=== PATIENT | female | born 1975 | race Caucasian/White ===

== ENCOUNTER 2017-04-17 20:02 | Emergency (ER) | payer OTHER ==
[2017-04-17] MEDS ORDERED: Ketorolac INJ* 30 MG/ML 1 ML VIAL IV ONE (20:47)
[2017-04-17] MEDS ORDERED: diPHENhydraMINE IV* 50 MG/ML 1 ml VIAL (BENADRYL) IV ONE (20:47)
[2017-04-17] MEDS ORDERED: Ondansetron INJ* 2 MG/ML VIAL IV ONE (20:47)
[2017-04-17] MEDS ORDERED: NS 0.9% 1000 ML* 1,000 ML IV ONE (20:47)
--- NOTE | 2017-04-17 21:19 | ED ---
Crispin Sierra Erika, scribed for Napoleon Marley MD on 04/17/17 at 2042 . Headache - HPI Summary HPI Summary: Patient is a 42-year-old female presenting to the ED with a CC of headache. Patient reports she developed a headache at 15:00 today while she was watching TV. Pain is aggravated by light and loud noises. She also reports neck pain and nausea. Pain is not alleviated by ibuprofen. Pt reports a Hx of two neck surgeries, most recently 2 years ago at [facility]. She states a similar headache after that surgery. 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 Hx Last Menstrual Period: 10/05/16 Onset/Duration: Started hours ago, Still Present Currently Pain Is: Moderate Timing: Constant Character: Typical Headache Radiates to: Neck Aggravating Factor: Bright Lights Allevating Factors: Nothing Associated Signs And Symptoms: Nausea - Allergies/Home Medications Allergies/Adverse Reactions: Allergies Allergy/AdvReac Type Severity Reaction Status Date / Time No Known Allergies Allergy Verified 04/13/17 08:49 PMH/Surg Hx/FS Hx/Imm Hx Endocrine/Hematology History: Reports: Hx Anemia Denies: Hx Diabetes Cardiovascular History: Reports: Hx Hypertension - ON MEDS Denies: Hx Pacemaker/ICD Respiratory History: Denies: Hx Asthma History: Denies: Hx Renal Disease Musculoskeletal History: Reports: Hx Arthritis, Hx Back Problems, Other Musculoskeletal History - ARTHROGRIPOSIS Sensory History: Denies: Hx Hearing Aid Neurological History: Reports: Hx Headaches Comment Only: Other Neuro Impairments/Disorders - PAIN CLINIC PT. Psychiatric History: Reports: Hx Depression Denies: Hx Panic Disorder - Surgical History Surgery Procedure, Year, and Place: [facility] , left hip, , CHOLECYSTECTOMY, breast surgery BLOCKED DUCT, neck surgery x2 PLATES SCREWS, LEFT hip replacement, CONGENITAL LEFT HIP DISLOCATION AND REPAIR - Immunization History Date of Tetanus Vaccine: Unk Date of Influenza Vaccine: 09/25/16 Infectious Disease History: No Infectious Disease History: Reports: History Other Infectious Disease - MENINGITIS Denies: Traveled Outside the [place] in Last 30 Days - Family History Known Family History: Negative: Cardiac Disease - Social History Lives: With Family Alcohol Use: Rare Alcohol Amount: once every 2 months Hx Tobacco Use: Yes Smoking Status (MU): Current Every Day Smoker Type: Cigarettes Amount Used/How Often: 2 cigarettes/day Have You Smoked in the Last Year: Yes Review of Systems Positive: Photophobia Positive: Nausea Positive: Headache - radiating to neck, Weakness - L hand All Other Systems Reviewed And Are Negative: Yes Physical Exam Triage Information Reviewed: Yes Vital Signs On Initial Exam: Initial Vitals Temp Pulse Resp BP Pulse Ox 97.6 F 102 16 154/109 98 04/17/17 20:08 04/17/17 20:08 04/17/17 20:08 04/17/17 20:08 04/17/17 20:08 Vital Signs Reviewed: Yes Appearance: Positive: Well-Appearing, No Pain Distress Skin: Positive: Warm Head/Face: Positive: Normal Head/Face Inspection Eyes: Positive: TRAVIS ENT: Positive: Hearing grossly normal Neck: Positive: Supple Respiratory/Lung Sounds: Positive: Clear to Auscultation, Breath Sounds Present Cardiovascular: Positive: RRR Abdomen Description: Positive: Nontender, Soft Bowel Sounds: Positive: Present Musculoskeletal: Positive: Strength/ROM Intact Neurological: Positive: Sensory/Motor Intact, Alert, Oriented to Person Place, Time, Normal Gait Psychiatric: Positive: Affect/Mood Appropriate - [place] Coma Scale Coma Scale Total: 15 Diagnostics - Vital Signs Vital Signs Temp Pulse Resp BP Pulse Ox 04/17/17 20:08 97.6 F 102 16 154/109 98 - Laboratory Lab Statement: Any lab studies that have been ordered have been reviewed, and results considered in the medical decision making process. Re-Evaluation - Re-Evaluation First Eval Change: Improved Headache Course/Dx - Course Assessment/Plan: Pt is a 42 y/o F presenting to the ED with a CC of headache. Patient had a Brain MRI 3 days ago that showed paranasal sinus mucosal disease in this otherwise normal MRI of the brain. In the ED course, patient was given IV fluids, zofran, Benadryl, and Toradol. Symptoms did not fully resolve, so morphine was ordered, but patient declined and requested a hot towel and discharge. Patient was then discharged home with follow up from her PCP. - Diagnoses Provider Diagnoses: Headache Discharge - Discharge Plan Condition: Improved Disposition: HOME Patient Education Materials: General Headache (ED) Referrals: Mandeep Reyes MD [Primary Care Provider] - Additional Instructions: Follow up with your PCP this week. The documentation as recorded by the Crispin novak Erika accurately reflects the service I personally performed and the decisions made by me, Napoleon Marley MD.
[2017-04-17] MEDS ORDERED: Morphine INJ* 4 MG/ML 1 ML SYRINGE IV ONE (22:20)
[2017-04-17 22:53] VITALS: BP 144/76
== END 2017-04-17 23:15 | disposition home or self-care (01) ==
LOC: ED 20:02
DX: R51 Headache (principal); F17.210 Nicotine dependence, cigarettes, uncomplicated; H53.149 Visual discomfort, unspecified; R11.0 Nausea
CPT/HCPCS: 96374; 96375; 99282; J1200; J1885; J2270; J2405

== ENCOUNTER → 2017-05-30 18:54 | Emergency (ER) | payer OTHER ==
[2017-05-30 19:02] VITALS: BP 150/106
== END | disposition left against medical advice (07) ==
LOC: ED 18:54
DX: R07.9 Chest pain, unspecified (principal); R51 Headache; Z53.21 Procedure and treatment not carried out due to patient leaving prior to being seen by health care provider
CPT/HCPCS: 93005

== ENCOUNTER 2017-09-10 20:31 | Emergency (ER) | payer OTHER ==
[2017-09-10 20:38] VITALS: BP 154/97
--- NOTE | 2017-09-10 20:54 | UC ---
UC General HPI - HPI Summary HPI Summary: 42 year old female presents with complains of sinus congestion, body aches and burning throat. - History of Current Complaint Chief Complaint: UCGeneralIllness Stated Complaint: BODY PAIN Time Seen by Provider: 09/10/17 20:54 Hx Obtained From: Patient Hx Last Menstrual Period: 09/10/17 Onset/Duration: Sudden Onset Onset Severity: Moderate Current Severity: Moderate - Allergy/Home Medications Allergies/Adverse Reactions: Allergies Allergy/AdvReac Type Severity Reaction Status Date / Time No Known Allergies Allergy Verified 08/25/17 10:33 Home Medications: Home Medications Cyclobenzaprine (NF) [Cyclobenzaprine 5 MG (NF)] 5 mg PO TID PRN 09/10/17 [ History Confirmed 09/10/17] Diclofenac [Zorvolex] 18 mg PO 09/10/17 [History] PMH/Surg Hx/FS Hx/Imm Hx Previously Healthy: Yes - Surgical History Surgical History: Yes Surgery Procedure, Year, and Place: [facility] , left hip, , CHOLECYSTECTOMY, breast surgery BLOCKED DUCT, neck surgery x2 PLATES SCREWS, LEFT hip replacement, CONGENITAL LEFT HIP DISLOCATION AND REPAIR - Family History Known Family History: Positive: None, Unknown Negative: Cardiac Disease Family History: not aware of any cardio vascular issues in biological lineage - Social History Alcohol Use: None Alcohol Amount: once every 2 months Substance Use Type: None Substance Use Comment - Amount & Last Used: VERY RARELY, LAST TIME 06/2015 Smoking Status (MU): Former Smoker Type: Cigarettes Amount Used/How Often: 2 cigarettes/day Have You Smoked in the Last Year: Yes When Did the Patient Quit Smoking/Using Tobacco: quit today - 04/04/16 Household Exposure Type: Cigarettes - Immunization History Most Recent Influenza Vaccination: not this season Most Recent Tetanus Shot: UTD Review of Systems Constitutional: Negative Skin: Negative Eyes: Negative ENT: Sore Throat, Sinus Congestion, Sinus Pain/Tenderness Respiratory: Cough Cardiovascular: Negative Gastrointestinal: Negative Genitourinary: Negative Motor: Negative Neurovascular: Negative Musculoskeletal: Negative Neurological: Negative Psychological: Negative All Other Systems Reviewed And Are Negative: Yes Physical Exam Triage Information Reviewed: Yes Appearance: Well-Appearing Vital Signs: Initial Vital Signs Temp 36.7 C 09/10/17 20:34 Pulse 120 09/10/17 20:34 Resp 18 09/10/17 20:34 BP 154/97 09/10/17 20:34 Pulse Ox 100 09/10/17 20:34 Vital Signs Reviewed: Yes Eye Exam: Normal ENT: Positive: Pharyngeal erythema, Nasal congestion, Nasal drainage Dental Exam: Normal Neck exam: Normal Neck: Positive: 1 Respiratory: Positive: Wheezing Cardiovascular Exam: Normal Abdominal Exam: Normal Musculoskeletal Exam: Normal Neurological Exam: Normal Psychological Exam: Normal Skin Exam: Normal Course/Dx - Differential Dx - Multi-Symptom Provider Diagnoses: sinusitis. cough. wheezing Discharge - Discharge Plan Condition: Stable Disposition: HOME Prescriptions: Albuterol HFA INHALER* [Ventolin HFA Inhaler*] 1 puff INH Q6H PRN #1 mdi PRN Reason: Wheezing Amoxicillin/Clavulanate TAB* [Augmentin TAB 875*] 875 mg PO BID #20 tab Methylprednisolone [Medrol Dosepak 4 MG*] 4 mg PO .SEE BROCK INSTRUCTION #21 tab Promethazine-Dm [Promethazine/Dextromethor 6.25-15 mg/5Ml] 1 teasp PO Q8H PRN # 120 ml PRN Reason: Cough Patient Education Materials: Sinusitis (ED), Cold Symptoms (ED), Acute Cough ( ED) Referrals: No Primary Care Phys,NOPCP [Primary Care Provider] -
[2017-09-10] MEDS ORDERED: Amoxicillin/Clavulanate TAB* 875 MG PO ONE (21:36)
[2017-09-10] MEDS ORDERED: guaiFENesin LIQ* 100 MG/5 ML UDC PO ONE (21:37)
[2017-09-10] MEDS ORDERED: predniSONE TAB* 20 MG PO ONE (21:37)
== END 2017-09-10 21:50 | disposition home or self-care (01) ==
LOC: UCEAST 20:31
DX: J32.9 Chronic sinusitis, unspecified (principal); R05 Cough; R06.2 Wheezing
CPT/HCPCS: 87502; 99212; A9270-GY; G0463; J7512

== ENCOUNTER 2017-11-16 17:33 | Emergency (ER) | payer OTHER ==
[2017-11-16] MEDS ORDERED: diPHENhydraMINE IV* 50 MG/ML 1 ml VIAL (BENADRYL) IV ONE (18:40)
[2017-11-16] MEDS ORDERED: NS 0.9% 1000 ML* 1,000 ML IV ONE (18:40)
[2017-11-16] MEDS ORDERED: Ketorolac INJ* 30 MG/ML 1 ML VIAL IV PUSH ONE (18:40)
[2017-11-16] MEDS ORDERED: Metoclopramide IV* 5 MG/ML 2 ML VIAL IV ONE (18:40)
[2017-11-16 19:11] LABS: ABS Basophils 0.2 10^3/ul (0-0.2); ABS Eosinophils 0.3 10^3/ul (0-0.6); ABS Lymphocytes 3.1 10^3/ul (1.0-4.8); ABS Monocytes 0.7 10^3/ul (0-0.8); ABS Neutrophils 8.4 10^3/ul (1.5-7.7); ABS Nucleated RBC 0 10^3/ul; Eosinophil % 2.4 % (0-6); Hematocrit 36 % (35-47); Hemoglobin 12.2 g/dl (12.0-16.0); Lymphocyte % 24.3 % (25-47); Mean Corpuscular HGB Conc 34 g/dl (31-36); Mean Corpuscular Hemoglobin 28 pg (27-31); Mean Corpuscular Volume 83 fL (80-97); Mean Platelet Volume 7 um3 (7.4-10.4); Nucleated Red Blood Cells % 0; Platelet Count 398 10^3/ul (150-450); Red Blood Count 4.39 10^6/ul (4.0-5.4); Red Cell Distribution Width 14 % (10.5-15); White Blood Count 12.6 10^3/ul (3.5-10.8)
[2017-11-16 19:25] LABS: EGFR Non-African American 89.3 (>60)
--- NOTE | 2017-11-16 19:43 | RAD ---
INDICATION: Headache for 2 months. COMPARISON: Comparison is made with a prior MRI of the brain from April 14, 2017. TECHNIQUE: Contiguous axial sections of the brain were obtained from the skull base to the vertex without contrast. FINDINGS: The ventricles, cisterns and sulci are within normal limits. No significant focal abnormality or mass effect is seen. There is no evidence for hemorrhage. No significant focal osseous abnormality is seen. The visualized portion of the paranasal sinuses and mastoid air cells appear clear. IMPRESSION: NO EVIDENCE FOR ACUTE INTRACRANIAL ABNORMALITY.
[2017-11-16 20:19] VITALS: BP 136/82
--- NOTE | 2017-11-16 21:24 | ED ---
Felipe Sierra Gabriel, scribed for Huber Parson MD on 11/16/17 at 1920 . Headache - HPI Summary HPI Summary: This patient is a 42 year old F presenting to [facility] with a chief complaint of BUNN since 2 months, that is worse in the last week. The patient rates the pain 10 /10 in severity and located throughout the whole head but mostly behind the left eye. Patient reports blurry vision and light sensitivity. Patient denies n/ v and fever. - History Of Current Complaint Chief Complaint: EDHypertension Stated Complaint: HIGH BLOOD PRESSURE/HEADACHE Time Seen by Provider: 11/16/17 18:31 Hx Obtained From: Patient Hx Last Menstrual Period: 09/10/17 Onset/Duration: Started weeks ago - 1 Initially Headache Was: Moderate Currently Pain Is: Moderate Timing: Constant Location of Headache: Other: - behind left eye Aggravating Factor: Bright Lights Allevating Factors: Nothing Associated Signs And Symptoms: Visual Changes - blurry - Allergies/Home Medications Allergies/Adverse Reactions: Allergies Allergy/AdvReac Type Severity Reaction Status Date / Time No Known Allergies Allergy Verified 11/16/17 11:01 PMH/Surg Hx/FS Hx/Imm Hx Previously Healthy: No Endocrine/Hematology History: Reports: Hx Anemia Denies: Hx Diabetes Cardiovascular History: Reports: Hx Hypertension - ON MEDS Denies: Hx Pacemaker/ICD Respiratory History: Denies: Hx Asthma History: Denies: Hx Renal Disease Musculoskeletal History: Reports: Hx Arthritis, Hx Back Problems, Other Musculoskeletal History - ARTHROGRIPOSIS Sensory History: Denies: Hx Hearing Aid Neurological History: Reports: Hx Headaches Comment Only: Other Neuro Impairments/Disorders - PAIN CLINIC PT. Psychiatric History: Reports: Hx Depression Denies: Hx Panic Disorder - Surgical History Surgery Procedure, Year, and Place: [facility] , left hip, , CHOLECYSTECTOMY, breast surgery BLOCKED DUCT, neck surgery x2 PLATES SCREWS, LEFT hip replacement, CONGENITAL LEFT HIP DISLOCATION AND REPAIR - Immunization History Date of Tetanus Vaccine: Unk Date of Influenza Vaccine: 09/25/16 Infectious Disease History: No Infectious Disease History: Reports: History Other Infectious Disease - MENINGITIS Denies: Traveled Outside the [place] in Last 30 Days - Family History Known Family History: Negative: Cardiac Disease Family History: not aware of any cardio vascular issues in biological lineage - Social History Alcohol Use: None Alcohol Amount: once every 2 months Substance Use Type: Reports: None Substance Use Comment - Amount & Last Used: VERY RARELY, LAST TIME 06/2015 Hx Tobacco Use: Yes Smoking Status (MU): Former Smoker Type: Cigarettes Amount Used/How Often: 2 cigarettes/day Have You Smoked in the Last Year: Yes Review of Systems Negative: Fever Positive: Photophobia, Blurred Vision Negative: Vomiting, Nausea Positive: Headache All Other Systems Reviewed And Are Negative: Yes Physical Exam - Summary Physical Exam Summary: Appearance: Well appearing, no pain distress Skin: warm, dry, reflects adequate perfusion Head/face: normal Eyes: EOMI, TRAVIS ENT: normal Neck: supple, non-tender Respiratory: CTA, breath sounds present Cardiovascular: Tachycardic but regular, pulses symmetrical Abdomen: non-tender, soft Bowel: present Musculoskeletal: normal, strength/ROM intact Neuro: normal, sensory motor intact, A&Ox3 Triage Information Reviewed: Yes Vital Signs On Initial Exam: Initial Vitals Temp Pulse Resp BP Pulse Ox 97.6 F 106 20 153/121 100 11/16/17 17:34 11/16/17 17:34 11/16/17 17:34 11/16/17 17:34 11/16/17 17:34 Vital Signs Reviewed: Yes - [place]vira Coma Scale Coma Scale Total: 15 Diagnostics - Vital Signs Vital Signs Temp Pulse Resp BP Pulse Ox 11/16/17 19:00 94 99 11/16/17 18:36 106 97 11/16/17 18:34 130/89 11/16/17 17:34 97.6 F 106 20 153/121 100 - Laboratory Lab Results: Lab Results 11/16/17 Range/Units 19:02 WBC 12.6 H (3.5-10.8) 10^3/ul RBC 4.39 (4.0-5.4) 10^6/ul Hgb 12.2 (12.0-16.0) g/dl Hct 36 (35-47) % MCV 83 (80-97) fL MCH 28 (27-31) pg MCHC 34 (31-36) g/dl RDW 14 (10.5-15) % Plt Count 398 (150-450) 10^3/ul MPV 7 L (7.4-10.4) um3 Neut % (Auto) 66.4 (38-83) % Lymph % (Auto) 24.3 L (25-47) % Hart % (Auto) 5.5 (1-9) % Eos % (Auto) 2.4 (0-6) % Baso % (Auto) 1.4 (0-2) % Absolute Neuts (auto) 8.4 H (1.5-7.7) 10^3/ul Absolute Lymphs (auto) 3.1 (1.0-4.8) 10^3/ul Absolute Monos (auto) 0.7 (0-0.8) 10^3/ul Absolute Eos (auto) 0.3 (0-0.6) 10^3/ul Absolute Basos (auto) 0.2 (0-0.2) 10^3/ul Absolute Nucleated RBC 0 10^3/ul Nucleated RBC % 0 Result Diagrams: 11/16/17 19:02 11/16/17 19:02 Lab Statement: Any lab studies that have been ordered have been reviewed, and results considered in the medical decision making process. - CT CT Head CT Interpretation Completed By: Radiologist - NO EVIDENCE FOR ACUTE INTRACRANIAL ABNORMALITY. ED physician has reviewed this radiology report. Re-Evaluation - Re-Evaluation First Eval Re-Evaluation Time: 20:08 Change: Improved - Patient has a normal BP and her headache has resolved. Headache Course/Dx - Course Course Of Treatment: pt with chronic pain syndrome now with chronic BUNN. BP up today with exacerbation of BUNN. BUNN treated and BP normalized. BUNN now gone. Tx symptomatically. Refer back to PMD. - Diagnoses Provider Diagnoses: Generalized headache, Elevated blood pressure reading, Chronic pain syndrome Discharge - Discharge Plan Condition: Good Disposition: HOME Prescriptions: Promethazine HCl 25 mg PO Q6H PRN #20 tab PRN Reason: headache/nausea Patient Education Materials: General Headache (ED) Referrals: Napoleon Bhat MD [Medical Doctor] - Rafy May MD [Primary Care Provider] - Additional Instructions: Call your doctor in the morning for reevaluation. Drink plenty of fluids. Medication prescribed can cause drowsiness. Do not drive while taking. Medication can be taken along with ibuprofen, benadryl and some caffeine for headaches that are more severe. Return if worse, new numbness/weakness, new symptoms or other concerns. The documentation as recorded by the Felipe novak Gabriel accurately reflects the service I personally performed and the decisions made by me, Huber Parson MD.
== END 2017-11-16 20:22 | disposition home or self-care (01) ==
LOC: ED 17:33
DX: R51 Headache (principal); I10 Essential (primary) hypertension; G89.4 Chronic pain syndrome; Z87.891 Personal history of nicotine dependence
CPT/HCPCS: 36415; 70450; 80048; 83036; 84702; 85025; 96361; 96374; 96375; 99283; J1200; J1885; J2765

== ENCOUNTER 2017-11-28 15:56 | Emergency (ER) | payer OTHER ==
[2017-11-28 18:33] LABS: ABS Basophils 0.1 10^3/ul (0-0.2); ABS Eosinophils 0.2 10^3/ul (0-0.6); ABS Lymphocytes 2.8 10^3/ul (1.0-4.8); ABS Monocytes 0.8 10^3/ul (0-0.8); ABS Neutrophils 6.5 10^3/ul (1.5-7.7); ABS Nucleated RBC 0 10^3/ul; Eosinophil % 2.4 % (0-6); Hematocrit 40 % (35-47); Hemoglobin 13.1 g/dl (12.0-16.0); Lymphocyte % 26.9 % (25-47); Mean Corpuscular HGB Conc 33 g/dl (31-36); Mean Corpuscular Hemoglobin 27 pg (27-31); Mean Corpuscular Volume 82 fL (80-97); Mean Platelet Volume 7 um3 (7.4-10.4); Nucleated Red Blood Cells % 0.1; Platelet Count 409 10^3/ul (150-450); Red Blood Count 4.85 10^6/ul (4.0-5.4); Red Cell Distribution Width 14 % (10.5-15); White Blood Count 10.4 10^3/ul (3.5-10.8)
[2017-11-28 18:45] LABS: EGFR Non-African American 92.2 (>60)
[2017-11-28 20:58] LABS: Urine Appearance Cloudy; Urine Blood 1+ (Negative); Urine Color Yellow; Urine Ketones Negative (Negative); Urine Protein Negative (Negative); Urine Specific Gravity 1.021 (1.010-1.030); Urine Urobilinogen Negative (Negative)
--- NOTE | 2017-11-28 21:33 | ED ---
Gsu Sierra Julia, scribed for Fran Sharp MD on 11/28/17 at 1703 . Substance Abuse/Use - HPI Summary HPI Summary: This patient is a 42 year old F BIBA to [facility] due to a Klonopin overdose. Patient took 4 10mg tablets at approximately 15:00 today. Patient took these to get high. Patient reports she is not sure what happens. EMS reports patient attempted to eat oximeter because she believed it was ice cream. Patient denies SI. - History Of Current Complaint Chief Complaint: EDOverdose Stated Complaint: OVERDOSE Time Seen by Provider: 11/28/17 16:17 Hx Obtained From: Patient, EMS Hx Last Menstrual Period: 09/10/17 Onset/Duration of Drug/ETOH Abuse: Hours Overdose Characteristics: Oral Character: Stuporous Associated Signs And Symptoms: Hallucinating - Allergies/Home Medications Allergies/Adverse Reactions: Allergies Allergy/AdvReac Type Severity Reaction Status Date / Time No Known Allergies Allergy Verified 11/16/17 11:01 PMH/Surg Hx/FS Hx/Imm Hx Endocrine/Hematology History: Reports: Hx Anemia Denies: Hx Diabetes Cardiovascular History: Reports: Hx Hypertension - ON MEDS Denies: Hx Pacemaker/ICD Respiratory History: Denies: Hx Asthma History: Denies: Hx Renal Disease Musculoskeletal History: Reports: Hx Arthritis, Hx Back Problems, Other Musculoskeletal History - ARTHROGRIPOSIS Sensory History: Denies: Hx Hearing Aid Neurological History: Reports: Hx Headaches Comment Only: Other Neuro Impairments/Disorders - PAIN CLINIC PT. Psychiatric History: Reports: Hx Depression Denies: Hx Panic Disorder - Surgical History Surgery Procedure, Year, and Place: [facility] , left hip, , CHOLECYSTECTOMY, breast surgery BLOCKED DUCT, neck surgery x2 PLATES SCREWS, LEFT hip replacement, CONGENITAL LEFT HIP DISLOCATION AND REPAIR - Immunization History Date of Tetanus Vaccine: Unk Date of Influenza Vaccine: 09/25/16 Infectious Disease History: No Infectious Disease History: Reports: History Other Infectious Disease - MENINGITIS Denies: Traveled Outside the [place] in Last 30 Days - Family History Known Family History: Negative: Cardiac Disease Family History: not aware of any cardio vascular issues in biological lineage - Social History Alcohol Use: None Alcohol Amount: once every 2 months Hx Substance Use: Yes Substance Use Type: Reports: Other - Klonopan Substance Use Comment - Amount & Last Used: VERY RARELY, LAST TIME 06/2015 Hx Tobacco Use: Yes Smoking Status (MU): Former Smoker Type: Cigarettes Amount Used/How Often: 2 cigarettes/day Have You Smoked in the Last Year: Yes Review of Systems Negative: Fever Positive: Slurred Speech All Other Systems Reviewed And Are Negative: Yes Physical Exam - Summary Physical Exam Summary: Appearance: The patient is well-nourished in no acute distress and in no acute pain. Skin: The skin is warm and dry and skin color reflects adequate perfusion. HEENT: The head is normocephalic and atraumatic. The pupils are equal at 1mm and reactive. The conjunctivae are clear and without drainage. Nares are patent and without drainage. Mouth reveals moist mucous membranes and the throat is without erythema and exudate. The external ears are intact. The ear canals are patent and without drainage. The tympanic membranes are intact. Neck: the neck is supple with full range of motion and non-tender. There are no carotid bruits. There is no neck vein distension. Respiratory: Chest is non-tender. Lungs are clear to auscultation and breath sounds are symmetrical and equal. Cardiovascular: Heart is regular rate and rhythm. There is no murmur or rub auscultated. There is no peripheral edema and pulses are symmetrical and equal. Abdomen: The abdomen is soft and non-tender. There are normal bowel sounds heard in all four quadrants and there is no organomegaly palpated. Musculoskeletal: There is no back tenderness noted. Extremities are non-tender with full range of motion. There is good capillary refill. There is no peripheral edema or calf tenderness elicited. Neurological: Patient is alert and oriented to person, place and time. The patient has symmetrical motor strength in all four extremities. Cranial nerves are grossly intact. Deep tendon reflexes are symmetrical and equal in all four extremities. Psychiatric: The patient is stuporous and arises to voice. Does not exhibit any anxiety or depression. Triage Information Reviewed: Yes Vital Signs On Initial Exam: Initial Vitals Temp Pulse Resp BP Pulse Ox 98.3 F 118 18 102/74 100 11/28/17 16:19 11/28/17 16:19 11/28/17 16:19 11/28/17 16:19 11/28/17 16:19 Vital Signs Reviewed: Yes - Conrad Coma Scale Coma Scale Total: 13 Diagnostics - Vital Signs Vital Signs Temp Pulse Resp BP Pulse Ox 11/28/17 16:19 98.3 F 118 18 102/74 100 - Laboratory Lab Results: Lab Results 11/28/17 11/28/17 11/28/17 Range/Units 18:19 18:19 18:19 WBC 10.4 (3.5-10.8) 10^3/ul RBC 4.85 (4.0-5.4) 10^6/ul Hgb 13.1 (12.0-16.0) g/dl Hct 40 (35-47) % MCV 82 (80-97) fL MCH 27 (27-31) pg MCHC 33 (31-36) g/dl RDW 14 (10.5-15) % Plt Count 409 (150-450) 10^3/ul MPV 7 L (7.4-10.4) um3 Neut % (Auto) 62.4 (38-83) % Lymph % (Auto) 26.9 (25-47) % [place] % (Auto) 7.3 (1-9) % Eos % (Auto) 2.4 (0-6) % Baso % (Auto) 1.0 (0-2) % Absolute Neuts (auto) 6.5 (1.5-7.7) 10^3/ul Absolute Lymphs (auto) 2.8 (1.0-4.8) 10^3/ul Absolute Monos (auto) 0.8 (0-0.8) 10^3/ul Absolute Eos (auto) 0.2 (0-0.6) 10^3/ul Absolute Basos (auto) 0.1 (0-0.2) 10^3/ul Absolute Nucleated RBC 0 10^3/ul Nucleated RBC % 0.1 Sodium 134 (133-145) mmol/L Potassium 3.6 (3.5-5.0) mmol/L Chloride 100 L (101-111) mmol/L Carbon Dioxide 25 (22-32) mmol/L Anion Gap 9 (2-11) mmol/L BUN 12 (6-24) mg/dL Creatinine 0.70 (0.51-0.95) mg/dL Est GFR ( Amer) 118.6 (>60) Est GFR (Non-Af Amer) 92.2 (>60) BUN/Creatinine Ratio 17.1 (8-20) Glucose 123 H (70-100) mg/dL Lactic Acid 1.9 (0.5-2.0) mmol/L Calcium 9.4 (8.6-10.3) mg/dL Total Bilirubin 0.20 (0.2-1.0) mg/dL AST 19 (13-39) U/L ALT 16 (7-52) U/L Alkaline Phosphatase 78 (34-104) U/L Total Protein 7.5 (6.4-8.9) g/dL Albumin 3.9 (3.2-5.2) g/dL Globulin 3.6 (2-4) g/dL Albumin/Globulin Ratio 1.1 (1-3) Beta HCG, Quant 0.75 mIU/mL Urine Color Urine Appearance Urine pH (5-9) Ur Specific [place] (1.010-1.030) Urine Protein (Negative) Urine Ketones (Negative) Urine Blood (Negative) Urine Nitrate (Negative) Urine Bilirubin (Negative) Urine Urobilinogen (Negative) Ur Leukocyte Esterase (Negative) Urine WBC (Auto) (Absent) Urine RBC (Auto) (Absent) Ur Squamous Epith Cells (Absent) Urine Bacteria (Absent) Urine Glucose (Negative) Salicylates < 2.50 (<30) mg/dL Urine Opiates Screen (None Detect) Acetaminophen < 15 mcg/mL Ur Barbiturates Screen (None Detect) Ur Phencyclidine Scrn (None Detect) Ur Amphetamines Screen (None Detect) U Benzodiazepines Scrn (None Detect) Urine Cocaine Screen (None Detect) U Cannabinoids Screen (None Detect) Serum Alcohol < 10 (<10) mg/dL 11/28/17 11/28/17 Range/Units 20:43 20:43 WBC (3.5-10.8) 10^3/ul RBC (4.0-5.4) 10^6/ul Hgb (12.0-16.0) g/dl Hct (35-47) % MCV (80-97) fL MCH (27-31) pg MCHC (31-36) g/dl RDW (10.5-15) % Plt Count (150-450) 10^3/ul MPV (7.4-10.4) um3 Neut % (Auto) (38-83) % Lymph % (Auto) (25-47) % [place] % (Auto) (1-9) % Eos % (Auto) (0-6) % Baso % (Auto) (0-2) % Absolute Neuts (auto) (1.5-7.7) 10^3/ul Absolute Lymphs (auto) (1.0-4.8) 10^3/ul Absolute Monos (auto) (0-0.8) 10^3/ul Absolute Eos (auto) (0-0.6) 10^3/ul Absolute Basos (auto) (0-0.2) 10^3/ul Absolute Nucleated RBC 10^3/ul Nucleated RBC % Sodium (133-145) mmol/L Potassium (3.5-5.0) mmol/L Chloride (101-111) mmol/L Carbon Dioxide (22-32) mmol/L Anion Gap (2-11) mmol/L BUN (6-24) mg/dL Creatinine (0.51-0.95) mg/dL Est GFR ( Amer) (>60) Est GFR (Non-Af Amer) (>60) BUN/Creatinine Ratio (8-20) Glucose (70-100) mg/dL Lactic Acid (0.5-2.0) mmol/L Calcium (8.6-10.3) mg/dL Total Bilirubin (0.2-1.0) mg/dL AST (13-39) U/L ALT (7-52) U/L Alkaline Phosphatase (34-104) U/L Total Protein (6.4-8.9) g/dL Albumin (3.2-5.2) g/dL Globulin (2-4) g/dL Albumin/Globulin Ratio (1-3) Beta HCG, Quant mIU/mL Urine Color Yellow Urine Appearance Cloudy Urine pH 6.0 (5-9) Ur Specific [place] 1.021 (1.010-1.030) Urine Protein Negative (Negative) Urine Ketones Negative (Negative) Urine Blood 1+ H (Negative) Urine Nitrate Negative (Negative) Urine Bilirubin Negative (Negative) Urine Urobilinogen Negative (Negative) Ur Leukocyte Esterase 3+ H (Negative) Urine WBC (Auto) 2+(11-20/hpf) H (Absent) Urine RBC (Auto) 1+(3-5/hpf) H (Absent) Ur Squamous Epith Cells Present H (Absent) Urine Bacteria Absent (Absent) Urine Glucose Negative (Negative) Salicylates (<30) mg/dL Urine Opiates Screen None detected (None Detect) Acetaminophen mcg/mL Ur Barbiturates Screen None detected (None Detect) Ur Phencyclidine Scrn None detected (None Detect) Ur Amphetamines Screen None detected (None Detect) U Benzodiazepines Scrn None detected (None Detect) Urine Cocaine Screen None detected (None Detect) U Cannabinoids Screen None detected (None Detect) Serum Alcohol (<10) mg/dL Result Diagrams: 11/28/17 18:19 11/28/17 18:19 Lab Statement: Any lab studies that have been ordered have been reviewed, and results considered in the medical decision making process. - EKG 17:09 Cardiac Rate: Tachycardia EKG Rhythm: Sinus Tachycardia - at 106 BPM EKG Interpretation: probable LVH Course/Dx - Course Course Of Treatment: Ms. Payne presented stuporous from an OD of Klonopin. She was observed for 6 hours and woke up fine and remained stable. She is medically cleared and awaiting a MHE. - Diagnoses Provider Diagnoses: Overdose Discharge - Discharge Plan Condition: Stable Disposition: OTHER Discharge Disposition Comment: Signed out to Dr. Payan at change of shift. Referrals: Rafy May MD [Primary Care Provider] - The documentation as recorded by the Gus novak Julia accurately reflects the service I personally performed and the decisions made by me, Fran Sharp MD.
[2017-11-28 23:15] VITALS: BP 126/81
== END 2017-11-28 23:10 ==
LOC: ED 15:56
DX: T42.4X1A Poisoning by benzodiazepines, accidental (unintentional), initial encounter (principal); R47.81 Slurred speech; Z87.891 Personal history of nicotine dependence; Y92.9 Unspecified place or not applicable; R44.3 Hallucinations, unspecified
CPT/HCPCS: 36415; 80053; 80307; 80320; 80329; 81003; 81015; 83605; 84702; 85025; 87086; 93005; 99285; G0480

== ENCOUNTER 2018-06-12 20:00 | Emergency (ER) | payer OTHER ==
[2018-06-12 20:12] VITALS: BP 151/81
--- NOTE | 2018-06-12 20:35 | ED ---
Headache - HPI Summary HPI Summary: Called to bedside by the nurse, pt c/o worst BUNN of her life, >10/10 currently but has had intermittent BUNN x 3 days, took Percocet 3 hrs ago but stilll has intractable pain with nausea, becoming more diaphoretic, tachycardic in 100's BP 150's/100's. Denies weakness or sensory changes, denies f/c - History Of Current Complaint Chief Complaint: UCHeadache Stated Complaint: BUNN, TROUBLE BREATHING Time Seen by Provider: 06/12/18 20:19 Hx Obtained From: Patient Hx Last Menstrual Period: early 05/2018 Onset/Duration: Sudden Onset, Gradual Onset, Started days ago Initially Headache Was: "Worst Headache Ever" Timing: Constant, Intermittent, Lasting: Character: Sharp, Dull, Throbbing Location of Headache: Frontal - Allergies/Home Medications Allergies/Adverse Reactions: Allergies Allergy/AdvReac Type Severity Reaction Status Date / Time No Known Allergies Allergy Verified 06/12/18 20:12 Home Medications: Home Medications Ibuprofen TAB* [Motrin TAB* 600 MG] 600 mg PO BID 06/12/18 [History Confirmed ] Topiramate TAB(*) [Topamax 100 mg tab] 100 mg PO BEDTIME 06/12/18 [History Confirmed 06/12/18] PMH/Surg Hx/FS Hx/Imm Hx Previously Healthy: No Endocrine/Hematology History: Reports: Hx Anemia Denies: Hx Diabetes Cardiovascular History: Reports: Hx Hypertension - ON MEDS Denies: Hx Pacemaker/ICD Respiratory History: Denies: Hx Asthma History: Denies: Hx Renal Disease Musculoskeletal History: Reports: Hx Arthritis, Hx Back Problems, Other Musculoskeletal History - ARTHROGRIPOSIS Sensory History: Denies: Hx Hearing Aid Neurological History: Reports: Hx Headaches Comment Only: Other Neuro Impairments/Disorders - PAIN CLINIC PT. Psychiatric History: Reports: Hx Depression Denies: Hx Eating Disorder, Hx Panic Disorder - Surgical History Surgery Procedure, Year, and Place: [facility] , left hip, , CHOLECYSTECTOMY, breast surgery BLOCKED DUCT, neck surgery x2 PLATES SCREWS, LEFT hip replacement, CONGENITAL LEFT HIP DISLOCATION AND REPAIR - Immunization History Date of Tetanus Vaccine: Unk Date of Influenza Vaccine: 09/25/16 Infectious Disease History: No Infectious Disease History: Reports: History Other Infectious Disease - MENINGITIS Denies: Traveled Outside the [place] in Last 30 Days - Family History Known Family History: Positive: None, Unknown Negative: Cardiac Disease Family History: not aware of any cardio vascular issues in biological lineage - Social History Alcohol Use: None Alcohol Amount: once every 2 months Hx Substance Use: Yes Substance Use Type: Reports: None Substance Use Comment - Amount & Last Used: VERY RARELY, LAST TIME 06/2015 Hx Tobacco Use: Yes Smoking Status (MU): Former Smoker Type: eCigarettes Amount Used/How Often: 2 cigarettes/day Have You Smoked in the Last Year: Yes Review of Systems - ROS Summary Review of Systems Summary: Worst BUNN of her life Constitutional: Negative Eyes: Negative ENT: Negative Cardiovascular: Negative Respiratory: Negative Gastrointestinal: Negative Musculoskeletal: Negative Positive: Headache. Negative: Weakness, Paresthesia, Numbness, Slurred Speech Psychological: Normal All Other Systems Reviewed And Are Negative: Yes Physical Exam - Summary Physical Exam Summary: Vital Signs Reviewed: Yes Appearance: Positive: Diaphoretic, Skin: Positive: Warm, diaphoretic Head/Face: Positive: Normal Head/Face Inspection Eyes: Positive: Normal, EOMI, TRAVIS ENT: Positive: Normal ENT inspection Neck: Positive: Supple Respiratory/Lung Sounds: Positive: Clear to Auscultation Cardiovascular: Positive: Normal, RRR, S1, S2, tachycardic 100's Abdomen Description: Positive: Nontender, Soft Musculoskeletal: Positive: Normal Neurological: Positive: CN 2-12 intact, Neg facial asymmetry, dental amalgam processor strength 4/ 5 on right 3/5in left, neg sensory changes Psychiatric: Positive: Normal Triage Information Reviewed: Yes Vital Signs On Initial Exam: Initial Vitals Temp Pulse Resp BP Pulse Ox 36.6 C 101 18 151/81 100 06/12/18 20:05 06/12/18 20:05 06/12/18 20:05 06/12/18 20:05 06/12/18 20:05 Diagnostics - Vital Signs Vital Signs Temp Pulse Resp BP Pulse Ox 06/12/18 20:05 36.6 C 101 18 151/81 100 - Laboratory Lab Statement: Any lab studies that have been ordered have been reviewed, and results considered in the medical decision making process. Headache Course/Dx - Course Course Of Treatment: Called to bedside by the nurse, pt c/o worst BUNN of her life , >10/10 currently but has had intermittent BUNN x 3 days, took Percocet 3 hrs ago but still has intractable pain. Ambulance called to take pt to an ER facility with CT scan, need to r/o SAH and need tx for intractable BUNN. Ambulance informed that [facility]'s CT head is down, then suggested [facility], but then the pt wanted to go to [facility] as she lives [facility] to [facility]. Cancelled transfer to [facility] - Diagnoses Provider Diagnoses: Intractable headache Discharge - Sign-Out/Discharge Documenting (check all that apply): Patient Departure - Discharge Plan Condition: Stable Disposition: TRANS HIGHER LVL OF CARE FAC Referrals: Rafy May MD [Primary Care Provider] - - Billing Disposition and Condition Condition: STABLE Disposition: Trans Higher Lvl of Care Fac
== END 2018-06-12 20:29 | disposition short-term general hospital (02) ==
LOC: UCCORT 20:00
DX: R51 Headache (principal); Z87.891 Personal history of nicotine dependence
CPT/HCPCS: 99213; G0463

== ENCOUNTER 2018-06-12 21:11 | Emergency (ER) | payer OTHER ==
[2018-06-12] MEDS ORDERED: Ketorolac INJ* 30 MG/ML 1 ML VIAL IV PUSH ONE (21:55)
[2018-06-12] MEDS ORDERED: Metoclopramide IV* 5 MG/ML 2 ML VIAL IV SLOW PU ONE (21:55)
[2018-06-12] MEDS ORDERED: diPHENhydraMINE IV* 50 MG/ML 1 ml VIAL (BENADRYL) SLOW PUSH ONE (21:55)
[2018-06-12] MEDS ORDERED: NS 0.9% 1000 ML* 1,000 ML IV ONE (21:55)
--- NOTE | 2018-06-12 21:59 | ED ---
Headache - HPI Summary HPI Summary: This is kishore Ellison documenting for attending physician Milana Haley M.D. Pt is a 43 y/o female who presents to [facility] c/o migraine for 2 days. She states she gets regular headaches daily, and has had one migraine before, but nothing as bad as this one. Pt c/o nausea, photophobia, dizziness, and intermittent diarrhea. Pt took Ibuprofen and Percocet, which didnt alleviate any symptoms. The pain is described as 10/10 in severity. - History Of Current Complaint Chief Complaint: EDHeadache Stated Complaint: HEADACHE Time Seen by Provider: 06/12/18 21:41 Hx Obtained From: Patient Hx Last Menstrual Period: early 05/2018 Onset/Duration: Gradual Onset, Started days ago - 2, Still Present Currently Pain Is: Current Pain Scale(0-10)= - 10 Timing: Constant Character: Migraine Location of Headache: Diffuse Aggravating Factor: Bright Lights Allevating Factors: Nothing Associated Signs And Symptoms: Dizziness, Nausea, Other (Noted In Comments) - Photophobia, intermittent diarrhea Related History: Similar Episode/DX As: - Headaches - Allergies/Home Medications Allergies/Adverse Reactions: Allergies Allergy/AdvReac Type Severity Reaction Status Date / Time No Known Allergies Allergy Verified 06/12/18 20:12 PMH/Surg Hx/FS Hx/Imm Hx Endocrine/Hematology History: Reports: Hx Anemia Denies: Hx Diabetes Cardiovascular History: Reports: Hx Hypertension - ON MEDS Denies: Hx Pacemaker/ICD Respiratory History: Denies: Hx Asthma GI History: Reports: Other GI Disorders - Cholecystectomy History: Denies: Hx Renal Disease Musculoskeletal History: Reports: Hx Arthritis, Hx Back Problems, Other Musculoskeletal History - ARTHROGRIPOSIS Sensory History: Denies: Hx Hearing Aid Neurological History: Reports: Hx Headaches Comment Only: Other Neuro Impairments/Disorders - PAIN CLINIC PT. Psychiatric History: Reports: Hx Depression Denies: Hx Eating Disorder, Hx Panic Disorder - Surgical History Surgery Procedure, Year, and Place: [facility] , left hip, , CHOLECYSTECTOMY, breast surgery BLOCKED DUCT, neck surgery x2 PLATES SCREWS, LEFT hip replacement, CONGENITAL LEFT HIP DISLOCATION AND REPAIR - Immunization History Date of Tetanus Vaccine: Unk Date of Influenza Vaccine: 09/25/16 Infectious Disease History: No Infectious Disease History: Reports: History Other Infectious Disease - MENINGITIS Denies: Traveled Outside the [place] in Last 30 Days - Family History Known Family History: Negative: Cardiac Disease Family History: not aware of any cardio vascular issues in biological lineage - Social History Alcohol Use: None Alcohol Amount: once every 2 months Hx Substance Use: Yes Substance Use Type: Reports: None Substance Use Comment - Amount & Last Used: VERY RARELY, LAST TIME 06/2015 Hx Tobacco Use: Yes Smoking Status (MU): Former Smoker Type: eCigarettes Amount Used/How Often: 2 cigarettes/day Have You Smoked in the Last Year: Yes Review of Systems Positive: Photophobia Positive: Diarrhea, Nausea Positive: Headache All Other Systems Reviewed And Are Negative: Yes Physical Exam - Summary Physical Exam Summary: VITAL SIGNS: Reviewed. GENERAL: Patient is a well-developed and nourished FEMALE who is lying comfortable in the stretcher. Patient is not in any acute respiratory distress. HEAD AND FACE: No signs of trauma. No ecchymosis, hematomas or skull depressions. No sinus tenderness. EYES: PERRLA, EOMI x 2, No injected conjunctiva, no nystagmus. Photophobia. EARS: Hearing grossly intact. Ear canals and tympanic membranes are within normal limits. MOUTH: Oropharynx within normal limits. NECK: Supple, trachea is midline, no adenopathy, no JVD, no carotid bruit, no c- spine tenderness. Decreased ROM due to fusion of the c-spine. CHEST: Symmetric, no tenderness at palpation LUNGS: Clear to auscultation bilaterally. No wheezing or crackles. CVS: Regular rate and rhythm, S1 and S2 present, no murmurs or gallops appreciated. ABDOMEN: Soft, non-tender. No signs of distention. No rebound no guarding, and no masses palpated. Bowel sounds are normal. EXTREMITIES: FROM in all major joints, no edema, no cyanosis or clubbing. NEURO: Alert and oriented x 3. No acute neurological deficits. Speech is normal and follows commands. SKIN: Dry and warm Triage Information Reviewed: Yes Vital Signs On Initial Exam: Initial Vitals Temp Pulse Resp BP Pulse Ox 98.8 F 106 15 152/103 98 06/12/18 21:32 06/12/18 21:32 06/12/18 21:32 06/12/18 21:32 06/12/18 21:32 Vital Signs Reviewed: Yes Diagnostics - Vital Signs Vital Signs Temp Pulse Resp BP Pulse Ox 06/12/18 21:32 98.8 F 106 15 152/103 98 - Laboratory Lab Statement: Any lab studies that have been ordered have been reviewed, and results considered in the medical decision making process. Re-Evaluation - Re-Evaluation First Eval Re-Evaluation Time: 23:42 Change: Improved Comment: Pt is feeling much better. Headache Course/Dx - Course Course Of Treatment: Pt is a 43 y/o female who presents to [facility] c/o migraine for 2 days, 10/10 in severity. She states she gets regular headaches daily, but nothing as bad as this one. Pt c/o nausea, photophobia, dizziness, and intermittent diarrhea. Pt took Ibuprofen and Percocet, which didnt alleviate any symptoms. A physical exam revealed photophobia, Decreased ROM due to fusion of the c-spine. A re-eval at 23:42 revealed the pt feeling better after Toradol , Reglan, fluids, and Benadryl. Final dx is headache, and pt will be discharged. She is agreeable with this plan. - Diagnoses Provider Diagnoses: Headache Discharge - Sign-Out/Discharge Documenting (check all that apply): Patient Departure - Discharge - Discharge Plan Condition: Stable Disposition: HOME Patient Education Materials: Migraine Headache (ED) Referrals: Rafy May MD [Primary Care Provider] - (1-2 days) Additional Instructions: RETURN TO THE EMERGENCY DEPARTMENT FOR CHANGING OR WORSENING SYMPTOMS
[2018-06-13 01:04] VITALS: BP 114/66
== END 2018-06-13 00:19 | disposition home or self-care (01) ==
LOC: ED 21:11
DX: R51 Headache (principal); R11.0 Nausea; R42 Dizziness and giddiness; R19.7 Diarrhea, unspecified; I10 Essential (primary) hypertension; Z96.642 Presence of left artificial hip joint; Z90.49 Acquired absence of other specified parts of digestive tract; Z87.891 Personal history of nicotine dependence
CPT/HCPCS: 96374; 96375; 99284; J1200; J1885; J2765

== ENCOUNTER 2018-07-09 18:37 | Emergency (ER) | payer OTHER ==
--- OUTSIDE RECORDS SUMMARY | 2018-07-09 18:54 | XMS REPORT ---
:1975 External Reference #:[id number] Author Organization [facility] Address [address] [place] [address] Phone [phone] Care Team Providers Name Role Phone HCP given Primary Care Physician Unavailable Payers Type Date Identification Numbers Payment Provider Subscriber Commercial Policy Number: [id number] [facility] Frankie Chairez PayID: [id number] [address] [place] [address] [employer] Policy Number: [id number] Medicaid Frankie Chairez PayID: [id number] [address] [place] [address] Problems Date Description Provider Status Onset: 10/17/2017 Essential hypertension Natalie Sanders Active Onset: 05/10/2018 Obesity Shu Saxena, PA Active Onset: 05/10/2018 Chronic pain syndrome Shu Saxena, PA Active Onset: 05/10/2018 Mixed anxiety and depressive disorder Shu Saxena, PA Active Onset: 05/10/2018 Arthrogryposis Shu Saxena, PA Active Onset: 05/10/2018 Gastroesophageal reflux disease Bret Saxenali, PA Active Onset: 05/10/2018 Allergic rhinitis Bret Saxenali, PA Active Onset: 05/10/2018 Anemia Shu Saxena, PA Active Onset: 06/14/2018 Adjustment disorder with mixed emotional Shu Saxena, PA Active features Onset: 06/14/2018 Migraine without aura, not refractory Shu Saxena, PA Active Family History Date Family Member(s) Problem(s) Comments General Alcoholism General Cancer General Emotional Problems General High Blood Pressure General Obesity Children 6 4 daughters 2 sons Social History Type Date Description Comments Education Highest Level Completed College Marital Status Lives With Diet Healthy, Well Balanced Pets Bird x 3 Pets Cat Work Status 10/2017 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, 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[employer], 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, 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 Hand Dominance Right-handed Abuse No history of abuse Cigarette Use Former Cigarette Smoker ETOH Use Denies alcohol use Recreational Drug Use Denies Drug Use Smoking Patient is a former smoker Daily Caffeine Consumes Caffeine coffee, tea, soda Exercise Type/Frequency Exercises regularly walking Sun Exposure Does not use sunscreen Seat Belt/Car Seat always uses seat belt Guns in Home No Currently Active Patient is currently sexually active Age 1st Old [place] 19 Years Old Allergies, Adverse Reactions, Alerts Date Description Reaction Status Severity Comments 10/17/2017 NKDA active Medications Medication Date Status Form Strength Qnty SIG Indications Ordering Provider Sumatriptan Active Tablets 50mg 9tabs 1 tab by G43.009 Silcoff, Succinate 018 mouth at [place], onset of M.D. migraine, may repeat x1 after 2 hours if needed Alprazolam Active Tablets 0.25mg 90tabs 1 tab by G47.00 Silcoff , 018 mouth up [place], to three M.D. times a day as needed for anxiety/pa ck attacks F43.23 Topiramate 06/13/2018 Active Tablets 100mg 30tabs 1 tablet by Tala, mouth daily MD Jcarlos Venlafaxine HCL ER 05/25/2018 Active Caps ER 75mg 9caps 3 caps by F4 Silcocatrachito, 24HR mouth every 3. tomy Hillman for 23 M.D. anxiety Buspirone HCL 02/13/2018 Active Tablets 5mg 60tabs 1 twice a F4 Silcoff , day for 3. Rafy, anxiety 23 M.D. Bupropion HCL ER (SR) 02/03/2018 Active Tablets 100mg 60tabs Take One F4 Silcoff, ER 12HR Tablet By 3. Rafy Mouth In 23 M.D. The Morning And One AT Noon Cyclobenzaprine HCL 12/16/2017 Active Tablets 10mg 90tabs 1 tab by G8 Silcoff, mouth up to 9. Rafy, three times 4 M.D. a day for back pain, will make you drowsy Hydrochlorothiazide 11/17/2017 Active Tablets 12.5mg 30tabs 1 tab by I1 Silcoff, mouth every 0 Rafy, morning M.D. Loratadine 11/08/2017 Active Tablets 10mg 30tabs 1 by mouth J4 Silcoff, every day 5. Rafy, as needed 90 M.D. for 9 allergies Percocet 10/16/2017 Active Tablets 7.5-325 150tabs 1 tab by G8 Silcoff, mg mouth every 9. Rafy, 4-6 hours 4 M.D. as needed for pain M54.5 Iron High-Potency 10/16/2017 Active Tablets 325mg 30tabs 1 every D64.9 Silcoff, morning Rafy, M.D. Fluticasone 10/16/2017 Active Suspension 50mcg/ 2 sprays Unknown Propionate Act into each nostril once daily for nasal congestion Omeprazole 10/16/[address] 20mg 30tabs 1 tab po K21.9 Silcoff, daily as Rafy, needed M.D. Tylenol Extra 10/16/2017 Active Tablets 500mg 2 tabs Unknown Strength every 6 hours tid Lisinopril 10/16/2017 Active Tablets 10mg 90tabs 2 tabs by I10 Silcoff, mouth every Rafy, morning and M.D. 1 tab by mouth in the evening Meloxicam 10/16/2017 Active Tablets 7.5mg 60tabs 1 tab by Silcoff, mouth in Rfay, morning and M.D. one at midday Gabapentin 10/16/2017 Active Capsules 300mg 30caps Take One G89.4 Silcoff, Capsule By Rafy, Mouth In M.D. The Evening Aripiprazole 10/16/2017 Active Tablets 5mg 30tabs Take One F43.23 Silcoff, Tablet By Rafy, Mouth M.D. Nightly For Mood Alprazolam 02/13/2018 Hx Tablets 1mg 1tabs 1/2 to 1 G47.00 Silcoff, - tablet po Rafy, 06/14/2018 up to 3x/ M.D. Cyclobenzaprine 12/16/2017 Hx Powder 1 tab by G89.4 Silcoff, - mouth three Rafy, 12/16/2017 times a day M.D. TENS Unit 12/16/2017 Hx 1units Use as G89.4 Silcoff, - directed Rafy, 03/01/2018 with the M.D. equipement 1-2 times a day for pain management Amitriptyline HCL 11/17/2017 Hx Tablets 10mg 60tabs start with G43.00 Silcoff, - 1 tablet at 1 [place]or, 12/13/2017 night for M.D. bar. after one week can increase to 2 at night if needed Ventolin HFA 11/08/2017 Hx Aerosol 108(90 1Inhale 1-2 puff q4 J45.90 Silcoff, - Base) r hours for 9 Candor, 05/30/2018 mcg/Ac breath M.D. t Clotrimazole 10/16/2017 Hx Lozenges 10mg 1 by mouth Unknown - 5x/day for 10/16/2017 2wks, for oral thrush Wellbutrin SR 10/16/2017 Hx Tablets ER 100mg 60tabs 1 by mouth F43.23 Silcoff, - 12HR in the [place], 02/03/2018 morning and M.DLeena 1 at noon Gabapentin 10/16/2017 Hx Capsules 100mg 1 po in Unknown - morning and 03/01/2018 one at midday (may skip midday if it causes drowsiness) Cyclobenzaprine 10/16/2017 Hx 10mg 1 tab po G89.4 Unknown - tid 12/16/2017 Venlafaxine HCL 10/16/2017 Hx Tablets ER 225mg 30tabs take one F43.23 Silcoff, ER - 24HR tablet by Rafy, 05/25/2018 mouth once M.D. daily with food for depression Diclofenac Hx Tablets 50mg G89.4 Unknown Potassium - 11/17/2017 Medications Administered in Office Medication Date Status Form Strength Qnty SIG Indications Ordering Provider Toradol 15MG. Administered Injection Hektor, 018 AURELIO [place] SC/Im Administered Injection Hektor, Injections 018 AURELIO [place] TB Intradermal Administered Injection Evelia Test 017 Line [place], P.A[facility] Immunizations CPT Code Status Date Vaccine Lot # [id number] Given 11/10/2017 MMR Virus Immunization [id number] Given 11/08/2017 Influenza Virus Vaccine, Quadrivalent, Split, [id number] Preservative Free 71087 Given 05/17/2017 Adacel or Boostrix, TDaP 96595 Given 05/17/2017 MMR Virus Immunization U-Flu Given 09/27/2016 Influenza,Unspecified U-Flu Given 09/06/2013 Influenza,Unspecified 32029 Given 08/02/2012 Flu, Split Virus 3Yrs Vital Signs Date Vital Result Comment 07/03/2018 BP Systolic 128 mmHg BP Diastolic 82 mmHg Heart Rate 108 /min 95-100 rest of Ov O2 % BldC Oximetry 97 % Weight 236.00 lb 06/14/2018 BP Systolic 130 mmHg BP Diastolic 84 mmHg Weight 242.00 lb 05/30/2018 BP Systolic 128 mmHg BP Diastolic 80 mmHg Weight 235.00 lb 05/10/2018 BP Systolic 128 mmHg BP Diastolic 94 mmHg Weight 238.00 lb 04/27/2018 BP Systolic 118 mmHg BP Diastolic 78 mmHg Height 63 inches 5'3" Weight 240.00 lb sneakers on BMI (Body Mass Index) 42.5 kg/m2 04/03/2018 BP Systolic 130 mmHg BP Diastolic 86 mmHg Height 63 inches 5'3" Weight 235.00 lb BMI (Body Mass Index) 41.6 kg/m2 03/02/2018 BP Systolic 130 mmHg BP Diastolic 88 mmHg Weight 231.00 lb 02/13/2018 BP Systolic 132 mmHg BP Diastolic 98 mmHg Weight 228.00 lb 01/30/2018 BP Systolic 135 mmHg BP Diastolic 89 mmHg Heart Rate 109 /min Weight 237.00 lb 12/16/2017 BP Systolic 108 mmHg BP Diastolic 68 mmHg Weight 231.00 lb 12/08/2017 BP Systolic 126 mmHg BP Diastolic 80 mmHg 11/17/2017 BP Systolic 134 mmHg BP Diastolic 84 mmHg Weight 230.00 lb 11/08/2017 BP Systolic 134 mmHg BP Diastolic 80 mmHg Weight 221.00 lb 10/17/2017 BP Systolic 148 mmHg BP Diastolic 82 mmHg Heart Rate 104 /min O2 % BldC Oximetry 98 % Height 62.75 inches 5'2.75" Weight 225.00 lb BMI (Body Mass Index) 40.2 kg/m2 Results Test Date Test Result H/L Range Note Ua Inhouse 07/03/2018 Ua Glucose - 1 Ua Bilirubin - 1 Ua Ketones - 1 Ua Specific Brandon 1.020 1 Ua Blood sm/ 1+ 1 Ua PH 6.0 1 Ua Protein - 1 Ua Urobilinogen - 1 Ua Nitrite - 1 Ua Leukocytes - 1 Culture Urine Inhouse 07/03/2018 Colonies negative 1 Laboratory test finding 07/03/2018 Test Urine negative Laboratory test finding 05/30/2018 Hemoglobin A1c 5.9 Laboratory test finding 05/10/2018 Culture Throat Rapid Screen negative Culture Throat negative Basic Metabolic Panel 05/04/2018 Sodium 134 mmol/L Low 135-145 Potassium 4.3 mmol/L 3.5-5.0 Chloride 101 mmol/L 101-111 Co2 Carbon Dioxide 24 mmol/L 22-32 Anion Gap 9 mmol/L 2-11 Glucose 104 mg/dL High 70-100 Blood Urea Nitrogen 15 mg/dL 6-24 Creatinine 0.70 mg/dL 0.51-0.95 BUN/Creatinine Ratio 21.4 High 8-20 Calcium 9.3 mg/dL 8.6-10.3 Egfr Non- 91.8 >60 Egfr 118.0 >60 2 CBC Auto Diff 05/04/2018 White Blood Count 9.6 10^3/uL 3.5-10.8 Red Blood Count 4.54 10^6/uL 4.00-5.40 Hemoglobin 12.7 g/dL 12.0-16.0 Hematocrit 38 % 35-47 Mean Corpuscular Volume 84 fL 80-97 Mean Corpuscular Hemoglobin 28 pg 27-31 Mean Corpuscular HGB Conc 33 g/dL 31-36 Red Cell Distribution Width 15 % 10.5-15 Platelet Count 405 10^3/uL 150-450 Mean Platelet Volume 6.9 um3 Low 7.4-10.4 Abs Neutrophils 5.6 10^3/uL 1.5-7.7 Abs Lymphocytes 2.8 10^3/uL 1.0-4.8 Abs Monocytes 0.7 10^3/uL 0-0.8 Abs Eosinophils 0.5 10^3/uL 0-0.6 Abs Basophils 0.1 10^3/uL 0-0.2 Abs Nucleated RBC 0 10^3/uL Granulocyte % 58.1 % 38-83 Lymphocyte % 29.0 % 25-47 Monocyte % 6.9 % 0-7 Eosinophil % 5.0 % 0-6 Basophil % 1.0 % 0-2 Nucleated Red Blood Cells % 0.1 Laboratory test finding 05/04/2018 Erythrocyte Sed Rate 29 mm/Hr High 0- 14 Lyme Disease Serology Negative Negative 3 TSH (Thyroid Stim Horm) 1.95 mcIU/mL 0.34-5.60 Celiac Panel 05/04/2018 Tissue Transglutaminase IgA Ab <1.2 U/mL 4 Immunoglobulin A 358 mg/dL 61 - 356 Celiac Interpretation See Comment 5 Laboratory test finding 03/02/2018 Hemoglobin A1c 6.0 Laboratory test finding 11/28/2017 HCG 0.75 mIU/mL 6 Acetaminophen < 15 g/mL 7 Alcohol < 10 mg/dL <10 Salicylate < 2.50 mg/dL <30 Comp Metabolic Panel 11/28/2017 Sodium 134 mmol/L 133-145 Potassium 3.6 mmol/L 3.5-5.0 Chloride 100 mmol/L Low 101-111 Co2 Carbon Dioxide 25 mmol/L 22-32 Anion Gap 9 mmol/L 2-11 Glucose 123 mg/dL High 70-100 Blood Urea Nitrogen 12 mg/dL 6-24 Creatinine 0.70 mg/dL 0.51-0.95 BUN/Creatinine Ratio 17.1 8-20 Calcium 9.4 mg/dL 8.6-10.3 Total Protein 7.5 g/dL 6.4-8.9 Albumin 3.9 g/dL 3.2-5.2 Globulin 3.6 g/dL 2-4 Albumin/Globulin Ratio 1.1 1-3 Total Bilirubin 0.20 mg/dL 0.2-1.0 Alkaline Phosphatase 78 U/L 34-104 Alt 16 U/L 7-52 Ast 19 U/L 13-39 Egfr Non- 92.2 >60 Egfr 118.6 >60 8 Laboratory test finding 11/28/2017 Lactic Acid 1.9 mmol/L 0.5-2.0 9 CBC Auto Diff 11/28/2017 White Blood Count 10.4 10^3/uL 3.5-10.8 Red Blood Count 4.85 10^6/uL 4.0-5.4 Hemoglobin 13.1 g/dL 12.0-16.0 Hematocrit 40 % 35-47 Mean Corpuscular Volume 82 fL 80-97 Mean Corpuscular Hemoglobin 27 pg 27-31 Mean Corpuscular HGB Conc 33 g/dL 31-36 Red Cell Distribution Width 14 % 10.5-15 Platelet Count 409 10^3/uL 150-450 Mean Platelet Volume 7 um3 Low 7.4-10.4 Abs Neutrophils 6.5 10^3/uL 1.5-7.7 Abs Lymphocytes 2.8 10^3/uL 1.0-4.8 Abs Monocytes 0.8 10^3/uL 0-0.8 Abs Eosinophils 0.2 10^3/uL 0-0.6 Abs Basophils 0.1 10^3/uL 0-0.2 Abs Nucleated RBC 0 10^3/uL Granulocyte % 62.4 % 38-83 Lymphocyte % 26.9 % 25-47 Monocyte % 7.3 % 1-9 Eosinophil % 2.4 % 0-6 Basophil % 1.0 % 0-2 Nucleated Red Blood Cells % 0.1 Laboratory test 11/28/2017 Urine Culture And SEE RESULT BELOW 10 finding Sensitivities Urine Drug SCR ED & 11/28/2017 Amphetamine Ur Screen None Detected None Detect Pain Clinic Barbiturates Urine Screen None Detected None Detect Benzodiazepine Urine Screen None Detected None Detect Urine Cannabinoids Screen None Detected None Detect Urine Cocaine Screen None Detected None Detect Urine Opiates Screen None Detected None Detect Urine Phencyclidine Screen None Detected None Detect 11 Urinalysis Profile 11/28/2017 Urine Color Yellow Urine Appearance Cloudy Urine Specific Brandon 1.021 1.010-1.030 Urine pH 6.0 5-9 Urine Urobilinogen Negative Negative Urine Ketones Negative Negative Urine Protein Negative Negative Urine Leukocytes 3+ Negative Urine Blood 1+ Negative Urine Nitrite Negative Negative Urine Bilirubin Negative Negative Urine Glucose Negative Negative Urine White Blood Cell 2+(11-20/hpf) Absent Urine Red Blood Cell 1+(3-5/hpf) Absent Urine Bacteria Absent Absent Urine Squamous Epithelial Cell Present Absent Laboratory test finding 11/16/2017 Hemoglobin A1c (Glyco 6.3 % High 4.0- 5.6 12 HGB) Laboratory test finding 11/16/2017 HCG 0.80 mIU/mL 13 Basic Metabolic Panel 11/16/2017 Sodium 137 mmol/L 133-145 Potassium 3.7 mmol/L 3.5-5.0 Chloride 103 mmol/L 101-111 Co2 Carbon Dioxide 27 mmol/L 22-32 Anion Gap 7 mmol/L 2-11 Glucose 106 mg/dL High 70-100 Blood Urea Nitrogen 10 mg/dL 6-24 Creatinine 0.72 mg/dL 0.51-0.95 BUN/Creatinine Ratio 13.9 8-20 Calcium 8.7 mg/dL 8.6-10.3 Egfr Non- 89.3 >60 Egfr 114.8 >60 14 CBC Auto Diff 11/16/2017 White Blood Count 12.6 10^3/uL High 3.5-10.8 Red Blood Count 4.39 10^6/uL 4.0-5.4 Hemoglobin 12.2 g/dL 12.0-16.0 Hematocrit 36 % 35-47 Mean Corpuscular Volume 83 fL 80-97 Mean Corpuscular Hemoglobin 28 pg 27-31 Mean Corpuscular HGB Conc 34 g/dL 31-36 Red Cell Distribution Width 14 % 10.5-15 Platelet Count 398 10^3/uL 150-450 Mean Platelet Volume 7 um3 Low 7.4-10.4 Abs Neutrophils 8.4 10^3/uL High 1.5-7.7 Abs Lymphocytes 3.1 10^3/uL 1.0-4.8 Abs Monocytes 0.7 10^3/uL 0-0.8 Abs Eosinophils 0.3 10^3/uL 0-0.6 Abs Basophils 0.2 10^3/uL 0-0.2 Abs Nucleated RBC 0 10^3/uL Granulocyte % 66.4 % 38-83 Lymphocyte % 24.3 % Low 25-47 Monocyte % 5.5 % 1-9 Eosinophil % 2.4 % 0-6 Basophil % 1.4 % 0-2 Nucleated Red Blood Cells % 0 1 void, hazy, gold 2 Because ethnic data is not always readily available, this report includes an eGFR for both -Americans and non- Americans. The National Kidney Disease Education Program (NKDEP) does not endorse the use of the MDRD equation for patients that are not between the ages of 18 and 70, are , have extremes of body size, muscle mass, or nutritional status, or are non- or non-. According to the National Kidney Foundation, irrespective of diagnosis, the stage of the disease is based on the level of kidney function: Stage Description GFR(mL/min/1.73 m(2)) 1 Kidney damage with normal or decreased GFR 90 2 Kidney damage with mild decrease in GFR 60-89 3 Moderate decrease in GFR 30-59 4 Severe decrease in GFR 15-29 5 Kidney failure <15 (or dialysis) 3 No evidence of antibodies to B. burgdorferi detected. False negative results may occur in recently infected patients (<=2 weeks) due to low or undetectable antibody levels to B. burgdorferi. If recent exposure is suspected, a second sample should be collected and tested in 2-4 weeks. Test Performed by: [facility] [address] [place] [address] 4 REFERENCE VALUE <4.0 (Negative) Test Performed by: [facility] - [address] [address] 5 Negative serology. Celiac disease unlikely. However, approximately 10% of patients with celiac disease are seronegative. Also, patients who are already adhering to a gluten-free diet may be seronegative. If celiac disease is highly clinically suspected, consider HLA-DQ typing. Test Performed by: [facility] - [address] [address] 6 <5.0 Negative 5.0 - 25.0 Indeterminate (Repeat testing recommended after 72 hours) >25.0 Positive Perimenopausal women can display HCG levels of up to 20 mIU/mL 7 Therapeutic concentration: <50 ug/mL Toxic concentration: >120 ug/mL 8 Because ethnic data is not always readily available, this report includes an eGFR for both -Americans and non- Americans. The National Kidney Disease Education Program (NKDEP) does not endorse the use of the MDRD equation for patients that are not between the ages of 18 and 70, are , have extremes of body size, muscle mass, or nutritional status, or are non- or non-. According to the National Kidney Foundation, irrespective of diagnosis, the stage of the disease is based on the level of kidney function: Stage Description GFR(mL/min/1.73 m(2)) 1 Kidney damage with normal or decreased GFR 90 2 Kidney damage with mild decrease in GFR 60-89 3 Moderate decrease in GFR 30-59 4 Severe decrease in GFR 15-29 5 Kidney failure <15 (or dialysis) 9 [facility] Severe Sepsis and Septic Shock Management Bundle Measure requires all lactic acids initially measuring >2.0 mmol/L be repeated. 10 SEE RESULT BELOW Name: FRANKIE CHAIREZ : [address]: Fran Sharp MD Acct: [id number] Unit: [id number] AGE: 42 Location: ED Re11/28/17 SEX: F Status: DEP ER SPEC: [id number] LINO: 11/28/[address]: Fran Sharp MD REQ: [id number] RECD: 11/28/17 STATUS: DEENA KELLY DR: Rafy May MD _ SOURCE: URINE SPDESC: ORDERED: Urine Culture Procedure Result Reported Site Urine Culture Final 11/30/17- 811 ML No growth of clinically significant organisms * ML - MAIN LAB ([facility]) . END OF REPORT * ML=Testing performed at Main Lab DEPARTMENT OF PATHOLOGY, [address] [place] [address] Kelvin Alejandre M.D. Director [facility] # [id number] 11 The urine specimen was tested at the listed cutoffs: Drug class test level (ng/mL) Amphetamines 500 Barbiturates 200 Benzodiazepine metabolites 200 Cocaine metabolites 150 Cannabinoids 50 Opiates 300 Pcp 25 Specimen was received without chain of custody. Results should be used for medical purposes only. 12 Therapeutic target for the treatment of diabetes mellitus patients is <7% HBA1C, and in selective patients <6.0%. Please refer to [place] [employer] Association diabetic care guidelines for further information. 13 <5.0 Negative 5.0 - 25.0 Indeterminate (Repeat testing recommended after 72 hours) >25.0 Positive Perimenopausal women can display HCG levels of up to 20 mIU/mL 14 Because ethnic data is not always readily available, this report includes an eGFR for both -Americans and non- Americans. The National Kidney Disease Education Program (NKDEP) does not endorse the use of the MDRD equation for patients that are not between the ages of 18 and 70, are , have extremes of body size, muscle mass, or nutritional status, or are non- or non-. According to the National Kidney Foundation, irrespective of diagnosis, the stage of the disease is based on the level of kidney function: Stage Description GFR(mL/min/1.73 m(2)) 1 Kidney damage with normal or decreased GFR 90 2 Kidney damage with mild decrease in GFR 60-89 3 Moderate decrease in GFR 30-59 4 Severe decrease in GFR 15-29 5 Kidney failure <15 (or dialysis) Procedures Date CPT Code Description Status 07/03/2018 67134 Electrocardiogram Complete Completed 06/14/2018 89417 SC/Im Injections Completed 11/17/2017 24941 Visual Acuity Screening Test Completed 10/17/2017 44593 Electrocardiogram Complete Completed Encounters Type Date Location Provider CPT E/M Dx Office Visit 07/03/2018 4:20p Main Office Dominique Sanders.A. 64557 R00.0 R00.2 R06.02 E66.9 N91.2 I10 F43.23 R35.0 R61 K21.9 Office Visit 06/14/2018 9:00a [place] [address] G43.009 F43.23 R06.02 Office Visit 05/30/2018 9:00a Main Office Evelia Rollins P.A. 56110 E66.9 G89.4 R53.1 R73.03 Office Visit 05/10/2018 3:20p [place] [address] J31.2 R13.11 E66.9 G89.4 Z80.1 M43.17 Office Visit 04/27/2018 9:20a Main Office Evelia Rollins P.A. 28728 R53.83 G47.9 E66.9 Q66.9 G47.33 Z68.41 Office Visit 04/03/2018 9:20a Main Office Evelia Rollins P.A. 39498 F51.12 R73.03 I10 Z71.3 Office Visit 03/02/2018 9:20a Main Office Evelia Rollins P.A. 12987 R73.03 G47.00 F43.23 I10 Z71.3 Q68.8 Z68.41 E66.01 Office Visit 02/13/2018 4:40p Main Office Evelia Rollins P.A. 29939 F43.23 G47.00 I10 Z79.899 Office Visit 01/30/2018 9:20a Main Office Evelia Rollins P.A. 29163 R61 E66.9 F43.23 I10 R73.03 Z68.41 Office Visit 12/16/2017 1:40p Main Office Evelia Rollins P.A. 75778 G43.C0 G89.4 M54.5 Office Visit 12/08/2017 9:20a Main Office Evelia Rollins, P.A. 24010 I10 G43.C0 Z79.899 Z03.6 Z91.14 Office Visit 11/17/2017 11:00a Main Office Evelia Rollins P.A. 89799 G43.001 H53.149 G43.C0 R73.09 E66.9 I10 R61 Office Visit 11/08/2017 9:40a Main Office Evelia Rollins, P.A. 03235 Z02.89 F43.23 G89.4 I10 J45.909 Z23 Z11.1 Office Visit 10/17/2017 4:20p Main Office Evelia Rollins, P.A. 48186 R07.89 I10 G89.4 F43.23 E66.9 K21.9 D64.9 Plan of Care Future Appointment(s):07/11/2018 9:00 am - Evelia Rollins [id number] - Evelia Rollins P.A.R00.0 Tachycardia, unspecifiedComments:rate 95, possible atrial enlargement, mostly unremarka ble, rhythm steadyReferral:[facility], Cardiology/Spec/TechR00.2 PalpitationsReferral:[facility], Cardiology/Spec/TechR06.02 Shortness of brpsciI70.9 Obesity, unspecifiedFollow up:40 minute dietary appt w meN91.2 Amenorrhea, unspecifiedComments:negative testI10 Essential (primary) hypertensionComments:pt advised to report cp, change in angina , sob etContinue same meds with no change. Comply with diet and exercise. Lose weight and watch salt in diet.F43.23 Adjustment disorder with mixed anxiety and depressed moodComments:suspect that pt's sxs are a panic attack, but will check holter no change in meds: reviewed the medspt is currently taking and discussed these are anti-anxiety meds. discussed journalingfrank disc need to return to counseling as permanently losing children is a major life event.Follow up: return to [facility]: cousneling needed at this time of a very significant life cmrfegQ11.0 Frequency of micturitionComments:trace xosfaC96 Generalized hyperhidrosisReferral:Linnea Brush MD, GqdakwhdbkfI59.9 Gastro-esophageal reflux disease without esophagitisFollow up:if think having more pain than usual, try taking a YUMs. Omeprazole is not fast acting.
--- OUTSIDE RECORDS SUMMARY | 2018-07-09 18:54 | XMS REPORT ---
:1975 External Reference #:[id number] Author Organization [facility] Medicine Address [address] [place] [address] Phone [phone] Care Team Providers Name Role Phone HCP given Primary Care Physician Unavailable Payers Type Date Identification Numbers Payment Provider Subscriber Commercial Policy Number: [id number] [facility] Kiko Chairez PayID: [id number] [address] [place] [phone] Problems Date Description Provider Status Onset: 10/17/2017 Essential hypertension Natalie Sanders Active Onset: 05/10/2018 Obesity Shu Saxena, PA Active Onset: 05/10/2018 Chronic pain syndrome Shu Saxena, PA Active Onset: 05/10/2018 Mixed anxiety and depressive disorder Bret Saxenali, PA Active Onset: 05/10/2018 Arthrogryposis Shu Saxena, PA Active Onset: 05/10/2018 Gastroesophageal reflux disease Bret Saxenali, PA Active Onset: 05/10/2018 Allergic rhinitis JemtorBretli, PA Active Onset: 05/10/2018 Anemia Odessa, Shu, PA Active Onset: 06/14/2018 Adjustment disorder with mixed emotional Odessa, Shu, PA Active features Onset: 06/14/2018 Migraine without [...] Status 10/2017 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 migraine, may repeat x1 after 2 hours if needed Alprazolam Active Tablets 0.25mg 90tabs 1 tab by G47.00 Silcoff , 018 mouth up Rafy, to three M.D. times a day as needed for anxiety/pa ck attacks F43.23 Topiramate 06/13/2018 Active Tablets 100mg 30tabs 1 tablet by [place], mouth daily MD Jcarlos Venlafaxine HCL ER 05/25/2018 Active Caps ER 75mg 9caps 3 caps by F4 Silcoff, 24HR mouth every 3. Rafy, day for 23 M.D. anxiety Buspirone HCL 02/13/2018 Active Tablets 5mg 60tabs 1 twice a F4 Silcoff , day for 3. Rafy, anxiety 23 M.D. Bupropion HCL ER (SR) 02/03/2018 Active Tablets 100mg 60tabs Take One F4 Silcoff, ER 12HR Tablet By 3. Rafy, Mouth In 23 M.D. The Morning And [...] 325mg 30tabs 1 every D64.9 Silcoff, morning Isabela Hillman Fluticasone 10/16/2017 Active Suspension 50mcg/ 2 sprays Unknown Propionate Act into each nostril once daily for nasal congestion Omeprazole 10/16/[address] 20mg 30tabs 1 tab po K21.9 Silcoff, daily as Rafy needed M.D. Tylenol Extra 10/16/2017 Active Tablets 500mg 2 tabs Unknown Strength every 6 hours tid Lisinopril 10/16/2017 Active Tablets 10mg 90tabs 2 tabs by I10 Silcocatrachito, mouth every Rafy, morning and M.D. 1 tab by mouth in the evening Meloxicam 10/16/2017 Active Tablets 7.5mg 60tabs 1 tab by Silcoff, mouth in Rafy, morning and M.D. one at midday Gabapentin 10/16/2017 Active Capsules 300mg 30caps Take One G89.4 Silcoff, Capsule By Desmond Hillman In M.D. The Evening Aripiprazole 10/16/2017 Active Tablets 5mg 30tabs Take One F43.23 Silcoff, Tablet By Desmond Hillman M.D. Nightly For Mood Alprazolam 02/13/2018 Hx Tablets 1mg 1tabs 1/2 to 1 G47.00 Silcocatrachito, - tablet po Rafy, 06/14/2018 up to 3x/ M.D. Cyclobenzaprine 12/16/2017 Hx Powder 1 tab by G89.4 Yadira, - mouth three Rafy, 12/16/2017 times a day M.D. TENS Unit 12/16/2017 Hx 1units Use as G89.4 Silcoff, - directed Rafy, 03/01/2018 with the M.DLeena equipement 1-2 times a day for pain management Amitriptyline HCL 11/17/2017 Hx Tablets 10mg 60tabs start with G43.00 Silcoff, - 1 tablet at 1 [place], 12/13/2017 night for M.D. bar. after one week can increase to 2 at night if needed Ventolin HFA 11/08/2017 Hx Aerosol 108(90 1Inhale 1-2 puff q4 J45.90 Silcoff, - Base) r hours for 9 [place], 05/30/2018 mcg/Ac breath M.D. t Clotrimazole 10/16/2017 Hx Lozenges 10mg 1 by mouth Unknown - 5x/day for 10/16/2017 2wks, for oral thrush Wellbutrin SR 10/16/2017 Hx Tablets ER 100mg 60tabs 1 by mouth F43.23 Silcoff, - 12HR in the [place], 02/03/2018 morning and M.D. 1 at noon Gabapentin 10/16/2017 Hx Capsules [...] TB Intradermal Administered Injection Evelia Test 017 [place], P.A. Immunizations CPT Code Status Date Vaccine Lot # 11052 Given 11/10/2017 MMR Virus Immunization [id number] Given 11/08/2017 Influenza Virus Vaccine, Quadrivalent, Split, [id number] Preservative Free 94737 Given 05/17/2017 Adacel or Boostrix, TDaP 58713 Given 05/17/2017 MMR Virus Immunization U-Flu Given 09/27/2016 Influenza,Unspecified U-Flu Given 09/06/2013 Influenza,Unspecified 67092 Given 08/02/2012 Flu, Split Virus 3Yrs Vital [...] Test Date Test Result H/L Range Note Laboratory test finding 05/30/2018 Hemoglobin A1c 5.9 Laboratory test finding 05/10/2018 Culture Throat Rapid negative Screen Culture Throat negative Basic Metabolic Panel 05/04/2018 Sodium 134 mmol/L Low 135-145 Potassium 4.3 mmol/L 3.5-5.0 Chloride 101 mmol/L 101-111 Co2 Carbon Dioxide 24 mmol/L 22-32 Anion Gap 9 mmol/L 2-11 Glucose 104 mg/dL High 70-100 Blood Urea Nitrogen 15 mg/dL 6-24 Creatinine 0.70 mg/dL 0.51-0.95 BUN/Creatinine Ratio 21.4 High 8-20 Calcium 9.3 mg/dL 8.6-10.3 Egfr Non- 91.8 >60 Egfr 118.0 >60 1 CBC Auto Diff 05/04/2018 White Blood Count [...] 0- 14 Lyme Disease Serology Negative Negative 2 TSH (Thyroid Stim Horm) 1.95 mcIU/mL 0.34-5.60 Celiac Panel 05/04/2018 Tissue Transglutaminase IgA Ab <1.2 U/mL 3 Immunoglobulin A 358 mg/dL 61 - 356 Celiac Interpretation See Comment 4 Laboratory test finding 03/02/2018 Hemoglobin A1c 6.0 Urinalysis Profile 11/28/2017 Urine Color Yellow Urine Appearance Cloudy Urine Specific [place] 1.021 1.010-1.030 Urine pH 6.0 5-9 Urine Urobilinogen Negative Negative Urine Ketones Negative Negative Urine Protein Negative Negative Urine Leukocytes 3+ Negative Urine Blood 1+ Negative Urine Nitrite Negative Negative Urine Bilirubin Negative Negative Urine Glucose Negative Negative Urine White Blood Cell 2+(11-20/hpf) Absent Urine Red Blood Cell 1+(3-5/hpf) Absent Urine Bacteria Absent Absent Urine Squamous Epithelial Cell Present Absent Laboratory test finding 11/28/2017 HCG 0.75 mIU/mL 5 Acetaminophen < 15 g/mL 6 Alcohol < 10 mg/dL <10 Salicylate < [...] Egfr Non- 92.2 >60 Egfr 118.6 >60 7 Laboratory test finding 11/28/2017 Lactic Acid 1.9 mmol/L 0.5-2.0 8 CBC Auto Diff 11/28/2017 White Blood Count [...] 11/28/2017 Urine Culture And SEE RESULT BELOW 9 finding Sensitivities Urine Drug SCR ED & 11/28/2017 Amphetamine Ur Screen None Detected None Detect Pain Clinic Barbiturates Urine Screen None Detected None Detect Benzodiazepine Urine Screen None Detected None Detect Urine Cannabinoids Screen None Detected None Detect Urine Cocaine Screen None Detected None Detect Urine Opiates Screen None Detected None Detect Urine Phencyclidine Screen None Detected None Detect 10 Laboratory test finding 11/16/2017 Hemoglobin A1c (Glyco 6.3 % High 4.0- 5.6 11 HGB) Laboratory test finding 11/16/2017 HCG 0.80 mIU/mL 12 Basic Metabolic Panel 11/16/2017 Sodium 137 mmol/L 133-145 Potassium 3.7 mmol/L 3.5-5.0 Chloride 103 mmol/L 101-111 Co2 Carbon Dioxide 27 mmol/L 22-32 Anion Gap 7 mmol/L 2-11 Glucose 106 mg/dL High 70-100 Blood Urea Nitrogen 10 mg/dL 6-24 Creatinine 0.72 mg/dL 0.51-0.95 BUN/Creatinine Ratio 13.9 8-20 Calcium 8.7 mg/dL 8.6-10.3 Egfr Non- 89.3 >60 Egfr 114.8 >60 13 CBC Auto Diff 11/16/2017 White Blood Count [...] Nucleated Red Blood Cells % 0 1 Because ethnic data is not always readily [...] 15-29 5 Kidney failure <15 (or dialysis) 2 No evidence of antibodies to B. burgdorferi detected. False negative results may occur in recently infected patients (<=2 weeks) due to low or undetectable antibody levels to B. burgdorferi. If recent exposure is suspected, a second sample should be collected and tested in 2-4 weeks. Test Performed by: [facility] - [facility] [address] [place] [address] 3 REFERENCE VALUE <4.0 (Negative) Test Performed by: [facility] - [facility] [address] [place] [address] 4 Negative serology. Celiac disease unlikely. However, approximately 10% of patients with celiac disease are seronegative. Also, patients who are already adhering to a gluten-free diet may be seronegative. If celiac disease is highly clinically suspected, consider HLA-DQ typing. Test Performed by: [facility] - [address] [address] 5 <5.0 Negative 5.0 - 25.0 Indeterminate (Repeat testing recommended after 72 hours) >25.0 Positive Perimenopausal women can display HCG levels of up to 20 mIU/mL 6 Therapeutic concentration: <50 ug/mL Toxic concentration: >120 ug/mL 7 Because ethnic data is not always readily [...] 15-29 5 Kidney failure <15 (or dialysis) 8 [facility] Severe Sepsis and Septic Shock Management Bundle Measure requires all lactic acids initially measuring >2.0 mmol/L be repeated. 9 SEE RESULT BELOW Name: KIKO CHAIREZ Lina : [address]: Fran Sharp MD Acct: [id number] Unit: [id number] AGE: 42 Location: ED Re11/28/17 SEX: F Status: DEP ER SPEC: [id number] LINO: 11/28/[address]: Fran Sharp MD REQ: [id number] RECD: 11/28/17 STATUS: DEENA KELLY DR: Rafy May MD _ SOURCE: URINE SPDESC: ORDERED: Urine Culture Procedure Result Reported Site Urine Culture Final 11/30/17811 ML No growth of clinically significant organisms * ML - MAIN LAB ([facility]) . END OF REPORT * ML=Testing performed at Main Lab DEPARTMENT OF PATHOLOGY, [address] [place] [id number] Kelvin Alejandre M.D. Director [facility] # [id number] 10 The urine specimen was tested at the listed cutoffs: Drug class test level (ng/mL) Amphetamines 500 Barbiturates 200 Benzodiazepine metabolites 200 Cocaine metabolites 150 Cannabinoids 50 Opiates 300 Pcp 25 Specimen was received without chain of custody. Results should be used for medical purposes only. 11 Therapeutic target for the treatment of diabetes mellitus patients is <7% HBA1C, and in selective patients <6.0%. Please refer to [place] Diabetes Association diabetic care guidelines for further information. 12 <5.0 Negative 5.0 - 25.0 Indeterminate (Repeat testing recommended after 72 hours) >25.0 Positive Perimenopausal women can display HCG levels of up to 20 mIU/mL 13 Because ethnic data is not always readily [...] Procedures Date CPT Code Description Status 07/03/2018 02251 Electrocardiogram Complete Completed 06/14/2018 38832 SC/Im Injections Completed 11/17/2017 17984 Visual Acuity Screening Test Completed 10/17/2017 71198 Electrocardiogram Complete Completed Encounters Type Date Location Provider CPT E/M Dx Office Visit 06/14/2018 9:00a [place] [address] G43.009 F43.23 R06.02 Office Visit 05/30/2018 9:00a Main Office Evelia Rollins, P.Chaz 57001 E66.9 G89.4 R53.1 R73.03 Office Visit 05/10/2018 3:20p [place] [address] J31.2 R13.11 E66.9 G89.4 Z80.1 M43.17 Office Visit 04/27/2018 9:20a Main Office Evelia Rollins, P.A. 14192 R53.83 G47.9 E66.9 Q66.9 G47.33 Z68.41 Office Visit 04/03/2018 9:20a Main Office Evelia Rollins, P.A. 93479 F51.12 R73.03 I10 Z71.3 Office Visit 03/02/2018 9:20a Main Office Evelia Rollins P.A. 45265 R73.03 G47.00 F43.23 I10 Z71.3 Q68.8 Z68.41 E66.01 Office Visit 02/13/2018 4:40p Main Office Evelia Rollins, P.A. 83373 F43.23 G47.00 I10 Z79.899 Office Visit 01/30/2018 9:20a Main Office Evelia Rollins, P.A. 72079 R61 E66.9 F43.23 I10 R73.03 Z68.41 Office Visit 12/16/2017 1:40p Main Office Evelia Rollins, P.A. 40391 G43.C0 G89.4 M54.5 Office Visit 12/08/2017 9:20a Main Office Evelia Rollins P.A. 85053 I10 G43.C0 Z79.899 Z03.6 Z91.14 Office Visit 11/17/2017 11:00a Main Office Evelia Rollins, P.A. 84275 G43.001 H53.149 G43.C0 R73.09 E66.9 I10 R61 Office Visit 11/08/2017 9:40a Main Office Evelia Rollins, P.A. 50083 Z02.89 F43.23 G89.4 I10 J45.909 Z23 Z11.1 Office Visit 10/17/2017 4:20p Main Office Evelia Rollins, P.A. 43412 R07.89 I10 G89.4 F43.23 E66.9 K21.9 D64.9 Plan of Care 07/03/2018 - Evelia Rollins, P.Breyl.R00.0 Tachycardia, unspecifiedComments:rate 95, possible atrial enlargement, mostly unremarka ble, rhythm steadyReferral:[facility], Cardiology/Spec/TechR00.2 PalpitationsReferral:[facility], Cardiology/Spec/TechR06.02 Shortness of orawskX17.9 Obesity, unspecifiedFollow up:40 minute dietary appt w [...] this time of a very significant life mbxkejW99.0 Frequency of micturitionComments:trace hgjgqG32 Generalized hyperhidrosisReferral:Linnea Brush MD, NpplxvfmhzdR76.9 Gastro-esophageal reflux disease without esophagitisFollow up:if think having more pain than usual, try taking a YUMs. Omeprazole is not fast acting.
--- OUTSIDE RECORDS SUMMARY | 2018-07-09 18:55 | XMS REPORT ---
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 as needed for pain M54.5 Aripiprazole 10/16/2017 Active Tablets 5mg 30tabs 1 by mouth F43.23 Silcoff, nightly for Rafy, mood M.D. Iron High-Potency 10/16/2017 Active Tablets 325m 30tabs 1 every D64.9 Silcoff, g morning Isabela Hillman Fluticasone 10/16/2017 Active Suspension 50mc 2 sprays Unknown Propionate g/Ac into each t nostril once daily for nasal congestion Omeprazole 10/16/[address] 20mg 30tabs 1 tab po K21.9 Silcoff, daily as Rafy, needed M.D. Tylenol Extra 10/16/2017 Active Tablets 500m 2 tabs Unknown Strength g every 6 hours tid Lisinopril 10/16/2017 Active Tablets 10mg 90tabs 2 tabs by I10 Silcocatrachito, mouth every Rafy, morning and M.D. 1 tab by mouth in the evening Meloxicam 10/16/2017 Active Tablets 7.5m 60tabs 1 tab by Silcoff, g mouth in Rafy, morning and M.D. one at midday Gabapentin 10/16/2017 Active Capsules 300m 30caps Take One G89.4 Silcoff, g Capsule By Rafy, Mouth In M.D. The Evening Alprazolam 02/13/2018 - Hx Tablets 1mg 1tabs 1/2 to 1 G47.00 Silcoff, 06/14/2018 tablet po Rafy, up to 3x/ M.D. Cyclobenzaprine 12/16/2017 - Hx Powder 1 tab by G89.4 Ashleycocatrachito, 12/16/2017 mouth three Rafy, times a day M.D. TENS Unit 12/16/2017 - Hx 1units Use as G89.4 Silcoff, 03/01/2018 directed Rafy, with the M.Florecita equipement 1-2 times a day for pain management Amitriptyline HCL 11/17/2017 - Hx Tablets 10mg 60tabs start with G43.001 Silcoff, 12/13/2017 1 tablet at [place], night for M.D. bar. after one week can increase to 2 at night if needed Ventolin HFA 11/08/2017 - Hx Aerosol 108( 1Inhale 1-2 puff q4 J45.909 Silcoff, 05/30/2018 90Ba r hours for [place], ) breath M.D. mcg/ Act Clotrimazole 10/16/2017 - Hx Lozenges 10mg 1 by mouth Unknown 10/16/2017 5x/day for 2wks, for oral thrush Wellbutrin SR 10/16/2017 - Hx Tablets ER 100m 60tabs 1 by mouth F43.23 Silcoff, 02/03/2018 12HR g in the [place], morning and M.D. 1 at noon Gabapentin 10/16/2017 - Hx Capsules 100m 1 po in Unknown 03/01/2018 g morning and one at midday (may skip midday if it causes drowsiness) Cyclobenzaprine 10/16/2017 - Hx 10mg 1 tab po G89.4 Unknown 12/16/2017 tid Venlafaxine HCL 10/16/2017 - Hx Tablets ER 225m 30tabs take one F43.23 Silcoff, ER 05/25/2018 24HR g tablet by [place], mouth once M.D. daily with food for depression Diclofenac - Hx Tablets 50mg G89.4 Unknown Potassium 11/17/2017 Medications Administered in Office Medication Date Status Form Strength Qnty SIG Indications Ordering Provider Toradol 15MG. Administered Injection Hektor, 018 AURELIO [place] SC/Im Administered Injection Hektor, Injections 018 AURELIO [place] TB Intradermal Administered Injection Evelia Test 017 [place], P.A. Immunizations CPT Code Status Date Vaccine Lot # [id number] Given 11/10/2017 MMR Virus Immunization [id number] 90751 Given 11/08/2017 Influenza Virus Vaccine, Quadrivalent, Split, [id number] Preservative Free 01631 Given 05/17/2017 Adacel or Boostrix, TDaP 51946 Given 05/17/2017 MMR Virus Immunization U-Flu Given 09/27/2016 Influenza,Unspecified U-Flu Given 09/06/2013 Influenza,Unspecified 22656 Given 08/02/2012 Flu, Split Virus 3Yrs Vital Signs Date Vital Result Comment 06/14/2018 BP Systolic 130 mmHg BP Diastolic [...] Phencyclidine Screen None Detected None Detect 10 Urinalysis Profile 11/28/2017 Urine Color Yellow Urine Appearance Cloudy Urine Specific [place] 1.021 1.010-1.030 Urine pH 6.0 5-9 Urine Urobilinogen Negative Negative Urine Ketones Negative Negative Urine Protein Negative Negative Urine Leukocytes 3+ Negative Urine Blood 1+ Negative Urine Nitrite Negative Negative Urine Bilirubin Negative Negative Urine Glucose Negative Negative Urine White Blood Cell 2+(11-20/hpf) Absent Urine Red Blood Cell 1+(3-5/hpf) Absent Urine Bacteria Absent Absent Urine Squamous Epithelial Cell Present Absent CBC Auto Diff 11/16/2017 White Blood Count [...] 0-2 Nucleated Red Blood Cells % 0 Basic Metabolic Panel 11/16/2017 Sodium 137 mmol/L 133-145 Potassium 3.7 mmol/L 3.5-5.0 Chloride 103 mmol/L 101-111 Co2 Carbon Dioxide 27 mmol/L 22-32 Anion Gap 7 mmol/L 2-11 Glucose 106 mg/dL High 70-100 Blood Urea Nitrogen 10 mg/dL 6-24 Creatinine 0.72 mg/dL 0.51-0.95 BUN/Creatinine Ratio 13.9 8-20 Calcium 8.7 mg/dL 8.6-10.3 Egfr Non- 89.3 >60 Egfr 114.8 >60 11 Laboratory test finding 11/16/2017 HCG 0.80 mIU/mL 12 Laboratory test finding 11/16/2017 Hemoglobin A1c (Glyco 6.3 % High 4.0- 5.6 13 HGB) 1 Because ethnic data is not always [...] 2-4 weeks. Test Performed by: [facility] [address] [place] [address] 3 REFERENCE VALUE <4.0 (Negative) Test Performed by: [facility] [address] [place] [address] 4 Negative serology. Celiac disease unlikely. However, approximately 10% of patients with celiac disease are seronegative. Also, patients who are already adhering to a gluten-free diet may be seronegative. If celiac disease is highly clinically suspected, consider HLA-DQ typing. Test Performed by: [facility] - [address] [address] 5 <5.0 Negative 5.0 - 25.0 Indeterminate [...] 5 Kidney failure <15 (or dialysis) 8 [facility] Severe Sepsis and Septic Shock Management Bundle Measure requires all lactic acids initially measuring >2.0 mmol/L be repeated. 9 SEE RESULT BELOW Name: KIKO CHAIREZ Lina : [address]: Fran Sharp MD Acct: [id number] Unit: [id number] AGE: 42 Location: ED Re11/28/17 SEX: F Status: DEP ER SPEC: [id number] LINO: 11/28/[address]: Fran Sharp MD REQ: [id number] RECD: 11/28/17 STATUS: DEENA KELLY DR: Rafy May MD _ SOURCE: URINE SPDESC: ORDERED: Urine Culture Procedure Result Reported Site Urine Culture Final 11/30/17811 ML No growth of clinically significant organisms * ML - MAIN LAB ([facility]) . END OF REPORT * ML=Testing performed at Main Lab DEPARTMENT OF PATHOLOGY, [address] [place] [address] Kelvin Alejandre M.D. Director [facility] # [id number] 10 The urine specimen was tested at the listed cutoffs: Drug class test level (ng/mL) Amphetamines 500 Barbiturates 200 Benzodiazepine metabolites 200 Cocaine metabolites 150 Cannabinoids 50 Opiates 300 Pcp 25 Specimen was received without chain of custody. Results should be used for medical purposes only. 11 Because ethnic data is not always readily [...] 15-29 5 Kidney failure <15 (or dialysis) 12 <5.0 Negative 5.0 - 25.0 Indeterminate (Repeat testing recommended after 72 hours) >25.0 Positive Perimenopausal women can display HCG levels of up to 20 mIU/mL 13 Therapeutic target for the treatment of diabetes mellitus patients is <7% HBA1C, and in selective patients <6.0%. Please refer to [place] Diabetes Association diabetic care guidelines for further information. Procedures Date CPT Code Description Status 06/14/2018 25746 SC/Im Injections Completed 11/17/2017 09909 Visual Acuity Screening Test Completed 10/17/2017 70744 Electrocardiogram Complete Completed Encounters Type Date Location Provider CPT E/M Dx Office Visit 06/14/2018 9:00a [place] [address] G43.009 F43.23 R06.02 Office Visit 05/30/2018 9:00a Main Office Evelia Rollins P.Chaz 67173 E66.9 G89.4 R53.1 R73.03 Office Visit 05/10/2018 3:20p [place] [address] J31.2 R13.11 E66.9 G89.4 Z80.1 M43.17 Office Visit 04/27/2018 9:20a Main Office Evelia Rollins, P.A. 61994 R53.83 G47.9 E66.9 Q66.9 G47.33 Z68.41 Office Visit 04/03/2018 9:20a Main Office Evelia Rollins, P.A. 52900 F51.12 R73.03 I10 Z71.3 Office Visit 03/02/2018 9:20a Main Office Evelia Rollins, P.A. 55131 R73.03 G47.00 F43.23 I10 Z71.3 Q68.8 Z68.41 E66.01 Office Visit 02/13/2018 4:40p Main Office Evelia Rollins, P.A. 89664 F43.23 G47.00 I10 Z79.899 Office Visit 01/30/2018 9:20a Main Office Eveila Rollins, P.A. 98825 R61 E66.9 F43.23 I10 R73.03 Z68.41 Office Visit 12/16/2017 1:40p Main Office Evelia Rollins, P.A. 52913 G43.C0 G89.4 M54.5 Office Visit 12/08/2017 9:20a Main Office Evelia Rollins, P.A. 72022 I10 G43.C0 Z79.899 Z03.6 Z91.14 Office Visit 11/17/2017 11:00a Main Office Evelia Rollins, P.A. 04999 G43.001 H53.149 G43.C0 R73.09 E66.9 I10 R61 Office Visit 11/08/2017 9:40a Main Office Evelia Rollins, P.A. 87170 Z02.89 F43.23 G89.4 I10 J45.909 Z23 Z11.1 Office Visit 10/17/2017 4:20p Main Office Evelia Rollins, P.A. 21477 R07.89 I10 G89.4 F43.23 E66.9 K21.9 D64.9 Plan of Care 06/14/2018 - Shu Saxena, PAG43.009 Migraine w/o aura, not intractable, w/o status migrainosusNew Medication:Sumatriptan Succinate 50 mgComments:Toradol 60mg IM given if office. Rx for sumatriptan. Continue topiramate. Pt has appt w neurology (Dr. Edgar) later today. I instructed pt to talk to him about sumatriptan Rx before filling it (in case he prefers a different med).F43.23 Adjustment disorder with mixed anxiety and depressed moodNew Medication: Alprazolam 0.25 mgComments:Patient is very anxious. Continue buspirone, bupropion, venlafaxine, abilify as directed. Patient has not been using alprazolam, stated "I didn't know I had that prescription". Rx refilled, she can useit up to TID as needed for anxiety. Recheck if sx not improving.R06.02 Shortness of breathComments:Lungs are clear. Start of sx correlates w higher stress level, so mostly likely stress related. See #2 re tx. Recheck if sx not improving.
[2018-07-09 19:03] VITALS: BP 144/85
--- NOTE | 2018-07-09 19:23 | UC ---
Skin Complaint HPI - HPI Summary HPI Summary: C/O draining ulcer on the right back of the ankle along the scar from club foot surgery. ? due to new sneakers. Using bacitracin and polysporin without success. - History of Current Complaint Chief Complaint: UCSkin Time Seen by Provider: 07/09/18 19:10 Stated Complaint: SORE ON ANKLE Hx Obtained From: Patient Hx Last Menstrual Period: 07/09/18 ?: No Onset/Duration: Gradual Onset, Lasting Weeks - 4, Still Present Onset Severity: Mild Current Severity: Mild Pain Intensity: 1 Location: Foot (Right) - on the posterior ankle. Aggravating Factor(s): Nothing Alleviating Factor(s): Nothing Associated Signs & Symptoms: Positive: Drainage. Negative: Fever, Chills - Allergy/Home Medications Allergies/Adverse Reactions: Allergies Allergy/AdvReac Type Severity Reaction Status Date / Time No Known Allergies Allergy Verified 07/09/18 18:54 Review of Systems Skin: Other - Open sore. Is Patient Immunocompromised?: No All Other Systems Reviewed And Are Negative: Yes PMH/Surg Hx/FS Hx/Imm Hx Cardiovascular History: Hypertension Psychological History: Anxiety, Depression - Surgical History Surgical History: Yes Surgery Procedure, Year, and Place: amada feet [facility]UB , left hip, , CHOLECYSTECTOMY, breast surgery BLOCKED DUCT, neck surgery x2 PLATES SCREWS, LEFT hip replacement, CONGENITAL LEFT HIP DISLOCATION AND REPAIR - Family History Known Family History: Positive: Hypertension Negative: Cardiac Disease Family History: not aware of any cardio vascular issues in biological lineage - Social History Occupation: Employed Part-time Lives: With Family Alcohol Use: Rare Alcohol Amount: ONCE A MONTH Substance Use Type: None Substance Use Comment - Amount & Last Used: VERY RARELY, LAST TIME 06/2015 Smoking Status (MU): Light Every Day Tobacco Smoker Type: eCigarettes Amount Used/How Often: 2 cigarettes/day Have You Smoked in the Last Year: Yes When Did the Patient Quit Smoking/Using Tobacco: quit today - 04/04/16 Household Exposure Type: Cigarettes Cessation Counseling: Patient Advised to Stop - Immunization History Most Recent Influenza Vaccination: not this season Most Recent Tetanus Shot: OCT 2017 Physical Exam Triage Information Reviewed: Yes Appearance: Well-Appearing, No Pain Distress, Obese Vital Signs: Initial Vital Signs Temp 98.1 F 07/09/18 18:55 Pulse 104 07/09/18 18:55 Resp 14 07/09/18 18:55 BP 144/85 07/09/18 18:55 Pulse Ox 99 07/09/18 18:55 Vital Signs Reviewed: Yes Eyes: Positive: Conjunctiva Clear Neck exam: Normal Respiratory Exam: Normal Cardiovascular Exam: Normal Musculoskeletal: Positive: Other: - Club feet bilaterally Neurological Exam: Normal Psychological Exam: Normal Skin: Positive: Other - ulcer on right posterior ankle. 6 mm. Course/Dx - Differential Diagnoses - Skin Complaint Differential Diagnoses: Abscess, Cellulitis, Impetigo - Diagnoses Provider Diagnoses: Skin ulcer ankle Discharge - Sign-Out/Discharge Documenting (check all that apply): Patient Departure - Discharge Plan Condition: Stable Disposition: HOME Patient Education Materials: Chronic Wound Care (ED) Referrals: Rafy May MD [Primary Care Provider] - Additional Instructions: Great job on the wound care. It will eventually heal. You won't lose your foot. - Billing Disposition and Condition Condition: STABLE Disposition: Home
== END 2018-07-09 19:35 | disposition home or self-care (01) ==
LOC: UCCORT 18:37
DX: L98.499 Non-pressure chronic ulcer of skin of other sites with unspecified severity (principal); L97.319 Non-pressure chronic ulcer of right ankle with unspecified severity; F17.290 Nicotine dependence, other tobacco product, uncomplicated
CPT/HCPCS: 99212; G0463

== ENCOUNTER 2018-10-02 16:56 | Emergency (ER) | payer OTHER ==
--- OUTSIDE RECORDS SUMMARY | 2018-10-02 17:01 | XMS REPORT | Continuity of Care Document ---
:1975 External Reference #:[id number] Author Name Rafy May M.D. Address [address] [facility] [address] [place] [address] Care Team Providers Name Role Phone HCP given Primary Care Physician Unavailable Payers Type Date Identification Numbers Payment Provider Subscriber Effective: Policy Number: [id number] [employer] Kiko Chairez 2018 PayID: [id number] [address] [place] [address] Expires: 2017 Policy Number: [id number] Medicaid Kiko Chairez PayID: [id number] [address] [place] [address] Advance Directives Description No Information Available Problems Date Description Provider Status Onset: 10/17/2017 Essential hypertension Natalie Sanders Active Onset: 05/10/2018 Obesity Shu Saxena, PA Active Onset: 05/10/2018 Chronic pain syndrome Shu Saxena, PA Active Onset: 05/10/2018 Mixed anxiety and depressive disorder Shu Saxena, PA Active Onset: 05/10/2018 Arthrogryposis Bret Saxenali, PA Active Onset: 05/10/2018 Gastroesophageal reflux disease [place], Shu, PA Active Onset: 05/10/2018 Allergic rhinitis [place], Shu, PA Active Onset: 05/10/2018 Anemia Shu Saxena, PA Active Onset: 06/14/2018 Migraine without aura, not refractory HekBret pickardli, PA Active Onset: 06/14/2018 Adjustment disorder with mixed emotional Bret Saxenali, PA Active features Family History Date Family Member(s) Problem(s) Comments General Alcoholism General Cancer General Emotional Problems General High Blood Pressure General Obesity Children 6 4 daughters 2 sons Social History Type Date Description Comments Sex Unknown Education Highest Level Completed College Marital Status reportedly an opiate addict and has stolen medication from her repeatedly in the past Lives With Diet Healthy, Well Balanced Pets Bird x 3 Pets Cat Work Status 10/2017 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, 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[employer], 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, 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 Hand Dominance Right-handed Abuse No history of abuse Tobacco Use Start: Unknown Former Cigarette End: Unknown Smoker ETOH Use Denies alcohol use Recreational Drug Use Denies Drug Use Tobacco Use Start: Unknown Patient is a former End: Unknown smoker Smoking Status Reviewed: 12/16/17 Patient is a former smoker Exercise Type/Frequency Exercises regularly walking Sun Exposure Does not use sunscreen Seat Belt/Car Seat always uses seat belt Guns in Home No Currently Active Patient is currently sexually active Age [address] [place] 19 Years Old Allergies, Adverse Reactions, Alerts Description No Known Drug Allergies Medications Medication Date Status Form Strength Qnty SIG Indications Ordering Provider Suboxone 09/18/ Active Film 2-0.5mg 30unit 1 film by F11.20 [email or web address] s mouth every Rafy, morning; Rx M.D. due 10/02/18; suboxone prescriber #[id number] Nicoderm CQ 09/07/ Active Patches 14mg/24HR 28unit 1 patch per F17.210 Yadira2017 24HR s day Isabela Hillman Permethrin 09/01/ Active Cream 5% 120gm wash hair w/ Yadira2017 shampoo Rafy, only, rinse. M.D. apply cream to saturate the hair & scalp, leave on for 10 min then rinse,repeat 9 days Sumatriptan 06/14/ Active Tablets 50mg 9tabs 1 tab by G43.009 Debo May 2017 mouth at Rafy, onset of M.D. migraine, may repeat x1 after 2 hours if needed Alprazolam 06/14/ Active Tablets 0.25mg 90tabs 1 tab by G47.00 Yadira, 2017 mouth up to Rafy, three times M.D. a day as needed for anxiety/adelfo c attacks F43.23 Topiramate 06/13/2018 Active Tablets 100mg 30tabs 1 tablet by corrina Edgar daily MD Jcarlos Venlafaxine HCL ER 05/25/2018 Active Caps ER 75mg 9caps 3 caps by F Yadira, 24HR mouth every 4 Rafy, day for 3 M.D. anxiety . 2 3 Buspirone HCL 02/13/2018 Active Tablets 5mg 60tabs 1 twice a F Silcoff, day for 4 Rafy, anxiety 3 M.D. . 2 3 Bupropion HCL ER (SR) 02/03/2018 Active Tablets ER 100mg 60tabs take one F Silcoff, 12HR tablet by 4 Rafy, mouth in 3 M.D. the morning . and one at 2 noon 3 Cyclobenzaprine HCL 12/16/2017 Active Tablets 10mg 90tabs 1 tab by Amari May, mouth up to 8 Rafy, three times 9 M.D. a day for . back pain, 4 will make you drowsy Loratadine 11/08/2017 Active Tablets 10mg 30tabs 1 by mouth Kendra May, every day 4 Rafy, as needed 5 M.D. for . allergies 9 0 9 Iron High-Potency 10/16/2017 Active Tablets 325mg 30tabs 1 every D Silcoff, morning 6 Rafy, 4 M.D. . 9 Fluticasone 10/16/2017 Active Suspension 50mcg/ 2 sprays Unknown Propionate Act into each nostril once daily for nasal congestion Omeprazole 10/16/[address] 20mg 30tabs 1 tab po K Juanff, daily as 2 Rafy, needed 1 M.D. . 9 Tylenol Extra 10/16/2017 Active Tablets 500mg 2 tabs Unknown Strength every 6 hours tid Lisinopril 10/16/2017 Active Tablets 10mg 90tabs 2 tabs by Rigo May, mouth every 1 Rafy, morning and 0 M.D. 1 tab by mouth in the evening Meloxicam 10/16/2017 Active Tablets 7.5mg 60tabs 1 tab by Silcoff, mouth in Rafy, morning and M.D. one at midday Aripiprazole 10/16/2017 Active Tablets 5mg 30tabs Take One F Silcoff, Tablet By 4 Rafy, Mouth 3 M.D. Nightly For . Mood 2 3 Gabapentin 09/22/2018 - Hx Capsules 300mg 1 by mouth Amari May, 09/22/2018 at bedtime 8 Rafy, for 1 week 9 M.D. then stop . it; for 4 pain Suboxone 09/15/2018 - Hx Film 2-0.5m 2units 1 film by Aaron May, 09/18/2018 g mouth every 1 Rafy, morning 1 M.D. starting on . 09/17/18 2 (use 0 remaining 8/2 film for 10/2 dose); suboxone prescriber #[id number] Suboxone 09/14/2018 - Hx Film 8-2mg 2units 1/2 film by Aaron May, 09/15/2018 mouth now; 1 Rafy, may take 1 M.D. another 1/2 . film today 2 after 4 or 0 more hours; take 1/2 film tomorrow am; suboxone prescriber# [id number] Suboxone 09/13/2018 - Hx Film 8-2mg 2films 1/2 film by Aaron May, 09/14/2018 mouth 1 cindy Hillman, 1 M.D. again . tomorrow am 2 and Tuesday 0 am; may take 1 more dose Harper amy; suboxone prescriber# [id number] Permethrin 08/10/2018 - Hx Cream 5% 120gm wash hair Yadira, 08/21/2018 w/ shampoo jimmy Hillman M.DLeean rinse. apply cream to saturate the hair & scalp, leave on for 10 min then rinse,repea t 9 days Duoderm Hydroactive 07/18/2018 - Hx Gel Misc 30Grams Change L Yadira, Dressing 08/20/2018 dressing 0 Rafy, daily for 3 M.D. wound care . management 1 right ankle 1 5 Cephalexin 07/11/2018 - Hx Tablets 500mg 20tabs 1 two times L Silcoff, 07/21/2018 a day x 10d 0 Rafy, for 3 M.D. infection . right ankle 1 infection 1 5 Alprazolam 02/13/2018 - Hx Tablets 1mg 1tabs 1/2 to 1 G Silcoff, 06/14/2018 tablet po 4 Rafy, up to 3x/ 7 M.D. . 0 0 Cyclobenzaprine 12/16/2017 - Hx Powder 1 tab by G Ashleycoff, 12/16/2017 mouth three 8 Rafy, times a day 9 M.D. . 4 TENS Unit 12/16/2017 - Hx 1units Use as G Ashleycoff, 03/01/2018 directed 8 Rafy, with the 9 M.D. equipement . 1-2 times a 4 day for pain management Amitriptyline HCL 11/17/2017 - Hx Tablets 10mg 60tabs start with G Ashleycocatrachito, 12/13/2017 1 tablet at 4 Rafy, night for 3 M.D. bar. after . one week 0 can 0 increase to 1 2 at night if needed Hydrochlorothiazide 11/17/2017 - Hx Tablets 12.5mg 30tabs 1 tab by Rigo May, 09/12/2018 mouth every 1 Rafy, morning 0 M.D. Ventolin HFA 11/08/2017 - Hx Aerosol 108(90 1Inhale 1-2 puff q4 J Yadira, 05/30/2018 Base) r hours for 4 Rafy, mcg/Ac breath 5 M.D. t . 9 0 9 Clotrimazole 10/16/2017 - Hx Lozenges 10mg 1 by mouth Unknown 10/16/2017 5x/day for 2wks, for oral thrush Percocet 10/16/2017 - Hx Tablets 7.5-32 150tabs 1 tab by Amari May, 09/12/2018 5mg mouth every 8 Rafy, 4-6 hours 9 M.D. as needed . for pain, 4 can refill about 08/30/18 M54.5 Wellbutrin SR 10/16/2017 - Hx Tablets ER 100mg 60tabs 1 by mouth F43.23 Ashleycocatrachito, 02/03/2018 12HR in the Rafy, morning and M.D. 1 at noon Gabapentin 10/16/2017 - Hx Capsules 100mg 1 po in Unknown 03/01/2018 morning and one at midday (may skip midday if it causes drowsiness) Cyclobenzaprine 10/16/2017 - Hx 10mg 1 tab po tid G89.4 Unknown 12/16/2017 Gabapentin 10/16/2017 - Hx Capsules 300mg 30caps Take One G89.4 Ashleycocatrachito , 09/22/2018 Capsule By Rafy, Mouth In The M.D. Evening Venlafaxine HCL ER 10/16/2017 - Hx Tablets ER 225mg 30tabs take one F43.23 Silcoff, 05/25/2018 24HR tablet by Rafy, mouth once M.D. daily with food for depression Diclofenac - Hx Tablets 50mg G89.4 Unknown Potassium 11/17/2017 Medications Administered in Office Medication Date Status Form Strength Qnty SIG Indications Ordering Provider Toradol 15MG. Administered Injection Hektor, 018 AURELIO [place] SC/Im Administered Injection Hektor, Injections 018 AURELIO [place] TB Intradermal Administered Injection Evelia Test 017 [place], P.A[facility] Immunizations CPT Code Status Date Vaccine Lot # [id number] Given 08/24/2018 Influenza Virus Vaccine, Quadrivalent, Split, [id number] Preservative Free 23369 Given 11/10/2017 MMR Virus Immunization [id number] Given 11/08/2017 Influenza Virus Vaccine, Quadrivalent, Split, [id number] Preservative Free 09492 Given 05/17/2017 Adacel or Boostrix, TDaP 60713 Given 05/17/2017 MMR Virus Immunization U-Flu Given 09/27/2016 Influenza,Unspecified U-Flu Given 09/06/2013 Influenza,Unspecified 96596 Given 08/02/2012 Flu, Split Virus 3Yrs Vital Signs Date Vital Result Comment 09/29/2018 11:41am BP Systolic 126 mmHg BP Diastolic 84 mmHg Weight 239.00 lb w/shoes 09/22/2018 8:49am BP Systolic 124 mmHg BP Diastolic 82 mmHg 09/18/2018 3:29pm BP Systolic 128 mmHg BP Diastolic 80 mmHg Weight 242.00 lb 09/15/2018 4:27pm BP Systolic 126 mmHg BP Diastolic 70 mmHg 09/13/2018 5:23pm BP Systolic 126 mmHg BP Diastolic 88 mmHg 09/07/2018 3:23pm BP Systolic 120 mmHg BP Diastolic 86 mmHg Weight 243.50 lb 08/24/2018 9:20am BP Systolic 130 mmHg BP Diastolic 84 mmHg Heart Rate 108 /min Height 63 inches 5'3" Weight 235.50 lb BMI (Body Mass Index) 41.7 kg/m2 07/18/2018 9:23am BP Systolic 126 mmHg BP Diastolic 80 mmHg Body Temperature 97.9 F Weight 246.00 lb 07/11/2018 9:11am BP Systolic 130 mmHg BP Diastolic 98 mmHg Height 63 inches 5'3" Weight 239.00 lb BMI (Body Mass Index) 42.3 kg/m2 07/03/2018 4:54pm BP Systolic 128 mmHg BP Diastolic 82 mmHg Heart Rate 108 /min 95-100 rest of Ov O2 % BldC Oximetry 97 % Weight 236.00 lb 06/14/2018 9:12am BP Systolic 130 mmHg BP Diastolic 84 mmHg Weight 242.00 lb 05/30/2018 9:12am BP Systolic 128 mmHg BP Diastolic 80 mmHg Weight 235.00 lb 05/10/2018 4:00pm BP Systolic 128 mmHg BP Diastolic 94 mmHg Weight 238.00 lb 04/27/2018 9:37am BP Systolic 118 mmHg BP Diastolic 78 mmHg Height 63 inches 5'3" Weight 240.00 lb sneakers on BMI (Body Mass Index) 42.5 kg/m2 04/03/2018 9:29am BP Systolic 130 mmHg BP Diastolic 86 mmHg Height 63 inches 5'3" Weight 235.00 lb BMI (Body Mass Index) 41.6 kg/m2 03/02/2018 9:27am BP Systolic 130 mmHg BP Diastolic 88 mmHg Weight 231.00 lb 02/13/2018 4:57pm BP Systolic 132 mmHg BP Diastolic 98 mmHg Weight 228.00 lb 01/30/2018 9:30am BP Systolic 135 mmHg BP Diastolic 89 mmHg Heart Rate 109 /min Weight 237.00 lb 12/16/2017 1:54pm BP Systolic 108 mmHg BP Diastolic 68 mmHg Weight 231.00 lb 12/08/2017 9:57am BP Systolic 126 mmHg BP Diastolic 80 mmHg 11/17/2017 11:14am BP Systolic 134 mmHg BP Diastolic 84 mmHg Weight 230.00 lb 11/08/2017 10:09am BP Systolic 134 mmHg BP Diastolic 80 mmHg Weight 221.00 lb 10/17/2017 4:41pm BP Systolic 148 mmHg BP Diastolic 82 mmHg Heart Rate 104 /min O2 % BldC Oximetry 98 % Height 62.75 inches 5'2.75" Weight 225.00 lb BMI (Body Mass Index) 40.2 kg/m2 Results Test Date Facility Test Result H/L Range Note Urine Drug Screen Inhouse 09/15/2018 In House Ua Cocaine - Ua Opiates - Ua Amphetamines - Urine Methanphetamines - Urine Benzodiazepines QN [place] - Urine Oxycodone QL - Pthi 07/05/2018 [facility] Calcium (PTH Intact) 9.0 mg/dL N 8.6-10.3 [phone] PTH Intact 5.3 pmol/L N 1.3-9.3 Laboratory test 07/05/2018 [facility] Insulin Level 74.9 mcIU/mL High 2.0-16.0 finding [phone] Basic Metabolic 07/05/2018 [facility] Sodium 138 mmol/L N 135-145 Panel [phone] Potassium 4.3 mmol/L N 3.5-5.0 Chloride 106 mmol/L N 101-111 Co2 Carbon Dioxide 24 mmol/L N 22-32 Anion Gap 8 mmol/L N 2-11 Glucose 106 mg/dL High 70-100 Blood Urea Nitrogen 16 mg/dL N 6-24 Creatinine 0.89 mg/dL N 0.51-0.95 BUN/Creatinine Ratio 18.0 N 8-20 Calcium 9.0 mg/dL N 8.6-10.3 Egfr Non- 69.6 >60 Egfr 84.2 >60 1 Laboratory test 07/05/2018 [facility] TSH (Thyroid 1.55 mcIU/mL N 0.34-5.60 finding [phone] Stim Horm) Ua Inhouse 07/03/2018 In House Ua Glucose - 2 Ua Bilirubin - Ua Ketones - Ua Specific [place] 1.020 Ua Blood sm/ 1+ Ua PH 6.0 Ua Protein - Ua Urobilinogen - Ua Nitrite - Ua Leukocytes - Culture Urine Inhouse 07/03/2018 In House Colonies negative Laboratory test finding 07/03/2018 In House Test Urine negative Laboratory test finding 05/30/2018 In House Hemoglobin A1c 5.9 Laboratory test finding 05/10/2018 In House Culture Throat Rapid negative Screen Culture Throat negative Basic Metabolic Panel 05/04/2018 [facility] Sodium 134 mmol/L Low 135 -145 [phone] Potassium 4.3 mmol/L N 3.5-5.0 Chloride 101 mmol/L N 101-111 Co2 Carbon Dioxide 24 mmol/L N 22-32 Anion Gap 9 mmol/L N 2-11 Glucose 104 mg/dL High 70-100 Blood Urea Nitrogen 15 mg/dL N 6-24 Creatinine 0.70 mg/dL N 0.51-0.95 BUN/Creatinine Ratio 21.4 High 8-20 Calcium 9.3 mg/dL N 8.6-10.3 Egfr Non- 91.8 >60 Egfr 118.0 >60 3 CBC Auto Diff 05/04/2018 [facility] White Blood Count 9.6 10^3/uL N 3.5-10.8 [phone] Red Blood Count 4.54 10^6/uL N 4.00-5.40 Hemoglobin 12.7 g/dL N 12.0-16.0 Hematocrit 38 % N 35-47 Mean Corpuscular Volume 84 fL N 80-97 Mean Corpuscular Hemoglobin 28 pg N 27-31 Mean Corpuscular HGB Conc 33 g/dL N 31-36 Red Cell Distribution Width 15 % N 10.5-15 Platelet Count 405 10^3/uL N 150-450 Mean Platelet Volume 6.9 um3 Low 7.4-10.4 Abs Neutrophils 5.6 10^3/uL N 1.5-7.7 Abs Lymphocytes 2.8 10^3/uL N 1.0-4.8 Abs Monocytes 0.7 10^3/uL N 0-0.8 Abs Eosinophils 0.5 10^3/uL N 0-0.6 Abs Basophils 0.1 10^3/uL N 0-0.2 Abs Nucleated RBC 0 10^3/uL Granulocyte % 58.1 % N 38-83 Lymphocyte % 29.0 % N 25-47 Monocyte % 6.9 % N 0-7 Eosinophil % 5.0 % N 0-6 Basophil % 1.0 % N 0-2 Nucleated Red Blood Cells % 0.1 Laboratory test 05/04/2018 [facility] Erythrocyte Sed 29 mm/Hr High 0 -14 finding [phone] Rate Lyme Disease Serology Negative Negative 4 TSH (Thyroid Stim Horm) 1.95 mcIU/mL N 0.34-5.60 Celiac Panel 05/04/2018 [facility] Tissue Transglutaminase IgA Ab <1.2 U/mL 5 [phone] Immunoglobulin A 358 mg/dL Abnormal 61 - 356 Celiac Interpretation See Comment 6 Laboratory test finding 03/02/2018 In House Hemoglobin A1c 6.0 Urinalysis Profile 11/28/2017 [facility] Urine Color Yellow [phone] Urine Appearance Cloudy Urine Specific [place] 1.021 N 1.010-1.030 Urine pH 6.0 N 5-9 Urine Urobilinogen Negative Negative Urine Ketones Negative Negative Urine Protein Negative Negative Urine Leukocytes 3+ Abnormal Negative Urine Blood 1+ Abnormal Negative Urine Nitrite Negative Negative Urine Bilirubin Negative Negative Urine Glucose Negative Negative Urine White Blood Cell 2+(11-20/hpf) Abnormal Absent Urine Red Blood Cell 1+(3-5/hpf) Abnormal Absent Urine Bacteria Absent Absent Urine Squamous Epithelial Cell Present Abnormal Absent Urine Drug 11/28/2017 [facility] Amphetamine Ur None Detected None Detect SCR ED & [phone] Screen Pain Clinic Barbiturates Urine Screen None Detected None Detect Benzodiazepine Urine Screen None Detected None Detect Urine Cannabinoids Screen None Detected None Detect Urine Cocaine Screen None Detected None Detect Urine Opiates Screen None Detected None Detect Urine Phencyclidine Screen None Detected None Detect 7 Laboratory test 11/28/2017 [facility] Urine Culture And SEE RESULT 8 finding [phone] Sensitivities BELOW CBC Auto Diff 11/28/2017 [facility] White Blood Count 10.4 10^3/uL N 3.5-10 [phone] .[phone] Red Blood Count 4.85 10^6/uL N 4.0-5.4 Hemoglobin 13.1 g/dL N 12.0-16.0 Hematocrit 40 % N 35-47 Mean Corpuscular Volume 82 fL N 80-97 Mean Corpuscular Hemoglobin 27 pg N 27-31 Mean Corpuscular HGB Conc 33 g/dL N 31-36 Red Cell Distribution Width 14 % N 10.5-15 Platelet Count 409 10^3/uL N 150-450 Mean Platelet Volume 7 um3 Low 7.4-10.4 Abs Neutrophils 6.5 10^3/uL N 1.5-7.7 Abs Lymphocytes 2.8 10^3/uL N 1.0-4.8 Abs Monocytes 0.8 10^3/uL N 0-0.8 Abs Eosinophils 0.2 10^3/uL N 0-0.6 Abs Basophils 0.1 10^3/uL N 0-0.2 Abs Nucleated RBC 0 10^3/uL Granulocyte % 62.4 % N 38-83 Lymphocyte % 26.9 % N 25-47 Monocyte % 7.3 % N 1-9 Eosinophil % 2.4 % N 0-6 Basophil % 1.0 % N 0-2 Nucleated Red Blood Cells % 0.1 Laboratory test 11/28/2017 [facility] Lactic Acid 1.9 mmol/L N 0.5- 2.0 9 finding [phone] Laboratory test 11/28/2017 [facility] HCG 0.75 mIU/mL 10 finding [phone] Acetaminophen < 15 g/mL 11 Alcohol < 10 mg/dL N <10 Salicylate < 2.50 mg/dL <30 Comp Metabolic Panel 11/28/2017 [facility] Sodium 134 mmol/L N 133- 145 [phone] Potassium 3.6 mmol/L N 3.5-5.0 Chloride 100 mmol/L Low 101-111 Co2 Carbon Dioxide 25 mmol/L N 22-32 Anion Gap 9 mmol/L N 2-11 Glucose 123 mg/dL High 70-100 Blood Urea Nitrogen 12 mg/dL N 6-24 Creatinine 0.70 mg/dL N 0.51-0.95 BUN/Creatinine Ratio 17.1 N 8-20 Calcium 9.4 mg/dL N 8.6-10.3 Total Protein 7.5 g/dL N 6.4-8.9 Albumin 3.9 g/dL N 3.2-5.2 Globulin 3.6 g/dL N 2-4 Albumin/Globulin Ratio 1.1 N 1-3 Total Bilirubin 0.20 mg/dL N 0.2-1.0 Alkaline Phosphatase 78 U/L N 34-104 Alt 16 U/L N 7-52 Ast 19 U/L N 13-39 Egfr Non- 92.2 >60 Egfr 118.6 >60 12 Laboratory test 11/16/2017 [facility] Hemoglobin A1c 6.3 % High 4.0- 5.6 13 finding [phone] (Glyco HGB) Laboratory test 11/16/2017 [facility] HCG 0.80 14 finding [phone] mIU/mL Basic Metabolic 11/16/2017 [facility] Sodium 137 N 133-145 Panel [phone] mmol/L Potassium 3.7 mmol/L N 3.5-5.0 Chloride 103 mmol/L N 101-111 Co2 Carbon Dioxide 27 mmol/L N 22-32 Anion Gap 7 mmol/L N 2-11 Glucose 106 mg/dL High 70-100 Blood Urea Nitrogen 10 mg/dL N 6-24 Creatinine 0.72 mg/dL N 0.51-0.95 BUN/Creatinine Ratio 13.9 N 8-20 Calcium 8.7 mg/dL N 8.6-10.3 Egfr Non- 89.3 >60 Egfr 114.8 >60 15 CBC Auto Diff 11/16/2017 [facility] White Blood 12.6 10^3/uL High 3.5 -10.8 [phone] Count Red Blood Count 4.39 10^6/uL N 4.0-5.4 Hemoglobin 12.2 g/dL N 12.0-16.0 Hematocrit 36 % N 35-47 Mean Corpuscular Volume 83 fL N 80-97 Mean Corpuscular Hemoglobin 28 pg N 27-31 Mean Corpuscular HGB Conc 34 g/dL N 31-36 Red Cell Distribution Width 14 % N 10.5-15 Platelet Count 398 10^3/uL N 150-450 Mean Platelet Volume 7 um3 Low 7.4-10.4 Abs Neutrophils 8.4 10^3/uL High 1.5-7.7 Abs Lymphocytes 3.1 10^3/uL N 1.0-4.8 Abs Monocytes 0.7 10^3/uL N 0-0.8 Abs Eosinophils 0.3 10^3/uL N 0-0.6 Abs Basophils 0.2 10^3/uL N 0-0.2 Abs Nucleated RBC 0 10^3/uL Granulocyte % 66.4 % N 38-83 Lymphocyte % 24.3 % Low 25-47 Monocyte % 5.5 % N 1-9 Eosinophil % 2.4 % N 0-6 Basophil % 1.4 % N 0-2 Nucleated Red Blood Cells % 0 [...] 5 Kidney failure <15 (or dialysis) 2 void, zita, gold 3 Because ethnic data is not always readily [...] 15-29 5 Kidney failure <15 (or dialysis) 4 No evidence of antibodies to B. burgdorferi detected. False negative results may occur in recently infected patients (<=2 weeks) due to low or undetectable antibody levels to B. burgdorferi. If recent exposure is suspected, a second sample should be collected and tested in 2-4 weeks. Test Performed by: [facility] [address] [place] [address] 5 REFERENCE VALUE <4.0 (Negative) Test Performed by: [address] [address] 6 Negative serology. Celiac disease unlikely. However, approximately 10% of patients with celiac disease are seronegative. Also, patients who are already adhering to a gluten-free diet may be seronegative. If celiac disease is highly clinically suspected, consider HLA-DQ typing. Test Performed by: [address] [address] 7 The urine specimen was tested at the listed cutoffs: Drug class test level (ng/mL) Amphetamines 500 Barbiturates 200 Benzodiazepine metabolites 200 Cocaine metabolites 150 Cannabinoids 50 Opiates 300 Pcp 25 Specimen was received without chain of custody. Results should be used for medical purposes only. 8 SEE RESULT BELOW Name: KIKO CHAIREZ : [address]: Fran Sharp MD Acct: [id number] Unit: [id number] AGE: 42 Location: ED Re11/28/17 SEX: F Status: DEP ER SPEC: [id number] LINO: 11/28/17 [facility] [address]: Fran Sharp MD REQ: [id number] RECD: 11/28/17 STATUS: COMP ROBIN DR: Rafy May MD _ SOURCE: URINE SPDESC: ORDERED: Urine Culture Procedure Result Reported Site Urine Culture Final 11/30/17- 0812 ML No growth of clinically significant organisms * ML - MAIN LAB ([facility]) . END OF REPORT * ML=Testing performed at Main Lab DEPARTMENT OF PATHOLOGY, [address] [place] [address] Kelvin Alejandre M.D. Director [facility] # [id number] 9 [facility] Severe Sepsis and Septic Shock Management Bundle Measure requires all lactic acids initially measuring >2.0 mmol/L be repeated. 10 <5.0 Negative 5.0 - 25.0 Indeterminate (Repeat testing recommended after 72 hours) >25.0 Positive Perimenopausal women can display HCG levels of up to 20 mIU/mL 11 Therapeutic concentration: <50 ug/mL Toxic concentration: >120 ug/mL 12 Because ethnic data is not always readily [...] 15-29 5 Kidney failure <15 (or dialysis) 13 Therapeutic target for the treatment of diabetes mellitus patients is <7% HBA1C, and in selective patients <6.0%. Please refer to [place] [employer] diabetic care guidelines for further information. 14 <5.0 Negative 5.0 - 25.0 Indeterminate (Repeat testing recommended after 72 hours) >25.0 Positive Perimenopausal women can display HCG levels of up to 20 mIU/mL 15 Because ethnic data is not always readily [...] Kidney failure <15 (or dialysis) Procedures Date Code Description Status 07/03/2018 95662 Electrocardiogram Complete Completed 06/14/2018 88509 SC/Im Injections Completed 11/17/2017 29377 Visual Acuity Screening Test Completed 10/17/2017 38763 Electrocardiogram Complete Completed Encounters Type Date Location Provider Dx Diagnosis Office Visit 09/22/2018 Main Office Rafy May G89.4 Chronic pain 8:40a M.DLeena syndrome F11.20 Opioid dependence, uncomplicated R53.83 Other fatigue Office Visit 09/18/2018 3:00p Main Office Magen May1.Dayan Opioid Rafy quezada M.D. uncomplicated R53.83 Other fatigue Office Visit 09/15/2018 4:00p Main Office Magen May1.20 Opioid dependenceRafy M.D. uncomplicated R53.83 Other fatigue Office Visit 09/13/2018 3:45p Main Office Magen May1.20 Opioid dependence, Rafy, M.D. uncomplicated Office Visit 09/07/2018 3:20p Main Office Evelia Rollins, G47.33 Obstructive sleep P.A. apnea (adult) (pediatric) E66.9 Obesity, unspecified F17.210 Nicotine dependence, cigarettes, uncomplicated Z79.899 Other fdc (current) drug therapy Office Visit 08/24/2018 9:20a Main Office Evelia Rollins, L03.115 Cellulitis of P.A. right lower limb G47.33 Obstructive sleep apnea (adult) (pediatric) E66.9 Obesity, unspecified I10 Essential (primary) hypertension D64.9 Anemia, unspecified R53.1 Weakness Z23 Encounter for immunization Z41.8 Encntr for oth proc for purpose oth than [facility] Z59.4 Lack of adequate food and safe drinking water Z71.3 Dietary counseling and surveillance Z68.41 Body mass index (BMI) 40.0-44.9, adult Office Visit 07/18/2018 9:00a Main Office Evelia Rollins, L03.115 Cellulitis of right P.A. lower limb Office Visit 07/11/2018 9:00a Main Office Evelia Rollins, E66.9 Obesity, P.A. unspecified L03.115 Cellulitis of right lower limb G47.33 Obstructive sleep apnea (adult) (pediatric) Z71.3 Dietary counseling and surveillance Z68.41 Body mass index (BMI) 40.0-44.9, adult Office Visit 07/03/2018 4:20p Main Office Evelia Rollins, R00.0 Tachycardia, P.A. unspecified R00.2 Palpitations R06.02 Shortness of breath E66.9 Obesity, unspecified N91.2 Amenorrhea, unspecified I10 Essential (primary) hypertension F43.23 Adjustment disorder with mixed anxiety and depressed mood R35.0 Frequency of micturition R61 Generalized hyperhidrosis K21.9 Gastro-esophageal reflux disease without esophagitis Office Visit 06/14/2018 9:00a Main Office Shu Saxena, G43.009 Migraine w/o aura, PA not intractable, w/o status migrainosus F43.23 Adjustment disorder with mixed anxiety and depressed mood R06.02 Shortness of breath Office Visit 05/30/2018 9:00a Main Office Evelia Rollins, E66.9 Obesity, unspecified P.A. G89.4 Chronic pain syndrome R53.1 Weakness R73.03 Prediabetes Office Visit 05/10/2018 3:20p Main Office Shu Saxena, J31.2 Chronic pharyngitis PA R13.11 Dysphagia, oral phase E66.9 Obesity, unspecified G89.4 Chronic pain syndrome Z80.1 Family history of malig neoplasm of trachea, bronc and lung M43.17 Spondylolisthesis, lumbosacral region Office Visit 04/27/2018 9:20a Main Office Evelia Rollins P.A. 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 syndrome R73.03 Prediabetes I10 Essential (primary) hypertension Z71.3 Dietary counseling and surveillance Office Visit 03/02/2018 9:20a Main Office Dominique Sanders.A. 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 with mixed anxiety and depressed mood G47.00 Insomnia, unspecified I10 Essential (primary) hypertension Z79.899 Other intermediate project manager (current) drug therapy Office Visit 01/30/2018 9:20a Main Office Evelia Rollins, R61 Generalized P.A. hyperhidrosis E66.9 Obesity, unspecified F43.23 Adjustment disorder with mixed anxiety and depressed mood I10 Essential (primary) hypertension R73.03 Prediabetes Z68.41 Body mass index (BMI) 40.0-44.9, adult Office Visit 12/16/2017 1:40p Main Office Evelia Rollins G43.C0 Periodic headache P.A. syndromes in chld/adlt, not intractable G89.4 Chronic pain syndrome M54.5 Low back pain Office Visit 12/08/2017 9:20a Main Office Evelia Rollins, I10 Essential ( primary) P.A. hypertension G43.C0 Periodic headache syndromes in chld/adlt, not intractable Z79.899 Other fdc (current) drug therapy Z03.6 Encntr for obs for susp toxic eff from ingest sub ruled out Z91.14 Patient's other noncompliance with medication regimen Office Visit 11/17/2017 11:00a Main Office Evelia Rollins G43.001 Migraine w/o aura, P.A. not intractable, with status migrainosus H53.149 Visual discomfort, unspecified G43.C0 Periodic headache syndromes in chld/adlt, not intractable R73.09 Other abnormal glucose E66.9 Obesity, unspecified I10 Essential (primary) hypertension R61 Generalized hyperhidrosis Office Visit 11/08/2017 9:40a Main Office Evelia Rollins, Z02.89 Encounter for other P.A. administrative examinations F43.23 Adjustment disorder with mixed anxiety and depressed mood G89.4 Chronic pain syndrome I10 Essential (primary) hypertension J45.909 Unspecified asthma, uncomplicated Z23 Encounter for immunization Z11.1 Encounter for screening for respiratory tuberculosis Office Visit 10/17/2017 4:20p Main Office Shima SandersALeena R07.89 Other chest pain I10 Essential (primary) hypertension G89.4 Chronic pain syndrome F43.23 Adjustment disorder with mixed anxiety and depressed mood E66.9 Obesity, unspecified K21.9 Gastro-esophageal reflux disease without esophagitis D64.9 Anemia, unspecified Plan of Treatment Future Appointment(s):10/19/2018 11:20 am - Natalie Sanders at Main [id number] - Natalie SandersG47.33 Obstructive sleep apnea (adult) (pediatric) Follow up:cont use of CPAPE66.9 Obesity, unspecifiedFollow up:wt gain, clffqqkmoR27.210 Nicotine dependence, cigarettes, uncomplicatedNew Medication: Nicoderm CQ 14 mg/24HR - 1 patch per dayZ79.899 Other fdc (current) drug therapyComments:Will check whether Dr. May will see this pt in this office for suboxone management. Addendum: HS will see this pt for management of suboxoneFollow up:Call [facility] or [facility] Outpatient for appt as resouces
--- OUTSIDE RECORDS SUMMARY | 2018-10-02 17:01 | XMS REPORT | Continuity of Care Document ---
:1975 External Reference #:[id number] Author Name Rafy May M.D. 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 then stop it; for pain Suboxone 09/18/ Active Film 2-0.5mg 7units 1 film by F11.20 Yadira2017 mouth now Rafy, then 1 every M.D. morning starting on 09/25/18; suboxone prescriber #[id number] Nicoderm CQ 09/07/ Active Patches 14mg/24HR 28unit [...] by G43.009 Debo May 2017 mouth at [place], onset of M.D. migraine, may repeat x1 after 2 hours if needed Alprazolam 06/14/ Active Tablets 0.25mg 90tabs 1 tab by G47.00 Yadira 2017 mouth up to Rafy, three times [...] Active Tablets 10mg 90tabs 1 tab by G Ashleycocatrachito, mouth up to 8 Rafy, three times 9 M.D. a day for . back pain, 4 will make you drowsy Loratadine 11/08/2017 Active Tablets 10mg 30tabs 1 by mouth J Yadira, every day 4 Rafy, as needed 5 M.D. for . allergies 9 0 9 Iron High-Potency 10/16/2017 Active Tablets 325mg 30tabs 1 every D Sil[place], morning 6 Rafy, 4 M.D. . 9 Fluticasone 10/16/2017 Active Suspension 50mcg/ 2 sprays Unknown Propionate Act into each nostril once daily for nasal congestion Omeprazole 10/16/[address] 20mg 30tabs 1 tab po K Yadira, daily as 2 Rafy, needed 1 M.D. . 9 Tylenol Extra 10/16/2017 Active Tablets 500mg 2 tabs Unknown Strength every 6 hours tid Lisinopril 10/16/2017 Active Tablets 10mg 90tabs 2 tabs by I [place], mouth every 1 Rafy, morning and 0 M.D. 1 tab by mouth in the evening Meloxicam 10/16/2017 Active Tablets 7.5mg 60tabs 1 tab by [place], mouth in Rafy, morning and M.D. one at midday Aripiprazole 10/16/2017 Active Tablets 5mg 30tabs Take One F Silcoff, Tablet By 4 Rafy, Mouth 3 M.D. Nightly For . Mood 2 3 Suboxone 09/15/2018 - Hx Film 2-0.5m 2units 1 film by Aaron May, 09/18/2018 g mouth every 1 Rafy, morning 1 M.D. starting on . 09/17/18 2 (use 0 remaining 8/2 film for 10/2 dose); suboxone prescriber #[id number] Suboxone 09/14/2018 - Hx Film 8-2mg 2units 1/2 film by Aaron May, 09/15/2018 mouth now; 1 Rafy, may take 1 M.D. another 1/2 . film today 2 after 4 or 0 more hours; take 1/2 film tomorrow am; suboxone prescriber# [id number] Suboxone 09/13/2018 - Hx Film 8-2mg 2films /2 film by Aaron May, 09/14/2018 mouth 1 cindy Hillman, 1 M.D. again . tomorrow am 2 and Tuesday 0 am; may take 1 more dose Harper amy; suboxone prescriber# [id number] Permethrin 08/10/2018 - Hx Cream 5% 120gm wash hair Silcoff, 08/21/2018 w/ shampojimmy Cervantes, M.D. rinse. apply cream to saturate the hair & scalp, leave on for 10 min then rinse,repea t 9 days Duoderm Hydroactive 07/18/2018 - Hx Gel Misc 30Grams Change L Silcocatrachito, Dressing 08/20/2018 dressing 0 Rafy, daily for [...] - Hx Powder 1 tab by G Yadira, 12/16/2017 mouth three 8 Rafy, times a day 9 M.D. . 4 TENS Unit 12/16/2017 - Hx 1units Use as Amari Ramirezcocatrachito, 03/01/2018 directed 8 Rafy, with the 9 M.D. equipement . 1-2 times a 4 day for pain management Amitriptyline HCL 11/17/2017 - Hx Tablets 10mg 60tabs start with G Ashleycoff, 12/13/2017 1 tablet at 4 Rafy, night [...] ER 100mg 60tabs 1 by mouth F43.23 Yadira, 02/03/2018 12HR in the [place], morning and M.D. 1 at noon Gabapentin 10/16/2017 - Hx Capsules 100mg 1 po in Unknown 03/01/2018 morning and one at midday (may skip midday if it causes drowsiness) Cyclobenzaprine 10/16/2017 - Hx 10mg 1 tab po tid G89.4 Unknown 12/16/2017 Gabapentin 10/16/2017 - Hx Capsules 300mg 30caps Take One G89.4 Silcoff , 09/22/2018 Capsule By Rafy, Mouth In The M.D. Evening Venlafaxine HCL ER 10/16/2017 - Hx Tablets ER 225mg 30tabs take one F43.23 Silcoff, 05/25/2018 24HR tablet by corrina Hillman once M.D. daily with food for depression Diclofenac - Hx Tablets 50mg G89.4 Unknown Potassium 11/17/2017 Medications Administered in Office Medication Date Status Form Strength Qnty SIG Indications Ordering Provider Toradol 15MG. Administered Injection Hektor, 018 AURELIO [place] SC/Im Administered Injection Hektor, Injections 018 AURELIO [place] TB Intradermal Administered Injection Evelia Test 017 Ayo, P.A. Immunizations CPT Code Status Date Vaccine Lot # [id number] Given 08/24/2018 Influenza Virus Vaccine, Quadrivalent, Split, [id number] Preservative Free 18013 Given 11/10/2017 MMR Virus Immunization [id number] 84313 Given 11/08/2017 Influenza Virus Vaccine, Quadrivalent, Split, [id number] Preservative Free 27854 Given 05/17/2017 Adacel or Boostrix, TDaP 34904 Given 05/17/2017 MMR Virus Immunization U-Flu Given 09/27/2016 Influenza,Unspecified U-Flu Given 09/06/2013 Influenza,Unspecified 65632 Given 08/02/2012 Flu, Split Virus 3Yrs Vital Signs Date Vital Result Comment 09/22/2018 8:49am BP Systolic 124 mmHg BP [...] - Urine Methanphetamines - Urine Benzodiazepines QN [place] - Urine Oxycodone QL - Laboratory test 07/05/2018 [facility] TSH (Thyroid 1.55 mcIU/mL N 0.34-5.60 hovxqqf [phone] Stim Horm) Pthi 07/05/2018 [facility] Calcium (PTH 9.0 mg/dL N 8.6-10.3 [phone] Intact) PTH Intact 5.3 pmol/L N 1.3-9.3 Laboratory test 07/05/2018 [facility] Insulin Level 74.9 mcIU/mL High 2.0-16.0 finding [phone] Basic Metabolic 07/05/2018 [facility] Sodium 138 mmol/L N 135-145 Panel [phone] Potassium 4.3 mmol/L N 3.5-5.0 Chloride 106 mmol/L N 101-111 Co2 Carbon Dioxide 24 mmol/L N 22-32 Anion Gap 8 mmol/L N 2-11 Glucose 106 mg/dL High 70-100 Blood Urea Nitrogen 16 mg/dL N 6-24 Creatinine 0.89 mg/dL N 0.51-0.95 BUN/Creatinine Ratio 18.0 N 8-20 Calcium 9.0 mg/dL N 8.6-10.3 Egfr Non- 69.6 >60 Egfr 84.2 >60 1 Ua Inhouse 07/03/2018 In House Ua Glucose - 2 Ua Bilirubin - Ua Ketones - Ua Specific [place] 1.020 Ua Blood sm/ 1+ Ua PH 6.0 Ua Protein - Ua Urobilinogen - Ua Nitrite - Ua Leukocytes - Laboratory test finding 07/03/2018 In [place] Test Urine negative Culture Urine Inhouse 07/03/2018 In House Colonies negative Laboratory test finding 05/30/2018 In [place] Hemoglobin A1c 5.9 Laboratory test finding 05/10/2018 In House Culture Throat Rapid negative Screen Culture Throat negative CBC Auto Diff 05/04/2018 [facility] White Blood Count 9.6 10^3/uL N 3.5-10.8 [phone] Red Blood Count 4.54 10^6/uL N 4.00-5.40 [...] Blood Cells % 0.1 Laboratory test 05/04/2018 [facility] Erythrocyte Sed 29 mm/Hr High 0 -14 finding [phone] Rate Lyme Disease Serology Negative Negative 3 TSH (Thyroid Stim Horm) 1.95 mcIU/mL N 0.34-5.60 Celiac Panel 05/04/2018 [facility] Tissue Transglutaminase IgA Ab <1.2 U/mL 4 [phone] Immunoglobulin A 358 mg/dL Abnormal 61 - 356 Celiac Interpretation See Comment 5 Basic Metabolic Panel 05/04/2018 [facility] Sodium 134 mmol/L Low 135 -145 [phone] Potassium 4.3 mmol/L N 3.5-5.0 Chloride 101 mmol/L N 101-111 Co2 Carbon Dioxide 24 mmol/L N 22-32 Anion Gap 9 mmol/L N 2-11 Glucose 104 mg/dL High 70-100 Blood Urea Nitrogen 15 mg/dL N 6-24 Creatinine 0.70 mg/dL N 0.51-0.95 BUN/Creatinine Ratio 21.4 High 8-20 Calcium 9.3 mg/dL N 8.6-10.3 Egfr Non- 91.8 >60 Egfr 118.0 >60 6 Laboratory test finding 03/02/2018 In House Hemoglobin A1c 6.0 Laboratory test finding 11/28/2017 [facility] HCG 0.75 mIU/ mL 7 [phone] Acetaminophen < 15 g/mL 8 Alcohol < 10 mg/dL N <10 Salicylate < 2.50 mg/dL <30 Comp Metabolic Panel 11/28/2017 [facility] Sodium 134 mmol/L N 133- 145 [phone] Potassium 3.6 mmol/L N 3.5-5.0 Chloride 100 [...] Egfr Non- 92.2 >60 Egfr 118.6 >60 9 Laboratory test 11/28/2017 [facility] Lactic Acid 1.9 mmol/L N 0.5- 2.0 10 finding [phone] CBC Auto Diff 11/28/2017 [facility] White Blood 10.4 10^3/uL N 3.5- 10.8 [phone] Count Red Blood Count 4.85 10^6/uL N 4.0-5.4 [...] Blood Cells % 0.1 Laboratory test 11/28/2017 [facility] Urine Culture And SEE RESULT 11 finding [phone] Sensitivities BELOW Urine Drug SCR 11/28/2017 [facility] Amphetamine Ur None None ED & Pain [phone] Screen Detected Detect Clinic Barbiturates Urine Screen None Detected None Detect Benzodiazepine Urine Screen None Detected None Detect Urine Cannabinoids Screen None Detected None Detect Urine Cocaine Screen None Detected None Detect Urine Opiates Screen None Detected None Detect Urine Phencyclidine Screen None Detected None Detect 12 Urinalysis Profile 11/28/2017 [facility] Urine Color Yellow [phone] Urine Appearance Cloudy Urine Specific [place] 1.021 N 1.010-1.030 Urine pH 6.0 N [...] Urine Squamous Epithelial Cell Present Abnormal Absent Laboratory test 11/16/2017 [facility] HCG 0.80 mIU/mL 13 finding [phone] Laboratory test 11/16/2017 [facility] Hemoglobin A1c 6.3 % High 4.0- 5. 14 finding [phone] (Glyco HGB) 6 Basic Metabolic 11/16/2017 [facility] Sodium 137 mmol/L N 133-14 Panel [phone] Potassium 3.7 mmol/L N 3.5-5.0 Chloride 103 mmol/L N 101-111 Co2 Carbon Dioxide 27 mmol/L N 22-32 Anion Gap 7 mmol/L N 2-11 Glucose 106 mg/dL High 70-100 Blood Urea Nitrogen 10 mg/dL N 6-24 Creatinine 0.72 mg/dL N 0.51-0.95 BUN/Creatinine Ratio 13.9 N 8-20 Calcium 8.7 mg/dL N 8.6-10.3 Egfr Non- 89.3 >60 Egfr 114.8 >60 15 CBC Auto Diff 11/16/2017 [facility] White Blood 12.6 10^3/uL High 3.5 -10.8 [phone] Count Red Blood Count 4.39 10^6/uL N [...] Kidney failure <15 (or dialysis) 2 void, hazy, gold 3 No evidence of antibodies to B. burgdorferi detected. False negative results may occur in recently infected patients (<=2 weeks) due to low or undetectable antibody levels to B. burgdorferi. If recent exposure is suspected, a second sample should be collected and tested in 2-4 weeks. Test Performed by: [facility] [address] [place] [address] 4 REFERENCE VALUE <4.0 (Negative) Test Performed by: [facility] - [address] [address] 5 Negative serology. Celiac disease unlikely. However, approximately 10% of patients with celiac disease are seronegative. Also, patients who are already adhering to a gluten-free diet may be seronegative. If celiac disease is highly clinically suspected, consider HLA-DQ typing. Test Performed by: [facility] - [address] [address] 6 Because ethnic data is not always readily [...] 15-29 5 Kidney failure <15 (or dialysis) 7 <5.0 Negative 5.0 - 25.0 Indeterminate (Repeat testing recommended after 72 hours) >25.0 Positive Perimenopausal women can display HCG levels of up to 20 mIU/mL 8 Therapeutic concentration: <50 ug/mL Toxic concentration: >120 ug/mL 9 Because ethnic data is not always readily [...] 15-29 5 Kidney failure <15 (or dialysis) 10 [facility] Severe Sepsis and Septic Shock Management Bundle Measure requires all lactic acids initially measuring >2.0 mmol/L be repeated. 11 SEE RESULT BELOW Name: CONTRERASKIKO Lina : [address]: Fran Sharp MD Acct: [id number] Unit: [id number] AGE: 42 Location: ED Re11/28/17 SEX: F Status: DEP ER SPEC: [id number] LINO: 11/28/[address]: Fran Sharp MD REQ: [id number] RECD: 11/28/17 STATUS: DEENA KELLY DR: Rafy May MD _ SOURCE: URINE [facility]: ORDERED: Urine Culture Procedure Result Reported Site Urine Culture Final 11/30/17811 ML No growth of clinically significant organisms * ML - MAIN LAB ([facility]) . END OF REPORT * ML=Testing performed at Main Lab DEPARTMENT OF PATHOLOGY, [address] [place] [address] Kelvin Alejandre M.D. Director [facility] # [id number] 12 The urine specimen was tested at the listed cutoffs: Drug class test level (ng/mL) Amphetamines 500 Barbiturates 200 Benzodiazepine metabolites 200 Cocaine metabolites 150 Cannabinoids 50 Opiates 300 Pcp 25 Specimen was received without chain of custody. Results should be used for medical purposes only. 13 <5.0 Negative 5.0 - 25.0 Indeterminate (Repeat testing recommended after 72 hours) >25.0 Positive Perimenopausal women can display HCG levels of up to 20 mIU/mL 14 Therapeutic target for the treatment of diabetes mellitus patients is <7% HBA1C, and in selective patients <6.0%. Please refer to [employer] diabetic care guidelines for further information. 15 Because ethnic data is not always [...] dialysis) Procedures Date Code Description Status 07/03/2018 15768 Electrocardiogram Complete Completed 06/14/2018 67567 SC/Im Injections Completed 11/17/2017 57907 Visual Acuity Screening Test Completed 10/17/2017 53771 Electrocardiogram Complete Completed Encounters Type Date Location Provider Dx Diagnosis Office Visit 09/18/2018 Main Office Rafy May, F11.20 Opioid dependence, 3:00p M.DLeena uncomplicated R53.83 Other fatigue Office Visit 09/15/2018 4:00p Main Office Yadira F11.20 Opioid dependenceRafy M.D. uncomplicated R53.83 Other fatigue Office Visit 09/13/2018 3:45p Main Office Magen May1.20 Opioid Rafy quezada M.D. uncomplicated Office Visit 09/07/2018 3:20p Main Office Evelia Rollins, G47.33 Obstructive sleep P.A. apnea (adult) (pediatric) E66.9 Obesity, unspecified F17.210 Nicotine dependence, cigarettes, uncomplicated Z79.899 Other penitentiary (current) drug therapy Office Visit 08/24/2018 9:20a [...] Office Visit 07/18/2018 9:00a Main Office Evelia Rollins L03.115 Cellulitis of right P.A. lower limb Office Visit 07/11/2018 9:00a Main Office Evelia Rollins E66.9 Obesity, P.A. unspecified L03.115 Cellulitis of [...] Visit 02/13/2018 4:40p Main Office Evelia Rollins, F43.23 Adjustment disorder P.A. with mixed anxiety and depressed mood G47.00 Insomnia, unspecified I10 Essential (primary) hypertension Z79.899 Other terminal supervisor (current) drug therapy Office Visit 01/30/2018 9:20a Main Office Evelia Rollins, R61 Generalized P.A. hyperhidrosis E66.9 Obesity, unspecified F43.23 Adjustment disorder with mixed anxiety and depressed mood I10 Essential (primary) hypertension R73.03 Prediabetes Z68.41 Body mass index (BMI) 40.0-44.9, adult Office Visit 12/16/2017 1:40p Main Office Evelia Rollins, G43.C0 Periodic headache P.A. syndromes in chld/adlt, not intractable G89.4 Chronic pain syndrome M54.5 Low back pain Office Visit 12/08/2017 9:20a Main Office Evelia [place], I10 Essential ( primary) P.A. hypertension G43.C0 Periodic headache syndromes in chld/adlt, not intractable Z79.899 Other penitentiary (current) drug therapy Z03.6 Encntr for obs [...] Office Visit 11/08/2017 9:40a Main Office Evelia Rollins Z02.89 Encounter for other P.A. administrative examinations [...] 11:20 am - Natalie Sanders at Main [facility] - Natalie SandersG47.33 Obstructive sleep apnea (adult) (pediatric) Follow up:cont use of CPAPE66.9 Obesity, unspecifiedFollow up:wt gain, gelugnxbqB81.210 Nicotine dependence, cigarettes, uncomplicatedNew Medication: Nicoderm CQ 14 mg/24HR - 1 patch per dayZ79.899 Other penitentiary (current) drug therapyComments:Will check whether Dr. May will see this pt in this office for suboxone management. Addendum: HS will see this pt for management of suboxoneFollow up:Call [facility] or [facility] Outpatient for appt as resouces
--- OUTSIDE RECORDS SUMMARY | 2018-10-02 17:01 | XMS REPORT | Continuity of Care Document ---
:1975 External Reference #:[id number] Author Name Krystal Mckeon NP Address [address] [place] [address] Care Team Providers Name Role Phone Chrissy Rollins PA-C Care Team Information Assistant Principal Unavailable Chrissy Rollisn PA-C Primary Care Physician Unavailable Payers Type Date Identification Numbers Payment Provider Subscriber Policy Number: [id number] [facility] [place] PayID: [id number] [address] [place] [address] Expires: 2018 Policy Number: [id number] Medicaid [place] PayID: [id number] [address] [place] [address] Expires: 2018 Policy Number: [id number] [facility] [place] PayID: [id number] [address] [place] [address] Advance Directives Description No Information Available Problems Description No Information Family History Date Family Member(s) Problem(s) Comments Onset: (age 55 Years) Father Unremarkable : (age 38 Years) Mother due to Lung Cancer Social History Type Date Description Comments Sex Unknown Tobacco Use Start: Unknown Current Cigarette Smoker 5-10 Cigarettes Daily ETOH Use Rare Use Of Alcohol Recreational Drug Use Has Used In Past Allergies, Adverse Reactions, Alerts Description No Known Drug Allergies Medications Medication Date Status Form Strength Qnty SIG Indications Ordering Provider Venlafaxine HCL 00/00/ Active Tablets 75mg daily Unknown 0000 qhs Abilify 00/00/ Active Tablets 10mg qhs Unknown 0000 Hydrochlorothiazide 00/00/ Active Tablets 1 by Unknown 0000 mouth every day Gabapentin 00/00/ Active Capsules 300mg qhs Unknown 0000 Iron 00/00/ Active Tablets 240(27Fe) 1 tab Unknown 0000 mg qhs Lisinopril 00/00/ Active Tablets 10mg bid, 2 Unknown 0000 tabs am, 1 tab pm Oxycodone HCL / Active Tablets 7.5mg 5 x's / Unknown 0000 day Meloxicam / Active Tablets 1 tab Unknown 0000 po bid Cyclobenzaprine HCL / Active Tablets 10mg 1 tab Unknown 0000 po bid Bupropion HCL / Active Tablets 1 tab Unknown 0000 po bid Topiramate / Active Tablets take Unknown 0000 one tablet qhs Azithromycin 08/17/ Hx Tablets 250mg 6tabs 2 by Polo, 2018 - mouth Rishi, 09/27/ every M.D. 2018 day 1, 1 by mouth every day 2-5 Immunizations Description No Information Available Vital Signs Date Vital Result Comment 09/27/2018 10:42am Weight 238.00 lb Height 64 inches 5'4" BMI (Body Mass Index) 40.8 kg/m2 BP Systolic 137 mmHg BP Diastolic 86 mmHg Heart Rate 99 /min O2 % BldC Oximetry 98 % Body Temperature 98.1 F Pain Level 3 08/17/2018 4:22pm Weight 238.00 lb Height 64 inches 5'4" BMI (Body Mass Index) 40.8 kg/m2 BP Systolic 133 mmHg BP Diastolic 89 mmHg Heart Rate 107 /min O2 % BldC Oximetry 99 % Body Temperature 98.1 F Pain Level 0 07/12/2018 2:35pm Weight 242.00 lb Height 64 inches 5'4" BMI (Body Mass Index) 41.5 kg/m2 BP Systolic 132 mmHg BP Diastolic 86 mmHg Heart Rate 82 /min O2 % BldC Oximetry 99 % Body Temperature 97.4 F Pain Level 0 06/07/2018 3:34pm Weight 242.00 lb Height 64 inches 5'4" BMI (Body Mass Index) 41.5 kg/m2 BP Systolic 126 mmHg BP Diastolic 78 mmHg Heart Rate 108 /min O2 % BldC Oximetry 98 % Body Temperature 98.2 F [place] Anthony Score 23 Neck Circumference in inches 18 Pain Level 0 Results Test Date Facility Test Result H/L Range Note Laboratory test 09/20/2018 [facility] Surgical SEE RESULT [address] [place] [address] 1 SEE RESULT BELOW Name: KIKO CHAIREZ : [address]: Rishi Cuellar MD Acct: [id number] Unit: [id number] AGE: 43 Location: [facility] Re09/20/18 SEX: F Status: REG REF SPEC: [id number] LINO: 09/20/18 [facility] [address]: Rishi Cuellar MD REQ: [id number] RECD: 09/20/18 STATUS: SOUT _ ORDERED: LEVEL 4 COMMENTS: [id number] FINAL DIAGNOSIS Esophagus, lower, biopsy: -- Squamous and columnar mucosa with chronic inflammation. -- Intestinal metaplasia is absent. -- Dysplasia is absent. CLINICAL HISTORY No history given GROSS DESCRIPTION The specimen is received in formalin labeled, Biopsy Low Esophagus, and consists of a 0.3 x 0.2 x 0.1 cm pitt-lima irregular soft tissue fragment which is submitted entirely in one cassette. Signed by and Reported on: Nery Box MD 09/22/18 1235 END OF REPORT DEPARTMENT OF PATHOLOGY, [address] [place] [address] Kelvin Alejandre M.D. Director [facility] # [id number] Procedures Date Code Description Status 09/20/2018 39357 Dil. Of Esoph. By Sound Or Bougie Completed 09/20/2018 47072 Esophagoscopy, Rigid Or Flexible With Biopsy, Single Or Completed Multiple 09/20/2018 46777 Larynogoscopy,Dir. With Or W/O Trach. Diag. W/Opert. Completed Microscope 09/20/2018 82123 Anesthesia, Chest Surgery Closed Completed 07/16/2018 47045 Sleep Stage 4 Or More Cpap Titra Completed 06/25/2018 00596 Sleep Staging 4Or More Para Completed 06/07/2018 24088 Fiberoptic Laryngoscopy,Diag. Completed Encounters Type Date Location Provider Dx Diagnosis Office Visit 08/17/2018 Main Office Rishi Cuellar M.D. R22.1 Localized swelling, 4:15p mass and lump, neck K21.9 Gastro-esophageal reflux disease without esophagitis Office Visit 07/12/2018 2:00p Main Office Krystal Cordoba G47.33 Obstructive sleep RISHI Mckeon apnea (adult) (pediatric) Office Visit 06/07/2018 3:00p Main Office Rishi Cuellar, K21.9 Gastro- esophageal M.D. reflux disease without esophagitis R13.10 Dysphagia, unspecified R06.83 Snoring G47.9 Sleep disorder, unspecified E66.9 Obesity, unspecified Z71.82 Exercise counseling Z71.3 Dietary counseling and surveillance Plan of Treatment Future Appointment(s):04/04/2019 9:45 am - Rishi Cuellar M.D. at Main Office
--- OUTSIDE RECORDS SUMMARY | 2018-10-02 17:01 | XMS REPORT | Continuity of Care Document ---
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 Chrissy Rollins PA-C Primary Care Physician Unavailable Payers Type Date Identification Numbers Payment Provider Subscriber Policy Number: [id number] [facility] [place] PayID: [id number] [address] [place] [address] Expires: 2018 Policy Number: [id number] Medicaid Kiko [place] PayID: [id number] [address] [place] [address] Expires: 2018 Policy Number: [id number] [facility] [place] PayID: [id number] [address] [place] [address] Advance Directives Description No Information Available Problems [...] Qnty SIG Indications Ordering Provider Venlafaxine HCL // Active Tablets 75mg daily Unknown 0000 qhs Abilify / Active Tablets 10mg qhs Unknown 0000 Hydrochlorothiazide 00/ Active Tablets 1 by Unknown 0000 mouth every day Gabapentin 00/ Active Capsules 300mg qhs Unknown 0000 Iron 00/ Active Tablets 240(27Fe) 1 tab Unknown 0000 mg qhs Lisinopril / Active Tablets 10mg bid, 2 Unknown 0000 tabs am, 1 tab pm Oxycodone HCL / Active Tablets 7.5mg 5 x's / Unknown 0000 day Meloxicam / Active Tablets 1 tab Unknown 0000 po bid Cyclobenzaprine HCL / Active Tablets 10mg 1 tab Unknown 0000 po bid Bupropion HCL / Active Tablets 1 tab Unknown 0000 po bid Topiramate 00/ Active Tablets take Unknown 0000 one tablet qhs Azithromycin 08/17/ Hx Tablets 250mg 6tabs 2 by Cuellar, 2018 - mouth Rishi, 09/27/ every M.D. [...] Oximetry 98 % Body Temperature 98.2 F Luckey Score 23 Neck Circumference in inches 18 Pain Level 0 Results Test Date Facility Test Result H/L Range Note Laboratory test 09/20/2018 [facility] Surgical SEE RESULT [address] [place] [address] 1 SEE RESULT BELOW Name: KIKO CHAIREZ : [address]: Rishi Cuellar MD Acct: [id number] Unit: [id number] AGE: 43 Location: [facility] Re09/20/18 SEX: F Status: REG REF SPEC: [id number] LINO: 09/20/[address] [place] [address]: Rishi Cuellar MD REQ: [id number] RECD: 09/20/18 STATUS: SOUT _ ORDERED: LEVEL 4 COMMENTS: [id number] FINAL DIAGNOSIS Esophagus, lower, biopsy: -- Squamous [...] 1235 END OF REPORT DEPARTMENT OF PATHOLOGY, [address] [place] [address] Kelvin Alejandre M.D. Director [facility] # [id number] Procedures Date Code Description Status 09/20/2018 73641 Dil. Of Esoph. By Sound Or Bougie Completed 09/20/2018 74926 Esophagoscopy, Rigid Or Flexible With Biopsy, Single Or Completed Multiple 09/20/2018 03457 Larynogoscopy,Dir. With Or W/O Trach. Diag. W/Opert. Completed Microscope 09/20/2018 68823 Anesthesia, Chest Surgery Closed Completed 07/16/2018 87943 Sleep Stage 4 Or More Cpap Titra Completed 06/25/2018 80761 Sleep Staging 4Or More Para Completed 06/07/2018 20343 Fiberoptic Laryngoscopy,Diag. Completed Encounters Type Date Location Provider Dx Diagnosis Office Visit 08/17/2018 Main Office Rishi Cuellar M.D. R22.1 Localized swelling, 4:15p mass and lump, neck K21.9 Gastro-esophageal reflux disease without esophagitis Office Visit 07/12/2018 2:00p Main Office Krystal Cordoba G47.33 Obstructive sleep RISHI Mckeon apnea (adult) (pediatric) Office Visit 06/07/2018 3:00p Main Office Rishi Cuellar K21.9 Gastro- esophageal M.DLeena reflux disease without esophagitis R13.10 Dysphagia, unspecified R06.83 Snoring G47.9 Sleep disorder, unspecified E66.9 Obesity, unspecified Z71.82 Exercise counseling Z71.3 Dietary counseling and surveillance Plan of Treatment No Information Available
--- OUTSIDE RECORDS SUMMARY | 2018-10-02 17:02 | XMS REPORT | Continuity of Care Document ---
:1975 External Reference #:[id number] Author Name Rafy May M.D. 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 starting on 09/17/18 (use remaining / film for 08/22 dose); suboxone prescriber #[id number] Nicoderm CQ 09/07/ Active Patches 14mg/24HR 28unit 1 patch per F17.210 Yadira2017 24HR s day Isabela Hillman Permethrin 09/01/ Active Cream 5% 120gm wash hair w/ Yadira2017 shampoo Rafy, jimmy, rinse. M.D. apply cream to saturate the hair & scalp, leave on for 10 min then rinse,repeat 9 days Sumatriptan 06/14/ Active Tablets 50mg 9tabs 1 tab by G43.009 Yadira Succinate 2017 mouth at [place], onset of M.D. migraine, may repeat x1 [...] Caps ER 75mg 9caps 3 caps by Aaron May, 24HR mouth every 4 Rafy, day for [...] Tablets 10mg 90tabs 2 tabs by I Ashleycocatrachito, mouth every 1 Rafy, morning and 0 M.D. 1 tab by mouth in the evening Meloxicam 10/16/2017 Active Tablets 7.5mg 60tabs 1 tab by Silcoff, mouth in Rafy, morning and M.D. one at midday Gabapentin 10/16/2017 Active Capsules 300mg 30caps Take One G Silcoff, Capsule By 8 Rafy, Mouth In 9 M.D. The Evening . 4 Aripiprazole 10/16/2017 Active Tablets 5mg 30tabs Take One F Silcoff, Tablet By 4 Rafy, Mouth 3 M.D. Nightly For . Mood 2 3 Suboxone 09/14/2018 - Hx Film 8-2mg 2units 1/2 film by Aaron May, 09/15/2018 mouth now; 1 Rafy, may take 1 M.D. another 1/2 . film today 2 after 4 or 0 more hours; take 1/2 film tomorrow am; suboxone prescriber# [id number] Suboxone 09/13/2018 - Hx Film 8-2mg 2films 1/2 film by Aaron May, 09/14/2018 mouth 1 cindy Hillman, 1 M.D. again . tomorrow am 2 and Tuesday 0 am; may take 1 more dose Harper amy; suboxone prescriber# [id number] Permethrin 08/10/2018 - Hx Cream 5% 120gm wash hair Silcoff, 08/21/2018 w/ shampoo Rafy, only, M.D. rinse. apply cream to saturate the hair & scalp, leave on for 10 min then rinse,repea t 9 days Duoderm Hydroactive 07/18/2018 - Hx Gel Misc 30Grams Change L Silcoff, Dressing 08/20/2018 dressing 0 Rafy, daily for [...] 12/16/2017 - Hx Powder 1 tab by Amari May, 12/16/2017 mouth three 8 Rafy, times a day 9 M.D. . 4 TENS Unit 12/16/2017 - Hx 1units Use as G Silcoff, 03/01/2018 directed 8 Rafy, with the 9 M.D. equipement . 1-2 times a 4 day for pain management Amitriptyline HCL 11/17/2017 - Hx Tablets 10mg 60tabs start with G Silcoff, 12/13/2017 1 tablet at 4 Rafy, night for 3 M.D. bar. after . one week 0 can 0 increase to 1 2 at night if needed Hydrochlorothiazide 11/17/2017 - Hx Tablets 12.5mg 30tabs 1 tab by I Yadira, 09/12/2018 mouth every 1 Rafy, morning 0 M.D. Ventolin HFA 11/08/2017 - Hx Aerosol 108(90 1Inhale 1-2 puff q4 J Ashleycocatrachito, 05/30/2018 Base) r hours for 4 Rafy, [...] 1 tab po tid G89.4 Unknown 12/16/2017 Venlafaxine HCL ER 10/16/2017 - Hx Tablets ER 225mg 30tabs take one F43.23 Silcocatrachito, 05/25/2018 24HR tablet by Rafy, mouth once M.D. daily with food for depression Diclofenac - Hx Tablets 50mg G89.4 Unknown Potassium 11/17/2017 Medications Administered in Office Medication Date Status Form Strength Qnty SIG Indications Ordering Provider Toradol 15MG. Administered Injection Hektor, 018 AURELIO [place] SC/Im Administered Injection Hektor, Injections 018 AURELIO [place] TB Intradermal Administered Injection Evelia Test 017 [place], P.A. Immunizations CPT Code Status Date Vaccine Lot # [id number] Given 08/24/2018 Influenza Virus Vaccine, Quadrivalent, Split, [id number] Preservative Free 85733 Given 11/10/2017 MMR Virus Immunization [id number] Given 11/08/2017 Influenza Virus Vaccine, Quadrivalent, Split, [id number] Preservative Free 67240 Given 05/17/2017 Adacel or Boostrix, TDaP 06374 Given 05/17/2017 MMR Virus Immunization U-Flu Given 09/27/2016 Influenza,Unspecified U-Flu Given 09/06/2013 Influenza,Unspecified 47630 Given 08/02/2012 Flu, Split Virus 3Yrs Vital Signs Date Vital Result Comment 09/15/2018 4:27pm BP Systolic 126 mmHg BP [...] - Urine Methanphetamines - Urine Benzodiazepines QN Preston - Urine Oxycodone QL - Order 09/15/2018 [facility] Urine Drug Screen <pending> Inhouse Pthi 07/05/2018 [facility] Calcium (PTH Intact) 9.0 mg/dL 8.6-10.3 [phone] PTH Intact 5.3 pmol/L 1.3-9.3 Laboratory test 07/05/2018 [facility] Insulin Level 74.9 mcIU/mL High 2.0-16.0 finding [phone] Basic Metabolic 07/05/2018 [facility] Sodium 138 mmol/L 135-145 Panel [phone] Potassium 4.3 mmol/L 3.5-5.0 Chloride 106 mmol/L 101-111 Co2 Carbon Dioxide 24 mmol/L 22-32 Anion Gap 8 mmol/L 2-11 Glucose 106 mg/dL High 70-100 Blood Urea Nitrogen 16 mg/dL 6-24 Creatinine 0.89 mg/dL 0.51-0.95 BUN/Creatinine Ratio 18.0 8-20 Calcium 9.0 mg/dL 8.6-10.3 Egfr Non- 69.6 >60 Egfr 84.2 >60 1 Laboratory test 07/05/2018 [facility] TSH (Thyroid 1.55 mcIU/mL 0.34 -5.60 finding [phone] Stim Horm) Ua Inhouse 07/03/2018 In House Ua Glucose - 2 Ua Bilirubin - Ua Ketones - Ua Specific Star 1.020 Ua Blood sm/ 1+ Ua PH [...] Culture Throat negative Basic Metabolic Panel 05/04/2018 [facility] Sodium 134 mmol/L Low 135 -145 [phone] Potassium 4.3 mmol/L 3.5-5.0 Chloride 101 mmol/L 101-111 Co2 Carbon Dioxide 24 mmol/L 22-32 Anion Gap 9 mmol/L 2-11 Glucose 104 mg/dL High 70-100 Blood Urea Nitrogen 15 mg/dL 6-24 Creatinine 0.70 mg/dL 0.51-0.95 BUN/Creatinine Ratio 21.4 High 8-20 Calcium 9.3 mg/dL 8.6-10.3 Egfr Non- 91.8 >60 Egfr 118.0 >60 3 CBC Auto Diff 05/04/2018 [facility] White Blood Count 9.6 10^3/uL 3.5-10.8 [phone] Red Blood Count 4.54 10^6/uL 4.00-5.40 Hemoglobin [...] Blood Cells % 0.1 Laboratory test 05/04/2018 [facility] Erythrocyte Sed 29 mm/Hr High 0 -14 finding [phone] Rate Lyme Disease Serology Negative Negative 4 TSH (Thyroid Stim Horm) 1.95 mcIU/mL 0.34-5.60 Celiac Panel 05/04/2018 [facility] Tissue Transglutaminase IgA Ab <1.2 U/mL 5 [phone] Immunoglobulin A 358 mg/dL 61 - 356 Celiac Interpretation See Comment 6 Laboratory test finding 03/02/2018 In House Hemoglobin A1c 6.0 Laboratory test finding 11/28/2017 [facility] HCG 0.75 mIU/ mL 7 [phone] Acetaminophen < 15 g/mL 8 Alcohol < 10 mg/dL <10 Salicylate < 2.50 mg/dL <30 Comp Metabolic Panel 11/28/2017 [facility] Sodium 134 mmol/L 133- 145 [phone] Potassium 3.6 mmol/L 3.5-5.0 Chloride 100 mmol/L [...] Egfr 118.6 >60 9 Laboratory test 11/28/2017 [facility] Lactic Acid 1.9 mmol/L 0.5- 2.0 10 finding [phone] CBC Auto Diff 11/28/2017 [facility] White Blood 10.4 10^3/uL 3.5- 10.8 [phone] Count Red Blood Count 4.85 10^6/uL 4.0-5.4 Hemoglobin [...] Blood Cells % 0.1 Laboratory test 11/28/2017 [facility] Urine Culture And SEE RESULT 11 finding [phone] Sensitivities BELOW Urine Drug SCR 11/28/2017 [facility] Amphetamine Ur None None ED & Pain [phone] Screen Detected Detect Clinic Barbiturates Urine Screen None Detected None Detect Benzodiazepine Urine Screen None Detected None Detect Urine Cannabinoids Screen None Detected None Detect Urine Cocaine Screen None Detected None Detect Urine Opiates Screen None Detected None Detect Urine Phencyclidine Screen None Detected None Detect 12 Urinalysis Profile 11/28/2017 [facility] Urine Color Yellow [phone] Urine Appearance Cloudy Urine Specific Star 1.021 1.010-1.030 Urine pH 6.0 5-9 Urine Urobilinogen Negative Negative Urine Ketones Negative Negative Urine Protein Negative Negative Urine Leukocytes 3+ Negative Urine Blood 1+ Negative Urine Nitrite Negative Negative Urine Bilirubin Negative Negative Urine Glucose Negative Negative Urine White Blood Cell 2+(11-20/hpf) Absent Urine Red Blood Cell 1+(3-5/hpf) Absent Urine Bacteria Absent Absent Urine Squamous Epithelial Cell Present Absent Basic Metabolic Panel 11/16/2017 [facility] Sodium 137 mmol/L 133- 145 [phone] Potassium 3.7 mmol/L 3.5-5.0 Chloride 103 mmol/L 101-111 Co2 Carbon Dioxide 27 mmol/L 22-32 Anion Gap 7 mmol/L 2-11 Glucose 106 mg/dL High 70-100 Blood Urea Nitrogen 10 mg/dL 6-24 Creatinine 0.72 mg/dL 0.51-0.95 BUN/Creatinine Ratio 13.9 8-20 Calcium 8.7 mg/dL 8.6-10.3 Egfr Non- 89.3 >60 Egfr 114.8 >60 13 Laboratory test 11/16/2017 [facility] HCG 0.80 mIU/mL 14 finding [phone] Laboratory test 11/16/2017 [facility] Hemoglobin A1c 6.3 % High 4.0- 5. 15 finding [phone] (Glyco HGB) 6 CBC Auto Diff 11/16/2017 [facility] White Blood 12.6 10^3/uL High 3.5 -10 [phone] Count .8 Red Blood Count 4.39 10^6/uL 4.0-5.4 Hemoglobin [...] 2-4 weeks. Test Performed by: [facility] [address] [place] [address] 5 REFERENCE VALUE <4.0 (Negative) Test Performed by: [facility] [address] [place] [address] 6 Negative serology. Celiac disease unlikely. However, approximately 10% of patients with celiac disease are seronegative. Also, patients who are already adhering to a gluten-free diet may be seronegative. If celiac disease is highly clinically suspected, consider HLA-DQ typing. Test Performed by: [facility] [address] [place] [address] 7 <5.0 Negative 5.0 - 25.0 Indeterminate [...] failure <15 (or dialysis) 10 [facility] Severe Sepsis and Septic Shock Management Bundle Measure requires all lactic acids initially measuring >2.0 mmol/L be repeated. 11 SEE RESULT BELOW Name: KIKO CHAIREZ : [address]: Fran Sharp MD Acct: [id number] Unit: [id number] AGE: 42 Location: ED Re11/28/17 SEX: F Status: DEP ER SPEC: [id number] LINO: 11/28/[address]: Fran Sharp MD REQ: [id number] RECD: 11/28/17 STATUS: DEENA KELLY DR: Rafy May MD _ SOURCE: URINE SPDESC: ORDERED: Urine Culture Procedure Result Reported Site Urine Culture Final 11/30/17- 0812 ML No growth of clinically significant organisms * ML - MAIN LAB ([facility]) . END OF REPORT * ML=Testing performed at Main Lab DEPARTMENT OF PATHOLOGY, [address] [place] [address] Kelvin Alejandre M.D. Director [facility] # [id number] 12 The urine specimen was tested at the listed cutoffs: Drug class test level (ng/mL) Amphetamines 500 Barbiturates 200 Benzodiazepine metabolites 200 Cocaine metabolites 150 Cannabinoids 50 Opiates 300 Pcp 25 Specimen was received without chain of custody. Results should be used for medical purposes only. 13 Because ethnic data is not always [...] 15-29 5 Kidney failure <15 (or dialysis) 14 <5.0 Negative 5.0 - 25.0 Indeterminate (Repeat testing recommended after 72 hours) >25.0 Positive Perimenopausal women can display HCG levels of up to 20 mIU/mL 15 Therapeutic target for the treatment of diabetes mellitus patients is <7% HBA1C, and in selective patients <6.0%. Please refer to [place] [employer] diabetic care guidelines for further information. Procedures Date Code Description Status 07/03/2018 36936 Electrocardiogram Complete Completed 06/14/2018 38023 SC/Im Injections Completed 11/17/2017 06693 Visual Acuity Screening Test Completed 10/17/2017 77427 Electrocardiogram Complete Completed Encounters Type Date Location Provider Dx Diagnosis Office Visit 09/15/2018 Main Office Rafy May, F11.20 Opioid dependence, 4:00p M.DLeena uncomplicated R53.83 Other fatigue Office Visit 09/13/2018 3:45p Main Office Yadira F11.20 Opioid dependence, Isabela Hillman uncomplicated Office Visit 09/07/2018 3:20p Main Office Evelia Rollins G47.33 Obstructive sleep P.A. apnea (adult) (pediatric) E66.9 Obesity, unspecified F17.210 Nicotine dependence, cigarettes, uncomplicated Z79.899 Other group home (current) drug therapy Office Visit 08/24/2018 9:20a Main Office Evelia Rollins L03.115 Cellulitis of P.A. right lower limb G47.33 Obstructive sleep apnea (adult) (pediatric) E66.9 Obesity, unspecified I10 Essential (primary) hypertension D64.9 Anemia, unspecified R53.1 Weakness Z23 Encounter for immunization Z41.8 Encntr for oth proc for purpose oth than [facility] Z59.4 Lack of adequate food and safe [...] Visit 05/30/2018 9:00a Main Office Evelia Rollins E66.9 Obesity, unspecified P.A. G89.4 Chronic pain syndrome R53.1 Weakness R73.03 Prediabetes Office Visit 05/10/2018 3:20p Main Office Shu Saxena, J31.2 Chronic pharyngitis PA R13.11 Dysphagia, oral phase E66.9 Obesity, unspecified G89.4 Chronic pain syndrome Z80.1 Family history of malig neoplasm of trachea, bronc and lung M43.17 Spondylolisthesis, lumbosacral region Office Visit 04/27/2018 9:20a Main Office Evelia Rollins, P.A. 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 syndrome R73.03 Prediabetes I10 Essential (primary) hypertension Z71.3 Dietary counseling and surveillance Office Visit 03/02/2018 9:20a Main Office Evelia Rollins P.A. 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 hyperhidrosis E66.9 Obesity, unspecified F43.23 Adjustment disorder with mixed anxiety and depressed mood I10 Essential (primary) hypertension R73.03 Prediabetes Z68.41 Body mass index (BMI) 40.0-44.9, adult Office Visit 12/16/2017 1:40p Main Office Evelia Rollins G43.C0 Periodic headache P.A. syndromes in chld/adlt, not intractable G89.4 Chronic pain syndrome M54.5 Low back pain Office Visit 12/08/2017 9:20a Main Office Sydnee Sanders Essential ( primary) P.A. hypertension G43.C0 Periodic headache syndromes in chld/adlt, not intractable Z79.899 Other long wall mining machine helper (current) drug therapy Z03.6 Encntr for obs [...] tuberculosis Office Visit 10/17/2017 4:20p Main Office Natalie Sanders R07.89 Other chest pain I10 Essential (primary) hypertension G89.4 Chronic pain syndrome F43.23 Adjustment disorder with mixed anxiety and depressed mood E66.9 Obesity, unspecified K21.9 Gastro-esophageal reflux disease without esophagitis D64.9 Anemia, unspecified Plan of Treatment Future Appointment(s):09/18/2018 3:00 pm - Rafy May M.D. at Main Bohisu1710/19/2018 11:20 am - Evelia Rollins PElsi at Main Qezpuc3009/07/2018 - Evelia Rollins PElsiG47.33 Obstructive sleep apnea (adult) (pediatric)Follow up: cont use of CPAPE66.9 Obesity, unspecifiedFollow up:wt gain, mwawylyjvZ60.210 Nicotine dependence, cigarettes, uncomplicatedNew Medication:Nicoderm CQ 14 mg/ 24HR - 1 patch per dayZ79.899 Other group home (current) drug therapyComments: Will check whether Dr. May will see this pt in this office for suboxone management. Addendum: HS will see this pt for management of suboxoneFollow up: Call [facility] Outpatient for appt as resouces
--- OUTSIDE RECORDS SUMMARY | 2018-10-02 17:02 | XMS REPORT | Continuity of Care Document ---
:1975 External Reference #:[id number] Author Name Rfay May M.D. Address [address] [facility] [address] [place] [address] Care Team Providers Name Role Phone HCP given Primary Care Physician Unavailable Payers Type Date Identification Numbers Payment Provider Subscriber Effective: Policy Number: [id number] [facility] Kiko Payne 2018 PayID: [id number] [address] [place] [address] Expires: 2017 Policy Number: [id number] Medicaid Kiko Payne PayID: [id number] [address] [place] [address] Advance Directives Description No Information Available Problems Date Description Provider Status Onset: 10/17/2017 Essential hypertension Natalie Sanders Active Onset: 05/10/2018 Obesity Shu Saxena, PA Active Onset: 05/10/2018 Chronic pain syndrome Shu Saxena, PA Active Onset: 05/10/2018 Mixed anxiety and depressive disorder Bret Saxenali, PA Active Onset: 05/10/2018 Arthrogryposis Bret Saxenali, [...] Status 10/2017 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 take another 1/2 film today after 4 or more hours; take 1/2 film tomorrow am; suboxone prescriber # [id number] Nicoderm CQ Active Patches 14mg/24HR 28unit 1 patch F17.210 Silcoff, 018 24HR s per day Isabela Hillman Permethrin Active Cream 5% 120gm wash hair Yifan May w/ shampoo jimmy Hillman M.D. rinse. apply cream to saturate the hair & scalp, leave on for 10 min then rinse,repe at 9 days Sumatriptan Active Tablets 50mg 9tabs 1 tab [...] DR 20mg 30tabs 1 tab po K Silcoff, daily as 2 Rafy, needed 1 M.D. [...] Nightly For . Mood 2 3 Suboxone 09/13/2018 - Hx Film 8-2mg 2films 1/2 film by Aaron May, 09/14/2018 mouth 1 cindy Hillman, 1 M.D. again . tomorrow am 2 and Tuesday 0 am; may take 1 more dose Harper reyes; suboxone prescriber# [id number] Permethrin 08/10/2018 - Hx Cream 5% 120gm [...] mouth F43.23 Ashleycocatrachito, 02/03/2018 12HR in the [place], morning and M.D. 1 at noon Gabapentin 10/16/2017 - Hx Capsules 100mg 1 po in Unknown 03/01/2018 morning and one at midday (may skip midday if it causes drowsiness) Cyclobenzaprine 10/16/2017 - Hx 10mg 1 tab po tid G89.4 Unknown 12/16/2017 Venlafaxine HCL ER 10/16/2017 - Hx Tablets ER 225mg 30tabs take one F43.23 Ashleycocatrachito, 05/25/2018 24HR tablet by Rafy, mouth once M.D. daily with food for depression Diclofenac - Hx Tablets 50mg G89.4 Unknown Potassium 11/17/2017 Medications Administered in Office Medication Date Status Form Strength Qnty SIG Indications Ordering Provider Toradol 15MG. Administered Injection Hektor, 018 AURELIO [place] SC/Im Administered Injection Hektor, Injections 018 AURELIO [place] TB Intradermal Administered Injection Evelia Test 017 [place], P.A. Immunizations CPT Code Status Date Vaccine Lot # [id number] Given 08/24/2018 Influenza Virus Vaccine, Quadrivalent, Split, [id number] Preservative Free 19616 Given 11/10/2017 MMR Virus Immunization [id number] Given 11/08/2017 Influenza Virus Vaccine, Quadrivalent, Split, [id number] Preservative Free 66154 Given 05/17/2017 Adacel or Boostrix, TDaP 35024 Given 05/17/2017 MMR Virus Immunization U-Flu Given 09/27/2016 Influenza,Unspecified U-Flu Given 09/06/2013 Influenza,Unspecified 16183 Given 08/02/2012 Flu, Split Virus 3Yrs Vital Signs Date Vital Result Comment 09/13/2018 5:23pm BP Systolic 126 mmHg BP [...] Date Facility Test Result H/L Range Note Pthi 07/05/2018 [facility] Calcium (PTH Intact) 9.0 mg/dL 8.6-10.3 [phone] PTH Intact 5.3 pmol/L 1.3-9.3 Laboratory test 07/05/2018 [facility] Insulin Level 74.9 mcIU/mL High 2.0-16.0 finding [phone] Basic Metabolic 07/05/2018 [facility] Sodium 138 mmol/L 135-145 Panel [phone] Potassium 4.3 mmol/L 3.5-5.0 Chloride 106 mmol/L 101-111 Co2 Carbon Dioxide 24 mmol/L 22-32 Anion Gap 8 mmol/L 2-11 Glucose 106 mg/dL High 70-100 Blood Urea Nitrogen 16 mg/dL 6-24 Creatinine 0.89 mg/dL 0.51-0.95 BUN/Creatinine Ratio 18.0 8-20 Calcium 9.0 mg/dL 8.6-10.3 Egfr Non- 69.6 >60 Egfr 84.2 >60 1 Laboratory test 07/05/2018 [facility] TSH (Thyroid 1.55 mcIU/mL 0.34 -5.60 finding [phone] Stim Horm) Ua Inhouse 07/03/2018 In House Ua Glucose - 2 Ua Bilirubin - Ua Ketones - Ua Specific [place] 1.020 Ua Blood sm/ 1+ Ua PH [...] Culture Throat negative Basic Metabolic Panel 05/04/2018 [facility] Sodium 134 mmol/L Low 135 -145 [phone] Potassium 4.3 mmol/L 3.5-5.0 Chloride 101 mmol/L 101-111 Co2 Carbon Dioxide 24 mmol/L 22-32 Anion Gap 9 mmol/L 2-11 Glucose 104 mg/dL High 70-100 Blood Urea Nitrogen 15 mg/dL 6-24 Creatinine 0.70 mg/dL 0.51-0.95 BUN/Creatinine Ratio 21.4 High 8-20 Calcium 9.3 mg/dL 8.6-10.3 Egfr Non- 91.8 >60 Egfr 118.0 >60 3 CBC Auto Diff 05/04/2018 [facility] White Blood Count 9.6 10^3/uL 3.5-10.8 [phone] Red Blood Count 4.54 10^6/uL 4.00-5.40 Hemoglobin [...] Blood Cells % 0.1 Laboratory test 05/04/2018 [facility] Erythrocyte Sed 29 mm/Hr High 0 -14 finding [phone] Rate Lyme Disease Serology Negative Negative 4 TSH (Thyroid Stim Horm) 1.95 mcIU/mL 0.34-5.60 Celiac Panel 05/04/2018 [facility] Tissue Transglutaminase IgA Ab <1.2 U/mL 5 [phone] Immunoglobulin A 358 mg/dL 61 - 356 Celiac Interpretation See Comment 6 Laboratory test 03/02/2018 In House Hemoglobin A1c 6.0 finding Comp Metabolic Panel 11/28/2017 [facility] Sodium 134 mmol/L 133- 145 [phone] Potassium 3.6 mmol/L 3.5-5.0 Chloride 100 mmol/L [...] 118.6 >60 7 Laboratory test finding 11/28/2017 [facility] HCG 0.75 mIU/ mL 8 [phone] Acetaminophen < 15 g/mL 9 Alcohol < 10 mg/dL <10 Salicylate < 2.50 mg/dL <30 Laboratory test 11/28/2017 [facility] Lactic Acid 1.9 mmol/L 0.5- 2.0 10 finding [phone] CBC Auto Diff 11/28/2017 [facility] White Blood 10.4 10^3/uL 3.5- 10.8 [phone] Count Red Blood Count 4.85 10^6/uL 4.0-5.4 [...] Blood Cells % 0.1 Laboratory test 11/28/2017 [facility] Urine Culture And SEE RESULT 11 finding [phone] Sensitivities BELOW Urine Drug SCR 11/28/2017 [facility] Amphetamine Ur None None ED & Pain [phone] Screen Detected Detect Clinic Barbiturates Urine Screen None Detected None Detect Benzodiazepine Urine Screen None Detected None Detect Urine Cannabinoids Screen None Detected None Detect Urine Cocaine Screen None Detected None Detect Urine Opiates Screen None Detected None Detect Urine Phencyclidine Screen None Detected None Detect 12 Urinalysis Profile 11/28/2017 [facility] Urine Color Yellow [phone] Urine Appearance Cloudy Urine Specific [place] 1.021 1.010-1.030 Urine pH 6.0 5-9 Urine [...] Cell Present Absent CBC Auto Diff 11/16/2017 [facility] White Blood 12.6 10^3/uL High 3.5 -10.8 [phone] Count Red Blood Count 4.39 10^6/uL 4.0-5.4 Hemoglobin [...] Cells % 0 Basic Metabolic Panel 11/16/2017 [facility] Sodium 137 mmol/L 133- 145 [phone] Potassium 3.7 mmol/L 3.5-5.0 Chloride 103 mmol/L 101-111 Co2 Carbon Dioxide 27 mmol/L 22-32 Anion Gap 7 mmol/L 2-11 Glucose 106 mg/dL High 70-100 Blood Urea Nitrogen 10 mg/dL 6-24 Creatinine 0.72 mg/dL 0.51-0.95 BUN/Creatinine Ratio 13.9 8-20 Calcium 8.7 mg/dL 8.6-10.3 Egfr Non- 89.3 >60 Egfr 114.8 >60 13 Laboratory test 11/16/2017 [facility] HCG 0.80 mIU/mL 14 finding [phone] Laboratory test 11/16/2017 [facility] Hemoglobin A1c 6.3 % High 4.0- 5. 15 finding [phone] (Glyco HGB) 6 1 Because ethnic data is not always [...] 5 Kidney failure <15 (or dialysis) 2 zita hinton gold 3 Because ethnic data is not [...] tested in 2-4 weeks. Test Performed by: [facility] [employer] - [facility] [address] [place] [address] 5 REFERENCE VALUE <4.0 (Negative) Test Performed by: [facility] - [place] [facility] [address] [address] 6 Negative serology. Celiac disease unlikely. However, approximately 10% of patients with celiac disease are seronegative. Also, patients who are already adhering to a gluten-free diet may be seronegative. If celiac disease is highly clinically suspected, consider HLA-DQ typing. Test Performed by: [facility] - [address] [address] 7 Because ethnic data is not always [...] 5 Kidney failure <15 (or dialysis) 8 <5.0 Negative 5.0 - 25.0 Indeterminate (Repeat testing recommended after 72 hours) >25.0 Positive Perimenopausal women can display HCG levels of up to 20 mIU/mL 9 Therapeutic concentration: <50 ug/mL Toxic concentration: >120 ug/mL 10 [facility] Severe Sepsis and Septic Shock Management Bundle Measure requires all lactic acids initially measuring >2.0 mmol/L be repeated. 11 SEE RESULT BELOW Name: CONTRERASMILANBeryl Mills : [address]: Fran Sharp MD Acct: [id number] Unit: [id number] AGE: 42 Location: ED Re11/28/17 SEX: F Status: DEP ER SPEC: [id number] LINO: 11/28/[address]: Fran Sharp MD REQ: [id number] RECD: 11/28/17 STATUS: COMP ARINAHR DR: Rafy May MD _ SOURCE: URINE SPDESC: ORDERED: Urine Culture Procedure Result Reported Site Urine Culture Final 11/30/17- 811 ML No growth of clinically significant organisms * ML - MAIN LAB ([facility]) . END OF REPORT * ML=Testing performed at Main Lab DEPARTMENT OF PATHOLOGY, [address] [place] [address] Kelvin Alejandre M.D. Director [facility] # [id number] 12 The urine specimen was tested at [...] in selective patients <6.0%. Please refer to [employer] diabetic care guidelines for further information. Procedures Date Code Description Status 07/03/2018 72472 Electrocardiogram Complete Completed 06/14/2018 36091 SC/Im Injections Completed 11/17/2017 38497 Visual Acuity Screening Test Completed 10/17/2017 12355 Electrocardiogram Complete Completed Encounters Type Date Location Provider Dx Diagnosis Office Visit 09/13/2018 Main Office Rafy May, F11.20 Opioid dependence, 3:45p M.D. uncomplicated Office Visit 09/07/2018 Main Office Evelia Rollins, G47.33 Obstructive sleep 3:20p P.A. apnea (adult) (pediatric) E66.9 Obesity, unspecified F17.210 Nicotine dependence, cigarettes, uncomplicated Z79.899 Other exterminator (current) drug therapy Office Visit 08/24/2018 9:20a Main Office Evelia Rollins, L03.115 Cellulitis of P.A. right lower limb G47.33 Obstructive sleep apnea (adult) (pediatric) E66.9 Obesity, unspecified I10 Essential (primary) hypertension D64.9 Anemia, unspecified R53.1 Weakness Z23 Encounter for immunization Z41.8 Encntr for oth proc [facility] Z59.4 Lack of adequate food and safe [...] unspecified I10 Essential (primary) hypertension Z79.899 Other exterminator (current) drug therapy Office Visit 01/30/2018 9:20a [...] Visit 12/08/2017 9:20a Main Office Evelia Rollins I10 Essential ( primary) P.A. hypertension G43.C0 Periodic headache syndromes in chld/adlt, not intractable Z79.899 Other assisted (current) drug therapy Z03.6 Encntr for obs [...] 11:20 am - Natalie Sanders at Main Inzkxb24 4:00 pm - Rafy May M.D. at Main Tkfbrr4409/07/2018 - Natalie SandersG47.33 Obstructive sleep apnea (adult) (pediatric)Follow up:cont use of CPAPE66.9 Obesity, unspecifiedFollow up:wt gain, kuwgtkyvhV54.210 Nicotine dependence, cigarettes, uncomplicatedNew Medication:Nicoderm CQ 14 mg/24HR - 1 patch per dayZ79.899 Other assisted (current) drug therapyComments:Will check whether Dr. May will see this pt in this office for suboxone management. Addendum: HS will see this pt for management of suboxoneFollow up:Call [facility] or [facility] [[email or web address]] Outpatient for appt as resouces
--- OUTSIDE RECORDS SUMMARY | 2018-10-02 17:02 | XMS REPORT | Continuity of Care Document ---
:1975 External Reference #:[id number] Author Name Rafy May M.D. Address [address] [facility] [address] [place] [address] Care Team Providers Name Role Phone HCP given Primary Care Physician Unavailable Payers Type Date Identification Numbers Payment Provider Subscriber Effective: Policy Number: [id number] [employer] Kiko Chairez 2018 PayID: [id number] [address] [place] [address] Expires: 2017 Policy Number: [id number] Medicaid Kiko Chairez PayID: [id number] [address] [place] [address] Advance Directives Description No Information Available Problems [...] Shu, PA Active Onset: 05/10/2018 Allergic rhinitis Shu Saxena, PA Active Onset: 05/10/2018 Anemia Shu Saxena, [...] Status 10/2017 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 morning starting on 09/19/18; suboxone prescriber #[id number] Nicoderm CQ 09/07/ Active Patches 14mg/24HR 28unit [...] Tablets 10mg 30tabs 1 by mouth J Ashleycocatrachito, every day 4 Rafy, as needed 5 [...] 8/2 film for 10/2 dose); suboxone prescriber #[id number] Suboxone 09/14/2018 - Hx Film 8-2mg 2units 1/2 film by Aaron May, 09/15/2018 mouth now; 1 Rafy, may take 1 M.D. another 1/2 . film today 2 after 4 or 0 more hours; take 1/2 film tomorrow am; suboxone prescriber# [id number] Suboxone 09/13/2018 - Hx Film 8-2mg 2films 1/2 film by Aaron May, 09/14/2018 mouth 1 cindy Hillman, 1 M.D. again . tomorrow am 2 and Tuesday 0 am; may take 1 more dose Harper amy; suboxone prescriber# [id number] Permethrin 08/10/2018 - Hx Cream 5% 120gm wash hair Silcoff, 08/21/2018 w/ shampojimmy Cervantes, M.D. rinse. apply cream to saturate the hair & scalp, leave on for 10 min then rinse,repea t 9 days Duoderm Hydroactive 07/18/2018 - Hx Gel Misc 30Grams Change L Silcoff, Dressing 08/20/2018 dressing 0 aRfy, daily for 3 M.D. wound care . [...] Provider Toradol 15MG. Administered Injection Hektor, 018 AURLEIO [place] SC/Im Administered Injection Hektor, Injections 018 AURELIO [place] TB Intradermal Administered Injection Evelia Test 017 Ayo PLeenaALeena Immunizations CPT Code Status Date Vaccine Lot # [id number] Given 08/24/2018 Influenza Virus Vaccine, Quadrivalent, Split, [id number] Preservative Free 92560 Given 11/10/2017 MMR Virus Immunization [id number] 06688 Given 11/08/2017 Influenza Virus Vaccine, Quadrivalent, Split, [id number] Preservative Free 95348 Given 05/17/2017 Adacel or Boostrix, TDaP 17329 Given 05/17/2017 MMR Virus Immunization U-Flu Given 09/27/2016 Influenza,Unspecified U-Flu Given 09/06/2013 Influenza,Unspecified 48771 Given 08/02/2012 Flu, Split Virus 3Yrs Vital Signs Date Vital Result Comment 09/18/2018 3:29pm BP Systolic 128 mmHg BP [...] - Urine Methanphetamines - Urine Benzodiazepines QN [place] - Urine Oxycodone QL - Pthi 07/05/2018 [facility] Calcium (PTH Intact) 9.0 mg/dL 8.6-10.3 [phone] PTH Intact 5.3 pmol/L 1.3-9.3 Laboratory test 07/05/2018 [facility] Insulin Level 74.9 mcIU/mL High 2.0-16.0 finding [phone] Basic Metabolic 07/05/2018 [facility] Sodium 138 mmol/L 135-145 Panel [phone] Potassium 4.3 mmol/L 3.5-5.0 Chloride 106 mmol/L 101-111 Co2 Carbon Dioxide 24 mmol/L 22-32 Anion Gap 8 mmol/L 2-11 Glucose 106 mg/dL High 70-100 Blood Urea Nitrogen 16 mg/dL 6-24 Creatinine 0.89 mg/dL 0.51-0.95 BUN/Creatinine Ratio 18.0 8-20 Calcium 9.0 mg/dL 8.6-10.3 Egfr Non- 69.6 >60 Egfr 84.2 >60 1 Laboratory test 07/05/2018 [facility] TSH (Thyroid 1.55 mcIU/mL 0.34 -5.60 finding [phone] Stim Horm) Ua Inhouse 07/03/2018 In House Ua Glucose - 2 Ua Bilirubin - Ua Ketones - Ua Specific Lamy 1.020 Ua Blood sm/ 1+ Ua PH [...] Culture Throat negative Basic Metabolic Panel 05/04/2018 [facility] Sodium 134 mmol/L Low 135 -145 [phone] Potassium 4.3 mmol/L 3.5-5.0 Chloride 101 mmol/L 101-111 Co2 Carbon Dioxide 24 mmol/L 22-32 Anion Gap 9 mmol/L 2-11 Glucose 104 mg/dL High 70-100 Blood Urea Nitrogen 15 mg/dL 6-24 Creatinine 0.70 mg/dL 0.51-0.95 BUN/Creatinine Ratio 21.4 High 8-20 Calcium 9.3 mg/dL 8.6-10.3 Egfr Non- 91.8 >60 Egfr 118.0 >60 3 CBC Auto Diff 05/04/2018 [facility] White Blood Count 9.6 10^3/uL 3.5-10.8 [phone] Red Blood Count 4.54 10^6/uL 4.00-5.40 Hemoglobin [...] Blood Cells % 0.1 Laboratory test 05/04/2018 [facility] Erythrocyte Sed 29 mm/Hr High 0 -14 finding [phone] Rate Lyme Disease Serology Negative Negative 4 TSH (Thyroid Stim Horm) 1.95 mcIU/mL 0.34-5.60 Celiac Panel 05/04/2018 [facility] Tissue Transglutaminase IgA Ab <1.2 U/mL 5 [phone] Immunoglobulin A 358 mg/dL 61 - 356 Celiac Interpretation See Comment 6 Laboratory test finding 03/02/2018 In House Hemoglobin A1c 6.0 Laboratory test finding 11/28/2017 [facility] HCG 0.75 mIU/ mL 7 [phone] Acetaminophen < 15 g/mL 8 Alcohol < 10 mg/dL <10 Salicylate < 2.50 mg/dL <30 Comp Metabolic Panel 11/28/2017 [facility] Sodium 134 mmol/L 133- 145 [phone] Potassium 3.6 mmol/L 3.5-5.0 Chloride 100 mmol/L [...] Egfr 118.6 >60 9 Laboratory test 11/28/2017 [facility] Lactic Acid 1.9 mmol/L 0.5- 2.0 10 finding [phone] CBC Auto Diff 11/28/2017 [facility] White Blood 10.4 10^3/uL 3.5- 10.8 [phone] Count Red Blood Count 4.85 10^6/uL 4.0-5.4 [...] Blood Cells % 0.1 Laboratory test 11/28/2017 [facility] Urine Culture And SEE RESULT 11 finding [phone] Sensitivities BELOW Urine Drug SCR 11/28/2017 [facility] Amphetamine Ur None None ED & Pain [phone] Screen Detected Detect Clinic Barbiturates Urine Screen None Detected None Detect Benzodiazepine Urine Screen None Detected None Detect Urine Cannabinoids Screen None Detected None Detect Urine Cocaine Screen None Detected None Detect Urine Opiates Screen None Detected None Detect Urine Phencyclidine Screen None Detected None Detect 12 Urinalysis Profile 11/28/2017 [facility] Urine Color Yellow [phone] Urine Appearance Cloudy Urine Specific Lamy 1.021 1.010-1.030 Urine pH 6.0 5-9 Urine [...] Cell Present Absent Basic Metabolic Panel 11/16/2017 [facility] Sodium 137 mmol/L 133- 145 [phone] Potassium 3.7 mmol/L 3.5-5.0 Chloride 103 mmol/L 101-111 Co2 Carbon Dioxide 27 mmol/L 22-32 Anion Gap 7 mmol/L 2-11 Glucose 106 mg/dL High 70-100 Blood Urea Nitrogen 10 mg/dL 6-24 Creatinine 0.72 mg/dL 0.51-0.95 BUN/Creatinine Ratio 13.9 8-20 Calcium 8.7 mg/dL 8.6-10.3 Egfr Non- 89.3 >60 Egfr 114.8 >60 13 Laboratory test 11/16/2017 [facility] HCG 0.80 mIU/mL 14 finding [phone] Laboratory test 11/16/2017 [facility] Hemoglobin A1c 6.3 % High 4.0- 5. 15 finding [phone] (Glyco HGB) 6 CBC Auto Diff 11/16/2017 [facility] White Blood 12.6 10^3/uL High 3.5 -10 [phone] Count .8 Red Blood Count 4.39 10^6/uL [...] Kidney failure <15 (or dialysis) 2 void, zita gold 3 Because ethnic data is not [...] tested in 2-4 weeks. Test Performed by: [facility] [address] [place] [address] 5 REFERENCE VALUE <4.0 (Negative) Test Performed by: [address] [address] 6 Negative serology. Celiac disease unlikely. However, approximately 10% of patients with celiac disease are seronegative. Also, patients who are already adhering to a gluten-free diet may be seronegative. If celiac disease is highly clinically suspected, consider HLA-DQ typing. Test Performed by: [address] [address] 7 <5.0 Negative 5.0 - 25.0 Indeterminate [...] 5 Kidney failure <15 (or dialysis) 10 [facility] Severe Sepsis and Septic Shock Management Bundle Measure requires all lactic acids initially measuring >2.0 mmol/L be repeated. 11 SEE RESULT BELOW Name: KIKO CHAIREZ Lina : [address]: Fran Sharp MD Acct: [id number] Unit: [id number] AGE: 42 Location: ED Re11/28/17 SEX: F Status: DEP ER SPEC: [id number] LINO: 11/28/17 [facility] DR: Fran Sharp MD REQ: [id number] RECD: 11/28/17 STATUS: DEENA KELLY DR: Rafy May MD _ SOURCE: URINE SPDESC: ORDERED: Urine Culture Procedure Result Reported Site Urine Culture Final 11/30/17- 0812 ML No growth of clinically significant organisms * ML - MAIN LAB ([facility]) . END OF REPORT * ML=Testing performed at Main Lab DEPARTMENT OF PATHOLOGY, [address] [place] [address] Kelvin Alejandre M.D. Director [facility] # [id number] 12 The urine specimen was tested at [...] in selective patients <6.0%. Please refer to [place] [employer] diabetic care guidelines for further information. Procedures Date Code Description Status 07/03/2018 14835 Electrocardiogram Complete Completed 06/14/2018 41132 SC/Im Injections Completed 11/17/2017 13295 Visual Acuity Screening Test Completed 10/17/2017 65220 Electrocardiogram Complete Completed Encounters Type Date Location Provider Dx Diagnosis Office Visit 09/18/2018 Main Office Rafy May F11.20 Opioid dependence, 3:00p M.DLeena uncomplicated R53.83 Other fatigue Office Visit 09/15/2018 4:00p Main Office Magen May1.20 Opioid dependenceRafy M.D. uncomplicated R53.83 Other fatigue Office Visit 09/13/2018 3:45p Main Office Magen May1.20 Opioid dependenceRafy M.D. uncomplicated Office Visit 09/07/2018 3:20p Main Office Evelia Rollins G47.33 Obstructive sleep P.A. 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 right lower limb G47.33 Obstructive sleep apnea (adult) (pediatric) E66.9 Obesity, unspecified I10 Essential (primary) hypertension D64.9 Anemia, unspecified R53.1 Weakness Z23 Encounter for immunization Z41.8 Encntr for oth proc for purpose oth [facility] Z59.4 Lack of adequate food and safe drinking water Z71.3 Dietary counseling and surveillance Z68.41 Body mass index (BMI) 40.0-44.9, adult Office Visit 07/18/2018 9:00a Main Office Evelia Rollins L03.115 Cellulitis of right P.A. lower limb Office Visit 07/11/2018 9:00a Main Office Evelia Western, E66.9 Obesity, P.A. 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 R07.89 Other chest pain I10 Essential (primary) hypertension G89.4 Chronic pain syndrome F43.23 Adjustment disorder with mixed anxiety and depressed mood E66.9 Obesity, unspecified K21.9 Gastro-esophageal reflux disease without esophagitis D64.9 Anemia, unspecified Plan of Treatment Future Appointment(s):09/22/2018 8:40 am - Rafy May M.D. 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 May will see this pt in this office for suboxone management. Addendum: HS will see this pt for management of suboxoneFollow up: Call [facility] Outpatient for appt as resouces
--- OUTSIDE RECORDS SUMMARY | 2018-10-02 17:03 | XMS REPORT | Continuity of Care Document ---
:1975 External Reference #:[id number] Author Name Rafy May M.D. Address [facility] [address] [place] [address] Care Team Providers Name Role Phone HCP given Primary Care Physician Unavailable Payers Type Date Identification Numbers Payment Provider Subscriber Expires: 2018 Policy Number: [id number] [facility] PayID: [id number] [address] [place] [id number] Policy Number: [id number] Medicaid [place] PayID: [id number] [address] [place] [address] Effective: 2018 Policy Number: [id number] [facility] PayID: [id number] [address] [place] [phone] Advance Directives Description No Information Available Problems Date Description Provider Status Onset: 10/17/2017 Essential hypertension Natalie Sanders Active Onset: 05/10/2018 Obesity Shu Saxena PA Active Onset: 05/10/2018 Chronic pain syndrome Shu Saxena PA Active Onset: 05/10/2018 Mixed anxiety and depressive disorder Shu Saxena PA Active Onset: 05/10/2018 Arthrogryposis Shu Saxena PA Active Onset: 05/10/2018 Gastroesophageal reflux disease Shu Saxena PA Active Onset: 05/10/2018 Allergic rhinitis Shu Saxena PA Active Onset: 05/10/2018 Anemia Shu Saxena PA Active Onset: 06/14/2018 Migraine without aura, not refractory Shu Saxena PA Active Onset: 06/14/2018 Adjustment disorder with mixed emotional HekShu pickard PA Active features Family History Date Family [...] Status 10/2017 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, 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[employer], 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, 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 Hand Dominance Right-handed Abuse No history of abuse Tobacco Use Start: Unknown End: Former Cigarette Smoker Unknown ETOH Use Denies alcohol use Recreational Drug Use Denies Drug Use Tobacco Use Start: Unknown End: Patient is a former Unknown smoker Smoking Status Reviewed: 12/16/17 Patient is a former smoker Exercise Type/Frequency Exercises regularly walking Sun Exposure Does not use sunscreen Seat Belt/Car Seat always uses seat belt Guns in Home No Currently Active Patient is currently sexually active Age [address]st [place] 19 Years Old Allergies, Adverse Reactions, Alerts Description No Known Drug Allergies Medications Medication Date Status Form Strength Qnty SIG Indications Ordering Provider Alex CQ Active Patches 14mg/24HR 28unit 1 patch F17.210 [place], 018 24HR s per day Isabela Hillman Permethrin Active Cream 5% 120gm wash hair Silcoff, 018 w/ shampoo jimmy Hillman M.D. rinse. apply [...] ER (SR) 02/03/2018 Active Tablets 100mg 60tabs take one F4 Silcoff, ER 12HR tablet by 3. Rafy, mouth in 23 M.D. the morning and one at noon Cyclobenzaprine HCL 12/16/2017 Active Tablets 10mg 90tabs [...] 4-6 hours 4 M.D. as needed for pain, can refill about 08/30/18 M54.5 Iron High-Potency 10/16/2017 Active Tablets 325mg [...] 30caps Take One G89.4 Silcoff, Capsule By Rafy Mouth In M.D. The Evening Aripiprazole 10/16/2017 Active Tablets 5mg 30tabs Take One F43.23 [place]ff, Tablet By Rafy Mouth M.D. Nightly For Mood Permethrin 08/10/2018 Hx Cream 5% 120gm wash hair Silcoff, - w/ shampoo Rafy, 08/21/2018 only, M.D. rinse. apply cream to saturate the hair & scalp, leave on for 10 min then rinse,repea t 9 days Duoderm 07/18/2018 Hx Gel Misc 30Grams Change L03.11 Sil[place]ff, Hydroactive - dressing 5 Rafy, Dressing 08/20/2018 daily for M.D. wound care management right ankle Cephalexin 07/11/2018 Hx Tablets 500mg 20tabs 1 two times L03.11 [place]ff, - a day x 10d 5 Rafy, 07/21/2018 for M.D. infection right ankle infection Alprazolam 02/13/2018 Hx Tablets 1mg 1tabs 1/2 [...] G43.00 Silcoff, - 1 tablet at 1 Rafy, 12/13/2017 night for M.D. bar. after one week can increase to 2 at night if needed Ventolin HFA 11/08/2017 Hx Aerosol 108(90 1Inhale 1-2 puff q4 J45.90 Silcoff, - Base) r hours for 9 Rafy, 05/30/2018 mcg/Ac breath M.D. t Clotrimazole 10/16/2017 Hx Lozenges 10mg 1 by mouth Unknown - 5x/day for 10/16/2017 2wks, for oral thrush Wellbutrin SR 10/16/2017 Hx Tablets ER 100mg 60tabs 1 by mouth F43.23 Silcoff, - 12HR in the Rafy, 02/03/2018 morning and M.D. 1 at noon [...] TB Intradermal Administered Injection Evelia Test 017 [place], P.A. Immunizations CPT Code Status Date Vaccine Lot # [id number] Given 08/24/2018 Influenza Virus Vaccine, Quadrivalent, Split, [id number] Preservative Free 09300 Given 11/10/2017 MMR Virus Immunization [id number] Given 11/08/2017 Influenza Virus Vaccine, Quadrivalent, Split, [id number] Preservative Free 37708 Given 05/17/2017 Adacel or Boostrix, TDaP 03377 Given 05/17/2017 MMR Virus Immunization U-Flu Given 09/27/2016 Influenza,Unspecified U-Flu Given 09/06/2013 Influenza,Unspecified 52852 Given 08/02/2012 Flu, Split Virus 3Yrs Vital Signs Date Vital Result Comment 09/07/2018 3:23pm BP Systolic 120 mmHg BP [...] Test Result H/L Range Note Pthi 07/05/2018 [facility] Calcium (PTH Intact) 9.0 mg/dL 8.6-10.3 [phone] PTH Intact 5.3 pmol/L 1.3-9.3 Laboratory test 07/05/2018 [facility] Insulin Level 74.9 mcIU/mL High 2.0-16.0 finding [phone] Basic Metabolic 07/05/2018 [facility] Sodium 138 mmol/L 135-145 Panel [phone] Potassium 4.3 mmol/L 3.5-5.0 Chloride 106 mmol/L 101-111 Co2 Carbon Dioxide 24 mmol/L 22-32 Anion Gap 8 mmol/L 2-11 Glucose 106 mg/dL High 70-100 Blood Urea Nitrogen 16 mg/dL 6-24 Creatinine 0.89 mg/dL 0.51-0.95 BUN/Creatinine Ratio 18.0 8-20 Calcium 9.0 mg/dL 8.6-10.3 Egfr Non- 69.6 >60 Egfr 84.2 >60 1 Laboratory test 07/05/2018 [facility] TSH (Thyroid 1.55 mcIU/mL 0.34 -5.60 finding [phone] Stim Horm) Ua Inhouse 07/03/2018 In House Ua Glucose - 2 Ua Bilirubin - Ua Ketones - Ua Specific [place] 1.020 Ua Blood sm/ 1+ Ua PH [...] Culture Throat negative Basic Metabolic Panel 05/04/2018 [facility] Sodium 134 mmol/L Low 135 -145 [phone] Potassium 4.3 mmol/L 3.5-5.0 Chloride 101 mmol/L 101-111 Co2 Carbon Dioxide 24 mmol/L 22-32 Anion Gap 9 mmol/L 2-11 Glucose 104 mg/dL High 70-100 Blood Urea Nitrogen 15 mg/dL 6-24 Creatinine 0.70 mg/dL 0.51-0.95 BUN/Creatinine Ratio 21.4 High 8-20 Calcium 9.3 mg/dL 8.6-10.3 Egfr Non- 91.8 >60 Egfr 118.0 >60 3 CBC Auto Diff 05/04/2018 [facility] White Blood Count 9.6 10^3/uL 3.5-10.8 [phone] Red Blood Count 4.54 10^6/uL 4.00-5.40 Hemoglobin [...] Blood Cells % 0.1 Laboratory test 05/04/2018 [facility] Erythrocyte Sed 29 mm/Hr High 0 -14 finding [phone] Rate Lyme Disease Serology Negative Negative 4 TSH (Thyroid Stim Horm) 1.95 mcIU/mL 0.34-5.60 Celiac Panel 05/04/2018 [facility] Tissue Transglutaminase IgA Ab <1.2 U/mL 5 [phone] Immunoglobulin A 358 mg/dL 61 - 356 Celiac Interpretation See Comment 6 Laboratory test 03/02/2018 In House Hemoglobin A1c 6.0 finding Comp Metabolic Panel 11/28/2017 [facility] Sodium 134 mmol/L 133- 145 [phone] Potassium 3.6 mmol/L 3.5-5.0 Chloride 100 mmol/L [...] 118.6 >60 7 Laboratory test finding 11/28/2017 [facility] HCG 0.75 mIU/ mL 8 [phone] Acetaminophen < 15 g/mL 9 Alcohol < 10 mg/dL <10 Salicylate < 2.50 mg/dL <30 Laboratory test 11/28/2017 [facility] Lactic Acid 1.9 mmol/L 0.5- 2.0 10 finding [phone] CBC Auto Diff 11/28/2017 [facility] White Blood 10.4 10^3/uL 3.5- 10.8 [phone] Count Red Blood Count 4.85 10^6/uL 4.0-5.4 [...] Blood Cells % 0.1 Laboratory test 11/28/2017 [facility] Urine Culture And SEE RESULT 11 finding [phone] Sensitivities BELOW Urine Drug SCR 11/28/2017 [facility] Amphetamine Ur None None ED & Pain [phone] Screen Detected Detect Clinic Barbiturates Urine Screen None Detected None Detect Benzodiazepine Urine Screen None Detected None Detect Urine Cannabinoids Screen None Detected None Detect Urine Cocaine Screen None Detected None Detect Urine Opiates Screen None Detected None Detect Urine Phencyclidine Screen None Detected None Detect 12 Urinalysis Profile 11/28/2017 [facility] Urine Color Yellow [phone] Urine Appearance Cloudy Urine Specific [place] 1.021 1.010-1.030 Urine pH 6.0 5-9 Urine [...] Cell Present Absent CBC Auto Diff 11/16/2017 [facility] White Blood 12.6 10^3/uL High 3.5 -10.8 [phone] Count Red Blood Count 4.39 10^6/uL 4.0-5.4 [...] Cells % 0 Basic Metabolic Panel 11/16/2017 [facility] Sodium 137 mmol/L 133- 145 [phone] Potassium 3.7 mmol/L 3.5-5.0 Chloride 103 mmol/L 101-111 Co2 Carbon Dioxide 27 mmol/L 22-32 Anion Gap 7 mmol/L 2-11 Glucose 106 mg/dL High 70-100 Blood Urea Nitrogen 10 mg/dL 6-24 Creatinine 0.72 mg/dL 0.51-0.95 BUN/Creatinine Ratio 13.9 8-20 Calcium 8.7 mg/dL 8.6-10.3 Egfr Non- 89.3 >60 Egfr 114.8 >60 13 Laboratory test 11/16/2017 [facility] HCG 0.80 mIU/mL 14 finding [phone] Laboratory test 11/16/2017 [facility] Hemoglobin A1c 6.3 % High 4.0- 5. 15 finding [phone] (Glyco HGB) 6 1 Because ethnic data [...] (or dialysis) 2 void, hazy, gold 3 Because ethnic data is not [...] tested in 2-4 weeks. Test Performed by: [facility] [address] [place] [address] 5 REFERENCE VALUE <4.0 (Negative) Test Performed by: [address] [address] 6 Negative serology. Celiac disease unlikely. However, approximately 10% of patients with celiac disease are seronegative. Also, patients who are already adhering to a gluten-free diet may be seronegative. If celiac disease is highly clinically suspected, consider HLA-DQ typing. Test Performed by: [address] [address] Because ethnic data is not always [...] <50 ug/mL Toxic concentration: >120 ug/mL 10 [place] Severe Sepsis and Septic Shock Management Bundle Measure requires all lactic acids initially measuring >2.0 mmol/L be repeated. 11 SEE RESULT BELOW Name: FRANKIE CHAIREZ : [address]: Fran Sharp MD Acct: [id number] Unit: [id number] AGE: 42 Location: ED Re11/28/17 SEX: F Status: DEP ER SPEC: [id number] LINO: 11/28/[address]: Fran Sharp MD REQ: [id number] RECD: 11/28/17 STATUS: DEENA KELLY DR: Rafy May MD _ SOURCE: URINE SPDESC: ORDERED: Urine Culture Procedure Result Reported Site Urine Culture Final 11/30/17- 811 ML No growth of clinically significant organisms * ML - MAIN LAB ([facility]) . END OF REPORT * ML=Testing performed at Main Lab DEPARTMENT OF PATHOLOGY, [address] [place] [address] Kelvin Alejandre M.D. Director [facility] # [id number] 12 The urine specimen was tested at [...] in selective patients <6.0%. Please refer to [place] [employer] diabetic care guidelines for further information. Procedures Date Code Description Status 07/03/2018 83811 Electrocardiogram Complete Completed 06/14/2018 27218 SC/Im Injections Completed 11/17/2017 14793 Visual Acuity Screening Test Completed 10/17/2017 87039 Electrocardiogram Complete Completed Encounters Type Date Location Provider Dx Diagnosis Office Visit 09/07/2018 Main Office Evelia Rollins G47.33 Obstructive sleep 3:20p P.A. 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 right lower limb G47.33 Obstructive sleep apnea (adult) (pediatric) E66.9 Obesity, unspecified I10 Essential (primary) hypertension D64.9 Anemia, unspecified R53.1 Weakness Z23 Encounter for immunization Z41.8 Encntr for oth proc for purpose oth than [facility] Z59.4 Lack of adequate food [...] 03/02/2018 9:20a Main Office Evelia Rollins, P.A. 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 not intractable, [...] esophagitis D64.9 Anemia, unspecified Plan of Treatment 09/07/2018 - Natalie SandersG47.33 Obstructive sleep apnea (adult) ( pediatric)Follow up:cont use of CPAPE66.9 Obesity, unspecifiedFollow up:wt gain , igtxxeaunX98.210 Nicotine dependence, cigarettes, uncomplicatedNew Medication: Nicoderm CQ 14 mg/24HR - 1 patch per dayZ79.899 Other skilled nursing (current) drug therapyComments:Will check whether Dr. May will see this pt in this office for suboxone management. Addendum: HS will see this pt for management of suboxoneFollow up:Call [facility] or [facility] Outpatient for appt as resouces
[2018-10-02 17:26] VITALS: BP 146/87
--- NOTE | 2018-10-02 17:50 | UC ---
Skin Complaint HPI - HPI Summary HPI Summary: 43-year-old woman comes in with a chief complaint of a rash. The rashes on the right lower chest. Started about 4 days ago. It had some vesicles. The vesicles since have popped. There is some erythema. She describes burning itching pain. No fevers feels well otherwise. Did have chickenpox as a child. - History of Current Complaint Chief Complaint: UCRash Time Seen by Provider: 10/02/18 17:37 Stated Complaint: RASH Hx Last Menstrual Period: 08/29/18 Pain Intensity: 5 - Allergy/Home Medications Allergies/Adverse Reactions: Allergies Allergy/AdvReac Type Severity Reaction Status Date / Time No Known Allergies Allergy Verified 10/02/18 17:26 Review of Systems All Other Systems Reviewed And Are Negative: Yes Constitutional: Positive: Negative Skin: Positive: Other - SEE HPI Eyes: Positive: Negative ENT: Positive: Negative Respiratory: Positive: Negative Cardiovascular: Positive: Negative Gastrointestinal: Positive: Negative Motor: Positive: Negative Neurovascular: Positive: Negative Musculoskeletal: Positive: Negative Neurological: Positive: Negative Psychological: Positive: Negative Is Patient Immunocompromised?: No PMH/Surg Hx/FS Hx/Imm Hx Respiratory History: Asthma - Surgical History Surgical History: Yes Surgery Procedure, Year, and Place: [facility] , left hip, , CHOLECYSTECTOMY, breast surgery BLOCKED DUCT, neck surgery x2 PLATES SCREWS, LEFT hip replacement, CONGENITAL LEFT HIP DISLOCATION AND REPAIR - Family History Known Family History: Positive: Hypertension Negative: Cardiac Disease Family History: not aware of any cardio vascular issues in biological lineage - Social History Alcohol Use: Rare Alcohol Amount: ONCE A MONTH Substance Use Type: None Substance Use Comment - Amount & Last Used: VERY RARELY, LAST TIME 06/2015 Smoking Status (MU): Light Every Day Tobacco Smoker Type: eCigarettes Amount Used/How Often: 2 cigarettes/day Have You Smoked in the Last Year: Yes When Did the Patient Quit Smoking/Using Tobacco: quit today - 04/04/16 Household Exposure Type: Cigars - Immunization History Most Recent Influenza Vaccination: not this season Most Recent Tetanus Shot: OCT 2017 Physical Exam Triage Information Reviewed: Yes Appearance: Well-Appearing, No Pain Distress, Well-Nourished Vital Signs: Initial Vital Signs Temp 98.3 F 10/02/18 17:20 Pulse 92 10/02/18 17:20 Resp 18 10/02/18 17:20 BP 146/87 10/02/18 17:20 Pulse Ox 100 10/02/18 17:20 Vital Signs Reviewed: Yes Eye Exam: Normal Eyes: Positive: Conjunctiva Clear Neck exam: Normal Neck: Positive: Supple Respiratory: Positive: No respiratory distress Musculoskeletal Exam: Normal Musculoskeletal: Positive: Strength Intact, ROM Intact Neurological Exam: Normal Neurological: Positive: Alert, Muscle Tone Normal Psychological Exam: Normal Psychological: Positive: Normal Response To Family, Age Appropriate Behavior Skin: Positive: Other - Right lateral lower chest in a dermatomal distribution there is a rash with several small 2-4 mm eschars with erythematous base. There is no drainage no streaking. Course/Dx - Diagnoses Provider Diagnoses: SHINGLES Discharge - Sign-Out/Discharge Documenting (check all that apply): Patient Departure All imaging exams completed and their final reports reviewed: No Studies - Discharge Plan Condition: Stable Disposition: HOME Prescriptions: Valacyclovir HCl [Valacyclovir] 1 gm PO TID #21 tab Patient Education Materials: Yesenia (ED) Referrals: Rafy May MD [Primary Care Provider] - Additional Instructions: FOLLOW UP WITH YOUR DOCTOR. GET RECHECKED FOR ANY WORSENING OF YOUR CONDITION OR QUESTIONS OR CONCERNS. - Billing Disposition and Condition Condition: STABLE Disposition: Home
== END 2018-10-02 18:02 | disposition home or self-care (01) ==
LOC: UCEAST 16:56
DX: B02.9 Zoster without complications (principal); J45.909 Unspecified asthma, uncomplicated; F17.210 Nicotine dependence, cigarettes, uncomplicated
CPT/HCPCS: 99211; G0463

== ENCOUNTER 2018-12-16 15:33 | Emergency (ER) | payer OTHER ==
--- OUTSIDE RECORDS SUMMARY | 2018-12-16 15:42 | XMS REPORT | Continuity of Care Document ---
:1975 External Reference #:[id number] Author Name Rafy May M.D. Address [address] [facility] [address] [place] [address] Care Team Providers Name Role Phone HCP given Primary Care Physician Unavailable Payers Type Date Identification Numbers Payment Provider Subscriber Effective: Policy Number: [id number] [facility] Kiko Chairez 2018 PayID: [id number] [address] [place] [address] Expires: 2017 Policy Number: [id number] Medicaid Kiko Chairez PayID: [id number] [address] [place] [address] Advance Directives Description No Information Available Problems [...] 06/14/2018 Adjustment disorder with mixed emotional Shu Saxena PA Active features Onset: 11/08/2018 Obstructive sleep apnea syndrome Shu Saxena PA Active Onset: 11/08/2018 Tobacco user Shu Saxena PA Active Onset: 11/08/2018 Asthma without status asthmaticus Shu Saxena PA Active Family History Date Family Member(s) [...] Status 10/2017 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, 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[employer], 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, 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 Hand Dominance Right-handed Abuse No history of abuse Tobacco Use Start: Unknown Former Cigarette End: Unknown Smoker ETOH Use Denies alcohol use "rarely" Tobacco Use Start: Unknown Patient is a former End: Unknown smoker Recreational Drug Use Cocaine used it a couple of times ~Sep 2018 in setting of learning that her was cheating on her Tobacco Use Reviewed: 11/08/18 Light tobacco smoker (10 or fewer cigarettes/day) Smoking Status Reviewed: 11/09/18 Light tobacco smoker (10 or fewer cigarettes/day) Exercise Type/Frequency Exercises regularly walking Sun Exposure Does not use sunscreen Seat Belt/Car Seat always uses seat belt Guns in Home No Smoke Alarms Yes smoke alarm Currently Active Patient is currently sexually active Age 1st [place] 19 Years Old Allergies, Adverse Reactions, Alerts Description No Known Drug Allergies Medications Medication Date Status Form Strength Qnty SIG Indications Ordering Provider Sumatriptan 06/14 Active Tablets 50mg 9tabs 1 tab by G43.009 Yadira, Succinate mouth at Rafy, onset of M.D. migraine, may repeat x1 after 2 hours if needed Alprazolam 06/14 Active Tablets 0.25mg 90tab 1 tab by G47.00 Yadira, s mouth up Rafy, to three M.D. times a day as needed for anxiety/pa ck attacks Topiramate 06/13 Active Tablets 100mg 30tab 1 tablet Tala s by mouth MD Jcarlos daily Venlafaxine HCL 05/25 Active Caps ER 75mg 90cap 3 caps by Yadira 24HR s mouth Rafy, every day M.D. for anxiety Venlafaxine HCL 05/25 Active Caps ER 75mg 90cap Take Three Silcoff, ER 24HR s Capsules Rafy, By Mouth M.DLeena Every Day For Anxiety Buspirone HCL 02/13 Active Tablets 5mg 60tab 1 twice a Silcoff, s day for Rafy, anxiety M.D. Cyclobenzaprine 12/16 Active Tablets 10mg 90tab 1 tab by Silcocatrachito, s mouth up Rafy, to three M.D. times a day for back pain, will make you drowsy Loratadine 11/08 Active Tablets 10mg 30tab 1 by mouth Sillam, s every day Rafy, as needed M.D. for allergies Iron High-Potency 10/16 Active Tablets 325mg 30tab 1 every D64.9 Silcoff, s morning Isabela Hillman Fluticasone 10/16 Active Suspension 50mcg/Act 2 sprays Unknown Propionate into each nostril once daily for nasal congestion Tylenol Extra 10/16 Active Tablets 500mg 2 tabs Unknown Strength every 6 hours tid Lisinopril 10/16 Active Tablets 10mg 90tab 2 tabs by I10 Yadira, s mouth Rafy, every M.D. morning and 1 tab by mouth in the evening Meloxicam 10/16 Active Tablets 7.5mg 60tab 1 tab by Silcoff, s mouth in Rafy, morning M.D. and one at midday Aripiprazole 10/16 Active Tablets 5mg 30tab Take One s Tablet By Rafy Mouth M.DLeena Nightly For Mood Triamcinolone 10/03 Hx Cream 0.1% 60gm apply to B02.9 Sillam, Acetonide affected Rafy - areas M.D. 10/26 torso: rash, 2-3 times a day, discontinu e when it improves Clotrimazole 10/03 Hx Cream 1% 45gm apply B37.9 Silcoff, externally Rafy, - to M.D. 10/26 affected 2018 areas twice a day for 2 weeks or until rash (under breast) has resolved: then cont 2 day after rash resolves Amoxicillin 10/03 Hx Tablets 875mg 20tab 1 by mouth J01.90 Silcoff, s twice a Rafy, - day x 10 M.D. 10/13 days for bacterial pharyngiti s Valacyclovir HCL 10/02 Hx Tablets 1gm 21tab 1 tablet s by mouth - three 10/09 times a day x 7 days Gabapentin 09/22 Hx Capsules 300mg 1 by mouth Silcocatrachito, at bedtime Rafy, - for 1 week M.D. 09/22 then stop it; for pain Suboxone 09/18 Hx Film 2-0.5mg 30uni 1 film by F11.20 Silcoff, ts mouth Rafy, - every M.D. 11/28 morning rx due 11/01/18; suboxone prescriber #[id number] Suboxone 09/15 Hx Film 2-0.5mg 2unit 1 film by F11.20 Silcoff, s corrina Hillman, - every M.D. 09/18 starting on 09/17/18 (use remaining 8/2 film for 10/2 dose); suboxone prescriber #[id number] Suboxone 09/14 Hx Film 8-2mg 2unit 1/2 film F11.20 Silcoff, s by mouth Rafy, - now; march M.D. 09/15 another 1/2 film today after 4 or more hours; take 1/2 film tomorrow am; suboxone prescriber # [id number] Suboxone 09/13 Hx Film 8-2mg 2film 1/2 film F11.20 Silcoff, s by mouth Rafy, - Isabela white 09/14 again tomorrow am and Tuesday am; may take 1 more dose Harper amy; suboxone prescriber # [id number] Nicoderm CQ 09/07 Hx Patches 14mg/24HR 28uni 1 patch F17.210 co, 24HR ts per day Rafy, - M.D. 10/26 Permethrin 09/01 Hx Cream 5% 120gm wash hair co, w/ shampoo Rafy, - only, M.D. 10/26 rinse. apply cream to saturate the hair & scalp, leave on for 10 min then rinse,repe at 9 days Permethrin 08/10 Hx Cream 5% 120gm wash hair Silco w/ shampoo Rafy, - only, M.D. 08/21 rinse. apply cream to saturate the hair & scalp, leave on for 10 min then rinse,repe at 9 days Duoderm 07/18 Hx Gel Misc 30Gra Change L03.115 Silcoff, Hydroactive ms dressing Rafy, Dressing - daily for M.D. 08/20 wound care management right ankle Cephalexin 07/11 Hx Tablets 500mg 20tab 1 two L03.115 Ashleyco s times a Rafy, - day x 10d M.D. 07/21 for infection right ankle infection Alprazolam 02/13 Hx Tablets 1mg 1tabs 1/2 to 1 G47.00 co tablet po Rafy, - up to 3x/ M.D. 06/14 Bupropion HCL ER 02/03 Hx Tablets ER 100mg 60tab take one Sillam () 12HR s tablet by Rafy, - mouth in M.D. 10/16 morning and one at noon Cyclobenzaprine 12/16 Hx Powder 1 tab by Yadira mouth Rafy, - three M.D. 12/16 times day TENS Unit 12/16 Hx 1unit Use as Silco s directed Rafy, - with the M.D. 03/01 equipement 1-2 times a day for pain management Amitriptyline HCL 11/17 Hx Tablets 10mg 60tab start with G43.001 Yadira s 1 tablet Rafy, - at night M.D. 12/13 for bar. after one week can increase to 2 at night if needed Hydrochlorothiazi 11/17 Hx Tablets 12.5mg 30tab 1 tab by I10 Yadira, s mouth Rafy, - every M.D. 09/12 morning Ventolin HFA 11/08 Hx Aerosol 108(90Bas 1Inha 1-2 puff Yadira e) ler q4 hours Rafy, - mcg/Act for breath M.D. 05/30 Clotrimazole 10/16 Hx Lozenges 10mg 1 by mouth 5x/day for - 2wks, for 10/16 oral thrush Percocet 10/16 Hx Tablets 7.5-325mg 150ta 1 tab by M54.5 Yadira, bs mouth Rafy, - every 4-6 M.D. 09/12 hours as needed for pain, can refill about 08/30/18 Wellbutrin SR 10/16 Hx Tablets ER 100mg 60tab 1 by mouth Yadira 12HR s in the Rafy, - morning M.D. 02/03 and 1 at noon Omeprazole 10/[address] 20mg 30tab 1 tab po K21.9 Yadira, s daily as Rafy, - needed M.D. 10/26 Gabapentin 10/16 Hx Capsules 100mg 1 po in morning - and one at 03/01 mid (may skip midday if it causes drowsiness ) Cyclobenzaprine 10/16 Hx 10mg 1 tab po tid - 12/16 Gabapentin 10/16 Hx Capsules 300mg 30cap Take One Yadira, s Capsule By Rafy, - Mouth In M.D. 09/22 Evening Venlafaxine HCL 10/16 Hx Tablets ER 225mg 30tab take one , 24HR s tablet by Rafy, - mouth once M.D. 05/25 daily with food for depression Diclofenac 00 Hx Tablets 50mg Unknown - 11/17 Medications Administered in Office Medication Date Status Form Strength Qnty SIG Indications Ordering Provider TB Intradermal Administered Injection Hektor, Test AURELIO Gallo Toradol 15MG. Administered Injection HektorYifan PA SC/Im Administered Injection Hektor, Injections AURELIO Gallo TB Intradermal Administered Injection Evelia Test 017 [place], P.A. Immunizations CPT Code Status Date Vaccine Lot # [id number] Given 08/24/2018 Influenza Virus Vaccine, Quadrivalent, Split, [id number] Preservative Free 04118 Given 11/10/2017 MMR Virus Immunization [id number] 23011 Given 11/08/2017 Influenza Virus Vaccine, Quadrivalent, Split, [id number] Preservative Free 52185 Given 05/17/2017 Adacel or Boostrix, TDaP 64503 Given 05/17/2017 MMR Virus Immunization U-Flu Given 09/27/2016 Influenza,Unspecified U-Flu Given 09/06/2013 Influenza,Unspecified 65881 Given 08/02/2012 Flu, Split Virus 3Yrs Vital Signs Date Vital Result Comment 11/28/2018 1:43pm BP Systolic 128 mmHg BP Diastolic 80 mmHg 11/08/2018 10:18am BP Systolic 132 mmHg BP Diastolic 82 mmHg Height 63 inches 5'3" Weight 235.00 lb BMI (Body Mass Index) 41.6 kg/m2 10/31/2018 2:31pm BP Systolic 136 mmHg BP Diastolic 84 mmHg 10/27/2018 9:48am BP Systolic 132 mmHg BP Diastolic 92 mmHg Weight 234.00 lb 10/03/2018 4:49pm BP Systolic 130 mmHg BP Diastolic 90 mmHg Body Temperature 98.3 F Weight 240.00 lb w/shoes and coat 09/29/2018 11:41am BP Systolic 126 mmHg BP [...] Date Facility Test Result H/L Range Note CBC Auto Diff 11/24/2018 [facility] White Blood 11.7 10^3/uL High 3.5 -10.8 [phone] Count Red Blood Count 5.61 10^6/uL High 4.00-5.40 Hemoglobin 14.8 g/dL N 12.0-16.0 Hematocrit 46 % N 35-47 Mean Corpuscular Volume 81 fL N 80-97 Mean Corpuscular Hemoglobin 26 pg Low 27-31 Mean Corpuscular HGB Conc 33 g/dL N 31-36 Red Cell Distribution Width 15 % N 10.5-15 Platelet Count 384 10^3/uL N 150-450 Mean Platelet Volume 7.0 fL Low 7.4-10.4 Abs Neutrophils 7.6 10^3/uL N 1.5-7.7 Abs Lymphocytes 2.8 10^3/uL N 1.0-4.8 Abs Monocytes 0.9 10^3/uL High 0-0.8 Abs Eosinophils 0.4 10^3/uL N 0-0.6 Abs Basophils 0.1 10^3/uL N 0-0.2 Abs Nucleated RBC 0 10^3/uL Granulocyte % 64.5 % Lymphocyte % 24.1 % Monocyte % 7.3 % Eosinophil % 3.5 % Basophil % 0.6 % Nucleated Red Blood Cells % 0 Laboratory test 11/24/2018 [facility] Vitamin D Total 19.4 ng/mL Low 20-50 1 finding [phone] 25(Oh) Lyme Disease Serology Negative Negative 2 Anti Nuclear Antibody 0.2 U 3 Rheumatoid Factor < 10 IU/mL N <15 4 Cyclic Citrullinated Pep Igg <15.6 U 5 Comp Metabolic Panel 11/24/2018 [facility] Sodium 136 mmol/L N 135- 145 [phone] Potassium 4.0 mmol/L N 3.5-5.0 Chloride 103 mmol/L N 101-111 Co2 Carbon Dioxide 22 mmol/L N 22-32 Anion Gap 11 mmol/L N 2-11 Glucose 132 mg/dL High 70-100 Blood Urea Nitrogen 9 mg/dL N 6-24 Creatinine 0.66 mg/dL N 0.51-0.95 BUN/Creatinine Ratio 13.6 N 8-20 Calcium 9.5 mg/dL N 8.6-10.3 Total Protein 7.7 g/dL N 6.4-8.9 Albumin 4.4 g/dL N 3.2-5.2 Globulin 3.3 g/dL N 2-4 Albumin/Globulin Ratio 1.3 N 1-3 Total Bilirubin 0.50 mg/dL N 0.2-1.0 Alkaline Phosphatase 91 U/L N 34-104 Alt 78 U/L High 7-52 Ast 53 U/L High 13-39 Egfr Non- 98.2 >60 Egfr 118.8 >60 6 Laboratory test 11/24/2018 [facility] Erythrocyte Sed 32 mm/Hr High 0 -14 7 finding [phone] Rate C Reactive Protein 7.18 mg/L N <8.01 8 Lipid Profile (Trig/Chol/HDL) 11/24/2018 [facility] Triglycerides 367 mg/dL 9 [phone] Cholesterol 263 mg/dL 10 HDL Cholesterol 43.0 mg/dL 11 LDL Cholesterol 147 mg/dL 12 Laboratory test 11/24/2018 [facility] Hemoglobin A1c 6.2 % High 4.0- 5.6 13 finding [phone] (Glyco HGB) TSH (Thyroid Stim Horm) 1.36 mcIU/mL N 0.34-5.60 14 Urine Drug Screen Inhouse 11/16/2018 In House Ua Cocaine + Ua Opiates - Ua Amphetamines - Urine Methanphetamines - Urine Benzodiazepines QN Ratcliff - Urine Oxycodone QL - Urine Drug Screen Inhouse 10/31/2018 In House Ua Cocaine - Ua Opiates - Ua Amphetamines - Urine Methanphetamines - Urine Benzodiazepines QN [place]cliff - Urine Oxycodone QL - Urine Drug 10/12/2018 [facility] Amphetamine Ur None Detected None Detect SCR ED & [phone] Screen Pain Clinic Barbiturates Urine Screen None Detected None Detect Benzodiazepine Urine Screen Presumptive Posi <SEE NOTE> Abnormal None Detect 15 Urine Cannabinoids Screen None Detected None Detect Urine Cocaine Screen Presumptive Posi <SEE NOTE> Abnormal None Detect 16 Urine Opiates Screen None Detected None Detect Urine Phencyclidine Screen None Detected None Detect 17 Comp Metabolic Panel 10/12/2018 [facility] Sodium 137 mmol/L N 135- 145 [phone] Potassium 3.8 mmol/L N 3.5-5.0 Chloride 103 mmol/L N 101-111 Co2 Carbon Dioxide 24 mmol/L N 22-32 Anion Gap 10 mmol/L N 2-11 Glucose 126 mg/dL High 70-100 Blood Urea Nitrogen 9 mg/dL N 6-24 Creatinine 0.68 mg/dL N 0.51-0.95 BUN/Creatinine Ratio 13.2 N 8-20 Calcium 9.4 mg/dL N 8.6-10.3 Total Protein 8.1 g/dL N 6.4-8.9 Albumin 4.3 g/dL N 3.2-5.2 Globulin 3.8 g/dL N 2-4 Albumin/Globulin Ratio 1.1 N 1-3 Total Bilirubin 0.40 mg/dL N 0.2-1.0 Alkaline Phosphatase 95 U/L N 34-104 Alt 25 U/L N 7-52 Ast 24 U/L N 13-39 Egfr Non- 94.9 >60 Egfr 114.8 >60 18 Laboratory test finding 10/12/2018 [facility] HCG < 0.60 mIU/ mL 19 [phone] Acetaminophen < 15 g/mL 20 Alcohol < 10 mg/dL N <10 Salicylate < 2.50 mg/dL <30 TSH (Thyroid Stim Horm) 1.07 mcIU/mL N 0.34-5.60 CBC Auto Diff 10/12/2018 [facility] White Blood 12.3 10^3/uL High 3.5 -10.8 [phone] Count Red Blood Count 5.06 10^6/uL N 4.00-5.40 Hemoglobin 13.8 g/dL N 12.0-16.0 Hematocrit 42 % N 35-47 Mean Corpuscular Volume 82 fL N 80-97 Mean Corpuscular Hemoglobin 27 pg N 27-31 Mean Corpuscular HGB Conc 33 g/dL N 31-36 Red Cell Distribution Width 15 % N 10.5-15 Platelet Count 465 10^3/uL High 150-450 Mean Platelet Volume 6.5 fL Low 7.4-10.4 Abs Neutrophils 8.5 10^3/uL High 1.5-7.7 Abs Lymphocytes 2.7 10^3/uL N 1.0-4.8 Abs Monocytes 0.8 10^3/uL N 0-0.8 Abs Eosinophils 0.2 10^3/uL N 0-0.6 Abs Basophils 0.1 10^3/uL N 0-0.2 Abs Nucleated RBC 0 10^3/uL Granulocyte % 69.3 % N 38-83 Lymphocyte % 21.7 % Low 25-47 Monocyte % 6.3 % N 0-7 Eosinophil % 1.5 % N 0-6 Basophil % 1.2 % N 0-2 Nucleated Red Blood Cells % 0.2 Urinalysis Profile 10/12/2018 [facility] Urine Color Yellow [phone] Urine Appearance Cloudy Urine Specific [place] 1.011 N 1.010-1.030 Urine pH 8.0 N 5-9 Urine Urobilinogen Negative Negative Urine Ketones Negative Negative Urine Protein Negative Negative Urine Leukocytes Negative Negative Urine Blood 2+ Abnormal Negative Urine Nitrite Negative Negative Urine Bilirubin Negative Negative Urine Glucose Negative Negative Urine White Blood Cell Trace(0-5/hpf) Absent Urine Red Blood Cell Trace(0-2/hpf) Absent Urine Bacteria Absent Absent Urine Squamous Epithelial Cell Present Abnormal Absent Urine Culture And 10/12/2018 [facility] Urine Culture SEE RESULT 21 Sensitivities [phone] BELOW Urine Drug Screen 09/29/2018 In House Ua Cocaine - Inhouse Ua Opiates - Ua Amphetamines - Urine Methanphetamines - Urine Benzodiazepines QN Ratcliff - Urine Oxycodone QL - Urine Drug Screen Inhouse 09/15/2018 In House Ua Cocaine - Ua Opiates - Ua Amphetamines - Urine Methanphetamines - Urine Benzodiazepines QN [place]cliff - Urine Oxycodone QL - Pthi 07/05/2018 [facility] Calcium (PTH Intact) 9.0 mg/dL N 8.6-10.3 [phone] PTH Intact 5.3 pmol/L N 1.3-9.3 Laboratory test 07/05/2018 [facility] Insulin Level 74.9 mcIU/mL High 2.0-16.0 finding [phone] Basic Metabolic 07/05/2018 [facility] Sodium 138 mmol/L N 135-145 Panel [phone] Potassium 4.3 mmol/L N 3.5-5.0 Chloride 106 mmol/L N 101-111 Co2 Carbon Dioxide 24 mmol/L N 22-32 Anion Gap 8 mmol/L N 2-11 Glucose 106 mg/dL High 70-100 Blood Urea Nitrogen 16 mg/dL N 6-24 Creatinine 0.89 mg/dL N 0.51-0.95 BUN/Creatinine Ratio 18.0 N 8-20 Calcium 9.0 mg/dL N 8.6-10.3 Egfr Non- 69.6 >60 Egfr 84.2 >60 22 Laboratory test 07/05/2018 [facility] TSH (Thyroid 1.55 mcIU/mL N 0.34-5.60 finding [phone] Stim Horm) Laboratory test 07/03/2018 In House Test negative finding Urine Culture Urine 07/03/2018 In House Colonies negative 23 Inhouse Ua Inhouse 07/03/2018 In House Ua Glucose - Ua Bilirubin - Ua Ketones - Ua Specific [place] 1.020 Ua Blood sm/ 1+ Ua PH 6.0 Ua Protein - Ua Urobilinogen - Ua Nitrite - Ua Leukocytes - Laboratory test finding 05/30/2018 [facility] [place] Hemoglobin A1c 5.9 Laboratory test finding 05/10/2018 In House Culture Throat Rapid negative Screen Culture Throat negative Basic Metabolic Panel 05/04/2018 [facility] Sodium 134 mmol/L Low 135 -145 [phone] Potassium 4.3 mmol/L N 3.5-5.0 Chloride 101 mmol/L N 101-111 Co2 Carbon Dioxide 24 mmol/L N 22-32 Anion Gap 9 mmol/L N 2-11 Glucose 104 mg/dL High 70-100 Blood Urea Nitrogen 15 mg/dL N 6-24 Creatinine 0.70 mg/dL N 0.51-0.95 BUN/Creatinine Ratio 21.4 High 8-20 Calcium 9.3 mg/dL N 8.6-10.3 Egfr Non- 91.8 >60 Egfr 118.0 >60 24 CBC Auto Diff 05/04/2018 [facility] White Blood Count 9.6 10^3/uL N 3.5-10.8 [phone] Red Blood Count 4.54 10^6/uL N 4.00-5.40 [...] 0-2 Nucleated Red Blood Cells % 0.1 Celiac Panel 05/04/2018 [facility] Tissue Transglutaminase IgA <1.2 U/ mL 25 [phone] Ab Immunoglobulin A 358 mg/dL Abnormal 61 - 356 Celiac Interpretation See Comment 26 Laboratory test 05/04/2018 [facility] Erythrocyte Sed 29 mm/Hr High 0 -14 finding [phone] Rate Lyme Disease Serology Negative Negative 27 TSH (Thyroid Stim Horm) 1.95 mcIU/mL N 0.34-5.60 Laboratory test finding 03/02/2018 In House Hemoglobin A1c 6.0 Laboratory test finding 11/28/2017 [facility] HCG 0.75 mIU/ mL 28 [phone] Acetaminophen < 15 g/mL 29 Alcohol < 10 mg/dL N <10 Salicylate < 2.50 mg/dL <30 Comp Metabolic Panel 11/28/2017 [facility] Sodium 134 mmol/L N 133- 145 [phone] Potassium 3.6 mmol/L N 3.5-5.0 Chloride 100 [...] Egfr Non- 92.2 >60 Egfr 118.6 >60 30 Laboratory test 11/28/2017 [facility] Lactic Acid 1.9 mmol/L N 0.5- 2.0 31 finding [phone] CBC Auto Diff 11/28/2017 [facility] White Blood 10.4 10^3/uL N 3.5- 10.8 [phone] Count Red Blood Count 4.85 10^6/uL N [...] Blood Cells % 0.1 Laboratory test 11/28/2017 [facility] Urine Culture And SEE RESULT 32 finding [phone] Sensitivities BELOW Urine Drug SCR 11/28/2017 [facility] Amphetamine Ur None None ED & Pain [phone] Screen Detected Detect Clinic Barbiturates Urine Screen None Detected None Detect Benzodiazepine Urine Screen None Detected None Detect Urine Cannabinoids Screen None Detected None Detect Urine Cocaine Screen None Detected None Detect Urine Opiates Screen None Detected None Detect Urine Phencyclidine Screen None Detected None Detect 33 Urinalysis Profile 11/28/2017 [facility] Urine Color Yellow [phone] Urine Appearance Cloudy Urine Specific [place] 1.021 N 1.010-1.030 Urine pH 6.0 N [...] Urine Squamous Epithelial Cell Present Abnormal Absent CBC Auto Diff 11/16/2017 [facility] White Blood 12.6 10^3/uL High 3.5 -10.8 [phone] Count Red Blood Count 4.39 10^6/uL N [...] 0-2 Nucleated Red Blood Cells % 0 Laboratory test 11/16/2017 [facility] Hemoglobin A1c 6.3 % High 4.0- 5.6 34 finding [phone] (Glyco HGB) Laboratory test 11/16/2017 [facility] HCG 0.80 35 finding [phone] mIU/mL Basic Metabolic 11/16/2017 [facility] Sodium 137 N 133-145 Panel [phone] mmol/L Potassium 3.7 mmol/L N 3.5-5.0 Chloride 103 mmol/L N 101-111 Co2 Carbon Dioxide 27 mmol/L N 22-32 Anion Gap 7 mmol/L N 2-11 Glucose 106 mg/dL High 70-100 Blood Urea Nitrogen 10 mg/dL N 6-24 Creatinine 0.72 mg/dL N 0.51-0.95 BUN/Creatinine Ratio 13.9 N 8-20 Calcium 8.7 mg/dL N 8.6-10.3 Egfr Non- 89.3 >60 Egfr 114.8 >60 36 1 FASTING 2 No evidence of antibodies to B. burgdorferi detected. False negative results may occur in recently infected patients (<=2 weeks) due to low or undetectable antibody levels to B. burgdorferi. If recent exposure is suspected, a second sample should be collected and tested in 2-4 weeks. Test Performed by: [facility] [place] [address] 3 REFERENCE VALUE <=1.0 (Negative) Test Performed by: [facility] [address] [place] [address] 4 FASTING 5 REFERENCE VALUE <20.0 (Negative) Test Performed by: [facility] [place] [address] 6 Because ethnic data is not always [...] 5 Kidney failure <15 (or dialysis) 7 FASTING 8 FASTING 9 Desirable: <150 Borderline High: 150-199 High: 200-499 Very High: >500 10 Desirable: <200 Borderline High: 200-239 High: >239 11 Low: <40 Desirable: 40-60 High: >60 12 Desirable: <100 Near Optimal: 100-129 Borderline High: 130-159 High: 160-189 Very High: >189 13 Therapeutic target for the treatment of diabetes mellitus patients is <7% HBA1C, and in selective patients <6.0%. Please refer to [place] [employer] diabetic care guidelines for further information. 14 FASTING 15 Presumptive Positive Presumptive positive results are unconfirmed. 16 Presumptive Positive Presumptive positive results are unconfirmed. 17 The urine specimen was tested at the listed cutoffs: Drug class test level (ng/mL) Amphetamines 500 Barbiturates 200 Benzodiazepine metabolites 200 Cocaine metabolites 150 Cannabinoids 50 Opiates 300 Pcp 25 Specimen was received without chain of custody. Results should be used for medical purposes only. 18 Because ethnic data is not always readily [...] 15-29 5 Kidney failure <15 (or dialysis) 19 <5.0 Negative 5.0 - 25.0 Indeterminate (Repeat testing recommended after 72 hours) >25.0 Positive Perimenopausal women can display HCG levels of up to 20 mIU/mL 20 Therapeutic concentration: <50 ug/mL Toxic concentration: >120 ug/mL 21 SEE RESULT BELOW Name: KIKO CHAIREZ Lina : [address]: Alfa Kirkland MD Acct: [id number] Unit: [id number] AGE: 43 Location: [facility] Re10/12/18 SEX: F Status: ADM IN SPEC: [id number] LINO: 10/12/[address]: Blaine Orourke MD REQ: [id number] RECD: 10/12/18 STATUS: DEENA KELLY DR: Rafy May MD _ SOURCE: URINE SPDESC: ORDERED: Urine Culture Procedure Result Reported Site Urine Culture Final 10/14/18- 09 ML No growth of clinically significant organisms * ML - Main Lab . END OF REPORT DEPARTMENT OF PATHOLOGY, [address] [place] [address] Kelvin Alejandre M.D. Director [facility] # [id number] 22 Because ethnic data is not always readily [...] 15-29 5 Kidney failure <15 (or dialysis) 23 zita hinton gold 24 Because ethnic data is not always readily [...] 15-29 5 Kidney failure <15 (or dialysis) 25 REFERENCE VALUE <4.0 (Negative) Test Performed by: [place] [id number] Negative serology. Celiac disease unlikely. However, approximately 10% of patients with celiac disease are seronegative. Also, patients who are already adhering to a gluten-free diet may be seronegative. If celiac disease is highly clinically suspected, consider HLA-DQ typing. Test Performed by: [place] [id number] 27 No evidence of antibodies to B. burgdorferi detected. False negative results may occur in recently infected patients (<=2 weeks) due to low or undetectable antibody levels to B. burgdorferi. If recent exposure is suspected, a second sample should be collected and tested in 2-4 weeks. Test Performed by: [facility] [address] [place] [address] 28 <5.0 Negative 5.0 - 25.0 Indeterminate (Repeat testing recommended after 72 hours) >25.0 Positive Perimenopausal women can display HCG levels of up to 20 mIU/mL 29 Therapeutic concentration: <50 ug/mL Toxic concentration: >120 ug/mL 30 Because ethnic data is not always readily [...] 15-29 5 Kidney failure <15 (or dialysis) 31 MNS Severe Sepsis and Septic Shock Management Bundle Measure requires all lactic acids initially measuring >2.0 mmol/L be repeated. 32 SEE RESULT BELOW Name: KIKO CHAIREZ : [address]: Fran Sharp MD Acct: [id number] Unit: [id number] AGE: 42 Location: ED Re11/28/17 SEX: F Status: DEP ER SPEC: [id number] LINO: 11/28/17 [facility] DR: Fran Sharp MD REQ: [id number] RECD: 11/28/17 STATUS: DEENA KELLY DR: Rafy May MD _ SOURCE: URINE SPDESC: ORDERED: Urine Culture Procedure Result Reported Site Urine Culture Final 11/30/17- 0812 ML No growth of clinically significant organisms * ML - MAIN LAB ([facility]) . END OF REPORT * ML=Testing performed at Main Lab DEPARTMENT OF PATHOLOGY, [address] [place] [address] Kelvin Alejandre M.D. Director [facility] # [id number] 33 The urine specimen was tested at the listed cutoffs: Drug class test level (ng/mL) Amphetamines 500 Barbiturates 200 Benzodiazepine metabolites 200 Cocaine metabolites 150 Cannabinoids 50 Opiates 300 Pcp 25 Specimen was received without chain of custody. Results should be used for medical purposes only. 34 Therapeutic target for the treatment of diabetes mellitus patients is <7% HBA1C, and in selective patients <6.0%. Please refer to [place] [employer] diabetic care guidelines for further information. 35 <5.0 Negative 5.0 - 25.0 Indeterminate (Repeat testing recommended after 72 hours) >25.0 Positive Perimenopausal women can display HCG levels of up to 20 mIU/mL 36 Because ethnic data is not always readily [...] (or dialysis) Procedures Date Code Description Status 11/08/2018 70912884 Mammogram Completed 07/03/2018 93957 Electrocardiogram Complete Completed 06/14/2018 87011 SC/Im Injections Completed 11/17/2017 55128 Visual Acuity Screening Test Completed 10/17/2017 77913 Electrocardiogram Complete Completed Encounters Type Date Location Provider Dx Diagnosis Office Visit 11/16/2018 Main Office Evelia Rollins PLeenaA. G89.4 Chronic pain 2:40p syndrome F11.20 Opioid dependence, uncomplicated Z71.51 Drug abuse counseling and surveillance of drug abuser Office Visit 11/08/2018 9:40a Main Office Shu Saxena PA Z00.01 Encounter for general adult medical exam w abnormal findings E66.9 Obesity, unspecified F17.210 Nicotine dependence, cigarettes, uncomplicated Z11.1 Encounter for screening for respiratory tuberculosis M25.50 Pain in unspecified joint G89.4 Chronic pain syndrome G47.33 Obstructive sleep apnea (adult) (pediatric) F43.23 Adjustment disorder with mixed anxiety and depressed mood J45.909 Unspecified asthma, uncomplicated Office Visit 10/31/2018 2:00p Main Office Yadira F11.20 Opioid dependenceRafy M.D. uncomplicated F14.10 Cocaine abuse, uncomplicated Office Visit 10/27/2018 9:20a Main Office Evelia Rollins F11.20 Opioid dependence, P.A. uncomplicated E66.9 Obesity, unspecified Z12.31 Encntr screen mammogram for malignant neoplasm of breast F14.14 Cocaine abuse with cocaine-induced mood disorder F11.14 Opioid abuse with opioid-induced mood disorder Office Visit 10/03/2018 4:40p Main Office Evelia Rollins B02.9 Zoster without P.A. complications B37.9 Candidiasis, unspecified J01.90 Acute sinusitis, unspecified Office Visit 09/29/2018 11:30a Main Office Yadira, F11.20 Opioid dependence, Isabela Hillman uncomplicated R53.83 Other fatigue Office Visit 09/22/2018 8:40a Main Office Rafy May G89.4 Chronic pain M.D. syndrome F11.20 Opioid dependence, uncomplicated R53.83 Other fatigue Office Visit 09/18/2018 3:00p Main Office Yaidra F11.20 Opioid dependence, Isabela Hillman uncomplicated R53.83 Other fatigue Office Visit 09/15/2018 4:00p Main Office Yadira F11.20 Opioid dependence, Isabela Hillman uncomplicated R53.83 Other fatigue Office Visit 09/13/2018 [...] unspecified I10 Essential (primary) hypertension Z79.899 Other fdc (current) drug therapy Office Visit 01/30/2018 9:20a [...] D64.9 Anemia, unspecified Plan of Treatment Future Appointment(s):12/29/2018 10:20 am - Natalie Sanders at [id number] - Natalie SandersG89.4 Chronic pain fyyktkibV14.20 Opioid dependence, uncomplicatedComments:Pt requests stopping suboxoneDiscussed w pt that I recommended she enter some sort of D&A rehab or move forward w counseling.Stressed that she is going to have more problems w relationships, possible invovlement w the law if does not improve, and further addiction issues. Will not be able to moveforward w life as it is.Ok'd filling the alprazolam at this time recommending that she reduce amt she takes. I did not stop due to concern w sudden w/d issues with oekwkalwvqO40.51 Drug abuse counseling and surveillance of drug abuser
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
[2018-12-16] MEDS ORDERED: Ondansetron INJ* 2 MG/ML VIAL IV ONE (16:40)
[2018-12-16] MEDS ORDERED: HYDROmorphone INJ1* 1 MG/ML SYRINGE IV SLOW PU ONE (16:41)
--- NOTE | 2018-12-16 16:43 | ED ---
GI/ HPI - HPI Summary HPI Summary: This patient is a 43 year old female presenting to [facility] accompanied by her Jhonatan with a chief complaint of vaginal bleeding since 2 weeks ago. Patient states that she got her period on the 12/03/18 for 5 days, which was normal, if a bit heavy. Patient presents to the ED because the bleeding is not stopping. Patient states that the blood is thinner with clots. Patient states that there are also chunks that are not clots. Every time the patient goes to the bathroom and she wipes, there is a significant amount of blood. Patient presents now because the bleeding is starting to be more pronounced and seeping into bed and clothing. Patients last period before that was normal, 11/08/18. The suprapubic pain is described as aching, cramping. The pain is rated 8/10 in severity. Symptoms aggravated by nothing. Symptoms alleviated by nothing. Patient additionally notes abd pain, nausea. Patient also notes unintentional weight loss since 2 months ago. Pt and her have been together 6 years. States they are not using any control. [id number]. States she had 1 C section and subsequent 's. Pt states she has chronic pain and has used opiates and suboxone in the past, but is now clean of opiates. States she smokes marijuana and last used cocaine 2 days ago. Pt states she has had STD's in past. Denies PID. Denies urinary symptoms. States she took Aleve to try to help with pain today, but got no relief. States she has hx of HTN, did not take her anti-HTN meds today. Home Medications Medication Instructions Recorded Confirmed Type ARIPiprazole TAB* [Abilify 2 MG 5 mg PO BEDTIME 03/06/16 07/09/18 History TAB*] Lisinopril [Lisinopril 2.5 MG-] 2.5 mg PO DAILY 03/06/16 07/09/18 History Venlafaxine TAB (NF) [Effexor TAB 215 mg PO BEDTIME 03/06/16 07/09/18 History (NF)] Iron 1 tab PO DAILY 04/04/16 07/09/18 History Oxycodone HCl [Oxaydo] 7.5 mg PO Q4H PRN MDD 5 10/19/16 07/09/18 History Meloxicam 7.5 mg PO BID 06/29/17 07/09/18 History Albuterol HFA INHALER* [Ventolin 1 puff INH Q6H PRN #1 mdi 09/10/17 07/09/18 Rx HFA Inhaler*] Cyclobenzaprine (NF) 5 mg PO TID PRN 09/10/17 07/09/18 History [Cyclobenzaprine 5 MG (NF)] Ibuprofen TAB* [Motrin TAB* 600 MG] 600 mg PO BID 06/12/18 07/09/18 History Topiramate TAB(*) [Topamax 100 mg 100 mg PO BEDTIME 06/12/18 07/09/18 History tab] Valacyclovir HCl [Valacyclovir] 1 gm PO TID #21 tab 10/02/18 Rx ARIPiprazole TAB* [Abilify TAB*] 5 mg PO BEDTIME tab 10/16/18 Rx Albuterol HFA INHALER* [Ventolin 1 puff INH Q6H PRN mdi 10/16/18 Rx HFA Inhaler*] Buprenorp/Nalox 2-0.5 MG SL TB 1 each SL DAILY tab.subl 10/16/18 Rx [Suboxone 2-0.5 mg SL TAB*] Cyclobenzaprine TAB* [Flexeril 10 5 mg PO TID PRN tab 10/16/18 Rx MG TAB*] Lisinopril TAB* [Prinivil TAB 5 2.5 mg PO DAILY tab 10/16/18 Rx MG*] Meloxicam(NF) [Mobic(NF)] 7.5 mg PO BID tab 10/16/18 Rx Topiramate TAB(*) [Topamax 100 mg 100 mg PO BEDTIME tab 10/16/18 Rx tab] Venlafaxine EXT RELEASE CAP* 225 mg PO DAILY #42 cap.sr 10/16/18 Rx [Effexor Xr CAP*] - History of Current Complaint Chief Complaint: EDVaginalBleeding Time Seen by Provider: 12/16/18 16:27 Stated Complaint: ABD PAIN Hx Obtained From: Patient, Family/Tooth Cutter - , Jhonatan Chow Last Menstrual Period: last normal menstrual period 11/08/18, but a week late , bleeding since 12/03 Onset/Duration: Started Weeks Ago, Still Present Timing: Constant Severity: Moderate Current Severity: Moderate Vaginal Bleeding Description: Dark Red, Clots Number of Pads per Day: 0 Number of Pads per Hour: 0 - bleeds into bed or underwear, notes blood only when she wipes after urination, but clots Pain Intensity: 8 Location of Pain: Suprapubic Pain Characteristics: Cramping, Aching Associated Signs and Symptoms: Positive: Weight Loss, Abdominal Pain Additional Signs & Symptoms: Positive: Vaginal Bleeding - with clots, STD, - 6, Para - 6, First Day of Last Menstral Period - 12/03/18, Menses Regular Aggravating Factor(s): Nothing Alleviating Factor(s): Nothing - Additional Pertinent History Primary Care Physician: [id number] - Allergy/Home Medications Allergies/Adverse Reactions: Allergies Allergy/AdvReac Type Severity Reaction Status Date / Time No Known Allergies Allergy Verified 12/16/18 15:37 Home Medications: Home Medications buPROPion HCl [Bupropion HCl ER] 100 mg PO DAILY 12/16/18 [History Confirmed ] PMH/Surg Hx/FS Hx/Imm Hx Previously Healthy: No Endocrine/Hematology History: Reports: Hx Anemia Denies: Hx Diabetes Cardiovascular History: Reports: Hx Hypertension - on meds Denies: Hx Pacemaker/ICD Respiratory History: Denies: Hx Asthma GI History: Reports: Other GI Disorders - Cholecystectomy History: Denies: Hx Renal Disease Musculoskeletal History: Reports: Hx Arthritis, Hx Back Problems, Other Musculoskeletal History - ARTHROGRYPOSIS Sensory History: Reports: Hx Contacts or Glasses Denies: Hx Hearing Aid Opthamlomology History: Reports: Hx Contacts or Glasses Neurological History: Reports: Hx Headaches Comment Only: Other Neuro Impairments/Disorders - PAIN CLINIC PT. Psychiatric History: Reports: Hx Depression, Hx Substance Abuse - was on suboxone, states she is clean of opiate 12/16/18, + cocaine abuse,THC Denies: Hx Eating Disorder, Hx Panic Disorder - Surgical History Surgery Procedure, Year, and Place: [facility] , left hip, , CHOLECYSTECTOMY, breast surgery BLOCKED DUCT, neck surgery x2 PLATES SCREWS, LEFT hip replacement, CONGENITAL LEFT HIP DISLOCATION AND REPAIR. C section - Immunization History Date of Tetanus Vaccine: Unk Infectious Disease History: No Infectious Disease History: Reports: History Other Infectious Disease Denies: Traveled Outside the [place] in Last 30 Days - Family History Known Family History: Positive: Hypertension, Other - mother - lung cancer Negative: Cardiac Disease Family History: not aware of any cardio vascular issues in biological lineage - Social History Lives: With Family Alcohol Use: Rare Alcohol Amount: ONCE A MONTH Hx Substance Use: Yes Substance Use Type: Reports: Cocaine - once, a few days ago 11/2018, Marijuana Hx Tobacco Use: Yes Smoking Status (MU): Current Every Day Smoker Type: Cigarettes Amount Used/How Often: 2 cigarettes/day Have You Smoked in the Last Year: Yes Review of Systems Negative: Fever Cardiovascular: Negative Respiratory: Negative Positive: Abdominal Pain, Nausea Positive: other - vaginal bleeding Musculoskeletal: Negative Skin: Negative Neurological: Negative Psychological: Normal All Other Systems Reviewed And Are Negative: Yes Physical Exam - Summary Physical Exam Summary: Appearance: Well-appearing, moderate pain distress, well-nourished, doubled over , sitting in chair, leaning over stretcher, complaining of pain, Afebrile. Skin: Warm, color reflects adequate perfusion, dry Head: Normal Head/Face inspection, atraumatic Eyes: Conjunctiva clear ENT: Normal inspection Neck: Supple, no nodes, no JVD Respiratory: Lungs clear, normal breath sounds, no respiratory distress Cardio: RRR, No murmur, pulses normal, brisk capillary refill Abdomen: Soft, tender in suprapubic area, nondistended, no guarding, no masses Pelvic: Vagina with approx 20cc sero-sangiunous thin vag dischage, no blood, no clots, cervix close, tender on palpation. Exam limited by obesity, but adnexae non tender, no masses palpable. Uterus normal size, nontender. Bowel sounds: Present Musculoskeletal: Strength Intact/ROM intact, no calf tenderness, no edema. Psychological: Normal Neuro: Alert, muscle tone normal, no focal deficit Triage Information Reviewed: Yes Vital Signs On Initial Exam: Initial Vitals Temp Pulse Resp BP Pulse Ox 97.1 F 115 18 164/94 98 12/16/18 15:35 12/16/18 15:35 12/16/18 15:35 12/16/18 15:35 12/16/18 15:35 Vital Signs Reviewed: Yes Diagnostics - Vital Signs Vital Signs Temp Pulse Resp BP Pulse Ox 12/16/18 15:35 97.1 F 115 18 164/94 98 - Laboratory Result Diagrams: 12/16/18 17:16 12/16/18 17:16 Lab Statement: Any lab studies that have been ordered have been reviewed, and results considered in the medical decision making process. Re-Evaluation - Re-Evaluation First Eval Re-Evaluation Time: 18:00 Change: Unchanged Comment: Dr. Mao entered the patient's room to perform the Pelvic Exam, with Erica as life support technician. GIGU Course/Dx - Course Course Of Treatment: This patient is a 43 year old female presenting to [facility] accompanied by her Jhonatan with a chief complaint of vaginal bleeding since 2 weeks ago. Patient states that she got her period on the 12/03/18 for 5 days, which was normal, if a bit heavy. The pt is hemodynamically stable, alert and oriented x3. Patient will be signed out to Dr. Villanueva at end of shift, pending US Transvaginal. The patient is agreeable with this plan. Urine culture and pelvic cultures pending at time of dispositon. - Diagnoses Differential Diagnoses - Female: Candidiasis, Cancer, Cervicitis, Colitis, Cystitis, Diverticulitis, DVB/Menopause, Gastritis, Gastroenteritis (Viral), Gastroenteritis (Bacterial), Incomplete , Irritable Bowel Syndrome, Ischemic Bowel, Metabolic, Neoplasm, Ovarian Cyst, Pancreatitis, , Pelvic Inflammatory Disease, Placenta Abruption, Placenta Previa, Sepsis, STD, Threatened , Urinary Tract Infection, Vaginitis Provider Diagnoses: Vaginal bleeding, Abdominal pain, suprapubic, Cocaine abuse, Cannabis abuse Discharge - Sign-Out/Discharge Documenting (check all that apply): Sign-Out Patient Signing out patient TO: Fran Villanueva - 12/16/18, 19:00, pending transvaginal US - Discharge Plan Condition: Good Disposition: HOME Prescriptions: DOXYcycline CAP(*) [DOXYcycline 100MG CAP(*)] 100 mg PO BID #20 cap oxyCODONE/Acetamin 5/325 MG* [Percocet 5/325 TAB*] 1 tab PO Q4H PRN #10 tab MDD 3 tabs PRN Reason: Pain Patient Education Materials: Dysfunctional Uterine Bleeding (ED), Pelvic Pain ( ED) Referrals: Rafy May MD [Primary Care Provider] - 3 Days (if not improving) - Billing Disposition and Condition Condition: GOOD Disposition: Home - Attestation Statements Document Initiated by Scribe: Yes Documenting Scribe: Erin Good Provider For Whom Scribe is Documenting (Include Credential): Adri Mao MD Scribe Attestation: I, Erin Good, scribed for Adri Mao MD on 12/16/18 at 2318. Scribe Documentation Reviewed: Yes Provider Attestation: The documentation as recorded by the Erin novak accurately reflects the service I personally performed and the decisions made by me, Adri Mao MD Status of Scribe Document: Viewed
[2018-12-16] MEDS ORDERED: Ketorolac INJ* 30 MG/ML 1 ML VIAL IV PUSH ONE (16:44)
[2018-12-16] MEDS ORDERED: NS 0.9% 1000 ML** 2,000 ML IV SCH (16:45)
[2018-12-16] MEDS ORDERED: Metoprolol Tartrate IV* 1 MG/ML 5 ML VIAL IV ONE (16:47)
[2018-12-16 17:20] LABS: Urine Appearance Cloudy; Urine Bacteria 1+ (Absent); Urine Bilirubin Negative (Negative); Urine Blood 3+ (Negative); Urine Color Amber; Urine Glucose Negative (Negative); Urine Ketones Negative (Negative); Urine Nitrite Negative (Negative); Urine Protein 1+(30 mg/dL) (Negative); Urine Red Blood Cell 3+(>10/hpf) (Absent); Urine Specific Gravity 1.026 (1.010-1.030); Urine Squamous Epithelial Cell Present (Absent); Urine Urobilinogen Negative (Negative); Urine White Blood Cell 3+(>20/hpf) (Absent)
[2018-12-16 17:24] LABS: ABS Basophils 0.1 10^3/ul (0-0.2); ABS Eosinophils 0.5 10^3/ul (0-0.6); ABS Lymphocytes 3.1 10^3/ul (1.0-4.8); ABS Monocytes 0.6 10^3/ul (0-0.8); ABS Neutrophils 8.4 10^3/ul (1.5-7.7); ABS Nucleated RBC 0 10^3/ul; Eosinophil % 3.6 %; Hematocrit 41 % (35-47); Hemoglobin 13.7 g/dl (12.0-16.0); Lymphocyte % 24.4 %; Mean Corpuscular HGB Conc 34 g/dl (31-36); Mean Corpuscular Hemoglobin 27 pg (27-31); Mean Corpuscular Volume 82 fL (80-97); Mean Platelet Volume 6.9 fL (7.4-10.4); Nucleated Red Blood Cells % 0.1; Platelet Count 387 10^3/ul (150-450); Red Blood Count 4.98 10^6/ul (4.00-5.40); Red Cell Distribution Width 15 % (10.5-15); White Blood Count 12.7 10^3/ul (3.5-10.8)
[2018-12-16 17:33] LABS: Barbiturates Urine Screen None Detected (None Detect); Benzodiazepine Urine Screen None Detected (None Detect); Urine Cannabinoids Screen Presumptive Positive (None Detect)
[2018-12-16 17:43] LABS: Albumin 4.3 g/dL (3.2-5.2); Albumin/Globulin Ratio 1.3 (1-3); BUN/Creatinine Ratio 13.6 (8-20); C Reactive Protein 15.35 mg/L (<8.01); EGFR African American 118.8 (>60); EGFR Non-African American 98.2 (>60); Globulin 3.4 g/dL (2-4); Potassium 3.7 mmol/L (3.5-5.0); Total Bilirubin 0.2 mg/dL (0.2-1.0); Total Protein 7.7 g/dL (6.4-8.9)
[2018-12-16 17:49] LABS: HCG Pregnancy 0.83 mIU/mL
[2018-12-16] MEDS ORDERED: LORazepam INJ* 2 MG/ML 1 ML VIAL IV PUSH ONE (18:41)
[2018-12-16] MEDS ORDERED: Ibuprofen TAB* 400 MG PO ONE (21:00)
[2018-12-16] MEDS ORDERED: cefTRIAXone VIAL(*) 500 MG in NS 0.9% 50 ML* 50 ML IVPB ONE (21:00)
[2018-12-16] MEDS ORDERED: DOXYcycline CAP(*) 100 MG PO ONE (21:01)
[2018-12-16 22:01] VITALS: BP 148/79
--- NOTE | 2018-12-17 03:48 | ED ---
Progress - Progress Note Progress Note: Received pt sign out from Dr. Mayco pittman pelvic US. US was normal and pt discharged home with diagnosis of pelvic pain and dysfunctional uterine bleeding. - Results/Orders Results/Orders: Pelvic US was normal. Re-Evaluation - Re-Evaluation First Eval Re-Evaluation Time: 18:00 Change: Unchanged Comment: Dr. Mao entered the patient's room to perform the Pelvic Exam, with [place] as finished cloth examiner. Course/Dx - Course Course Of Treatment: Received pt sign out from Dr. Mayco pittman pelvic US. US was normal and pt discharged home with diagnosis of pelvic pain and dysfunctional uterine bleeding. - Diagnoses Provider Diagnoses: Dysfunctional uterine bleeding, Pelvic pain Discharge - Sign-Out/Discharge Documenting (check all that apply): Patient Departure - Discharge Receiving patient FROM: Adri Mao - Discharge Plan Condition: Good Disposition: HOME Prescriptions: DOXYcycline CAP(*) [DOXYcycline 100MG CAP(*)] 100 mg PO BID #20 cap oxyCODONE/Acetamin 5/325 MG* [Percocet 5/325 TAB*] 1 tab PO Q4H PRN #10 tab MDD 3 tabs PRN Reason: Pain Patient Education Materials: Dysfunctional Uterine Bleeding (ED), Pelvic Pain ( ED) Referrals: Rafy May MD [Primary Care Provider] - 3 Days (if not improving) - Billing Disposition and Condition Condition: GOOD Disposition: Home - Attestation Statements Document Initiated by Cricketibe: Yes Documenting Scribe: Mary Singh Provider For Whom Scribe is Documenting (Include Credential): Dr. Fran Villanueva MD Scribe Attestation: Mary Sierra scribed for Dr. Fran Villanueva MD on 12/17/18 at 0523. Scribe Documentation Reviewed: Yes Provider Attestation: The documentation as recorded by the Mary novak accurately reflects the service I personally performed and the decisions made by me, Dr. Fran Villanueva MD Status of Scribe Document: Viewed
--- NOTE | 2018-12-18 06:58 | PN ---
Progress Note - Progress Note Date of Service: 12/16/18 Note: Vaginal DNA group positive Gardnerella, negative Susy Patient was not treated prior to discharge for Gardnerella Urine culture preliminary grew Escherichia coli 100,000 Patient was discharged with doxycycline, we will await sensitivities Patient is called on 12/23/18 to make aware of positive gardnerella - rx for flagyl sent to rx warned patient not to drink alcohol while taking this medication Patient confirms she understands
[2018-12-18 14:24] LABS: Trichomonas vaginalis Result Negative (Negative)
[2018-12-18 14:29] LABS: Neisseria gonorrhoeae (GC) RNA Negative (Negative)
--- NOTE | 2018-12-19 09:07 | PN ---
Progress Note - Progress Note Date of Service: 12/16/18 Note: Urine culture final grew Escherichia coli 100,000 Patient was placed on doxycycline prior to discharge This is pansensitive Likely coverage is adequate Patient did not complain of UTI symptoms on arrival Nothing further at this time
== END 2018-12-16 21:59 | disposition home or self-care (01) ==
LOC: ED 15:33
DX: N93.8 Other specified abnormal uterine and vaginal bleeding (principal); R10.2 Pelvic and perineal pain; N39.0 Urinary tract infection, site not specified; B96.20 Unspecified Escherichia coli [E. coli] as the cause of diseases classified elsewhere; B96.89 Other specified bacterial agents as the cause of diseases classified elsewhere; F17.210 Nicotine dependence, cigarettes, uncomplicated; F14.10 Cocaine abuse, uncomplicated; F12.10 Cannabis abuse, uncomplicated
CPT/HCPCS: 36415; 76856; 80053; 80307; 81003; 81015; 82150; 83605; 83690; 84702; 85025; 86140; 87077; 87086; 87186; 87480; 87491; 87510; 87591; 87661; 96374; 96375; 99283; A9270-GY; J0696; J1885; J2060; J2405

== ENCOUNTER 2019-01-16 16:56 | Inpatient (IN) | payer OTHER ==
--- OUTSIDE RECORDS SUMMARY | 2019-01-16 17:09 | XMS REPORT | Continuity of Care Document ---
:1975 External Reference #:[id number] Author Name Linda Payton PA-C Address [address], [place] [address] Care Team Providers Name Role Phone [facility] Primary Care Physician Unavailable Payers Date Identification Numbers Payment Provider Subscriber Effective: 2018 Policy Number: [id number] Robert Chairez PayID: [id number] [address] [place] [address] Expires: 2018 Policy Number: [id number] Robert Chairez Group Number: [id number] [address] PayID: [id number] [place] [address] Effective: 2017 Policy Number: [id number] Medicaid Frankie Chairez Expires: 2017 Group Name: 1 1 [address] PayID: [id number] [place] [address] Advance Directives Description No Information Available Problems Date Description Provider Status Onset: 08/02/2012 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 Onset: 08/02/2012 Obesity Roxanne Demarco Active N.P. Onset: 08/02/2012 Depressive disorder Roxanne Demarco Active N.P. Onset: 10/25/2012 Acquired equinovarus deformity Roxanne Demarco Active N.P. 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 Active osteoarthritis of the pelvic region and thigh Onset: 03/03/2016 Essential hypertension Mandeep Reyes, Active M.D.,FACP Onset: 01/30/2016 Localized, primary Lenka Bond M.D. Inactive osteoarthritis of the pelvic region and thigh Inactive: 07/06/2016 Family History Date Family Member(s) Observation Comments General Cancer Father Unknown : (age 38 Years) Mother due to Cancer, Lung Mother Drug Addiction Mother Alcoholism Mother Depression First Son 17 First Daughter 15 Second Daughter 11 Third Daughter 8 Fourth Daughter 5 Social History Type Date Description Comments Sex Unknown Marital Status Lives With Children Occupation Disabled Occupation Currently Working Hand Dominance Right-handed Tobacco Use Start: Unknown Light tobacco smoker (10 or fewer cigarettes/day) ETOH Use 07/06/2016 Denies alcohol use Document: 11/01/13 - Female Physical With [employer] Recreational Drug Use Denies Drug Use Tobacco Use Start: Unknown Light tobacco smoker (10 or fewer cigarettes/day) Tobacco Use Start: Unknown End: Patient is a former Unknown smoker Smoking Status Reviewed: 12/14/17 Patient is a former smoker Exercise Type/Frequency Does not exercise Allergies, Adverse Reactions, Alerts Description No Known Drug Allergies Medications Medication Date Status Form Strength Qnty SIG Indications Ordering Provider Topiramate 06/13/ Active Tablets 100mg 30tabs take one G43.009 Jcarlos Fregoso 2018 tablet po Tala, [facility] M.D. Iron 11/04/ Active Tablets 325(65Fe) 30tabs 1 by D50.9 Edwardo 2016 mg mouth RISHI Lozoya every day Wellbutrin SR 09/29/ Active Tablets ER 100mg 60tabs Take One Mandeep 2015 12HR Tablet By Florecita Reyes, Mouth In M.D.,FACP The Morning And 1 AT Noon Fluticasone 09/24/ Active Suspension 50mcg/Act 16unit Instill H81.10 Mandeep Propionate 2016 s Two Florecita Reyes, Sprays In M.D.,FACP Each Nostril Once Daily Venlafaxine 07/06/ Active Tablets ER 225mg 90tabs 1 by F41.1 Mandeep HCL ER 2016 24HR mouth Florecita Reyes, every day M.D.,FACP Omeprazole 07/06/ Active Capsules DR 20mg 30caps 1 by K21.9 Mandeep 2015 mouth Florecita Reyes, every day Isabela,FACP prn Tylenol Extra 06/09/ Active Tablets 500mg 90tabs 2 tablets G89.29 Errol Strength 2015 every 6 [place]ese, [employer] INTER[employer] hours tid M16.12 Z96.642 Lisinopril 06/08/2016 Active Tablets 10mg 90tabs Take Two I10 Edwardo Tablets By RISHI Lozoya Mouth Every Morning And Take One Tablet By Mouth In The Evening Abilify Active Tablets 10mg 1 by mouth Unknown every day Topiramate 12/14/2017 - Hx Tablets 25mg 120tabs 1 qhs for G43.00 Jcarlos S. 06/13/2018 1 week 9 Tala, then 2 qhs M.DLeena for 1 week then 3 qhs for 1 week then 4 qhs Iron 03/07/2017 - Hx Tablets 325mg 1 tab by D50.9 Edwardo 03/09/2017 mouth Devora NEWS INTERN daily Clotrimazole 02/16/2017 - Hx Lozenges 10mg 70units one B37.9 Edwardo 01/08/2019 lozenge 5 RISHI Lozoya x day for 2 weeks. Percocet 02/11/2017 - Hx Tablets 7.5-325m 150tabs 1 by mouth M16.12 Edwardo 01/08/2019 g every 4- 6 RISHI Lozoya hours as needed pain Aripiprazole 02/11/2017 - Hx Tablets 5mg 30tabs Take One F41.1 Shawna Nguyen 01/08/2019 Tablet By Florecita Reyes, Corrina Sheikh.Florecita,FACP Nightly AT Bedtime F32.9 Percocet 10/19/2016 - Hx Tablets 5-325mg 60tabs 1 tabs by M16.12 Unknown 10/19/2016 mouth q4-6 hours as needed pain Meclizine HCL 09/24/2016 - Hx Tablets 25mg 30tabs take one H81.10 Edwardo 03/24/2017 tablet RISHI Lozoya every 6 hours as needed for dizziness Ondansetron HCL 09/24/2016 - Hx Tablets 4mg 45tabs 1 tab every H81.10 Edwardo 03/24/2017 8 hours as RISHI Lozoya needed nausea Metronidazole 08/02/2016 - Hx Gel 0.75% 25g 5 grams N76.0 Errol 08/07/2016 once daily Taiwanese, vaginally NEWS INTERN x's 5 days Percocet 06/09/2016 - Hx Tablets 5-325mg 18tabs 1 tablet M16.12 Errol 06/13/2016 every 4-6 [place]ese, hours as NEWS INTERN needed Hydrocodone-Acet 06/04/2016 - Hx Tablets 5-325mg 60tabs take 1-2 Edwardo aminophen 06/09/2016 tablets RISHI Lozoya every 8 hours for pain. Hydroxyzine HCL 05/28/2016 - Hx Tablets 25mg 120tabs 1-2 tab by F41.1 Errol 09/24/2016 mouth Q6 Taiwanese, hours prn NEWS INTERN anxiety; Mdd 4 Venlafaxine HCL 04/29/2016 - Hx Caps ER 37.5mg 90caps 2 tabs po F41.1 Mandeep ER 07/06/2016 24HR qam and 1 D. Amy, tab po qpm M.DLeena,FACP Abilify 04/28/2016 - Hx Tablets 10mg 30tabs take one F41.1 Edwardo 02/11/2017 tablet by RISHI Lozoya mouth nightly at bedtime F32.9 Gabapentin 04/28/2016 - Hx Capsules 300mg 3 capsules by M54.2 Shawna Bernabe 05/28/2016 mouth Amy, [id number] M.DLeena,FACP G89.29 Lisinopril 04/28/2016 - Hx Tablets 40mg 60tabs 1 by mouth I10 Haresh 06/08/2016 twice Pachikara, daily M.D. Venlafaxine 04/28/2016 - Hx Tablets 25mg once daily F41.1 Mandeep Bernabe HCL 04/29/2016 nightly Isabela Reyes,FACP Venlafaxine 04/28/2016 - Hx Caps ER 75mg 14caps 1 tablet Jeri HCL ER 04/29/2016 24HR by mouth MD Kelly daily Iron 04/02/2016 - Hx Tablets 325(65F 30tabs by mouth D50.9 Mandeep Bernabe Supplement 11/04/2016 e) mg every day Isabela Reyes,FACP Tylenol 03/12/2016 - Hx Tablets 325mg 30tabs 2 tablets G89.29 Errol Acosta, 06/09/2016 every 6 NEWS INTERN hours as needed pain Naproxen 03/12/2016 - Hx Tablets 500mg 30tabs 1 tablet G89.29 Errol Taiwanese, 05/28/2016 by mouth NEWS INTERN twice a day as needed pain, with foods Ultram 03/12/2016 - Hx Tablets 50mg 90tabs 1 tablet G89.29 Errol Acosta , 05/28/2016 by mouth NEWS INTERN three times a day every 6 hours as needed pain Gabapentin 02/13/2016 - Hx Capsules 100mg 180caps 2 by mouth M54.2 Mamadou Bernabe 04/28/2016 three [place], times a M.D.,FACP day and 3 tabs at bedtime G89.29 Prednisone 02/13/2016 - Hx Tablets 10mg 21tabs 1 tablet by M54.2 Robin 03/03/2016 mouth three Patricio, times a day M.D. Lisinopril 02/04/2016 - Hx Tablets 10mg 90tabs 2 by mouth I10 Selvin Pruett 04/28/2016 every day Isabela Herrera Oxycodone-Acetami 01/28/2016 - Hx Tablets 5-325m 30tabs take 1 to 2 G03.0 Mandeep lazo 02/07/2016 g tablets by Florecita Reyes, mouth every 6 M.D.,FACP to 8 hours as needed pain Clarithromycin 01/28/2016 - Hx Tablets 500mg 14tabs 1 by mouth J02.0 Mandeep 03/24/2017 twice a day Florecita Reyes, for 7 days M.D.,FACP Tamiflu 01/20/2016 - Hx Capsules 75mg 10caps 1 cap by J11.1 Errol 03/24/2017 mouth twice a Taiwanese, day x's 5 NEWS INTERN days Amoxicillin/Clavu 01/20/2016 - Hx Tablets 875-12 20tabs 1 tablet by J02.0 Errol lanate Potassium 03/24/2017 5mg mouth twice a Taiwanese, day x's 10 NEWS INTERN days Meloxicam 01/12/2016 - Hx Tablets 7.5mg 30tabs 1 by mouth G03.0 Errol 03/24/2017 every day [place]ese, NEWS INTERN Cheratussin ac 11/04/2015 - Hx Solution 100-10 180ml 5-10 J06.9 Napoleon 03/24/2017 mg/5ML milliliters Saeed, NEWS INTERN by mouth four times a day as needed Cheratussin ac 09/17/2015 - Hx Solution 100-10 180ml 5-10 J06.9 Napoleon 10/08/2015 mg/5ML milliliters Saeed, NEWS INTERN by mouth four times a day as needed Pseudoephedrine 09/17/2015 - Hx Tablets 30mg 60tabs 1-2 tabs by J06.9 Napoleon HCL 11/04/2015 mouth every Saeed, NEWS INTERN 4-6 hours as needed for sinus congestion Eq Nicotine 08/18/2015 - Hx Patches 21mg/2 42units Use one 21mg Z71.6 Napoleon 11/04/2015 24HR 4HR patch to the Saeed, NEWS INTERN skin per day. You may take the patch off at night. Amoxicillin/Clavu 08/08/2015 - Hx Tablets 875-12 Payan, lanate Potassium 09/17/2015 5mg Zach Serrato MD Oxycodone HCL 08/08/2015 - Hx Tablets 10mg 20tabs 1 tab by Napoleon 09/17/2015 mouth q6 Saeed, NEWS INTERN hours as needed pain Ciprofloxacin HCL 07/30/2015 - Hx Tablets 500mg 14tabs 1 tab by 599.0 Errol 08/06/2015 mouth twice a Taiwanese, day x's 7 NEWS INTERN days Dicloxacillin 06/25/2015 - Hx Capsules 250mg 40caps 1 tablet 610.4 Errol Sodium 07/05/2015 every 6 hours [place]ese, x's 10 days NEWS INTERN Skelaxin 06/09/2015 - Hx Tablets 800mg 60tabs 1 tab by 726.19 Napoleon 09/17/2015 mouth three Saeed, NEWS INTERN times a day as needed pain/muscle spasm Ibuprofen 06/09/2015 - Hx Tablets 600mg 90tabs 1 tab by 726.19 Napoleon 01/13/2016 mouth three Saeed, NEWS INTERN times a day as needed Hydrocodone 06/08/2015 - Hx Tablets 7.5-30 8tabs 1 tab by Latisha Bitartrate/Acetam 06/08/2015 0mg mouth every 6 Peña, inophen hours as M.D. needed for pain Hydrocodone 06/08/2015 - Hx Tab 1 tab by Latisha Bitartrate/Acetam 06/08/2015 mouth every 6 Peña, inophen hours as M.D. needed for pain Hydrocodone-Aceta 06/08/2015 - Hx Tablets 7.5-32 30tabs 1 tab by Napoleon minophen 06/25/2015 5mg mouth every Saeed, RISHI 4-6 hours Azithromycin 06/04/2015 - Hx Tablets 250mg 6tabs 2 tab today 466.0 [place] 06/09/2015 and then 1tab Pachikara daily , M.D. Prednisone 06/04/2015 - Hx Tablets 10mg 30tabs 5tabx 2days,4 466.0 [place] 06/09/2015 [id number] Pachikara [id number],2t , M.D. [id number],1tab xday. Xanax 11/13/2014 - Hx Tablets 0.25mg 60tabs 1 tabe by 300.02 Napoleon 07/29/2015 mouth twice a RISHI Saeed day as needed for anxiety Lunesta 11/13/2014 - Hx Tablets 2mg 30tabs 1 tab at hs 300.02 Napoleon 12/22/2014 po prn RISHI Saeed insomnia Iron 10/11/2014 - Hx 325(65 30units take 1 tablet Mandeep 04/02/2016 by mouth Florecita Reyes, every day M.D.,FACP Lisinopril 09/06/2014 - Hx Tablets 10mg 90tabs take one Napoleon 09/06/2014 tablet by RISHI Saeed mouth every day dx htn Abilify 09/06/2014 - Hx Tablets 2mg 1 tab po qd Napoleon 10/28/2014 RISHI Saeed Lisinopril 09/06/2014 - Hx Tablets 10mg 90tabs take two Selvin E. 02/04/2016 tablet by corrina Herrera every M.D. day dx htn Xanax 08/06/2014 - Hx Tablets 0.25mg 6tabs Take 1 tablet 300.02 Errol 09/06/2014 po prn Taiwanese, anxiety up to NEWS INTERN twice daily. Daily max dose 2. Venlafaxine HCL 07/10/2014 - Hx Tablets ER 225mg 30tabs take one F41.1 Mandeep ER 04/28/2016 24HR tablet by Florecita Reyes, mouth once M.D.,FACP daily Belviq 04/25/2014 - Hx Tablets 10mg 60tabs 1 tab po bid 783.1 Tori 07/10/2014 Conchita N.P. Macrobid 03/27/2014 - Hx Capsules 100mg 14caps 1 tab by Ekaterina 04/25/2014 mouth twice a Ordering day x 7 days Provider Keflex 03/27/2014 - Hx Capsules 250mg 15caps three times a Mandeep 04/01/2014 day for 5 d Florecita Reyes M.D.,FACP Ferrous Sulfate 02/26/2014 - Hx Tablets 325(65 90tabs start with 1 Tori 07/10/2014 Fe) mg pill/day for Conchita, 1 week, then N.P. 2 pills the 2nd week, then stay on 3 pills per day; take with Oj Desogestrel-Ethin 12/07/2013 - Hx Tablets 0.15-3 28tabs Take One V65.49 Tori yl Estradiol 07/10/2014 0mg-mc Tablet By kirk Arango Mouth Once N.P. Daily Venlafaxine HCL 11/01/2013 - Hx Caps ER 150mg 30caps take one [facility] ER 07/10/2014 24HR capsule by Florecita Reyes, mouth once Isabela,FACP daily Venlafaxine HCL 09/21/2013 - Hx Caps ER 75mg 30caps 1 tab po qd Tori ER 11/01/2013 24HR Conchita, N.P. Venlafaxine HCL 08/16/2013 - Hx Caps ER 37.5mg 30caps 1 tab po qd Tori ER 09/21/2013 24HR Conchita N.P. Cymbalta 08/02/2013 - Hx Caps DR 60mg 30caps take one tab 311 Tori 09/06/2013 Part po qd Conchita, N.P. Amoxicillin 08/02/2013 - Hx Tablets 500mg 30tabs 1 tab po q8hr 382.9 Tori 08/12/2013 x 10 days Conchita, N.P. Iron 04/27/2013 - Hx Tablets 1 daily Tori 07/16/2013 Conchita, N.P. Sertraline HCL 04/27/2013 - Hx Tablets 50mg 30tabs 1 tab po qd 311 Tori 09/06/2013 Conchita, N.P. Fluoxetine HCL 02/09/2013 - Hx Capsules 10mg 30caps Take 1 Tori 04/27/2013 Capsule By Conchita, Mouth Daily N.P. Ri 11/01/2012 - Hx Capsules 10mg 60caps take one pill Roxanne 02/09/2013 qhs for two [place] weeks and atson, then increase N.P. to two pills po qhs Clindamycin HCL 09/19/2012 - Hx Capsules 300mg 28caps 1 cap po q6h 486 Tori 10/25/2012 x 7 days Conchita, N.P. Amoxicillin 08/29/2012 - Hx Capsules 500mg 20caps 1 cap bid for 461.1 Tori 09/19/2012 10 days Conchita, N.P. Debrox 08/29/2012 - Hx Solution 6.5% 1bottle 5 drops in 380.4 Tori 10/08/2015 each ear Conchita, every month N.P. + Dha 08/02/2012 - Hx Misc 27-1&2 30units take one Roxanne 07/16/2013 50mg tablet daily [place], N.P. Cymbalta - Hx Caps DR 60mg 30caps take one tab 311 Roxanne 08/16/2012 Part eod x 4 days, [place] and Every atson, other 2nd day N.P. and then d/c. Flexeril - Hx Tablets 5mg 30tabs 1 tablet Unknown 09/19/2012 three times a day as needed Xanax - Hx Tablets 0.25mg 30tabs one by mouth Unknown 09/19/2012 up to three times daily as needed for anxiety Hydrocodone/Aceta - Hx Tablets 7.5-50 120tabs po qid prn Unknown minophen 09/19/2012 0mg Ambien - Hx Tablets 5mg 20tabs 1 po tablet Unknown 09/19/2012 at bedtime prn Hydrocodone/Aceta - Hx Tablets 5-325m 60tabs 1 tab every 6 Unknown minophen 02/14/2014 g hrs prn. Oxycodone HCL - Hx Tablets 10mg 120tabs 1 tablet po q Unknown 09/06/2014 4hrs prn Gabapentin - Hx Capsules 100mg 90caps 1 @ hs Unknown 07/29/2015 Abilify - Hx Tablets 5mg 30tabs take one F41.1 Errol 04/28/2016 tablet by Taiwanese, mouth once NEWS INTERN daily F32.9 Levofloxacin - Hx Tablets 500mg [place], 01/12/2016 MD Joseph Naproxen - Hx Tablets Unsure 1 tablet by Ronnie.2 Unknown 03/12/2016 mouth twice 9 a day as needed pain, with foods Percocet - Hx Tablets 5-325mg 15tab 1 tab q 8 M16.1 Unknown 10/19/2016 s hrs, mdd 3 2 tabx Diclofenac - Hx Tablets 50mg PO tid Unknown Potassium 03/24/2017 Amitriptyline HCL - Hx Tablets 10mg 2 tab po Unknown 01/08/2019 qhs Medications Administered in Office Medication Date Status Form Strength Qnty SIG Indications Ordering Provider PPD Administered Injection Nurse Visit 7 A PPD Administered Injection Roxanne 2 [place], N.P. Immunizations CPT Code Status Date Vaccine Reaction Lot # [id number] Given 05/17/2017 Tdap - no immediate reaction [id number] Tetanus/Diptheria/Acellular noted ... pt tolerated Pertussis well .. [id number] Given 05/17/2017 Measles Mumps And Rubella pt tolerated well. no [id number] MMR immediate reaction noted .. . [id number] Given 09/27/2016 Influ Virus Vaccine, [id number] Quadrivalent, Split Virus, [place] [id number] Given 09/06/2013 Flu Vaccine Split Virus [id number] Preservative Free For Indiv 3Yr Older [id number] Given 08/02/2012 Fluzone Vaccine [id number] Vital Signs Date Vital Result Comment 12/14/2017 8:42am Height 63 inches 5'3" Weight 226.00 lb Heart Rate 88 /min BP Systolic Sitting 126 mmHg BP Diastolic Sitting 80 mmHg Respiratory Rate 16 /min BMI (Body Mass Index) 40.0 kg/m2 10/05/2017 10:02am Height 63 inches 5'3" Weight 224.00 lb Heart Rate 95 /min BP Systolic 121 mmHg BP Diastolic 81 mmHg Body Temperature 97.1 F BMI (Body Mass Index) 39.7 kg/m2 09/07/2017 9:16am Height 63 inches 5'3" Weight 224.00 lb Heart Rate 86 /min BP Systolic 130 mmHg BP Diastolic 88 mmHg Respiratory Rate 16 /min BMI (Body Mass Index) 39.7 kg/m2 08/23/2017 11:13am Height 63 inches 5'3" Weight 226.50 lb Heart Rate 68 /min BP Systolic Sitting 130 mmHg BP Diastolic Sitting 88 mmHg Respiratory Rate 16 /min BMI (Body Mass Index) 40.1 kg/m2 04/26/2017 1:41pm Weight 266.50 lb Heart Rate 101 /min BP Systolic Sitting 122 mmHg BP Diastolic Sitting 88 mmHg Body Temperature 97.0 F O2 % BldC Oximetry 99 % 04/05/2017 9:23am Weight 225.00 lb Heart Rate 101 /min BP Systolic 110 mmHg BP Diastolic 90 mmHg O2 % BldC Oximetry 98 % 04/01/2017 1:56pm Weight 223.00 lb Heart Rate 108 /min BP Systolic Sitting 130 mmHg BP Diastolic Sitting 100 mmHg O2 % BldC Oximetry 97 % 03/24/2017 4:29pm Weight 224.50 lb Heart Rate 105 /min BP Systolic 134 mmHg BP Diastolic 96 mmHg Body Temperature 98.3 F O2 % BldC Oximetry 99 % 02/16/2017 2:34pm Weight 233.00 lb with shoes Heart Rate 105 /min BP Systolic 130 mmHg BP Diastolic 90 mmHg Body Temperature 97.8 F O2 % BldC Oximetry 98 % 02/11/2017 11:38am Weight 230.00 lb Heart Rate 115 /min BP Systolic Sitting 130 mmHg BP Diastolic Sitting 88 mmHg Body Temperature 98.0 F O2 % BldC Oximetry 97 % 09/29/2016 1:21pm Weight 217.50 lb Heart Rate 106 /min BP Systolic Sitting 150 mmHg BP Diastolic Sitting 90 mmHg Body Temperature 96.8 F O2 % BldC Oximetry 98 % 09/24/2016 1:53pm Height 64 inches 5'4" Weight 225.00 lb Heart Rate 101 /min BP Systolic 140 mmHg BP Diastolic 98 mmHg Body Temperature 97.9 F O2 % BldC Oximetry 97 % BMI (Body Mass Index) 38.6 kg/m2 08/02/2016 12:59pm Weight 215.38 lb Heart Rate 106 /min BP Systolic Sitting 142 mmHg BP Diastolic Sitting 100 mmHg Body Temperature 97.1 F O2 % BldC Oximetry 96 % 07/06/2016 3:33pm Weight 210.00 lb Heart Rate 105 /min BP Systolic Sitting 111 mmHg BP Diastolic Sitting 73 mmHg O2 % BldC Oximetry 98 % 06/29/2016 4:06pm Height 64 inches 5'4" Weight 215.00 lb Heart Rate 72 /min Respiratory Rate 16 /min Pain Level 4 BMI (Body Mass Index) 36.9 kg/m2 06/23/2016 4:10pm Height 64 inches 5'4" Weight 215.00 lb Heart Rate 64 /min Respiratory Rate 16 /min Pain Level 7 BMI (Body Mass Index) 36.9 kg/m2 06/09/2016 1:05pm Height 64 inches 5'4" Weight 215.00 lb Heart Rate 94 /min BP Systolic Sitting 140 mmHg BP Diastolic Sitting 98 mmHg Body Temperature 98.1 F O2 % BldC Oximetry 98 % BMI (Body Mass Index) 36.9 kg/m2 06/03/2016 4:23pm Weight 211.00 lb Heart Rate 100 /min BP Systolic Sitting 132 mmHg BP Diastolic Sitting 82 mmHg Pain Level 7 O2 % BldC Oximetry 98 % 05/28/2016 3:33pm Height 64 inches 5'4" Weight 207.00 lb Heart Rate 134 /min BP Systolic Sitting 124 mmHg BP Diastolic Sitting 96 mmHg Body Temperature 98.0 F O2 % BldC Oximetry 99 % BMI (Body Mass Index) 35.5 kg/m2 04/02/2016 8:55am Height 64 inches 5'4" Weight 205.00 lb Heart Rate 92 /min apical BP Systolic Sitting 118 mmHg BP Diastolic Sitting 80 mmHg Body Temperature 97.1 F O2 % BldC Oximetry 98 % BMI (Body Mass Index) 35.2 kg/m2 03/12/2016 3:50pm Height 64 inches 5'4" Weight 210.00 lb Heart Rate 102 /min BP Systolic Sitting 130 mmHg BP Diastolic Sitting 88 mmHg Body Temperature 98.2 F O2 % BldC Oximetry 98 % BMI (Body Mass Index) 36.0 kg/m2 03/03/2016 9:44am Height 64 inches 5'4" Weight 214.00 lb Heart Rate 102 /min BP Systolic Sitting 121 mmHg BP Diastolic Sitting 86 mmHg Body Temperature 97.6 F O2 % BldC Oximetry 98 % BMI (Body Mass Index) 36.7 kg/m2 02/13/2016 2:32pm Height 64 inches 5'4" Weight 208.50 lb Heart Rate 103 /min BP Systolic Sitting 128 mmHg BP Diastolic Sitting 94 mmHg Body Temperature 98.5 F O2 % BldC Oximetry 98 % BMI (Body Mass Index) 35.8 kg/m2 02/13/2016 11:47am Height 64 inches 5'4" Weight 200.00 lb Pain Level 5 BMI (Body Mass Index) 34.3 kg/m2 02/05/2016 10:53am Height 64 inches 5'4" Weight 200.00 lb Pain Level 9 BMI (Body Mass Index) 34.3 kg/m2 01/30/2016 1:59pm Height 64 inches 5'4" Weight 200.00 lb Heart Rate 97 /min BP Systolic 131 mmHg BP Diastolic 88 mmHg BMI (Body Mass Index) 34.3 kg/m2 01/28/2016 2:17pm Height 63 inches 5'3" Weight 213.12 lb Heart Rate 98 /min BP Systolic Sitting 139 mmHg BP Diastolic Sitting 97 mmHg Body Temperature 99.1 F O2 % BldC Oximetry 96 % BMI (Body Mass Index) 37.7 kg/m2 01/20/2016 2:56pm Height 63 inches 5'3" Weight 211.00 lb Heart Rate 120 /min BP Systolic Sitting 138 mmHg BP Diastolic Sitting 98 mmHg Body Temperature 101.1 F O2 % BldC Oximetry 97 % BMI (Body Mass Index) 37.4 kg/m2 01/12/2016 4:21pm Height 63 inches 5'3" Weight 208.00 lb Heart Rate 96 /min BP Systolic Sitting 118 mmHg BP Diastolic Sitting 82 mmHg Body Temperature 97.5 F O2 % BldC Oximetry 96 % BMI (Body Mass Index) 36.8 kg/m2 12/26/2015 9:40am Height 63 inches 5'3" Weight 209.25 lb Heart Rate 91 /min BP Systolic Sitting 124 mmHg BP Diastolic Sitting 80 mmHg Body Temperature 97.1 F O2 % BldC Oximetry 97 % BMI (Body Mass Index) 37.1 kg/m2 11/04/2015 4:37pm Weight 205.00 lb Heart Rate 98 /min BP Systolic Sitting 128 mmHg BP Diastolic Sitting 84 mmHg Body Temperature 98.1 F O2 % BldC Oximetry 98 % 10/08/2015 2:25pm Weight 207.00 lb Heart Rate 86 /min BP Systolic Sitting 138 mmHg BP Diastolic Sitting 87 mmHg Body Temperature 97.0 F 09/17/2015 11:10am Height 63 inches 5'3" Weight 209.00 lb Heart Rate 114 /min BP Systolic 142 mmHg BP Diastolic 82 mmHg Body Temperature 98.6 F O2 % BldC Oximetry 98 % BMI (Body Mass Index) 37.0 kg/m2 08/18/2015 11:14am Height 63 inches 5'3" Weight 210.00 lb Heart Rate 90 /min BP Systolic Sitting 118 mmHg BP Diastolic Sitting 70 mmHg Body Temperature 98.0 F O2 % BldC Oximetry 96 % BMI (Body Mass Index) 37.2 kg/m2 08/13/2015 10:31am Height 63 inches 5'3" Weight 203.00 lb Heart Rate 69 /min BP Systolic Sitting 128 mmHg BP Diastolic Sitting 88 mmHg Respiratory Rate 18 /min Body Temperature 98.5 F Pain Level 7 upper back between shouler blades O2 % BldC Oximetry 97 % BMI (Body Mass Index) 36.0 kg/m2 07/30/2015 1:22pm Height 63 inches 5'3" Weight 208.50 lb Heart Rate 98 /min BP Systolic Sitting 116 mmHg BP Diastolic Sitting 82 mmHg Body Temperature 98.1 F O2 % BldC Oximetry 100 % BMI (Body Mass Index) 36.9 kg/m2 06/25/2015 1:29pm Height 63 inches 5'3" Weight 209.00 lb Heart Rate 94 /min BP Systolic Sitting 122 mmHg BP Diastolic Sitting 78 mmHg Body Temperature 97.4 F O2 % BldC Oximetry 98 % BMI (Body Mass Index) 37.0 kg/m2 06/23/2015 1:33pm Weight 209.00 lb Heart Rate 102 /min BP Systolic Sitting 122 mmHg BP Diastolic Sitting 74 mmHg Body Temperature 98.6 F O2 % BldC Oximetry 97 % 06/09/2015 10:42am Weight 212.25 lb Heart Rate 97 /min BP Systolic Sitting 124 mmHg BP Diastolic Sitting 82 mmHg Pain Level 10 O2 % BldC Oximetry 97 % 06/04/2015 11:01am Weight 209.50 lb Heart Rate 105 /min BP Systolic Sitting 112 mmHg BP Diastolic Sitting 64 mmHg Respiratory Rate 16 /min Body Temperature 98.1 F O2 % BldC Oximetry 98 % 01/09/2015 10:35am Weight 204.75 lb Heart Rate 81 /min BP Systolic Sitting 109 mmHg BP Diastolic Sitting 66 mmHg Body Temperature 97.1 F O2 % BldC Oximetry 98 % 11/13/2014 11:03am Height 63 inches 5'3" Weight 198.00 lb Heart Rate 80 /min BP Systolic Sitting 116 mmHg BP Diastolic Sitting 80 mmHg Respiratory Rate 14 /min Body Temperature 97.7 F BMI (Body Mass Index) 35.1 kg/m2 11/05/2014 10:45am Weight 209.69 lb Heart Rate 98 /min BP Systolic Sitting 130 mmHg BP Diastolic Sitting 89 mmHg Body Temperature 97.3 F O2 % BldC Oximetry 98 % 10/28/2014 4:03pm Height 63 inches 5'3" Weight 203.50 lb Heart Rate 116 /min BP Systolic Sitting 132 mmHg BP Diastolic Sitting 72 mmHg BMI (Body Mass Index) 36.0 kg/m2 10/09/2014 10:59am Height 63 inches 5'3" Weight 209.25 lb Heart Rate 86 /min BP Systolic Sitting 136 mmHg BP Diastolic Sitting 88 mmHg Body Temperature 98.7 F BMI (Body Mass Index) 37.1 kg/m2 09/06/2014 4:16pm Height 63 inches 5'3" Weight 201.25 lb Heart Rate 88 /min BP Systolic Sitting 136 mmHg BP Diastolic Sitting 98 mmHg Body Temperature 98.5 F BMI (Body Mass Index) 35.6 kg/m2 08/06/2014 3:01pm Weight 204.25 lb Heart Rate 84 /min BP Systolic Sitting 156 mmHg BP Diastolic Sitting 104 mmHg Body Temperature 98.8 F 07/10/2014 3:54pm Weight 206.50 lb Heart Rate 109 /min BP Systolic Sitting 143 mmHg BP Diastolic Sitting 99 mmHg Body Temperature 99.6 F 04/25/2014 9:23am Weight 216.25 lb Heart Rate 116 /min BP Systolic Sitting 138 mmHg BP Diastolic Sitting 88 mmHg Body Temperature 97.6 F 02/14/2014 2:55pm Weight 206.00 lb Heart Rate 86 /min BP Systolic Sitting 142 mmHg BP Diastolic Sitting 88 mmHg O2 % BldC Oximetry 98 % 01/09/2014 2:51pm Weight 203.00 lb Heart Rate 104 /min BP Systolic Sitting 120 mmHg BP Diastolic Sitting 70 mmHg Body Temperature 98.2 F 12/07/2013 4:25pm Weight 203.00 lb Heart Rate 68 /min BP Systolic Sitting 120 mmHg BP Diastolic Sitting 88 mmHg 11/01/2013 10:33am Height 62.75 inches 5'2.75" Weight 199.00 lb Heart Rate 78 /min BP Systolic Sitting 132 mmHg BP Diastolic Sitting 82 mmHg BP Systolic Standing 1 mmHg BP Diastolic Standing 1 mmHg BMI (Body Mass Index) 35.5 kg/m2 09/06/2013 10:52am Weight 195.50 lb Heart Rate 90 /min BP Systolic Sitting 116 mmHg BP Diastolic Sitting 66 mmHg 08/02/2013 4:12pm Height 63 inches 5'3" Weight 196.00 lb Heart Rate 88 /min BP Systolic Sitting 112 mmHg BP Diastolic Sitting 88 mmHg BMI (Body Mass Index) 34.7 kg/m2 07/16/2013 11:37am Weight 195.00 lb Heart Rate 88 /min BP Systolic Sitting 138 mmHg BP Diastolic Sitting 84 mmHg 04/27/2013 4:12pm Height 62.75 inches 5'2.75" Weight 201.50 lb Heart Rate 84 /min BP Systolic Sitting 118 mmHg BP Diastolic Sitting 86 mmHg Body Temperature 98.3 F BMI (Body Mass Index) 36.0 kg/m2 10/25/2012 11:16am Height 62.75 inches 5'2.75" Weight 224.00 lb Heart Rate 104 /min BP Systolic Sitting 104 mmHg BP Diastolic Sitting 76 mmHg BMI (Body Mass Index) 40.0 kg/m2 09/19/2012 11:00am Height 63 inches 5'3" Weight 225.00 lb Heart Rate 100 /min BP Systolic Sitting 120 mmHg BP Diastolic Sitting 78 mmHg Body Temperature 98.2 F lt ear BMI (Body Mass Index) 39.9 kg/m2 08/30/2012 10:12am Height 63 inches 5'3" Weight 231.00 lb Heart Rate 80 /min BP Systolic Sitting 118 mmHg BP Diastolic Sitting 84 mmHg Respiratory Rate 16 /min Body Temperature 99.4 F lt ear BMI (Body Mass Index) 40.9 kg/m2 08/29/2012 4:34pm Height 63 inches 5'3" Weight 233.00 lb Heart Rate 88 /min BP Systolic Sitting 118 mmHg BP Diastolic Sitting 80 mmHg Body Temperature 98.2 F BMI (Body Mass Index) 41.3 kg/m2 08/02/2012 1:36pm Height 63 inches 5'3" Weight 229.00 lb Heart Rate 72 /min BP Systolic Sitting 116 mmHg BP Diastolic Sitting 74 mmHg Respiratory Rate 16 /min Body Temperature 98.2 F lt ear BMI (Body Mass Index) 40.6 kg/m2 Results Test Date Facility Test Result H/L Range Note Laboratory test 02/16/2017 [facility] Culture Throat SEE RESULT [address] [place] [address] [phone] Drug Abuse 20 02/11/2017 [facility] Urine Amphetamine Negative N [address] ng/mL [place], [place] [id number] [phone] Urine Barbiturates Negative ng/mL N 3 Urine Benzodiazepines Negative ng/mL N 4 Urine Cocaine Negative ng/mL N 5 Urine Phencyclidine Negative ng/mL N Cutoff: 25 Urine Tetrahydrocannabinol Negative ng/mL N Cutoff: 50 6 Creatinine 91.7 mg/dL N Specific [place] 1.013 N pH 7.3 N Oxidants Negative N 7 Adulterants Comment Normal N Codeine, Ur Not Detected ng/mL N Cutoff: 25 8 Bdhndnc-7-xzhi-glucuronide, Ur Not Detected ng/mL N 9 Morphine, Ur Not Detected ng/mL N Cutoff: 25 10 Etoxsums-4-zrvz-glucuronide, U Not Detected ng/mL N 11 6-monoacetylmorphine, Ur Not Detected ng/mL N Cutoff: 25 12 Hydrocodone, Ur Present ng/mL N Cutoff: 25 13 Norhydrocodone, Ur Present ng/mL N Cutoff: 25 14 Dihydrocodeine, Ur Present ng/mL N Cutoff: 25 15 Hydromorphone, Ur Not Detected ng/mL N Cutoff: 25 16 Qbgmekfxrqvis6fbrsublveurowdn Not Detected ng/mL N 17 Oxycodone, Ur Not Detected ng/mL N Cutoff: 25 18 Noroxycodone, Ur Not Detected ng/mL N Cutoff: 25 19 Oxymorphone, Ur Not Detected ng/mL N Cutoff: 25 20 Dpxgbvuyoeo-4-xwwv-glucuronide Not Detected ng/mL N 21 Noroxymorphone, Ur Not Detected ng/mL N Cutoff: 25 22 Fentanyl, Ur Not Detected ng/mL N Cutoff: 2 23 Norfentanyl, Ur Not Detected ng/mL N Cutoff: 2 24 Meperidine, Ur Not Detected ng/mL N Cutoff: 25 25 Normeperidine, Ur Not Detected ng/mL N Cutoff: 25 26 Naloxone, Ur Not Detected ng/mL N Cutoff: 25 27 Ivyxrycm-9-ivjk-glucuronide, U Not Detected ng/mL N 28 Methadone, Ur Not Detected ng/mL N Cutoff: 25 29 Eddp, Ur Not Detected ng/mL N Cutoff: 25 30 Propoxyphene, Ur Not Detected ng/mL N Cutoff: 25 31 Norpropoxyphene, Ur Not Detected ng/mL N Cutoff: 25 32 Tramadol, Ur Not Detected ng/mL N Cutoff: 25 33 O-desmethyltramadol, Ur Not Detected ng/mL N Cutoff: 25 34 Tapentadol, Ur Not Detected ng/mL N Cutoff: 25 35 N-desmethyltapentadol, Ur Not Detected ng/mL N Cutoff: 50 36 Xktnngygxn-voaq-qljogrnsxgy, U Not Detected ng/mL N 37 Buprenorphine, Ur Not Detected ng/mL N Cutoff: 5 38 Norbuprenorphine, Ur Not Detected ng/mL N Cutoff: 5 39 Norbuprenorphine glucuronide Not Detected ng/mL N Cutoff: 20 40 Opioid Interpretation See Comment N 41 Laboratory test 10/12/2016 [facility] Lactic Acid 1.6 mmol/L N 0.5-2.0 [address] [place] [address] [phone] CBC Auto Diff 10/12/2016 [facility] White Blood 7.6 10^3/uL N 3.5-10.[address] [place] [address] [phone] Red Blood Count 4.48 10^6/uL N 4.0-5.4 Hemoglobin 12.1 g/dL N 12.0-16.0 Hematocrit 37 % N 35-47 Mean Corpuscular Volume 81 fL N 80-97 Mean Corpuscular Hemoglobin 27 pg N 27-31 Mean Corpuscular HGB Conc 33 g/dL N 31-36 Red Cell Distribution Width 15 % N 10.5-15 Platelet Count 360 10^3/uL N 150-450 Mean Platelet Volume 7 um3 Low 7.4-10.4 Abs Neutrophils 4.5 10^3/uL N 1.5-7.7 Abs Lymphocytes 2.3 10^3/uL N 1.0-4.8 Abs Monocytes 0.4 10^3/uL N 0-0.8 Abs Eosinophils 0.3 10^3/uL N 0-0.6 Abs Basophils 0.1 10^3/uL N 0-0.2 Abs Nucleated RBC 0 10^3/uL N Granulocyte % 59.1 % N 38-83 Lymphocyte % 29.8 % N 25-47 Monocyte % 5.8 % N 1-9 Eosinophil % 3.9 % N 0-6 Basophil % 1.4 % N 0-2 Nucleated Red Blood Cells % 0 N Laboratory test 10/12/2016 [facility] C Reactive 7.91 mg/L High < 5.00 [address] [place] [address] [phone] HCG < 0.60 mIU/mL N 44 Comp Metabolic Panel 10/12/2016 [facility] Sodium 133 mmol/L N 133-[address] [place] [address] [phone] Potassium 3.5 mmol/L N 3.5-5.0 Chloride 100 mmol/L Low 101-111 Co2 Carbon Dioxide 26 mmol/L N 22-32 Anion Gap 7 mmol/L N 2-11 Glucose 92 mg/dL N 70-100 Blood Urea Nitrogen 7 mg/dL N 6-24 Creatinine 0.61 mg/dL N 0.51-0.95 BUN/Creatinine Ratio 11.5 N 8-20 Calcium 8.4 mg/dL Low 8.6-10.3 Total Protein 7.2 g/dL N 6.4-8.9 Albumin 3.5 g/dL N 3.2-5.2 Globulin 3.7 g/dL N 2-4 Albumin/Globulin Ratio 0.9 Low 1-3 Total Bilirubin 0.20 mg/dL N 0.2-1.0 Alkaline Phosphatase 70 U/L N 34-104 Alt 22 U/L N 7-52 Ast 25 U/L N 13-39 Egfr Non- 108.6 N >60 Egfr 139.7 N >60 45 Inr/Protime 10/12/2016 [facility] Inr 0.86 Low 0.89-1.[address] [place] [address] [phone] Laboratory test 10/12/2016 [facility] Erythrocyte Sed 36 mm/Hr High 0-[address] [place] [address] [phone] (HCG) Urine Negative N Negative 46 Herpes Simplex 08/02/2016 [facility] Herpes Simplex Negative N Negative 47 Type 1&[address] Type 1 2 [place] [address] [phone] Laboratory test 08/02/2016 [facility] Test negitive finding Urine Laboratory test 08/02/2016 [facility] Gardnerella/Ye SEE RESULT [address] ast: [place] [address] Dna [phone] Herpes Simplex 08/02/2016 [facility] Herpes Simplex Negative N Negative Type 1&[address] [address] [phone] Herpes Simplex Virus II IgG AB Positive N Negative 49 HIV 1/2 AB 07/16/2016 [facility] HIV 1 2 Nonreactive N Nonreactive [address] Antibody [place], [place] [id number] [phone] Hepatitis B 07/16/2016 [facility] Hepatitis B Nonreactive N Nonreactive [place] AB Titer [address] [place] [address] [phone] Hep B Surf AB Level < 3.10 mIU/mL N <12 51 Laboratory 07/16/2016 [facility] Hepatitis B Nonreactive N Nonreactive test finding [address] [place] [address] [phone] Hepatitis C Antibody Nonreactive N Nonreactive Syphillis Igg W/Reflex [facility] Nonreactive N Nonreactive 52 GC/Chlamydia 07/16/2016 [facility] Chlamydia Negative N Negative Amplified Rna [address] [place] [address] [phone] Neisseria gonorrhoeae (GC) Rna Negative N Negative Laboratory test 06/15/2016 [facility] Prolactin 8.5 ng/mL N 1.0-25.[address] [place] [address] [phone] HCG < 0.60 mIU/mL N 53 FSH And LH 06/15/2016 [facility] FSH (Follicle Stim 7.8 mIU/mL N [address] Hormone) [place] [address] [phone] LH (Lutenizing Hormone) 4.9 ?IU/mL N 55 Drug Abuse 03/12/2016 [facility] Urine Amphetamine Negative ng/ mL N 56, 57 [address] [place] [address] [phone] Urine Barbiturates Negative ng/mL N 58 Urine Benzodiazepines Negative ng/mL N 59 Urine Cocaine Negative ng/mL N 60 Urine Methadone Negative ng/mL N 61 Urine Opiates Negative ng/mL N 62 Urine Phencyclidine Negative ng/mL N Cutoff: 25 Urine Tetrahydrocannabinol Negative ng/mL N Cutoff: 50 63 Urine Oxycodone Negative ng/mL N 64 CBC Auto Diff 03/03/2016 [facility] White Blood 10.5 10^3/uL N 3.5-10.[address] [place] [address] [phone] Red Blood Count 4.92 10^6/uL N 4.0-5.4 Hemoglobin 13.7 g/dL N 12.0-16.0 Hematocrit 42 % N 35-47 Mean Corpuscular Volume 86 fL N 80-97 Mean Corpuscular Hemoglobin 28 pg N 27-31 Mean Corpuscular HGB Conc 32 g/dL N 31-36 Red Cell Distribution Width 16 % High 10.5-15 Platelet Count 339 10^3/uL N 150-450 Mean Platelet Volume 7 um3 Low 7.4-10.4 Abs Neutrophils 6.8 10^3/uL N 1.5-7.7 Abs Lymphocytes 2.5 10^3/uL N 1.0-4.8 Abs Monocytes 0.6 10^3/uL N 0-0.8 Abs Eosinophils 0.4 10^3/uL N 0-0.6 Abs Basophils 0.1 10^3/uL N 0-0.2 Abs Nucleated RBC 0.01 10^3/uL N Granulocyte % 65.1 % N 38-83 Lymphocyte % 24.0 % Low 25-47 Monocyte % 5.9 % N 1-9 Eosinophil % 3.9 % N 0-6 Basophil % 1.1 % N 0-2 Nucleated Red Blood Cells % 0 N Leukemia/Lymphoma Flow 03/03/2016 [facility] Path Interpretation TNP N [address] 2-8 [place] [address] [phone] Path Interpret > 16 Marker TNP N Path Interpret 9-15 Marker (SEE NOTE) N 65 Laboratory 03/03/2016 [facility] Erythrocyte 25 mm/Hr High 0- [address] [place] [address] [phone] Laboratory 01/28/2016 [facility] Culture Throat SEE RESULT [address] [place] [address] [phone] Rapid 01/27/2016 [facility] Influenza A NEGATIVE N Negative [address] [place] [address] [phone] Influenza B Molecular NEGATIVE N Negative Laboratory test 01/27/2016 [facility] CSF Glucose 63 mg/dL N 40-70 68, [address] [place] [address] [phone] CSF Protein 55 mg/dL High 15-45 70 CSF Culture & Gram Stain SEE RESULT BELOW 71 CSF Cell Count 01/27/2016 [facility] Body Fluid Lymph [address] [place] [address] [phone] Body Fluid Bryan 24 N Body Fluid Total Cells Counted 79 N Body Fluid Appearance Clear N Body Fluid Color Colorless N CSF Tube # 4 N Body Fluid Volume 1 mL N Body Fluid WBC 1 N Body Fluid RBC 0 N Fluid Reviewed By MD (SEE NOTE) N 72 Laboratory test 01/27/2016 [facility] Potassium 3.6 mmol/L N 3.5-5.[address] [place] [address] [phone] Ast Redraw 21 U/L N 13-39 C Reactive Protein 50.23 mg/L High < 5.00 73 CBC Auto 01/27/2016 [facility] White Blood 19.9 10^3/uL High 3.5-10.[address] [place] [address] [phone] Red Blood Count 5.16 10^6/uL N 4.0-5.4 Hemoglobin 14.1 g/dL N 12.0-16.0 Hematocrit 42 % N 35-47 Mean Corpuscular Volume 82 fL N 80-97 Mean Corpuscular Hemoglobin 27 pg N 27-31 Mean Corpuscular HGB Conc 33 g/dL N 31-36 Red Cell Distribution Width 14 % N 10.5-15 Platelet Count 368 10^3/uL N 150-450 Mean Platelet Volume 7 um3 Low 7.4-10.4 Abs Neutrophils 17.5 10^3/uL High 1.5-7.7 Abs Lymphocytes 1.3 10^3/uL N 1.0-4.8 Abs Monocytes 0.9 10^3/uL High 0-0.8 Abs Eosinophils 0.1 10^3/uL N 0-0.6 Abs Basophils 0.1 10^3/uL N 0-0.2 Abs Nucleated RBC 0 10^3/uL N Granulocyte % 87.9 % High 38-83 Lymphocyte % 6.5 % Low 25-47 Monocyte % 4.5 % N 1-9 Eosinophil % 0.7 % N 0-6 Basophil % 0.4 % N 0-2 Nucleated Red Blood Cells % 0 N Laboratory test 01/27/2016 [facility] Lactic Acid 1.2 mmol/L N 0.5-2.0 74 finding [address] [place] [address] [phone] Comp Metabolic 01/27/2016 [facility] Sodium 126 mmol/L Low 133 -145 Panel [address] [place] [address] [phone] Chloride 95 mmol/L Low 101-111 Co2 Carbon Dioxide 24 mmol/L N 22-32 Glucose 112 mg/dL High 70-100 Blood Urea Nitrogen 8 mg/dL N 6-24 Creatinine 0.60 mg/dL N 0.51-0.95 BUN/Creatinine Ratio 13.3 N 8-20 Calcium 8.9 mg/dL N 8.6-10.3 Total Protein 8.2 g/dL N 6.4-8.9 Albumin 4.0 g/dL N 3.2-5.2 Globulin 4.2 g/dL High 2-4 Albumin/Globulin Ratio 1.0 N 1-3 Total Bilirubin 0.50 mg/dL N 0.2-1.0 Alkaline Phosphatase 69 U/L N 34-104 Alt 21 U/L N 7-52 Egfr Non- 111.3 N >60 Egfr 143.1 N >60 75 Potassium TNP mmol/L N 3.5-5.0 76 Anion Gap TNP mmol/L N 2-11 Ast TNP U/L N 13-39 77 Urinalysis Profile 01/27/2016 [facility] Urine Color Yellow N [address] [place] [address] [phone] Urine Appearance Clear N Urine Specific [place] 1.011 N 1.010-1.030 Urine pH 7.0 N 5-9 Urine Urobilinogen Negative N Negative Urine Ketones Negative N Negative Urine Protein Negative N Negative Urine Leukocytes Negative N Negative Urine Blood 1+ Abnormal Negative Urine Nitrite Negative N Negative Urine Bilirubin Negative N Negative Urine Glucose Negative N Negative Urine White Blood Cell Absent N Absent Urine Red Blood Cell 2+(6-10/hpf) Abnormal Absent Urine Bacteria Absent N Absent Urine Squamous Epithelial Cell Present Abnormal Absent Laboratory test 12/26/2015 [facility] Cytology SEE RESULT BELOW [address] [place] [address] [phone] Gardnerella/Yeast: Vaginal Dna SEE RESULT BELOW 79 Trichomonas Vaginalis Rna Negative N Negative 80 GC/Chlamydia 12/26/2015 [facility] Chlamydia Negative N Negative Amplified Rna [address] trachomatis Rna [place], [place] [id number] [phone] Neisseria gonorrhoeae (GC) Rna Negative N Negative Laboratory 12/26/2015 [facility] HPV Rna Negative N Negative 81 test finding [address] Ww/[place] [address] Genotype [phone] CBC Auto Diff 12/25/2015 [facility] White Blood 11.9 10^3/uL High 3.5-10.[address] [place], [place] [address] [phone] Red Blood Count 4.80 10^6/uL N 4.0-5.4 Hemoglobin 13.0 g/dL N 12.0-16.0 Hematocrit 41 % N 35-47 Mean Corpuscular Volume 84 fL N 80-97 Mean Corpuscular Hemoglobin 27 pg N 27-31 Mean Corpuscular HGB Conc 32 g/dL N 31-36 Red Cell Distribution Width 14 % N 10.5-15 Platelet Count 371 10^3/uL N 150-450 Mean Platelet Volume 7 um3 Low 7.4-10.4 Abs Neutrophils 8.2 10^3/uL High 1.5-7.7 Abs Lymphocytes 2.6 10^3/uL N 1.0-4.8 Abs Monocytes 0.6 10^3/uL N 0-0.8 Abs Eosinophils 0.4 10^3/uL N 0-0.6 Abs Basophils 0.1 10^3/uL N 0-0.2 Abs Nucleated RBC 0 10^3/uL N Granulocyte % 68.4 % N 38-83 Lymphocyte % 22.0 % Low 25-47 Monocyte % 5.1 % N 1-9 Eosinophil % 3.5 % N 0-6 Basophil % 1.0 % N 0-2 Nucleated Red Blood Cells % 0 N Laboratory test 12/25/2015 [facility] Urine Culture And SEE RESULT [address] [place] [address] [phone] Urinalysis 12/25/2015 [facility] Urine Color Yellow N Profile [address] [place] [address] [phone] Urine Appearance Cloudy N Urine Specific [place] 1.026 N 1.010-1.030 Urine pH 5.0 N 5-9 Urine Urobilinogen Negative N Negative Urine Ketones Negative N Negative Urine Protein Negative N Negative Urine Leukocytes Trace Abnormal Negative Urine Blood 2+ Abnormal Negative Urine Nitrite Negative N Negative Urine Bilirubin Negative N Negative Urine Glucose Negative N Negative Urine White Blood Cell Trace(0-5/hpf) N Absent Urine Red Blood Cell 3+(>10/hpf) Abnormal Absent Urine Bacteria Absent N Absent Urine Squamous Epithelial Cell Present Abnormal Absent Laboratory test 12/25/2015 [facility] C Reactive 10.23 mg/L High < 5.00 [address] [place] [address] [phone] HCG < 0.60 mIU/mL N 84 Comp Metabolic Panel 12/25/2015 [facility] Sodium 135 mmol/L N 133-[address] [place] [address] [phone] Potassium 3.4 mmol/L Low 3.5-5.0 Chloride 105 mmol/L N 101-111 Co2 Carbon Dioxide 22 mmol/L N 22-32 Anion Gap 8 mmol/L N 2-11 Glucose 126 mg/dL High 70-100 Blood Urea Nitrogen 10 mg/dL N 6-24 Creatinine 0.55 mg/dL N 0.51-0.95 BUN/Creatinine Ratio 18.2 N 8-20 Calcium 9.1 mg/dL N 8.6-10.3 Total Protein 7.7 g/dL N 6.4-8.9 Albumin 3.9 g/dL N 3.2-5.2 Globulin 3.8 g/dL N 2-4 Albumin/Globulin Ratio 1.0 N 1-3 Total Bilirubin 0.20 mg/dL N 0.2-1.0 Alkaline Phosphatase 73 U/L N 34-104 Alt 17 U/L N 7-52 Ast 21 U/L N 13-39 Egfr Non- 123.0 N >60 Egfr 158.2 N >60 85 Laboratory test 12/25/2015 [facility] Partial 32.0 seconds N 26.0-36.3 [address] [place] [address] PTT [phone] Inr/Protime 12/25/2015 [facility] Inr 0.90 N 0.89-1.11 [address] [place] [address] [phone] Laboratory test 11/23/2015 [facility] Rapid Strep Negative N Negative 86 finding [address] [place] [address] [phone] Throat-Beta Strept SEE RESULT BELOW 87 Laboratory test 11/23/2015 [facility] Rapid Strep Negative N Negative 88 finding [address] [place] [address] [phone] Laboratory test 08/08/2015 [facility] Troponin-I 0.00 ng/mL N <0.03 89 finding [address] (TnI) [place] [address] [phone] D Dimer Quantitative < 200 ng/mL N Less Than 230 90 HCG Qualitative Negative N Negative Comp Metabolic Panel 08/08/2015 [facility] Sodium 136 mmol/L N 133-145 [address] [place] [address] [phone] Chloride 105 mmol/L N 101-111 Co2 Carbon Dioxide 26 mmol/L N 22-32 Glucose 91 mg/dL N 70-100 Blood Urea Nitrogen 12 mg/dL N 6-24 Creatinine 0.49 mg/dL Low 0.51-0.95 BUN/Creatinine Ratio 24.5 High 8-20 Calcium 8.8 mg/dL N 8.6-10.3 Total Protein 7.1 g/dL N 6.4-8.9 Albumin 3.8 g/dL N 3.2-5.2 Globulin 3.3 g/dL N 2-4 Albumin/Globulin Ratio 1.2 N 1-3 Total Bilirubin 0.50 mg/dL N 0.2-1.0 Alkaline Phosphatase 59 U/L N 34-104 Alt 13 U/L N 7-52 Egfr Non- 140.6 N >60 Egfr 180.8 N >60 91 Potassium TNP mmol/L N 3.5-5.0 92 Anion Gap TNP mmol/L N 2-11 Ast TNP U/L N 13-39 93 CBC Auto 08/08/2015 [facility] White Blood 11.5 10^3/uL High 4.8-10.[address] [place] [address] [phone] Red Blood Count 4.88 10^6/uL N 4.0-5.4 Hemoglobin 13.8 g/dL N 12.0-16.0 Hematocrit 42 % N 35-47 Mean Corpuscular Volume 86 fL N 80-97 Mean Corpuscular Hemoglobin 28 pg N 27-31 Mean Corpuscular HGB Conc 33 g/dL N 31-36 Red Cell Distribution Width 14 % N 10.5-15 Platelet Count 352 10^3/uL N 150-450 Mean Platelet Volume 7 um3 Low 7.4-10.4 Abs Neutrophils 8.3 10^3/uL High 1.5-7.7 Abs Lymphocytes 1.8 10^3/uL N 1.0-4.8 Abs Monocytes 0.9 10^3/uL High 0-0.8 Abs Eosinophils 0.4 10^3/uL N 0-0.6 Abs Basophils 0.1 10^3/uL N 0-0.2 Abs Nucleated RBC 0.01 10^3/uL N Granulocyte % 72.3 % N 38-83 Lymphocyte % 16.1 % Low 25-47 Monocyte % 7.5 % N 1-9 Eosinophil % 3.4 % N 0-6 Basophil % 0.7 % N 0-2 Nucleated Red Blood Cells % 0.1 N Laboratory test 08/08/2015 [facility] Potassium 4.2 mmol/L N 3.5-5.[address] [place] [address] [phone] Ast Redraw 18 U/L N 13-39 CBC Auto 08/02/2015 [facility] White Blood 11.6 10^3/uL High 4.8-10.[address] [place] [address] [phone] Red Blood Count 5.17 10^6/uL N 4.0-5.4 Hemoglobin 14.7 g/dL N 12.0-16.0 Hematocrit 45 % N 35-47 Mean Corpuscular Volume 86 fL N 80-97 Mean Corpuscular Hemoglobin 28 pg N 27-31 Mean Corpuscular HGB Conc 33 g/dL N 31-36 Red Cell Distribution Width 14 % N 10.5-15 Platelet Count 351 10^3/uL N 150-450 Mean Platelet Volume 7 um3 Low 7.4-10.4 Abs Neutrophils 7.4 10^3/uL N 1.5-7.7 Abs Lymphocytes 2.9 10^3/uL N 1.0-4.8 Abs Monocytes 0.8 10^3/uL N 0-0.8 Abs Eosinophils 0.4 10^3/uL N 0-0.6 Abs Basophils 0.1 10^3/uL N 0-0.2 Abs Nucleated RBC 0 10^3/uL N Granulocyte % 63.7 % N 38-83 Lymphocyte % 25.0 % N 25-47 Monocyte % 6.5 % N 1-9 Eosinophil % 3.7 % N 0-6 Basophil % 1.1 % N 0-2 Nucleated Red Blood Cells % 0 N Comp Metabolic Panel 08/02/2015 [facility] Sodium 136 mmol/L N 133-[address] [place] [address] [phone] Potassium 3.9 mmol/L N 3.5-5.0 Chloride 103 mmol/L N 101-111 Co2 Carbon Dioxide 27 mmol/L N 22-32 Anion Gap 6 mmol/L N 2-11 Glucose 85 mg/dL N 70-100 Blood Urea Nitrogen 12 mg/dL N 6-24 Creatinine 0.63 mg/dL N 0.51-0.95 BUN/Creatinine Ratio 19.0 N 8-20 Calcium 9.3 mg/dL N 8.6-10.3 Total Protein 7.7 g/dL N 6.4-8.9 Albumin 4.3 g/dL N 3.2-5.2 Globulin 3.4 g/dL N 2-4 Albumin/Globulin Ratio 1.3 N 1-3 Total Bilirubin 0.20 mg/dL N 0.2-1.0 Alkaline Phosphatase 66 U/L N 34-104 Alt 16 U/L N 7-52 Ast 18 U/L N 13-39 Egfr Non- 105.2 N >60 Egfr 135.3 N >60 94 Laboratory test 08/02/2015 [facility] C Reactive 7.38 mg/L High < 5.00 [address] Protein [place], [place] [id number] [phone] HCG Qualitative Negative N Negative Urinalysis Profile 08/02/2015 [facility] Urine Color Yellow N [address] [place], [place] [id number] [phone] Urine Appearance Clear N Urine Specific [place] 1.017 N 1.010-1.030 Urine pH 6.0 N 5-9 Urine Urobilinogen Negative N Negative Urine Ketones Negative N Negative Urine Protein Negative N Negative Urine Leukocytes Negative N Negative Urine Blood 1+ Abnormal Negative Urine Nitrite Negative N Negative Urine Bilirubin Negative N Negative Urine Glucose Negative N Negative Urine White Blood Cell Trace(0-5/hpf) N Absent Urine Red Blood Cell 2+(6-10/hpf) Abnormal Absent Urine Bacteria 1+ Abnormal Absent Urine Squamous Epithelial Cell Present Abnormal Absent Laboratory test 08/02/2015 [facility] Urine Culture And SEE RESULT [address] [place] [address] [phone] HCG () 07/30/2015 [facility] Miscellaneous Lab negative Urine Stat Ua Routine 07/30/2015 [facility] Ua Specific 1.010 [place] Ua PH 6 Ua Color yellow Ua Appera clear Ua WBC neg Ua Protein neg Ua Glucose neg Ua Ketones neg Ua Bilirubin neg Ua Urobilinogen neg Ua Nitrite positive Ua Occult Blood 250+ Laboratory test 07/30/2015 [facility] Gardnerella/Yeast: SEE RESULT [address] [place] [address] [phone] Trichomonas Vaginalis Rna Negative N Negative 98 Culture Genital & Sensitivity SEE RESULT BELOW 99 GC/Chlamydia 07/30/2015 [facility] Chlamydia Negative N Negative Amplified Rna [address] [place] [address] [phone] Neisseria gonorrhoeae (GC) Rna Negative N Negative 100 Laboratory test finding 07/27/2015 [facility] Lipase 46 U/L N 11.0-82.[address] [place] [address] [phone] C Reactive Protein 7.26 mg/L High < 5.00 101 Lactic Acid 0.7 mmol/L N 0.5-2.2 HCG Qualitative Negative N Negative Comp Metabolic Panel 07/27/2015 [facility] Sodium 135 mmol/L N 133-145 [address] [place] [address] [phone] Chloride 102 mmol/L N 101-111 Co2 Carbon Dioxide 25 mmol/L N 22-32 Glucose 98 mg/dL N 70-100 Blood Urea Nitrogen 13 mg/dL N 6-24 Creatinine 0.51 mg/dL N 0.51-0.95 BUN/Creatinine Ratio 25.5 High 8-20 Calcium 9.0 mg/dL N 8.6-10.3 Total Protein 7.2 g/dL N 6.4-8.9 Albumin 3.9 g/dL N 3.2-5.2 Globulin 3.3 g/dL N 2-4 Albumin/Globulin Ratio 1.2 N 1-3 Total Bilirubin 0.20 mg/dL N 0.2-1.0 Alkaline Phosphatase 64 U/L N 34-104 Alt 15 U/L N 7-52 Egfr Non- 134.3 N >60 Egfr 172.7 N >60 102 Potassium 4.1 mmol/L N 3.5-5.0 Anion Gap 8 mmol/L N 2-11 Ast 19 U/L N 13-39 CBC Auto 07/27/2015 [facility] White Blood 13.2 10^3/uL High 4.8-10.[address] [place] [address] [phone] Red Blood Count 4.73 10^6/uL N 4.0-5.4 Hemoglobin 13.0 g/dL N 12.0-16.0 Hematocrit 41 % N 35-47 Mean Corpuscular Volume 86 fL N 80-97 Mean Corpuscular Hemoglobin 27 pg N 27-31 Mean Corpuscular HGB Conc 32 g/dL N 31-36 Red Cell Distribution Width 14 % N 10.5-15 Platelet Count 383 10^3/uL N 150-450 Mean Platelet Volume 7 um3 Low 7.4-10.4 Abs Neutrophils 8.7 10^3/uL High 1.5-7.7 Abs Lymphocytes 3.1 10^3/uL N 1.0-4.8 Abs Monocytes 0.8 10^3/uL N 0-0.8 Abs Eosinophils 0.5 10^3/uL N 0-0.6 Abs Basophils 0.1 10^3/uL N 0-0.2 Abs Nucleated RBC 0 10^3/uL N Granulocyte % 66.0 % N 38-83 Lymphocyte % 23.4 % Low 25-47 Monocyte % 6.3 % N 1-9 Eosinophil % 3.6 % N 0-6 Basophil % 0.7 % N 0-2 Nucleated Red Blood Cells % 0 N Urinalysis Profile 07/27/2015 [facility] Urine Color Yellow N [address] [place] [address] [phone] Urine Appearance Clear N Urine Specific [place] 1.018 N 1.010-1.030 Urine pH 5.0 N 5-9 Urine Urobilinogen Negative N Negative Urine Ketones Negative N Negative Urine Protein Negative N Negative Urine Leukocytes Negative N Negative Urine Blood 2+ Abnormal Negative Urine Nitrite Negative N Negative Urine Bilirubin Negative N Negative Urine Glucose Negative N Negative Urine White Blood Cell Trace(0-5/hpf) N Absent Urine Red Blood Cell 3+(>10/hpf) Abnormal Absent Urine Bacteria Absent N Absent Urine Squamous Epithelial Cell Present Abnormal Absent Urine Culture And 12/01/2014 [facility] Urine Culture (SEE NOTE ) 103 Sensitivities [address] [place] [address] [phone] Urinalysis Profile 12/01/2014 [facility] Urine Color Yellow N [address] [place] [address] [phone] Urine Appearance Cloudy N Urine Specific [place] 1.021 N 1.010-1.030 Urine pH 5.0 N 5-9 Urine Urobilinogen Negative N Negative Urine Ketones Negative N Negative Urine Protein 2+(100 mg/dL) Abnormal Negative Urine Leukocytes 3+ Abnormal Negative Urine Blood 2+ Abnormal Negative Urine Nitrite Negative N Negative Urine Bilirubin Negative N Negative Urine Glucose Negative N Negative Urine White Blood Cell 3+(>20/hpf) Abnormal Absent Urine Red Blood Cell 3+(>10/hpf) Abnormal Absent Urine Bacteria Absent N Absent Urine Squamous Epithelial Cell Present Abnormal Absent GC/Chlamydia 11/13/2014 [facility] Chlamydia Negative N Negative Amplified Rna [address] [place] [address] [phone] Neisseria gonorrhoeae (GC) Rna Negative N Negative 104 Laboratory 11/13/2014 [facility] Gardnerella/Yeast: (SEE NOTE) 105 test finding [address] [place] [address] [phone] Laboratory 11/13/2014 [facility] Trichomonas Negative N Negative 106 test finding [address] [place] [address] [phone] Comp 10/09/2014 Sodium 135 mmol/L N 133-145 Metabolic Panel Potassium 4.4 mmol/L N 3.5-5.0 107 Chloride 103 mmol/L N 101-111 Co2 Carbon Dioxide 25 mmol/L N 22-32 Anion Gap 7 mmol/L N 2-11 Glucose 94 mg/dL N 70-100 Blood Urea Nitrogen 10 mg/dL N 6-24 Creatinine 0.55 mg/dL N 0.51-0.95 BUN/Creatinine Ratio 18.2 N 8-20 Calcium 9.3 mg/dL N 8.6-10.3 Total Protein 7.3 g/dL N 6.4-8.9 Albumin 4.0 g/dL N 3.2-5.2 Globulin 3.3 g/dL N 2-4 Albumin/Globulin Ratio 1.2 N 1-3 Total Bilirubin 0.30 mg/dL N 0.2-1.0 Alkaline Phosphatase 71 U/L N 34-104 Alt 17 U/L N 7-52 Ast 22 U/L N 13-39 Egfr Non- 123.7 N >60 Egfr 159.1 N >60 108 Iron & Iron Binding Capacity 10/09/2014 Iron 44 g/dL Low 50-212 Unsaturated Iron Binding 453 g/dL N Total Iron Binding Capacity 497 g/dL High 250-450 % Iron Saturation 9 % Low 15-55 Laboratory test finding 10/09/2014 TSH (Thyroid Stimulating 1.09 IU/mL N 0.34-5.60 Horm) Free T4 0.76 ng/mL N 0.61-1.12 CBC Auto Diff 10/09/2014 White Blood Count 10.8 10^3/uL N 4.8-10.8 Red Blood Count 4.88 10^6/uL N 4.0-5.4 Hemoglobin 12.6 g/dL N 12.0-16.0 Hematocrit 39 % N 35-47 Mean Corpuscular Volume 80 fL N 80-97 Mean Corpuscular Hemoglobin 26 pg Low 27-31 Mean Corpuscular HGB Conc 32 g/dL N 31-36 Red Cell Distribution Width 15 % N 10.5-15 Platelet Count 428 10^3/uL N 150-450 Mean Platelet Volume 7 um3 Low 7.4-10.4 Abs Neutrophils 7.0 10^3/uL N 1.5-7.7 Abs Lymphocytes 2.7 10^3/uL N 1.0-4.8 Abs Monocytes 0.7 10^3/uL N 0-0.8 Abs Eosinophils 0.3 10^3/uL N 0-0.6 Abs Basophils 0.1 10^3/uL N 0-0.2 Abs Nucleated RBC 0.01 10^3/uL N Granulocyte % 64.7 % N 38-83 Lymphocyte % 25.1 % N 25-47 Monocyte % 6.5 % N 1-9 Eosinophil % 3.0 % N 0-6 Basophil % 0.7 % N 0-2 Nucleated Red Blood Cells % 0.1 N Urine Culture And 03/24/2014 [facility] Urine (SEE NOTE) [address] [place] [address] [phone] Laboratory test 02/25/2014 Serum Negative N Negative 110 finding Iron & Iron 02/25/2014 Iron 24 g/dL Low 50-212 Binding Capacity Unsaturated Iron Binding 550 g/dL N Total Iron Binding Capacity 574 g/dL High 250-450 % Iron Saturation 4 % Low 15-55 Laboratory test finding 02/25/2014 Ferritin < 10.0 ng/mL Low 11-307 CBC With Manual Diff 02/25/2014 White Blood Count 6.5 10^3/uL N 4.8- 10.8 Red Blood Count 5.03 10^6/uL N 4.0-5.4 Hemoglobin 11.3 g/dL Low 12.0-16.0 Hematocrit 35 % N 35-47 Mean Corpuscular Volume 70 fL Low 80-97 Mean Corpuscular Hemoglobin 22 pg Low 27-31 Mean Corpuscular HGB Conc 32 g/dL N 31-36 Red Cell Distribution Width 16 % High 10.5-15 Platelet Count 432 10^3/uL N 150-450 Mean Platelet Volume 7 um3 Low 7.4-10.4 Abs Neutrophils 3.9 10^3/uL N 1.5-7.7 Abs Lymphocytes 1.5 10^3/uL N 1.0-4.8 Abs Monocytes 0.7 10^3/uL N 0-0.8 Abs Eosinophils 0.2 10^3/uL N 0-0.6 Abs Basophils 0.1 10^3/uL N 0-0.2 Abs Nucleated RBC 0 10^3/uL N Neutrophil % 59 % N 38-83 Band % 1 % N 0-8 Lymphocytes % 29 % N 25-47 Monocytes % 8 % N 0-13 Eosinophils % 2 % N 0-6 Basophil % 1 % N 0-2 Microcytosis 1+ N Vitamin B12 And Folate Serum 02/25/2014 Vitamin B12 328 pg/mL N 180-914 111 Folate 12.32 ng/mL N >3.99 Laboratory test 02/25/2014 Pathologist Review (SEE NOTE) N 112 finding CBC With Manual 02/18/2014 [facility] White Blood Count 9.1 10^3 /uL N 4.8-10. Diff [address] [place] [address] [phone] Red Blood Count 5.05 10^6/uL N 4.0-5.4 Hemoglobin 11.3 g/dL Low 12.0-16.0 Hematocrit 35 % N 35-47 Mean Corpuscular Volume 70 fL Low 80-97 Mean Corpuscular Hemoglobin 22 pg Low 27-31 Mean Corpuscular HGB Conc 32 g/dL N 31-36 Red Cell Distribution Width 16 % High 10.5-15 Platelet Count 471 10^3/uL High 150-450 Mean Platelet Volume 7 um3 Low 7.4-10.4 Abs Neutrophils 5.5 10^3/uL N 1.5-7.7 Abs Lymphocytes 2.7 10^3/uL N 1.0-4.8 Abs Monocytes 0.6 10^3/uL N 0-0.8 Abs Eosinophils 0.2 10^3/uL N 0-0.6 Abs Basophils 0 10^3/uL N 0-0.2 Abs Nucleated RBC 0 10^3/uL N Neutrophil % 56 % N 38-83 Band % 1 % N 0-8 Lymphocytes % 32 % N 25-47 Monocytes % 8 % N 0-13 Eosinophils % 2 % N 0-6 Reactive Lymph % 1 % N 0-6 Microcytosis 1+ N Basic Metabolic Panel 02/18/2014 [facility] Sodium 136 mmol/L N 133-[address] [place] [address] [phone] Potassium 4.4 mmol/L N 3.7-5.6 Chloride 104 mmol/L N 101-111 Co2 Carbon Dioxide 22 mmol/L N 22-32 Anion Gap 10 mmol/L N 2-11 Glucose 87 mg/dL N 70-100 Blood Urea Nitrogen 12 mg/dL N 6-24 Creatinine 0.59 mg/dL N 0.51-0.95 BUN/Creatinine Ratio 20.3 High 8-20 Calcium 8.7 mg/dL N 8.6-10.3 Egfr Non- 114.7 N >60 Egfr 147.5 N >60 113 Laboratory test 02/18/2014 [facility] B Type 16 pg/mL N [address] [place] [address] Peptide [phone] CBC Auto Diff 01/08/2014 [facility] White Blood Count 10.1 4.8-[address] 10^3/uL 0.8 [place] [address] [phone] Red Blood Count 4.40 10^6/uL 4.0-5.4 Hemoglobin 10.6 g/dL Low 12.0-16.0 Hematocrit 33 % Low 35-47 Mean Corpuscular Volume 74 fL Low 80-97 Mean Corpuscular Hemoglobin 24 pg Low 27-31 Mean Corpuscular HGB Conc 32 g/dL 31-36 Red Cell Distribution Width 15 % 10.5-15 Platelet Count 353 10^3/uL 150-450 Mean Platelet Volume 7 um3 Low 7.4-10.4 Abs Neutrophils 6.7 10^3/uL 1.5-7.7 Abs Lymphocytes 2.5 10^3/uL 1.0-4.8 Abs Monocytes 0.6 10^3/uL 0-0.8 Abs Eosinophils 0.2 10^3/uL 0-0.6 Abs Basophils 0.1 10^3/uL 0-0.2 Abs Nucleated RBC 0.01 10^3/uL Granulocyte % 65.8 % 38-83 Lymphocyte % 24.9 % Low 25-47 Monocyte % 6.4 % 1-9 Eosinophil % 2.1 % 0-6 Basophil % 0.8 % 0-2 Nucleated Red Blood Cells % 0.1 Comp Metabolic Panel 01/08/2014 [facility] Sodium 138 mmol/L 133-145 [address] [place] [address] [phone] Potassium 4.3 mmol/L 3.7-5.6 Chloride 104 mmol/L 101-111 Co2 Carbon Dioxide 26 mmol/L 22-32 Anion Gap 8 mmol/L 2-11 Glucose 109 mg/dL High 70-100 Blood Urea Nitrogen 12 mg/dL 6-24 Creatinine 0.48 mg/dL Low 0.51-0.95 BUN/Creatinine Ratio 25.0 High 8-20 Calcium 8.6 mg/dL 8.6-10.3 Total Protein 6.8 g/dL 6.4-8.9 Albumin 3.5 g/dL 3.2-5.2 Globulin 3.3 g/dL 2-4 Albumin/Globulin Ratio 1.1 1-3 Total Bilirubin 0.20 mg/dL 0.2-1.0 Alkaline Phosphatase 97 U/L 34-104 Alt 17 U/L 7-52 Ast 14 U/L 13-39 Egfr Non- 145.5 >60 Egfr 187.2 >60 115 Laboratory test 01/08/2014 [facility] Erythrocyte Sed 55 mm/Hr High 0-[address] [place] [address] [phone] C Reactive Protein 25.71 mg/L 116 Cell Morphology 01/08/2014 [facility] Microcytosis 1+ [address] [place] [address] [phone] Hypochromasia 1+ Urinalysis 12/30/2013 [facility] Urine Color Yellow [address] [place] [address] [phone] Urine Appearance Clear Urine Specific [place] 1.016 1.010-1.030 Urine Esterase Negative Negative Urine Nitrate Negative Negative Urine Urobilinogen Negative E.U./dL Negative Urine Protein Negative mg/dL Negative Urine pH 6.0 5-9 Urine Blood Trace Abnormal Negative Urine Ketones Negative mg/dL Negative Urine Bilirubin Negative Negative Urine Glucose Negative mg/dL Negative Urine Microscopic 12/30/2013 [facility] Urine WBC None Seen None Seen [address] [place] [address] [phone] Urine RBC 1+ (<3 /hpf) None Seen Urine Mucus Present /lpf Absent Urine Epithelial Cells 3+ Squamous /hpf None Seen Bacteria Urine 2+ None Seen Urine Culture And 12/30/2013 [facility] Urine Culture (SEE NOTE ) [address] [place], [place] [address] [phone] Laboratory test 12/30/2013 [facility] CSF Glucose 51 mg/dL 50 -75 [address] [place], [place] [address] [phone] CSF Total Protein 132.0 mg/dL High 15-45 119 CSF Culture & 12/30/2013 [facility] CSF Culture (SEE NOTE) [address] Gram Stain [place], [place] [address] [phone] Body Fluid Cell 12/30/2013 [facility] Body Fluid Cerebral Count [address] Source Spinal [place], [place] [id number] [phone] Body Fluid Appearance Clear Body Fluid Color Yellow CSF Tube # 4 Body Fluid Volume 1 mL Body Fluid WBC 418 Body Fluid RBC 196 Body Fluid Polys 80 Body Fluid Lymph 16 Body Fluid Bryan 2 Body Fluid Eosinophil 2 Body Fluid Total Cells Counted 100 Fluid Reviewed By MD (SEE NOTE) 121 Body Fluid Band 2 CBC Auto 12/29/2013 [facility] White Blood 17.4 10^3/uL High 4.8-10.[address] [place] [address] [phone] Red Blood Count 4.59 10^6/uL 4.0-5.4 Hemoglobin 10.8 g/dL Low 12.0-16.0 Hematocrit 34 % Low 35-47 Mean Corpuscular Volume 74 fL Low 80-97 Mean Corpuscular Hemoglobin 24 pg Low 27-31 Mean Corpuscular HGB Conc 32 g/dL 31-36 Red Cell Distribution Width 15 % 10.5-15 Platelet Count 573 10^3/uL High 150-450 Mean Platelet Volume 7 um3 Low 7.4-10.4 Abs Neutrophils 12.6 10^3/uL High 1.5-7.7 Abs Lymphocytes 3.2 10^3/uL 1.0-4.8 Abs Monocytes 1.3 10^3/uL High 0-0.8 Abs Eosinophils 0.2 10^3/uL 0-0.6 Abs Basophils 0.1 10^3/uL 0-0.2 Abs Nucleated RBC 0 10^3/uL Comp Metabolic Panel 12/29/2013 [facility] Sodium 132 mmol/L Low 133-145 [address] [place] [address] [phone] Potassium 3.9 mmol/L 3.5-5.0 Chloride 98 mmol/L Low 101-111 Co2 Carbon Dioxide 25.0 mmol/L 22-32 Anion Gap 9.0 mmol/L 2-11 Glucose 112 mg/dL High 70-100 Blood Urea Nitrogen 11 mg/dL 6-24 Creatinine 0.50 mg/dL 0.50-1.40 BUN/Creatinine Ratio 22.0 High 8-20 Calcium 8.6 mg/dL 8.1-9.9 Total Protein 7.8 g/dL 6.2-8.1 Albumin 3.2 g/dL Low 3.6-5.4 Globulin 4.6 g/dL High 2-4 Albumin/Globulin Ratio 0.7 Low 1-3 Total Bilirubin 0.4 mg/dL 0.4-1.5 Alkaline Phosphatase 89 U/L 30-110 Alt 22 U/L 14-54 Ast 19 U/L 12-42 Egfr Non- 138.8 >60 Egfr 178.5 >60 122 Laboratory test 12/29/2013 [facility] Lactic Acid 1.3 mmol/L 0.5-1.6 finding [address] [place] [address] [phone] Manual 12/29/2013 [facility] Neutrophil % 59 % 38-83 Differential [address] [place] [address] [phone] Band % 5 % 0-8 Lymphocytes % 25 % 25-47 Monocytes % 2 % 0-13 Eosinophils % 1 % 0-6 Reactive Lymph % 4 % 0-6 Metamyelocytes % 4 % High 0-2 Microcytosis 1+ Polychromasia 1+ Laboratory test 12/29/2013 [facility] Blood Culture (SEE NOTE) 123 finding [address] [place] [address] [phone] Pathologist Review (SEE NOTE) 124 Microalbumin 24HR 11/29/2013 [facility] Ur Microalbumin 29.0 mg/ L [address] (mg/L) [place] [address] [phone] Urine Microalbumin (mg/24Hr) 45.0 mg/24Hr High Less Than 30 126 Urine Microalbumin (mcg/min) 31.2 mcg/min High Less Than 20 Urine Collection Time 24 Urine Total Volume 1550 mL Lipid Profile 11/28/2013 [facility] Triglycerides 264 mg/dL High 40-200 (Trig/Chol/HDL) [address] [place], [place] [address] [phone] Cholesterol 269 mg/dL High Less than 200 HDL Cholesterol 54 mg/dL 40-60 127 Cholesterol/HDL Ratio 5.0 Average High 1-4.44 LDL Cholesterol 162.2 High Less Than 100 128 Laboratory test 11/28/2013 [facility] Glucose 94 mg/dL 70- 100 129 finding [address] [place] [address] [phone] Laboratory test 10/03/2013 [facility] Urine Negative Negative [address] [place], [place] [address] [phone] Urinalysis 09/21/2013 [facility] Urine Color Yellow [address] [place] [address] [phone] Urine Appearance Clear Urine Specific [place] 1.025 1.010-1.030 Urine Esterase Negative Negative Urine Nitrate Negative Negative Urine Urobilinogen Negative E.U./dL Negative Urine Protein Trace mg/dL Abnormal Negative Urine pH 6.0 5-9 Urine Blood 3+ Abnormal Negative Urine Ketones Negative mg/dL Negative Urine Bilirubin Negative Negative Urine Glucose Negative mg/dL Negative Urine Microscopic 09/21/2013 [facility] Urine WBC None Seen None Seen [address] [place], [place] [address] [phone] Urine RBC 3+ (>10 /hpf) None Seen Urine Epithelial Cells 1+ Squamous /hpf None Seen Bacteria Urine 1+ None Seen Laboratory test 09/06/2013 [facility] Hemoglobin A1c 6.0 5-7 finding Genital For GRP B 03/12/2013 [facility] Group B Strep (SEE NOTE ) 131 Strep Only [address] [place] [address] [phone] Urinalysis 03/12/2013 [facility] Urine Color Yellow W/Microscopic [address] [place] [address] [phone] Urine Appearance Clear Urine Specific [place] 1.006 Low 1.010-1.030 Urine Esterase 1+ Abnormal Negative Urine Nitrate Negative Negative Urine Urobilinogen Negative E.U./dL Negative Urine Protein Negative mg/dL Negative Urine pH 7.0 5-9 Urine Blood Negative Negative Urine Ketones 1+ mg/dL Abnormal Negative Urine Bilirubin Negative Negative Urine Glucose Negative mg/dL Negative Urine WBC 1+ (<10 /hpf) None Seen Urine RBC None Seen None Seen Urine Epithelial Cells 2+ Squamous /hpf None Seen Bacteria Urine 1+ None Seen Urine Culture And 03/12/2013 [facility] Urine Culture (SEE NOTE ) 132 Sensitivities [address] [place] [address] [phone] Urinalysis 02/22/2013 [facility] Urine Color Yellow [address] [place] [address] [phone] Urine Appearance Clear Urine Specific [place] 1.020 1.010-1.030 Urine Esterase 2+ Abnormal Negative Urine Nitrate Negative Negative Urine Urobilinogen Negative E.U./dL Negative Urine Protein Negative mg/dL Negative Urine pH 7.0 5-9 Urine Blood Negative Negative Urine Ketones 3+ mg/dL Abnormal Negative Urine Bilirubin Negative Negative Urine Glucose Negative mg/dL Negative Urine Microscopic 02/22/2013 [facility] Urine WBC 2+ (>10-30 None Seen [address] /hpf) [place] [address] [phone] Urine RBC None Seen None Seen Bacteria Urine 1+ None Seen Urine Culture And 02/22/2013 [facility] Urine Culture (SEE NOTE ) [address] [place] [address] [phone] CBC Auto Diff 02/04/2013 [facility] White Blood 9.0 10^3/uL 4.8-[address] Count 0.8 [place] [address] [phone] Red Blood Count 4.65 10^6/uL 4.0-5.4 Hemoglobin 11.8 g/dL Low 12.0-16.0 Hematocrit 36 % 35-47 Mean Corpuscular Volume 77 fL Low 80-97 Mean Corpuscular Hemoglobin 25 pg Low 27-31 Mean Corpuscular HGB Conc 33 g/dL 31-36 Red Cell Distribution Width 17 % High 10.5-15 Platelet Count 296 10^3/uL 150-450 Mean Platelet Volume 8 um3 7.4-10.4 Abs Neutrophils 6.3 10^3/uL 1.5-7.7 Abs Lymphocytes 1.9 10^3/uL 1.0-4.8 Abs Monocytes 0.7 10^3/uL 0-0.8 Abs Eosinophils 0.1 10^3/uL 0-0.6 Abs Basophils 0.1 10^3/uL 0-0.2 Abs Nucleated RBC 0.01 10^3/uL Granulocyte % 69.7 % 38-83 Lymphocyte % 20.7 % Low 25-47 Monocyte % 7.7 % 1-9 Eosinophil % 0.9 % 0-6 Basophil % 1.0 % 0-2 Nucleated Red Blood Cells % 0.1 Comp Metabolic Panel 02/04/2013 [facility] Sodium 136 mmol/L 133-145 [address] [place] [address] [phone] Potassium 3.9 mmol/L 3.5-5.0 Chloride 107 mmol/L 101-111 Co2 Carbon Dioxide 20.0 mmol/L Low 22-32 Anion Gap 9.0 mmol/L 2-11 Glucose 92 mg/dL 70-100 Blood Urea Nitrogen 9 mg/dL 6-24 Creatinine 0.30 mg/dL Low 0.50-1.40 BUN/Creatinine Ratio 30.0 High 8-20 Calcium 9.4 mg/dL 8.1-9.9 Total Protein 7.6 g/dL 6.2-8.1 Albumin 3.1 g/dL Low 3.6-5.4 Globulin 4.5 g/dL High 2-4 Albumin/Globulin Ratio 0.7 Low 1-3 Total Bilirubin 0.4 mg/dL 0.4-1.5 Alkaline Phosphatase 106 U/L 30-110 Alt 16 U/L 14-54 Ast 19 U/L 12-42 Egfr Non- 251.7 >60 Egfr 323.7 >60 135 Laboratory test 02/04/2013 [facility] Troponin I 0.01 ng/mL 0 -0.06 [address] [place] [address] [phone] Laboratory test 01/07/2013 [facility] Amnisure No Membrane [address] Rupt <[place] [address] NOTE> [phone] Laboratory test 01/04/2013 [facility] 0.000 [address] [place] [address] Stain [phone] CBC Auto Diff 01/04/2013 [facility] White Blood 8.9 10^3/uL 4.8-10.[address] Count [place], [place] [address] [phone] Red Blood Count 4.19 10^6/uL 4.0-5.4 Hemoglobin 10.4 g/dL Low 12.0-16.0 Hematocrit 33 % Low 35-47 Mean Corpuscular Volume 78 fL Low 80-97 Mean Corpuscular Hemoglobin 25 pg Low 27-31 Mean Corpuscular HGB Conc 32 g/dL 31-36 Red Cell Distribution Width 16 % High 10.5-15 Platelet Count 303 10^3/uL 150-450 Mean Platelet Volume 8 um3 7.4-10.4 Abs Neutrophils 6.6 10^3/uL 1.5-7.7 Abs Lymphocytes 1.7 10^3/uL 1.0-4.8 Abs Monocytes 0.5 10^3/uL 0-0.8 Abs Eosinophils 0.1 10^3/uL 0-0.6 Abs Basophils 0.1 10^3/uL 0-0.2 Abs Nucleated RBC 0 10^3/uL Granulocyte % 74.0 % 38-83 Lymphocyte % 18.6 % Low 25-47 Monocyte % 5.9 % 1-9 Eosinophil % 0.6 % 0-6 Basophil % 0.9 % 0-2 Nucleated Red Blood Cells % 0 Comp Metabolic Panel 01/04/2013 [facility] Sodium 134 mmol/L 133-[address] [place], [place] [address] [phone] Potassium 4.3 mmol/L 3.5-5.0 Chloride 105 mmol/L 101-111 Co2 Carbon Dioxide 19.0 mmol/L Low 22-32 Anion Gap 10.0 mmol/L 2-11 Glucose 120 mg/dL High 70-100 Blood Urea Nitrogen 5 mg/dL Low 6-24 Creatinine 0.40 mg/dL Low 0.50-1.40 BUN/Creatinine Ratio 12.5 8-20 Calcium 8.5 mg/dL 8.1-9.9 Total Protein 6.0 g/dL Low 6.2-8.1 Albumin 2.8 g/dL Low 3.6-5.4 Globulin 3.2 g/dL 2-4 Albumin/Globulin Ratio 0.9 Low 1-3 Total Bilirubin 0.4 mg/dL 0.4-1.5 Alkaline Phosphatase 75 U/L 30-110 Alt 14 U/L 14-54 Ast 25 U/L 12-42 Egfr Non- 180.6 >60 Egfr 232.3 >60 139 Laboratory test 08/29/2012 [facility] Throat Beta (SEE NOTE) [address] [place] [address] [phone] Laboratory test 08/02/2012 [facility] Cytology 141 finding [facility] [address] ---- <[place] [address] NOTE> [phone] Vitamin D, 25 08/02/2012 [facility] 25-Hydroxy <4.0 ng/mL () Hydroxy [facility] [employer] [place] [address] [phone] 25-Hydroxy Vitamin D3 33 ng/mL () 25-Hydroxy Vitamin D Total 33 ng/mL () 142 Laboratory test 08/02/2012 [facility] TSH 2.27 MIU/ML 0.34- 5.60 finding [facility] [place] [address] [phone] CBC With Manual 08/02/2012 [facility] White 11.9 CUMM High 4.8 -10.8 Diff [address] [place] [address] Count [phone] Red Cell Count 4.85 CUMM 4.2-5.4 Hemoglobin 12.0 g/dL 12.0-16.0 Hematocrit 37 % 35-47 Mean Corpuscular Volume 75 um3 Low 79-97 Mean Corpuscular Hemoglob 25 pg Low 27-31 Mean Corpuscular HGB Cone 33 g/dL 32-36 Redcell Distribution WDTH 17 % High 10.5-15 Platelet Count 388 CUMM 150-450 Mean Platelet Volume 7.7 um3 7.4-10.4 Absolute Neutrophil Count 8.0 High 1.5-7.7 Polysegmented Neutrophil 62 % 38-83 Lymphocyte 34 % 25-47 Monocyte 1 % 0-13 Eosinophil 2 % 0-6 Atypical Lymph 1 % 0-6 Anisocytosis 2+ Macrocytosis 1+ Microcytosis 2+ Comp Metabolic Panel 08/02/2012 [facility] Sodium 136 mmol/L 135-[address] [place] [address] [phone] Potassium 4.1 mmol/L 3.5-5.0 Chloride 106 mmol/L 101-111 Co2 (Carbon Dioxide) 22.0 mmol/L 22-32 Anion Gap 8.0 mmol/L 2-11 143 Glucose 125 mg/dL High 70-100 BUN 14 mg/dL 6-24 Creatinine 0.6 mg/dL 0.50-1.40 One Over Creatinine 1.66 BUN/Creatinine Ratio 23.3 High 8-20 Calcium 9.0 mg/dL 8.1-9.9 Total Protein 7.7 GM/DL 6.2-8.1 Albumin 3.8 GM/DL 3.6-5.4 Globulin 3.9 GM/DL 2-4 Albumin/Globulin Ratio 1.0 1-3 Bilirubin Total 0.4 mg/dL 0.4-1.5 144 Alkaline Phosphatase 70 U/L 30-110 Alt (SGPT) 26 U/L 14-54 Ast (Sgot) 27 U/L 12-42 eGFR Non- 113.1 > 60 eGFR 145.5 > 60 145 Laboratory test 08/02/2012 [facility] BHCG Quantitative 67.0 High 0-5 [address] MIU/[place] [address] [phone] 1 SEE RESULT BELOW Name: FRANKIE CHAIREZ : [address]: Edwardo Lozoya NP Acct: [id number] Unit: [id number] AGE: 41 Location: [facility] Re02/16/17 SEX: F Status: REG REF SPEC: [id number] LINO: 02/16/17-[address] [facility] [address]: Edwardo Lozoya NP REQ: [id number] RECD: 02/16/17 STATUS: COMP _ SOURCE: THROAT SPDESC: ORDERED: Throat Culture COMMENTS: [id number] Procedure Result Reported Site Throat Culture Final 02/18/17- 1142 ML Organism 1 NORMAL REYNA Quantity 3+ Throat cultures are clinically indicated to detect the presence of group A strep, arcanobacterium and yeast. In certain cases, predominating organisms will be reported. * ML - MAIN LAB (PSC1) . END OF REPORT * ML=Testing performed at Main Lab DEPARTMENT OF PATHOLOGY, [address] [place] [address] Kelvin Alejandre M.D. Director [facility] # [id number] 2 REFERENCE VALUE Cutoff: 500 3 REFERENCE VALUE Cutoff: 200 4 REFERENCE VALUE Cutoff: 100 5 REFERENCE VALUE Cutoff: 150 6 ADDITIONAL INFORMATION This report is intended for use in clinical monitoring or management of patients. It is not intended for use in employment-related testing. 7 REFERENCE VALUE Cutoff: 200 mg/L 8 Tylenol 3 9 Metabolite of codeine REFERENCE VALUE Cutoff: 100 10 Gisel Sloan, Contin; Also a minor metabolite (10%) of codeine and can be seen in low concentrations (<2,000 ng/mL) with poppy seed ingestion. 11 Metabolite of morphine REFERENCE VALUE Cutoff: 100 12 Metabolite of heroin 13 Lortab, [place], Vicodin; Also a very minor metabolite of codeine and impurity (<1%) of oxycodone. 14 Metabolite of hydrocodone 15 Metabolite of hydrocodone 16 Dilaudid, Exalgo; Also a metabolite of hydrocodone and a minor (<5%) metabolite of morphine. 17 Metabolite of hydromorphone REFERENCE VALUE Cutoff: 100 18 Endocet, Percocet, Oxycontin 19 Metabolite of oxycodone 20 Numorphan, Opana; Also a metabolite of oxycodone. 21 Metabolite of oxymorphone REFERENCE VALUE Cutoff: 100 22 Metabolite of oxymorphone 23 Actiq, Duragesic, Fent[place] 24 Metabolite of fentanyl 25 Demerol 26 Metabolite of meperidine 27 Narcan 28 Metabolite of naloxone REFERENCE VALUE Cutoff: 100 29 Dolophine 30 Metabolite of methadone 31 Darvon, Darvocet 32 Metabolite of propoxyphene 33 Tradol, Ultram, Ultracet 34 Metabolite of tramadol 35 Nucynta 36 Metabolite of tapentadol 37 Metabolite of tapentadol REFERENCE VALUE Cutoff: 100 38 Buprenex, Suboxone 39 Metabolite of buprenorphine 40 Metabolite of buprenorphine 41 Test detected the presence of hydrocodone and its metabolites (norhydrocodone and dihydrocodeine). Suspect use of hydrocodone within the past three days. ADDITIONAL INFORMATION This test was developed and its performance characteristics determined by [facility] in a manner consistent with CLIA requirements. This test has not been cleared or approved by the U.S. Food and Drug Administration. Test Performed by: [facility] - [address] [address] 42 [facility] Severe Sepsis and Septic Shock Management Bundle Measure requires all lactic acids initially measuring >2.0 mmol/L be repeated. 43 Acute inflammation: >10.00 44 <5.0 Negative 5.0 - 25.0 Indeterminate (Repeat testing recommended after 72 hours) >25.0 Positive Perimenopausal women can display HCG levels of up to 20 mIU/mL 45 Because ethnic data is not always readily [...] 15-29 5 Kidney failure <15 (or dialysis) 46 If is still suspected, please repeat test after 48 to 72 hours. This test detects intact HCG only and is indicated for the early detection of . 47 ADDITIONAL INFORMATION This test has been modified from the nutrition club ambassador's instructions. Its performance characteristics were determined by [facility] in a manner consistent with CLIA requirements. This test has not been cleared or approved by the U.S. Food and Drug Administration. Test Performed by: [facility] [place] [address] Educator Senior Clinical: Zach Molina II, M.D., Ph.D. 48 SEE RESULT BELOW Name: CONTRERASFRANKIE Tabitha : [address]: Errol Acosta NP Acct: [id number] Unit: [id number] AGE: 41 Location: [facility] Re08/02/16 SEX: F Status: REG REF SPEC: [id number] LINO: 08/02/16-[address]: Errol Acosta NP REQ: [id number] RECD: 08/02/16 STATUS: COMP _ SOURCE: VAGINAL SPDESC: ORDERED: Darion,Yeast DNA, Trich DNA Procedure Result Reported Site Gardnerella/Yeast: Vaginal DNA Final 08/03/16- 1257 ML Organism 1 Negative Susy Organism 2 POSITIVE GARDNERELLA The presence of G. vaginalis, although suggestive, is not diagnostic for bacterial vaginosis. Results should be interpreted in conjuction with other clinical and laboratory data available. Women with vaginal discharge should be evaluated for risk factors of cervicitis and pelvic inflammatory disease, toxic shock syndrome (S.aureus), and if present, evaluated for organisms not included in this assay such as N. gonorrhoeae, C. trachomatis, Mobiluncus, Mycoplasma and/or Prevotella. Mixed infections may occur. The performance of this test on patient specimens collected during or immediately after antimicrobial therapy is unknown. The presence or absence of Ssuy species, or G. vaginalis cannot be used as a test for therapeutic success or failure. Trichomonas: Vaginal DNA Probe Final 08/03/16- 1257 ML Organism 1 Negative Trichomonas CONTINUED ON NEXT PAGE * ML=Testing performed at Main Lab DEPARTMENT OF PATHOLOGY, [address] [place] [address] Kelvin Alejandre M.D. Director [facility] # [id number] Patient: FRANKIE CHAIREZ Tabitha [id number] (Continued) Specimen: [id number] Collected: 08/02/16-1409 Received: 08/02/16-1813 (Continued) Procedure Result Reported Site Trichomonas: Vaginal DNA Probe Final (continued) 08/03/16- 1257 The presence or absence of T. vaginalis cannot be used as a test for therapeutic success or failure. * ML - MAIN LAB ([facility]) . END OF REPORT * ML=Testing performed at Main Lab DEPARTMENT OF PATHOLOGY, [address] [place] [address] Kelvin Alejandre M.D. Director [facility] # [id number] 49 Test Performed by: [address] [address] Educator Senior Clinical: Zcah Molina II, M.D., Ph.D. 50 It is recognized that currently available assays for the detection of antibodies to HIV-1 and/or HIV-2 may not detect all infected individuals. HIV antibodies may be undetectable in some stages of the infection and in some clinical conditions. The performance of this assay has not been established for populations of infants or children. Assayed by Chemiluminescence Microparticle Immunoassay on the Siemens Advia Centaur CP. Values obtained with different methods or kits cannot be used interchangeably.The diagnostic specificity of the ADVIA Centaur 1/O/2 Enhanced assay in the low risk population was 99.90% (6052/6058) with a 95% confidence interval of 99.78 to 99.96%. 51 This assay does not differentiate between reactivity due to a vaccine-induced immune response or an immune response induced by infection with HBV. 52 Warning: A positive result is not useful for establishing a diagnosis of syphilis. In most situations, such a result may reflect a prior treated infection; a negative result can exclude a diagnosis of syphilis except for incubating or early primary disease. 53 <5.0 Negative 5.0 - 25.0 Indeterminate (Repeat testing recommended after 72 hours) >25.0 Positive Perimenopausal women can display HCG levels of up to 20 mIU/mL 54 Normally menstruating females - Follicular phase 3 - 9 - Mid-cycle peak 4 - 23 - Luteal phase 1 - 6 Postmenopausal females 16 - 114 55 Normally menstruating females - Follicular Phase 1 - 18 - Mid-Cycle Peak 24 - 105 - Luteal Phase 0.6 - 20 Postmenopausal females 15 - 62 56 TEMP 97.5 TYMPANIC [id number] REFERENCE VALUE Cutoff: 500 58 REFERENCE VALUE Cutoff: 200 59 REFERENCE VALUE Cutoff: 100 60 REFERENCE VALUE Cutoff: 150 61 REFERENCE VALUE Cutoff: 300 62 REFERENCE VALUE Cutoff: 300 63 ADDITIONAL INFORMATION This report is intended for use in clinical monitoring or management of patients. It is not intended for use in employment-related testing. 64 REFERENCE VALUE Cutoff: 100 ADDITIONAL INFORMATION This report is intended for use in clinical monitoring or management of patients. It is not intended for use in employment-related testing. Test Performed by: [place] [address] Educator Senior Clinical: Zach Molina II, M.D., Ph.D. 65 FINAL DIAGNOSIS: Specimen Source: Peripheral blood Flow cytometry immunophenotypic analysis: No evidence of an immunophenotypically abnormal cell population. Interpretative data: Blasts: 0% of gated events Lymphocytes: 30% of gated events B-cells: 9% of lymphocytes; kappa:lambda within normal limits T-cells/NK cells: No aberrant population detected. Markers tested: CD3, CD10, CD16, CD19, CD34, CD45, kappa surface light chains, lambda surface light chains, 7-AAD. Quality Assessment: Acceptable Viability: Acceptable Viable lymphocytes (7-AAD): 100% Specimen received within validated guidelines. A Mora-Giemsa stained slide prepared from the flow cytometry specimen was examined for quality purposes. Electronically signed by: Nery Box MD Technical component performed by: [place] [address] Educator Senior Clinical: Zach Molina II, MD, PhD. 66 SEE RESULT BELOW Name: FRANKIE ARANGO : [address]: Shawna Reyes MD Acct: [id number] Unit: [id number] AGE: 40 Location: [facility] Re01/28/16 SEX: F Status: REG REF SPEC: [id number] LINO: 01/28/16-[address]: Mandeep Reyes MD REQ: [id number] RECD: 01/28/16 STATUS: COMP _ SOURCE: THROAT SPDESC: ORDERED: Throat Culture Procedure Result Reported Site Throat Culture Final 01/30/16- 1053 ML Organism 1 NORMAL REYNA Quantity 2+ Throat cultures are clinically indicated to detect the presence of group A strep, arcanobacterium and yeast. In certain cases, predominating organisms will be reported. * ML - MAIN LAB ([facility]) . END OF REPORT * ML=Testing performed at Main Lab DEPARTMENT OF PATHOLOGY, [address] [place] [address] Kelvin Alejandre M.D. Director [facility] # [id number] 67 Accounting Intern: [id number] NATALY REHMAN 68 Comment: Tube 2 69 Comment: Tube 2 70 Comment: Tube 2 71 SEE RESULT BELOW Name: FRANKIE ARANGO : [address]: Adrianna Nunez MD Acct: [id number] Unit: [id number] AGE: 40 Location: ED Re01/27/16 SEX: F Status: DEP ER SPEC: [id number] LINO: 01/27/[address]: Adrianna Nunez MD REQ: [id number] RECD: 01/27/16 STATUS: DEENA KELLY DR: Mandeep Reyes MD _ SOURCE: CSF SPDESC: ORDERED: CSF Cult/GS COMMENTS: Comment: Tube 3 Procedure Result Reported Site CSF Gram Stain Final 01/28/16- 08 ML No Polys Observed 1+ Nucleated Cells No Organisms Seen Preparation By Cytospin Smear CSF Culture Final 01/31/16- 709 ML No Growth Day 4 * ML - MAIN LAB ([facility]) . END OF REPORT * ML=Testing performed at Main Lab DEPARTMENT OF PATHOLOGY, [address] [place] [address] Kelvin Alejandre M.D. Director [facility] # [id number] 72 No evidence of malignancy or acute inflammatory response. No microorganisms seen. Reviewed by Dr. Alejandre 73 Acute inflammation: >10.00 74 [facility] Severe Sepsis and Septic Shock Management Bundle Measure requires all lactic acids initially measuring >2.0mmol/L be repeated. 75 Because ethnic data is not always readily [...] 15-29 5 Kidney failure <15 (or dialysis) 76 Unable to report test result due to hemolysis. 77 Unable to report test result due to hemolysis. 78 SEE RESULT BELOW Name: FRANKIE CHAIREZ Tabitha : [address]: Errol Acosta NEWS INTERN Acct: [id number] Unit: [id number] AGE: 40 Location: [facility] Re12/26/15 SEX: F Status: REG REF SPEC: [id number] LINO: 12/26/[address] [facility] [address]: Errol Acosta NEWS INTERN REQ: [id number] RECD: 12/26/15 STATUS: SOUT _ ORDERED: IMAGE ANALYSIS, HPV/Thin Prep, HPV 16/18 GENE FINAL DIAGNOSIS Negative for Intraepithelial lesion or Malignancy A. Ectocervical/Endocervical Specimen Adequacy: Satisfactory of evaluation Transformation zone component identified Patient Information: HPV: High risk HPV RNA testing regardless of pap results. HPV 16/18 Genotype for HPV pos Actual Specimen Date: 12/26/15 Last Menstrual Date: 12/07/15 Spec Date if unknown: 2011 ?: N Post Menopausal?: N Hysterectomy?: N Previous Abnormal Pap Smears?:N Date Time Test Result Flag (u) Normal Range 12/26/151039 HPV RNA RFLX GE Negative Negative The high-risk HPV types detected by the assay include: 16, 18, 31, 33, 35, 39, 45, 51, 52, 56, 58, 59, 66, and 68. Signed (signature on file) OTTO Richardson (ASCP) 12/29 4541 This Pap test was evaluated with the assistance of the FormattaPrep Test Imaging System. Due to cytologic findings at the contracts director microscope, comprehensive manual rescreening by a Telegraph Printer Mechanic may be required. The Pap Smear is a screening test designed to aid in the detection of premalignant and malignant conditions of the uterine cervix. It is not a diagnostic procedure and should not be used as the sole means of detecting cervical cancer. Both false- positive and false- negative reports do occur. Depending on your risk status, a Pap smear should be obtained and evaluated every 1-3 years. END OF REPORT * ML=Testing performed at Main Lab DEPARTMENT OF PATHOLOGY, [address] [place] [address] Kelvin Alejandre M.D. Director [facility] # [id number] RUN DATE: 12/29/15 [facility] LAB LIVE PAGE 1 Patient: CONTRERASMILANBeryl Mills [id number] (Continued) 79 SEE RESULT BELOW Name: FRANKIE CHAIREZ Tabitha : [address]: Errol Acosta NEWS INTERN Acct: [id number] Unit: [id number] AGE: 40 Location: [facility] Re12/26/15 SEX: F Status: REG REF SPEC: [id number] LINO: 12/26/15-[address]: Errol Acosta NEWS INTERN REQ: [id number] RECD: 12/26/15-1206 STATUS: COMP _ SOURCE: VAGINAL SPDESC: ORDERED: DarionYeast DNA Procedure Result Reported Site Diamond/Yeast: Vaginal DNA Final 12/27/15- 1248 ML Organism 1 Negative Gardnerella Organism 2 Negative Susy The presence of G. vaginalis, although suggestive, is not diagnostic for bacterial vaginosis. Results should be interpreted in conjuction with other clinical and laboratory data available. Women with vaginal discharge should be evaluated for risk factors of cervicitis and pelvic inflammatory disease, toxic shock syndrome (S.aureus), and if present, evaluated for organisms not included in this assay such as N. gonorrhoeae, C. trachomatis, Mobiluncus, Mycoplasma and/or Prevotella. Mixed infections may occur. The performance of this test on patient specimens collected during or immediately after antimicrobial therapy is unknown. The presence or absence of Susy species, or G. vaginalis cannot be used as a test for therapeutic success or failure. * ML - MAIN LAB ([facility]) . END OF REPORT * ML=Testing performed at Main Lab DEPARTMENT OF PATHOLOGY, [address] [place] [address] Kelvin Alejandre M.D. Director [facility] # [id number] 80 GC/Chlamydia Source?: Thin Prep HPV Source?: Thin Prep Trichomonas Source: Thin Prep 81 The high-risk HPV types detected by the assay include: 16, 18, 31, 33, 35, 39, 45, 51, 52, 56, 58, 59, 66, and 68. 82 SEE RESULT BELOW Name: FRANKIE VICENTE : [address]: Joseph Matta MD Acct: [id number] Unit: [id number] AGE: 40 Location: ED Re12/25/15 SEX: F Status: DEP ER SPEC: [id number] LINO: 12/25/15-[address]: Zach Payan MD REQ: [id number] RECD: 12/25/15-2051 STATUS: COMP ROBIN DR: [facility] Mandeep Reyes MD _ SOURCE: URINE SPDESC: ORDERED: Urine Culture Procedure Result Reported Site Urine Culture Final 12/27/15- 0856 ML No growth of clinically significant organisms * ML - MAIN LAB ([facility]) . END OF REPORT * ML=Testing performed at Main Lab DEPARTMENT OF PATHOLOGY, [address] [place] [address] Kelvin Alejandre M.D. Director [facility] # [id number] 83 Acute inflammation: >10.00 84 <5.0 Negative 5.0 - 25.0 Indeterminate (Repeat testing recommended after 72 hours) >25.0 Positive Perimenopausal women can display HCG levels of up to 20 mIU/mL 85 Because ethnic data is not always readily [...] 15-29 5 Kidney failure <15 (or dialysis) 86 Accounting Intern: [id number] RADHA SCHOFIELD The nutrition club ambassador and regulatory agencies both recommend that a throat culture for beta strep be performed if a Rapid Group A Strep assay yields a negative result. Therefore a culture will be automatically performed on all negative samples. 87 SEE RESULT BELOW Name: FRANKIE VICENTE : [address]: Jacrlos Vo MD Acct: [id number] Unit: [id number] AGE: 40 Location: [facility] Re11/23/15 SEX: F Status: DEP ER SPEC: [id number] LINO: 11/23/15-[address]: Jcarlos Vo MD REQ: [id number] RECD: 11/24/15-114 STATUS: DEENA KELLY DR: Mandeep Reyes MD _ SOURCE: THROAT SPDESC: ORDERED: Throat Beta Str Procedure Result Reported Site Throat Beta Strep Culture Final 11/26/15- 1017 ML Negative For Group A Beta Streptococcus * ML - MAIN LAB ([facility]) . END OF REPORT * ML=Testing performed at Main Lab DEPARTMENT OF PATHOLOGY, [address] [place] [address] Kelvin Alejander M.D. Director [facility] # [id number] 88 Accounting Intern: [id number] RADHA SCHOFIELD The nutrition club ambassador and regulatory agencies both recommend that a throat culture for beta strep be performed if a Rapid Group A Strep assay yields a negative result. Therefore a culture will be automatically performed on all negative samples. 89 Reference Range and Interpretation: TnI (ng/mL) Interpretation Less Than 0.03 ng/mL Not supportive of diagnosis of [place] 0.03 - 0.50 ng/mL Indeterminate: suggest serial studies if clinically indicated. Greater than 0.5 ng/mL Consistent with diagnosis of [place] 90 Please note: The following may produce a false positive D Dimer test: - Rheumatoid factor greater than 60 IU/ml - Plasma hemoglobin greater than 0.05 gm/dl - Bilirubin greater than 50 mg/dl - Lipids greater than 1000 mg/dl - FDP greater than 20 ug/ml 91 Because ethnic data is not always readily [...] 15-29 5 Kidney failure <15 (or dialysis) 92 Unable to report test result due to hemolysis. 93 Unable to report test result due to hemolysis. 94 Because ethnic data is not always readily [...] 15-29 5 Kidney failure <15 (or dialysis) 95 Acute inflammation: >10.00 96 SEE RESULT BELOW Name: FRANKIE VICENTE : [address]: Navneet Fragoso Acct: [id number] Unit: [id number] AGE: 40 Location: ED Re08/02/15 SEX: F Status: DEP ER SPEC: [id number] LINO: 08/02/15-[address]: Alex Bustillos DO REQ: [id number] RECD: 08/02/15-0222 STATUS: DEENA KELLY DR: [facility] Mandeep Reyes MD _ SOURCE: URINE SPDESC: ORDERED: Urine Culture Procedure Result Verified Site Urine Culture Final 08/04/15- 1120 ML No Growth Day 2 (<1,000 CFU/mL) * ML - MAIN LAB ([facility]) . END OF REPORT * ML=Testing performed at Main Lab DEPARTMENT OF PATHOLOGY, [address] [place] [address] Kelvin Alejandre M.D. Director [facility] # [id number] 97 SEE RESULT BELOW Name: FRANKIE VICENTE : [address]: Errol Acosta NP Acct: [id number] Unit: [id number] AGE: 40 Location: [facility] Re07/30/15 SEX: F Status: REG REF SPEC: [id number] LINO: 07/30/15-[address] [facility] [address]: Errol Acosta NEWS INTERN REQ: [id number] RECD: 07/30/15 STATUS: COMP _ SOURCE: VAGINAL SPDESC: ORDERED: Darion,Yeast DNA Procedure Result Verified Site Gardnerella/Yeast: Vaginal DNA Final 07/31/15- 1151 ML Organism 1 Negative Gardnerella Organism 2 Negative Susy The presence of G. vaginalis, although suggestive, is not diagnostic for bacterial vaginosis. Results should be interpreted in conjuction with other clinical and laboratory data available. Women with vaginal discharge should be evaluated for risk factors of cervicitis and pelvic inflammatory disease, toxic shock syndrome (S.aureus), and if present, evaluated for organisms not included in this assay such as N. gonorrhoeae, C. trachomatis, Mobiluncus, Mycoplasma and/or Prevotella. Mixed infections may occur. The performance of this test on patient specimens collected during or immediately after antimicrobial therapy is unknown. The presence or absence of Susy species, or G. vaginalis cannot be used as a test for therapeutic success or failure. * ML - MAIN LAB ([facility]) . END OF REPORT * ML=Testing performed at Main Lab DEPARTMENT OF PATHOLOGY, [address] [place] [address] Kelvin Alejandre M.D. Director [facility] # [id number] 98 GC/Chlamydia Source?: Endocervical Trichomonas Source: Endocervical 99 SEE RESULT BELOW Name: FRANKIE VICENTE : [address]: Errol Acosta NP Acct: [id number] Unit: [id number] AGE: 40 Location: [facility] Re07/30/15 SEX: F Status: REG REF SPEC: [id number] LINO: 07/30/15-[address] [facility] [address]: Errol Acosta NEWS INTERN REQ: [id number] RECD: 07/30/15-1800 STATUS: COMP _ SOURCE: CERVIX SPDESC: ORDERED: Genital Culture Procedure Result Verified Site Genital Culture Final 08/01/15- 1401 ML Organism 1 NORMAL REYNA Quantity 3+ * ML - [facility] ([facility]) . END OF REPORT * ML=Testing performed at Main Lab DEPARTMENT OF PATHOLOGY, [address] [place] [address] Kelvin Alejandre M.D. Director [facility] # [id number] 10 Female urine specimens have been self-validated by [address] [facility] and have been granted conditional assay approval by [facility]. 10 Acute inflammation: >10.00 1 10 Because ethnic data is not always readily available, 2 this report includes an eGFR for both [...] 5 Kidney failure <15 (or dialysis) 10 RUN DATE: 12/04/14 [facility] LAB LIVE PAGE 1 3 RUN TIME: 1029 [address] [place], [place] [address] Specimen Inquiry Name: FRANKIE VICENTE : [address]: Alex Bustillos DO Acct: [id number] Unit: [id number] AGE: 39 Location: ED Re12/01/14 SEX: F Status: DEP ER SPEC: [id number] LINO: 12/01/[address]: Navneet Diaz DO REQ: [id number] RECD: 12/01/14 STATUS: COMP ROBIN DR: [facility] Mandeep Reyes MD _ SOURCE: URINE SPDESC: ORDERED: Urine Culture Procedure Result Verified Site Urine Culture Final 12/04/14- 1029 ML Organism 1 ESCHERICHIA COLI Hamilton Count 75-100,000 (Many) CFU/ML 1. ESCHERICHIA COLI M.I.C. RX --------- ------ Ampicillin <=2 S Cefazolin <=4 S Cefepime <=1 S Ceftriaxone <=1 S Ciprofloxacin >=4 R Gentamicin <=1 S Levofloxacin >=8 R Meropenem <=0.25 S Nitrofurantoin <=16 S Tetracycline <=1 S Pipercillin/Tazobactam <=4 S Trimethoprim/Sulfamethoxazole <=20 S Amoxicillin/Clavulanic Acid <=2 S Aztreonam <=1 S Contact the Microbiology Department for any additional antibiotic reporting. END OF REPORT * ML=Testing performed at Main Lab DEPARTMENT OF PATHOLOGY, [address] [place] [address] Klevin Alejandre M.D. Director [facility] # [id number] 10 Female urine specimens have been self-validated by [address] [facility] and have been granted conditional assay approval by [facility]. 10 RUN DATE: 11/15/14 [facility] LAB LIVE PAGE 1 5 RUN TIME: [address] [place] [address] Specimen Inquiry Name: FRANKEI ARANGO : [address]: Napoleon Saeed NP Acct: [id number] Unit: [id number] AGE: 39 Location: [facility] Re11/13/14 SEX: F Status: REG REF SPEC: [id number] LINO: 11/13/14-[address] [facility] [address]: Napoleon Saeed NP REQ: [id number] RECD: 11/13/14-1623 STATUS: COMP _ SOURCE: VAGINAL SPDESC: ORDERED: DarionYeast DNA QUERIES: Medent Number [id number] Procedure Result Verified Site Gardnerella/Yeast: Vaginal DNA Final 11/15/14- 1425 ML Organism 1 Negative Gardnerella Organism 2 Negative Susy The presence of G. vaginalis, although suggestive, is not diagnostic for bacterial vaginosis. Results should be interpreted in conjuction with other clinical and laboratory data available. Women with vaginal discharge should be evaluated for risk factors of cervicitis and pelvic inflammatory disease, toxic shock syndrome (S.aureus), and if present, evaluated for organisms not included in this assay such as N. gonorrhoeae, C. trachomatis, Mobiluncus, Mycoplasma and/or Prevotella. Mixed infections may occur. The performance of this test on patient specimens collected during or immediately after antimicrobial therapy is unknown. The presence or absence of Susy species, or G. vaginalis cannot be used as a test for therapeutic success or failure. END OF REPORT * ML=Testing performed at Main Lab DEPARTMENT OF PATHOLOGY, [address] [place] [address] Kelvin Alejandre M.D. Director [facility] # [id number] 10 Endocervical 6 Endocervical 10 Potassium reference range changed effective 09/22/14 7 10 Because ethnic data is not always readily available, 8 this report includes an eGFR for both [...] 5 Kidney failure <15 (or dialysis) 10 RUN DATE: 03/27/14 [facility] LAB LIVE PAGE 1 9 RUN TIME: [address] [place] [address] Specimen Inquiry Name: FRANKIE VICENTE : [address]: Mamadou Killian MD Acct: [id number] Unit: [id number] AGE: 39 Location: [facility] Re03/24/14 SEX: F Status: DEP ER SPEC: [id number] LINO: 03/24/14-[address]: Mamadou Killian MD REQ: [id number] RECD: 03/25/146747 STATUS: DEENA KELLY DR: Mandeep Reyes MD _ SOURCE: URINE SPDESC: ORDERED: Urine Culture Procedure Result Verified Site Urine Culture Final 03/27/14- 926 ML Organism 1 PROTEUS MIRABILIS/PENNERI Hamilton Count >100,000 (Many) CFU/ML 1. PROTEUS MIRABILIS/PENNERI M.I.C. RX --------- ------ Ampicillin <=2 S Cefazolin <=4 S Cefepime <=1 S Ceftriaxone <=1 S Ciprofloxacin <=0.25 S Gentamicin <=1 S Levofloxacin <=0.12 S Meropenem <=0.25 S Nitrofurantoin 128 R Tetracycline >=16 R Pipercillin/Tazobactam <=4 S Trimethoprim/Sulfamethoxazole <=20 S Amoxicillin/Clavulanic Acid <=2 S Aztreonam <=1 S Contact the Microbiology Department for any additional antibiotic reporting. END OF REPORT * ML=Testing performed at Main Lab DEPARTMENT OF PATHOLOGY, [address] [place] [address] Kelvin Alejandre M.D. Director [facility] # [id number] 11 This test detects intact HCG only and is indicated for the 0 early detection of . 11 Normal Range 180 to 914 1 Indeterminate Range 145 to 180 Deficient Range <145 11 CBC and smear reviewed.Microcytic anemia noted 2 REVIEWED BY KELVIN ALEJANDRE MD 11 Because ethnic data is not always readily available, 3 this report includes an eGFR for both [...] 15-29 5 Kidney failure <15 (or dialysis) 11 >100 to <200 pg/mL: likely compensated congestive heart 4 failure (CHF) 200 to 400 pg/mL: likely moderate CHF >400 pg/mL: likely moderate to severe CHF [place] [facility] 11 Because ethnic data is not always readily available, 5 this report includes an eGFR for both [...] 15-29 5 Kidney failure <15 (or dialysis) 11 Low risk: <1.0 mg/L 6 Average risk: 1.0-3.0 mg/L High risk: >3.0 mg/L Acute inflammation: >10.0 mg/L 11 RUN DATE: 01/01/14 [facility] LAB LIVE PAGE 1 7 RUN TIME: [address] [place] [address] Specimen Inquiry Name: FRANKIE VICENTE : [address]: Fran Green MD Acct: [id number] Unit: [id number] AGE: 38 Location: ED Re12/29/13 SEX: F Status: DEP ER SPEC: [id number] LINO: 12/30/[address] [facility] [address]: Adrianna Nunez MD REQ: [id number] RECD: 12/30/13 STATUS: DEENA KELLY DR: Mandeep Garcia Jr, MD _ SOURCE: URINE SPDESC: ORDERED: Urine Culture Procedure Result Verified Site Urine Culture Final 01/01/14- 0943 ML Organism 1 NORMAL REYNA Hamilton Count >100,000 (Many) CFU/ML END OF REPORT * ML=Testing performed at Main Lab DEPARTMENT OF PATHOLOGY, [facility] [employer] [place] [address] Kelvin Alejandre M.D. Director [facility] Permit #[id number] 11 Comment: Tube 2 8 11 Verbal to [id number] by [id number] at 0042 on 12/30/13. 9 Results read back accurately. 12 RUN DATE: 01/03/14 [facility] LAB LIVE PAGE 1 0 RUN TIME: [address] [place] [address] Specimen Inquiry Name: FRANKIE VICENTE Tabitha : [address]: Fran Green MD Acct: [id number] Unit: [id number] AGE: 38 Location: ED Re12/29/13 SEX: F Status: DEP ER SPEC: [id number] LINO: 12/30/13-[address] [facility] [address]: Adrianna Nunez MD REQ: [id number] RECD: 12/30/13 STATUS: COMP OTHR DR: Mandeep Garcia Jr, MD _ SOURCE: CSF SPDESC: ORDERED: CSF Cult/GS COMMENTS: Comment: Tube [address] WING [phone] FAX [phone] Procedure Result Verified Site CSF Gram Stain Final 12/30/13- 0716 ML 4+ Polys 1+ Nucleated Cells No Organisms Seen Preparation By Cytospin Smear CSF Culture Final 01/03/14- 1006 ML No Growth Day 4 END OF REPORT * ML=Testing performed at Main Lab DEPARTMENT OF PATHOLOGY, [facility] [employer] [place], [place] [address] Kelvin Alejandre M.D. Director [facility] Permit #[id number] 12 Acute inflammation. Recommend correlation with microbiology 1 culture studies. Reviewed by Nery Box MD 12 Because ethnic data is not always readily available, 2 this report includes an eGFR for both [...] 5 Kidney failure <15 (or dialysis) 12 RUN DATE: 01/03/14 [facility] LAB LIVE PAGE 1 3 RUN TIME: [address] [place] [address] Specimen Inquiry Name: FRANKIE VICENTE : [address]: Fran Green MD Acct: [id number] Unit: [id number] AGE: 38 Location: ED Re12/29/13 SEX: F Status: DEP ER SPEC: [id number] LINO: 12/29/[address] [facility] [address]: Adrianna Nunez MD REQ: [id number] RECD: 12/29/13 STATUS: DEENA KELLY DR: Mandeep Garcia Jr, MD _ SOURCE: BLOOD,VENO SPDES: ORDERED: Blood Cult Procedure Result Verified Site Aerobic Culture Bottle Final 01/03/14- 2317 ML No Growth Day 5 Anaerobic Culture Bottle Final 01/03/14- 2317 ML No Growth Day 5 END OF REPORT * ML=Testing performed at Main Lab DEPARTMENT OF PATHOLOGY, [address] [place] [address] Kelvin Alejandre M.D. Director [facility] Permit #[id number] 12 Leukocytosis with absolute neutrophilia and left shift, 4 favor reactive. Reviewed by Nery Box MD 12 Microalbuminuria in a random sample is defined as: 5 Microalbumin/Creatinine ratio of 30-299 ug/mg. 12 Microalbumin concentrations classify patients as: 6 Normal: less than 30 mg/24hrs Microalbuminuria: 30-300 mg/24hrs Clinical Albuminuria: greater than 300 mg/24hrs The [employer] position statement on Diabetic nephropathy states that Microalbuminuria is present if urinary Albumin excretion exceeds 30 mg/24hrs (20 mcg/min). The threshold for clinical Albuminuria is reached at 300 mg/24hrs (200 mcg/min). The classification of a patient should be based upon at least 2 of 3 abnormal results on specimens collected within a 3 to 6 month time frame. Reference: [employer], position statement, Diabetic Nephropathy, Diabetes Care, 20, supplement 1, s24-s27, 1996. 12 HDL Interpretation: 7 Undesirable: High Risk: Less than 40 mg/dL Desirable: Low Risk: Greater than 60 mg/dL 12 LDL Interpretation: 8 Low Risk Optimal Level: LDL Less than 100 mg/dL Near or Above Optimal: LDL 100-129 mg/dL Borderline High Risk: LDL 130-159 mg/dL High Risk: LDL 160-189 mg/dL Very High Risk: LDL Greater than 189 mg/dL 12 FASTING 9 13 If is still suspected, please repeat test after 0 48 to 72 hours. This test detects intact HCG only and is indicated for the early detection of . 13 RUN DATE: 03/14/13 [facility] LAB LIVE PAGE 1 1 RUN TIME: 7[address] [place], [place] [address] Specimen Inquiry Name: FRANKIE ARANGO: [address]: Mario Dickinson MD Acct: [id number] Unit: [id number] AGE: 38 Location: [facility] Re03/12/13 SEX: F Status: REG REF SPEC: [id number] LINO: 03/12/[address]: Mario Dickinson MD REQ: [id number] RECD: 03/12/13 STATUS: DEENA KELLY DR: Mandeep Reyes MD _ SOURCE: VAG/REC SPDESC: ORDERED: Grp B Strp Scrn Procedure Result Verified Site Group B Strep Culture Screen Final 03/14/13- 1141 ML Group B Strep Screen Negative END OF REPORT * ML=Testing performed at Main Lab DEPARTMENT OF PATHOLOGY, [facility] [employer] [place], [place] [address] Kelvin Alejandre M.D. Director [facility] Permit #[id number] 13 RUN DATE: 03/15/13 [facility] LAB LIVE PAGE 1 2 RUN TIME: 08 [facility] [employer] [place], [place] [address] Specimen Inquiry Name: FRANKIE ARANGO : [address]: Mario Dickinson MD Acct: [id number] Unit: [id number] AGE: 38 Location: [facility] Re03/12/13 SEX: F Status: REG REF SPEC: [id number] LINO: 03/12/[address] [facility] [address]: Mario Dickinson MD REQ: [id number] RECD: 03/12/13 STATUS: DEENA KELLY DR: Mandeep Reyes MD _ SOURCE: URINE SPDESC: ORDERED: Urine Culture Procedure Result Verified Site Urine Culture Final 03/15/13- 0846 ML Organism 1 NORMAL REYNA Hamilton Count 25-50,000 (Moderate) CFU/ML END OF REPORT * ML=Testing performed at Main Lab DEPARTMENT OF PATHOLOGY, [facility] [employer] [place], [place] [address] Kelvin Alejandre M.D. Director [facility] Permit #[id number] 13 2+ (>10-30 /hpf) 3 13 RUN DATE: 02/24/13 [facility] LAB LIVE PAGE 1 4 RUN TIME: 1017 [facility] [employer] [place], [place] [address] Specimen Inquiry Name: FRANKIE ARANGO : [address]: Naomy Khan Acct: [id number] Unit: [id number] AGE: 38 Location: [facility] Re02/22/13 SEX: F Status: DEP REF SPEC: [id number] LINO: 02/22/[address]: Naomy Khan MD REQ: [id number] RECD: 02/22/13 STATUS: DEENA KELLY DR: Roxanne Demarco , [employer] _ SOURCE: URINE SPDESC: ORDERED: Urine Culture Procedure Result Verified Site Urine Culture Final 02/24/13- 1017 ML Organism 1 NORMAL REYNA Hamilton Count >100,000 (Many) CFU/ML END OF REPORT * ML=Testing performed at Main Lab DEPARTMENT OF PATHOLOGY, [address] [place] [address] Kelvin Alejandre M.D. Director [facility] Permit #[id number] 13 Because ethnic data is not always readily available, 5 this report includes an eGFR for both [...] 5 Kidney failure <15 (or dialysis) 13 Reference Range and Interpretation: 6 TnI (ng/ml) Interpretation Less Than 0.06 ng/mL Not supportive of diagnosis of [place] 0.06 - 0.50 ng/ml Indeterminate: suggest serial studies if clinically indicated. Greater than 0.5 ng/mL Consistent with diagnosis of [place] 13 No Membrane Rupture 7 13 Hemoglobin Interpretation: 8 % Cells Volume of Maternal Hemorrhage 0.0 - 0.0045 Up to 15 ml 0.0046 - 0.0090 15 - 30 ml 0.0091 - 0.0135 30 - 45 ml 0.0136 - 0.0180 45 - 60 ml 0.0181 - 0.0225 60 - 75 ml 13 Because ethnic data is not always readily available, 9 this report includes an eGFR for both [...] 5 Kidney failure <15 (or dialysis) 14 RUN DATE: 08/31/12 [facility] LAB LIVE PAGE 1 0 RUN TIME: [address] [place] [address] Specimen Inquiry Name: FRANKIE ARANGO : [address]: Tori Arango NP Acct: [id number] Unit: [id number] AGE: 37 Location: [facility] Re08/29/12 SEX: F Status: REG REF SPEC: [id number] LINO: 08/29/[address]: Tori Arango NP REQ: [id number] RECD: 08/29/12 STATUS: COMP _ SOURCE: THROAT SPDESC: ORDERED: Throat Beta Str QUERIES: Medent Number [id number] Procedure Result Verified Site Throat Beta Strep Culture Final 08/31/12- 825 ML Negative For Group A Beta Streptococcus END OF REPORT * ML=Testing performed at Main Lab DEPARTMENT OF PATHOLOGY, [address] [place] [address] Kelvin Alejandre M.D. Director [facility] Permit #[id number] 14 ---- 1 RUN DATE: 08/08/12 [facility] NMI LIVE PAGE 1 RUN TIME: 828 Specimen Inquiry RUN USER: INTERFACE -- [id number] Status: REG REF Re08/02/12 Age/Sex: 37/F Unit#: [id number] Location: [facility]. : [birth year] -- Specimen: [id number] [id number] Spec Date:08/02/12-1503 [facility] Dr: Roxanne bender NP Spec Type: CYTOLOGY Received:08/03/12 Copies to: SOURCE ECTOCERVICAL/ENDOCERVICAL Thin Prep with Reflex HPV Test PATIENT INFORMATION ACTUAL COLLECTION DATE: 08/02/12 ? Yes POST MENOPAUSAL? No HYSTERECTOMY? No PREVIOUS ABNORMAL PAP SMEARS No LAST MENSTRUAL PERIOD: 07/06/12 ADEQUACY OF SPECIMEN Satisfactory for evaluation * Transformation zone component identified * DIAGNOSIS NEGATIVE FOR INTRAEPITHELIAL LESION OR MALIGNANCY * NOTE Specimen sent to [facility] in [place], [place] on 08/03/12 by STEVE at 1113. Results will be reported separately in an addendum. ADDENDUM Addendum #1 Entered: 08/08/12 Donal Human Papilloma Virus test results received with preparation and diagnosis completed by [facility], [place], [place]. Results: NEGATIVE High Risk (for types 16, 18, 31, 33, 35, 39, 45, 51, 52, 56, 58, 59, 68) This test was developed and its performance characteristics determined by Laboratory Medicine and Pathology, [facility], [place], [place]. It has not -- DEPARTMENT OF PATHOLOGY, [address] [place] [address] [facility] Permit #[id number] Isabela He M.D. Reporting Coordinator Dir raymond -- -- RUN DATE: 08/08/12 [facility] NMI LIVE PAGE 2 RUN TIME: 828 Specimen Inquiry RUN USER: INTERFACE -- Name: FRANKIE ARANGO Status: REG REF Re08/02/12 Age/Sex: 37/F Unit#: [id number] Location: [facility] : [birth year] -- -- CONTINUED -- ADDENDUM (Continued) been cleared or approved by the U.S. Food and Drug Administration. Test Performed by: [facility] Dpt of lab Med and Pathology [address] [place] [address] Educator Senior Clinical: Thomas Luke III, M.D. Original hard copy report from [facility] [employer] is available upon request by calling Pathology at [phone]. Addendum Review Kirk FALK(ASCP) 08/08/12 -- This Pap test was evaluated with the assistance of the ThinPrep Pap Test Imaging System. The Pap Smear is a screening test designed to aid in the detection of premalign ant and malignant conditions of the uterine cervix. It is not a diagnostic procedure a nd should not be used as the sole means of detecting cervical cancer. Both false- positiv e and false-negative reports do occur. Depending on your risk status, a Pap smear charan uld be obtained and evaluated every one to three years. Initial evaluation performed by Kirk FALK([facility]) 08/03/12 Final Interpretation electronically signed by: Kirk FALK([facility]) 08/03/12 1220 -- -- DEPARTMENT OF PATHOLOGY, [address] [place] [address] [facility] Permit #[id number] Kelvin Alejandre M.D. Director Alec Aldrich M.D. Reporting Coordinator raymond -- 14 -- REFERENCE VALUE -- 2 25-HYDROXY D TOTAL (D2+D3) Optimum levels in the normal population are 25-80 Test Performed by: [address] [address] Educator Senior Clinical: Thomas Luke III, M.D. 14 Anion gap measurement may be of limited value in the 3 presence of any alkalosis, especially in a combined acid base disorder. . 14 A metabolite of Naproxen, O-desmethylnaproxen, has been 4 shown to interfere with the Jendrassik-Enrrique method for measuring total bilirubin. Samples from patients who have taken Naproxen have shown spurious elevation in total bilirubin levels. 14 Because ethnic data is not always readily available, 5 this report includes an eGFR for both [...] 5 Kidney failure <15 (or dialysis) 14 * 6 MALES: < 5.0 MIU/ML NON FEMALES < 5.0 MIU/ML APPROX GESTATIONAL AGE APPROX HCG RANGE 0-1 WEEK < 5.0-50 1-2 WEEKS 50-500 2-3 WEEKS 100-5000 3-4 WEEKS 500-10,000 1-2 MONTHS 10,000-200,000 2-3 MONTHS 15,000-100,000 PLEASE NOTE: The intended use of this assay is the quantitative determination of HCG in human serum or plasma for the early detection of . These assays should not be used to diagnose any condition unrelated to . If an HCG level is inconsistent with, or unsupported by, clinical evidence, results should be confirmed by an alternate HCG method. . Procedures Date Code Description Status 08/17/2018 77496 Nerve Conduction 05-06 Studies Completed 08/17/2018 52994 Needle Electromyography Complete, Five Or More Muscles Completed Studied 07/20/2018 89929 ECG Monitor/Recording W/Visual Superimposition Scanning Completed 04/15/2017 69811 Nerve Conduction 03-04 Studies Completed 04/15/2017 65207 Needle Electromyography Complete, Five Or More Muscles Completed Studied 04/02/2016 57112 EKG Tracing & Interpretation Completed 04/23/2014 41232 ECG Monitor/Recording W/Visual Superimposition Scanning Completed 04/23/2014 57956 Holter Monitoring 24 HR New Completed 02/14/2014 05246 EKG Tracing & Interpretation Completed Encounters Type Date Location Provider Dx Diagnosis Office Visit 12/14/2017 [facility] Volodymyr LindquistLeena G43.009 Migraine w/o aura, 8:30a [facility] Shani Edgar M.D. not intractable, w/o status migrainosus M50.10 Cervical disc disorder w radiculopathy, unsp cervical region M24.542 Contracture, left hand Office Visit 10/05/2017 [facility] Jenny M24.542 Contracture, left 9:15a Services [facility]a Cox hand C.M.A. Office Visit 09/07/2017 [facility] Jenny M50.10 Cervical disc 9:00a [facility] Cox disorder w C.M.A. radiculopathy, unsp cervical region M24.542 Contracture, left hand Office Visit 08/23/2017 [facility] Jcarlos Fregoso M50.10 Cervical disc 11:00a Neurologic Isabela Edgar disorder w [facility] radiculopathy, unsp cervical region M24.542 Contracture, left hand Office Visit 04/26/2017 [facility] Internal Mandeep Bernabe M50.10 Cervical disc 2:00p Yoni Reyes M.D.,FACP disorder w [place] radiculopathy, unsp cervical region Office Visit 04/05/2017 [facility] Internal Mandeep Bernabe M50.10 Cervical disc 9:50a Yoni Reyes M.D.,FACP disorder w [place] radiculopathy, unsp cervical region Office Visit 04/01/2017 [facility] Internal Edwardo Lozoya NP J06.9 Acute upper 2:20p Medicine - respiratory [place] infection, unspecified I10 Essential (primary) hypertension Office Visit 03/24/2017 4:00p [facility] Internal Edwardo Lozoya F33.1 Major depressive Medicine - [employer] disorder, [place] recurrent, moderate Office Visit 02/16/2017 2:40p [facility] Internal Edwardo Lozoya J02.9 Acute pharyngitis, Medicine - [employer] unspecified [place] B37.9 Candidiasis, unspecified Office Visit 02/11/2017 11:40a [facility] Internal Medicine Edwardo Lozoya NP M54.2 Cervicalgia - [place] M25.552 Pain in left hip M54.5 Low back pain F33.1 Major depressive disorder, recurrent, moderate Office Visit 09/29/2016 1:40p [facility] Internal Mandeep Bernabe F33.1 Major depressive Medicine Reagan Reyes M.D.,FACP disorder, [address] recurrent, moderate Z31.41 Encounter for fertility testing T50.B95A Adverse effect of other viral vaccines, initial encounter Office Visit 09/24/2016 2:00p [facility] Internal Edwardo Lozoya, H81.10 Benign paroxysmal Medicine - [employer] vertigo, unspecified [place] ear Office Visit 08/02/2016 1:00p [facility] Internal Errol N76.0 Acute vaginitis Medicine - [place] Acosta NP Rd Office Visit 07/06/2016 3:40p [facility] Internal Mandeep Bernabe M51.16 Intervertebral disc Medicine - Amy, zulay w Gayathri Mar,FACP radiculopathy, lumbar region Z11.4 Encounter for screening for human immunodeficiency virus Z11.3 Encntr screen for infections w sexl mode of transmiss K21.9 Gastro-esophageal reflux disease without esophagitis D25.1 Intramural leiomyoma of uterus Office Visit 06/29/2016 3:30p Orthopedic Dimitry 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 Office Visit 06/09/2016 1:00p [facility] Internal Errol Acosta, M16.12 Unilateral primary Medicine - [place] [employer] osteoarthritis, Rd left hip Z96.642 Presence of left artificial hip joint M25.552 Pain in left hip Office Visit 06/03/2016 4:20p [facility] Internal Medicine Edwardo Lozoya NP M54.2 Cervicalgia - [place] M54.5 Low back pain Office Visit 05/28/2016 3:00p [facility] Internal Errol Acosta, F41.1 Generalized anxiety Medicine - [employer] disorder [address] Office Visit 04/02/2016 8:40a [facility] Internal Errol Acosta, Z01.818 Encounter for other Medicine - [employer] preprocedural [address] examination G89.29 Other chronic pain 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, unilateral I10 Essential (primary) hypertension Z71.6 Tobacco abuse counseling F41.1 Generalized anxiety disorder D50.9 Iron deficiency anemia, unspecified F32.9 Major depressive disorder, single episode, unspecified M16.12 Unilateral primary osteoarthritis, left hip Office Visit 03/12/2016 3:40p [facility] Internal Errol Acosta, G89.29 Other chronic pain Medicine - [employer] [address] Office Visit 03/03/2016 9:30a [facility] Marisol Bernabe M54.2 Cervicalgia Medicine - [place], [address] M.DLeena,FACP D72.829 Elevated white blood cell count, unspecified 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.,FACP meningitis [address] D72.829 Elevated white blood cell count, unspecified J02.0 Streptococcal pharyngitis Office Visit 01/20/2016 2:40p [facility] Marisol Acosta, J11.1 Flu due to Medicine - [employer] unidentified [address] influenza virus w oth resp manifest M25.552 Pain in left hip Office Visit 01/12/2016 4:00p [facility] Marisol Acosta NP M25.552 Pain in left Medicine - [place] 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 [place] Office Visit 09/17/2015 11:00a [facility] Internal Napoleon Saeed, J06.9 Acute upper Medicine - [employer] respiratory [place] infection, unspecified Office Visit 08/18/2015 11:30a [facility] Internal Napoleon Saeed, Z71.6 Tobacco abuse Medicine - [employer] counseling [place] F17.210 Nicotine dependence, cigarettes, uncomplicated Office Visit 08/13/2015 10:30a [facility] Internal Napoleon Saeed, M54.14 Radiculopathy, Medicine - [employer] thoracic region [place] M54.6 Pain in thoracic spine Office Visit 07/30/2015 2:00p [facility] Internal Medicine - Er[place] Acosta NP 788.[address] 599.0 UTI Urinary Tract Infection Site Not Spec V74.5 Screening Examination Venereal Disease Office Visit 06/25/2015 1:30p [facility] Internal Errol Acosta NP 610.4 Mammary Duct Medicine - [address] 611.0 Inflammatory Disease Breast Office Visit 06/23/2015 1:30p [facility] Internal Napoleon Saeed NP 311 Depressive Medicine - Disorder Not [place] Elsewhere Spec 726.19 Shoulder Disorders Other Spec Office Visit 06/09/2015 10:30a [facility] Internal Napoleon Saeed, 726.19 Shoulder Medicine - [employer] Disorders Other [place] Spec 719.41 Pain Joint Shoulder Region Office Visit 06/04/2015 11:20a [facility] Internal Haresh 466.0 Bronchitis Acute Medicine - Isabela Pedroza [place] Office Visit 01/09/2015 10:40a [facility] Internal Brissa Jean, 465.9 URI Upper Medicine - N.P. Respiratory [place] Infections Acute Unspec Sites Office Visit 11/13/2014 11:00a [facility] Internal Napoleon Saeed, [employer] 300.02 Anxiety Disorder Medicine - Generalized [place] V74.5 Screening Examination Venereal Disease 782.0 Skin Sensation Disturbance Office Visit 11/05/2014 10:30a [facility] Internal Napoleon Saeed, [employer] 311 Depressive Medicine - Disorder Not [place] Elsewhere Spec 723.1 Cervicalgia Office Visit 10/28/2014 4:00p [facility] Internal Napoleon Saeed, 311 Depressive Medicine - [employer] Disorder Not [place] Elsewhere Spec Office Visit 10/09/2014 11:00a [facility] Internal Napoleon Saeed, 780.79 Malaise And Medicine - [employer] Fatigue Other [place] V77.0 Screening Thyroid Disorders V78.1 Screening Deficiency Anemia Other & Unspec Office Visit 09/06/2014 4:00p [facility] Internal Napoleon Saeed, 311 Depressive Medicine - [employer] Disorder Not [place] Elsewhere Spec Office Visit 08/06/2014 3:00p [facility] Internal Errol 300.02 Anxiety Disorder Medicine - [place]ese, [employer] Generalized [place] 311 Depressive Disorder Not Elsewhere Spec Office Visit 07/10/2014 3:00p [facility] Internal Napoleon Saeed, 300.02 Anxiety Disorder Medicine - [employer] Generalized [place] Office Visit 04/25/2014 9:00a [facility] Internal Tori 783.1 Weight Gain Medicine - [place], Abnormal [place] N.P. Office Visit 02/14/2014 3:00p [facility] Internal Tori 787.01 Nausea W/ Vomiting Medicine - [place], [place] N.P. 786.50 Pain Chest Unspec 272.2 Hyperlipidemia Mixed Office Visit 01/10/2014 3:40p [facility] Internal Nurse Visit V58.81 Fitting & Medicine - [place] Adjustment [place] Vascular Catheter Encounter Office Visit 01/09/2014 3:20p [facility] Internal Selvin Pruett 784.0 Headache Yoni Herrera M.D. [place] Office Visit 12/07/2013 4:30p [facility] Internal Tori V65.49 Counseling Other Medicine - [place], Spec [place] N.P. 593.9 Kidney & Ureter Disorders Unspec 272.4 Hyperlipidemia Other Unspec Office Visit 11/01/2013 [facility] Internal Tori [place], 722.81 Postlaminectomy 10:30a Medicine - N.P. Syndrome Cervical [place] Region 311 Depressive Disorder Not Elsewhere Spec V77.91 Screening For Lipoid Disorders V77.1 Screening Diabetes Mellitus 611.9 Breast Disorders Unspec V65.49 Counseling Other Spec V70.0 Examination General Medical Routine AT Health Care Facility Office Visit 09/06/2013 [facility] Internal Tori Arango, 722.81 Postlaminectomy 11:00a Medicine - N.P. Syndrome Cervical [place] Region 311 Depressive Disorder Not Elsewhere Spec 278.00 Obesity Unspec 790.21 Impaired Fasting Glucose V04.81 Need For Prophylactic Vaccination & Inoculation/Influenza Office Visit 08/02/2013 4:00p [facility] Tori Arango, 311 Depressive Medicine - N.P. Disorder Not [place] Elsewhere Spec 380.4 Impacted Cerumen 382.9 Otitis Media Unspec Office Visit 07/16/2013 [facility] Mandeep Bernabe 722.81 Postlaminectomy 11:30a Yoni Reyes M.D.,FACP Syndrome Cervical [place] Office Visit 04/27/2013 [facility] Toritabitha Arango, 722.81 Postlaminectomy 4:00p Medicine - N.P. Syndrome Cervical [place] 611.9 Breast Disorders Unspec 311 Depressive Disorder Not Elsewhere Spec Office 10/25/2012 [facility] Roxanne 722.81 Postlaminectomy Visit 11:00a Yoni Demarco, Syndrome Cervical [place] N.P. 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 Examination Or [place] Test Positive Result 486 Pneumonia Organism Unspec Office Visit 09/01/2012 8:34a [facility] Nurse Visit 380.4 Impacted Cerumen Medicine - [place] Office Visit 08/30/2012 10:00a [facility] Roxanne V70.0 Examination Medicine - [facility] [place] n, N.P. Routine [facility] V74.1 Screening Examination Pulmonary Tuberculosis V72.42 Examination Or Test Positive Result Office Visit 08/29/2012 4:30p [facility] Toritabitha Arango, 462 Pharyngitis Acute Medicine - N.P. [place] 461.1 Sinusitis Acute Frontal 380.4 Impacted Cerumen Office Visit 08/02/2012 [facility] Roxanne V70.9 Examination 1:30p Yoni Demarco N[facility] Unspec 722.81 Postlaminectomy Syndrome Cervical Region V72.42 Examination Or Test Positive Result 278.00 Obesity Unspec 311 Depressive Disorder Not Elsewhere Spec V72.31 Routine [employer]her Examination V04.81 Need For Prophylactic Vaccination & Inoculation/Influenza Plan of Treatment 01/08/2019 - AURELIO Rosa-CM24.542 Contracture, left handM50.10 Cervical disc disorder w radiculopathy, unsp cervical regionNew Xrays:SP Cervical 2-3 VWS , Ordered: 01/08/19SP Cerv Comp/Obl, Flex, Ext, Ordered: 01/08/19CT Spine Cervical W/O, Ordered: 01/08/19MRI Cervical Spine Wo, Ordered: 01/08/19
--- OUTSIDE RECORDS SUMMARY | 2019-01-16 17:10 | XMS REPORT | Continuity of Care Document ---
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 dependence, Isabela Hillman uncomplicated F14.10 Cocaine abuse, uncomplicated Office Visit [...] F17.210 Nicotine dependence, cigarettes, uncomplicated Z79.899 Other manager intermediate (current) drug therapy Office Visit 08/24/2018 9:20a Main Office Evelia Rollins L03.115 Cellulitis of P.A. 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, not intractable Z79.899 Other manager intermediate (current) drug therapy Z03.6 Encntr for obs [...] Anemia, unspecified Plan of Treatment Future Appointment(s):12/19/2018 2:00 pm - Natalie Sanders at [id number] 9:20 am - Natalie Sanders at [facility] [id number]/27/2018 - Natalie SandersF11.20 Opioid dependence, uncomplicatedComments:Long discussed about need for counseling, but also for daily or near daiily support to stay off of narcotics and away from other addicting drugs.Long discussion of what AA/NA might be able to do for her, and what to expect in meetings.(Many fewer NA meetings.)Follow up:Type in [address] [place] [facility] Alcoholics Anonymous is a fellowship of men and women who share their experience , strength and hope with each other that they may solve their common problem and help others to recover from alcoholism. The only requirement for membership is a desire tostop drinking. There are no dues or fees for AA membership; we are self-supporting through our own contributions. AA is not allied with any sect, denomination, politics, organization or institution; does not wish to engage in any controversy, neither endorses nor opposes any causes. Our primary purpose is to stay sober and help other alcoholics to achieve sobriety. Click here for information about other area meetings. AA Hotline: [phone] AA meetings at [facility] are as follows: TuesdayEarly BirdSpecial (M)7:00 to 8:00 am (M) =Main Floor (2)=Second Floor (B)=BasementAll meetings on all floors are handicap accessible. Elevator is located just inside the rear entrance of the building. Tuesday [place] [facility] (M) 9:00 to 10:00 am [facility] (M ) 11:00am to noon Attitude Adjustment Hour (M) 5:30 to 6:30 pm 12&12 (B) 8: 00 to 9:00 pm Tuesday [facility] (M) 7:00 to 8:00 am [place] [facility] ( M) 9:00 to 10:00 am Noon [employer] (M) noon to 1:00 pm One Day at a Time (B ) 4:30 to 5:30 pm Attitude Adjustment Hour (M) 5:30 to 6:30 pm Tuesday [facility] (M) 7:00 to 8:00 am [place] [facility] (M) 9:00 to 10:00 am [employer] (M) noon to 1:00 pm One Day at a Time (B) 4:30 to 5:30 pm Attitude Adjustment Hour (M) 5:30 to 6:30 pm Step (2 ?? Room 1) 8:00 to 9:00 pm Tuesday [facility] (M) 7:00 to 8:00 am [place] [facility] (M) 9:00 to 10:00 am [employer] (M) noon to 1:00 pm Double Winners (2) 1:15 to 2:15 pm One Day at a Time (B) 4:30 to 5:30 pm Attitude Adjustment Hour (M) 5:30 to 6:30 pm [facility] (M) 7:00 to 8:00 am [place] [facility] (M) 9:00 to 10:00 am [employer] (M) noon to 1:00 pm One Day at a Time (B) 4:30 to 5: 30 pm Attitude Adjustment Hour (M) 5:30 to 6:30 pm [employer] (B) 7:30 to 8: 30 pm [facility]s Group (B) 9:00 to 10:00 pm Tuesday [facility] (M) 7 :00 to 8:00 am [place] [facility] (M) 9:00 to 10:00 am [employer] (M) noon to 1:00 pm One Day at a Time(B) 4:30 to 5:30 pm Attitude Adjustment Hour (M) 5: 30 to 6:30 pm Tuesday Night Women??s Group (M) 7:00 to 8:00 pm Tuesday [employer] (M) 7:00 to8:00 am [place] [facility] (M) 9:00 to 10:00 am [employer] (M) noon to 1:00 pm Double Winners (2 ?? Room 1) 1:15 to 2:15 pm One Day at a Time (B) 4:30 to 5:30 pm Attitude Adjustment Hour (M) 5:30 to6:30 pm Tuesday Night Live (M) 8:00 to 9:00 pmE66.9 Obesity, unspecifiedComments: Improved. Gave patient praise for their progress. Strongly encouraged patient to continue with further dietary and exercise change. Increase exercise duration and frequency. Asked them try and eateven less refined carbohydrates, while eating more fruits, veggies and lean protein.Z12.31 Encounter for screening mammogram for malignant neoplasm ofF14.14 Cocaine abuse with cocaine-induced mood hvlchroxQ33.14 Opioid abuse with opioid-induced mood disorder
--- OUTSIDE RECORDS SUMMARY | 2019-01-16 17:10 | XMS REPORT | Continuity of Care Document ---
:1975 External Reference #:[id number] Author Name Elan Arenas D.O. Address [address] [place] [address] Care Team Providers Name Role Phone HCP given Primary Care Physician Unavailable Payers Type Date Identification Numbers Payment Provider Subscriber Effective: Policy Number: [id number] [facility] Kiko Chairez 2018 PayID: [id number] [place] [address] Expires: 2017 Policy Number: [id number] Medicaid Kiko Chairez PayID: [id number] [facility] [place] [address] Advance Directives Description No Information Available Problems [...] Cat Work Status 10/2017 Currently Working at [employer] Hand Dominance Right-handed Abuse No history of [...] Patient is currently sexually active Age 1st Piney 19 Years Old Allergies, Adverse Reactions, Alerts [...] tab by G47.00 Yadira, s mouth up Rayf, to three M.D. times a day as needed for anxiety/pa ck attacks Topiramate 06/13 Active Tablets 100mg 30tab 1 tablet Tala, s by mouth MD Jcarlos daily Venlafaxine HCL 05/25 Active Caps ER 75mg 90cap 3 caps by Yaidra, 24HR s mouth Rafy, every day M.D. [...] 11/28 morning rx due 11/01/18; suboxone prescriber #[id number] Suboxone 09/15 Hx Film 2-0.5mg 2unit 1 film by F11.20 Silcocatrachito, s corrina Hillman, - every M.D. 09/18 starting on 09/17/18 (use remaining 8/2 film for 10/ dose); suboxone prescriber #[id number] Suboxone 09/14 Hx Film 8-2mg 2unit 1/2 film F11.20 Silcoff, s by corrina Hillman, - now; march M.D. 09/15 take another 1/2 film today after 4 or more hours; take 1/2 film tomorrow am; suboxone prescriber # [id number] Suboxone 09/13 Hx Film 8-2mg 2film 1/2 film F11.20 Silcocatrachito, s by corrina Hillman, - Isabela white 09/14 tomorrow am and Tuesday am; may take 1 more dose Harper amy; suboxone prescriber # [id number] Alex CQ 09/07 Hx Patches 14mg/24HR 28uni [...] CPT Code Status Date Vaccine Lot # [id number] Given 08/24/2018 Influenza Virus Vaccine, Quadrivalent, Split, [id number] Preservative Free 54961 Given 11/10/2017 MMR Virus Immunization [id number] 73785 Given 11/08/2017 Influenza Virus Vaccine, Quadrivalent, Split, [id number] Preservative Free 54733 Given 05/17/2017 Adacel or Boostrix, TDaP 33454 Given 05/17/2017 MMR Virus Immunization U-Flu Given 09/27/2016 Influenza,Unspecified U-Flu Given 09/06/2013 Influenza,Unspecified 44442 Given 08/02/2012 Flu, Split Virus 3Yrs Vital [...] Date Facility Test Result H/L Range Note GC/Chlamydia 12/16/2018 [facility] Chlamydia Negative Negative Amplified Rna [phone] trachomatis Rna Neisseria gonorrhoeae (GC) Rna Negative Negative Laboratory test 12/16/2018 [facility] Gardnerella/Yeast: SEE RESULT 1 finding [phone] Vaginal Dna BELOW Trichomonas Vaginalis Rna Negative Negative 2 Urine Culture And 12/16/2018 [facility] Urine Culture SEE RESULT BELOW 3 Sensitivities [phone] Urinalysis Profile 12/16/2018 [facility] Urine Color Merari [phone] Urine Appearance Cloudy Urine Specific Ranson 1.026 N 1.010-1.030 Urine pH 6.0 N [...] Present Abnormal Absent CBC Auto Diff 12/16/2018 [facility] White Blood 12.7 10^3/uL High 3.5 -10.8 [phone] Count Red Blood Count 4.98 10^6/uL N [...] Cells % 0.1 Laboratory test finding 12/16/2018 [facility] Lactic Acid 1.5 mmol/L N 0.5-2.0 4 [phone] Laboratory test finding 12/16/2018 [facility] Amylase 45 U/L N 29- 103 [phone] Lipase 45 U/L N 11.0-82.0 C Reactive Protein 15.35 mg/L High <8.01 HCG 0.83 mIU/mL 5 Comp Metabolic Panel 12/16/2018 [facility] Sodium 138 mmol/L N 135- 145 [phone] Potassium 3.7 mmol/L N 3.5-5.0 Chloride 106 [...] Non- 98.2 >60 Egfr 118.8 >60 6 Urine Drug 12/16/2018 [facility] Amphetamine Ur None Detected None Detect SCR ED & [phone] Screen Pain Clinic Barbiturates Urine Screen None Detected None Detect Benzodiazepine Urine Screen None Detected None Detect Urine Cannabinoids Screen Presumptive Posi <SEE NOTE> Abnormal None Detect 7 Urine Cocaine Screen Presumptive Posi <SEE NOTE> Abnormal None Detect 8 Urine Opiates Screen None Detected None Detect Urine Phencyclidine Screen None Detected None Detect 9 Laboratory test 11/24/2018 [facility] Hemoglobin A1c 6.2 % High 4.0- 5.6 10 finding [phone] (Glyco HGB) TSH (Thyroid Stim Horm) 1.36 mcIU/mL N 0.34-5.60 11 CBC Auto Diff 11/24/2018 [facility] White Blood 11.7 10^3/uL High 3.5 -10.8 [phone] Count Red Blood Count 5.61 10^6/uL High [...] Blood Cells % 0 Laboratory test 11/24/2018 [facility] Vitamin D Total 19.4 ng/mL Low 20-50 12 finding [phone] 25(Oh) Lyme Disease Serology Negative Negative 13 Anti Nuclear Antibody 0.2 U 14 Rheumatoid Factor < 10 IU/mL N <15 15 Cyclic Citrullinated Pep Igg <15.6 U 16 Comp Metabolic Panel 11/24/2018 [facility] Sodium 136 mmol/L N 135- 145 [phone] Potassium 4.0 mmol/L N 3.5-5.0 Chloride 103 [...] Egfr Non- 98.2 >60 Egfr 118.8 >60 17 Lipid Profile 11/24/2018 [facility] Triglycerides 367 mg/dL 18 (Trig/Chol/HDL) [phone] Cholesterol 263 mg/dL 19 HDL Cholesterol 43.0 mg/dL 20 LDL Cholesterol 147 mg/dL 21 Laboratory test 11/24/2018 [facility] Erythrocyte Sed 32 mm/Hr High 0 -14 22 finding [phone] Rate C Reactive Protein 7.18 mg/L N <8.01 23 Urine Drug Screen Inhouse 11/16/2018 In House Ua Cocaine + Ua Opiates - Ua Amphetamines - Urine Methanphetamines - Urine Benzodiazepines QN Dun[place] - Urine Oxycodone QL - Urine Drug Screen Inhouse 10/31/2018 In House Ua Cocaine - Ua Opiates - Ua Amphetamines - Urine Methanphetamines - Urine Benzodiazepines QN [place] - Urine Oxycodone QL - Urine Drug 10/12/2018 [facility] Amphetamine Ur None Detected None Detect SCR ED & [phone] Screen Pain Clinic Barbiturates Urine Screen None Detected None Detect Benzodiazepine Urine Screen Presumptive Posi <SEE NOTE> Abnormal None Detect 24 Urine Cannabinoids Screen None Detected None Detect Urine Cocaine Screen Presumptive Posi <SEE NOTE> Abnormal None Detect 25 Urine Opiates Screen None Detected None Detect Urine Phencyclidine Screen None Detected None Detect 26 Comp Metabolic Panel 10/12/2018 [facility] Sodium 137 mmol/L N 135- 145 [phone] Potassium 3.8 mmol/L N 3.5-5.0 Chloride 103 [...] Egfr Non- 94.9 >60 Egfr 114.8 >60 27 Laboratory test finding 10/12/2018 [facility] HCG < 0.60 mIU/ mL 28 [phone] Acetaminophen < 15 g/mL 29 Alcohol < 10 mg/dL N <10 Salicylate < 2.50 mg/dL <30 TSH (Thyroid Stim Horm) 1.07 mcIU/mL N 0.34-5.60 CBC Auto Diff 10/12/2018 [facility] White Blood 12.3 10^3/uL High 3.5 -10.8 [phone] Count Red Blood Count 5.06 10^6/uL N [...] Blood Cells % 0.2 Urinalysis Profile 10/12/2018 [facility] Urine Color Yellow [phone] Urine Appearance Cloudy Urine Specific Ranson 1.011 N 1.010-1.030 Urine pH 8.0 N [...] Present Abnormal Absent Urine Culture And 10/12/2018 [facility] Urine Culture SEE RESULT 30 Sensitivities [phone] BELOW Urine Drug Screen 09/29/2018 In House Ua Cocaine - Inhouse Ua Opiates - Ua Amphetamines - Urine Methanphetamines - Urine Benzodiazepines QN [place] - Urine Oxycodone QL - Urine Drug Screen Inhouse 09/15/2018 In House Ua Cocaine - Ua Opiates - Ua Amphetamines - Urine Methanphetamines - Urine Benzodiazepines QN [place] - Urine Oxycodone QL - Laboratory test 07/05/2018 [facility] TSH (Thyroid 1.55 mcIU/mL N 0.34-5.60 finding [phone] Stim Horm) Basic Metabolic 07/05/2018 [facility] Sodium 138 mmol/L N 135-145 Panel [phone] Potassium 4.3 mmol/L N 3.5-5.0 Chloride 106 mmol/L N 101-111 Co2 Carbon Dioxide 24 mmol/L N 22-32 Anion Gap 8 mmol/L N 2-11 Glucose 106 mg/dL High 70-100 Blood Urea Nitrogen 16 mg/dL N 6-24 Creatinine 0.89 mg/dL N 0.51-0.95 BUN/Creatinine Ratio 18.0 N 8-20 Calcium 9.0 mg/dL N 8.6-10.3 Egfr Non- 69.6 >60 Egfr 84.2 >60 31 Laboratory test 07/05/2018 [facility] Insulin Level 74.9 mcIU/mL High 2.0-16.0 finding [phone] Pthi 07/05/2018 [facility] Calcium (PTH 9.0 mg/dL N 8.6-10.3 [phone] Intact) PTH Intact 5.3 pmol/L N 1.3-9.3 Culture Urine Inhouse 07/03/2018 In House Colonies negative 32 Ua Inhouse 07/03/2018 In House Ua Glucose - Ua Bilirubin - Ua Ketones - Ua Specific Ranson 1.020 Ua Blood sm/ 1+ Ua PH 6.0 Ua Protein - Ua Urobilinogen - Ua Nitrite - Ua Leukocytes - Laboratory test finding 07/03/2018 In House Test Urine negative Laboratory test finding 05/30/2018 In House Hemoglobin A1c 5.9 Laboratory test finding 05/10/2018 In House Culture Throat Rapid negative Screen Culture Throat negative Basic Metabolic Panel 05/04/2018 [facility] Sodium 134 mmol/L Low 135 -145 [phone] Potassium 4.3 mmol/L N 3.5-5.0 Chloride 101 mmol/L N 101-111 Co2 Carbon Dioxide 24 mmol/L N 22-32 Anion Gap 9 mmol/L N 2-11 Glucose 104 mg/dL High 70-100 Blood Urea Nitrogen 15 mg/dL N 6-24 Creatinine 0.70 mg/dL N 0.51-0.95 BUN/Creatinine Ratio 21.4 High 8-20 Calcium 9.3 mg/dL N 8.6-10.3 Egfr Non- 91.8 >60 Egfr 118.0 >60 33 CBC Auto Diff 05/04/2018 [facility] White Blood Count 9.6 10^3/uL N 3.5-10.8 [phone] Red Blood Count 4.54 10^6/uL N 4.00-5.40 [...] Blood Cells % 0.1 Celiac Panel 05/04/2018 [facility] Tissue Transglutaminase IgA <1.2 U/ mL 34 [phone] Ab Immunoglobulin A 358 mg/dL Abnormal 61 - 356 Celiac Interpretation See Comment 35 Laboratory test 05/04/2018 [facility] Erythrocyte Sed 29 mm/Hr High 0 -14 finding [phone] Rate Lyme Disease Serology Negative Negative 36 TSH (Thyroid Stim Horm) 1.95 mcIU/mL N 0.34-5.60 Laboratory test finding 03/02/2018 In House Hemoglobin A1c 6.0 Laboratory test finding 11/28/2017 [facility] HCG 0.75 mIU/ mL 37 [phone] Acetaminophen < 15 g/mL 38 Alcohol < 10 mg/dL N <10 Salicylate < 2.50 mg/dL <30 Comp Metabolic Panel 11/28/2017 [facility] Sodium 134 mmol/L N 133- 145 [phone] Potassium 3.6 mmol/L N 3.5-5.0 Chloride 100 [...] Egfr Non- 92.2 >60 Egfr 118.6 >60 39 Laboratory test 11/28/2017 [facility] Lactic Acid 1.9 mmol/L N 0.5- 2.0 40 finding [phone] CBC Auto Diff 11/28/2017 [facility] White Blood 10.4 10^3/uL N 3.5- 10.8 [phone] Count Red Blood Count 4.85 10^6/uL N [...] Blood Cells % 0.1 Laboratory test 11/28/2017 [facility] Urine Culture And SEE RESULT 41 finding [phone] Sensitivities BELOW Urine Drug SCR 11/28/2017 [facility] Amphetamine Ur None None ED & Pain [phone] Screen Detected Detect Clinic Barbiturates Urine Screen None Detected None Detect Benzodiazepine Urine Screen None Detected None Detect Urine Cannabinoids Screen None Detected None Detect Urine Cocaine Screen None Detected None Detect Urine Opiates Screen None Detected None Detect Urine Phencyclidine Screen None Detected None Detect 42 Urinalysis Profile 11/28/2017 [facility] Urine Color Yellow [phone] Urine Appearance Cloudy Urine Specific Ranson 1.021 N 1.010-1.030 Urine pH 6.0 N [...] Present Abnormal Absent CBC Auto Diff 11/16/2017 [facility] White Blood 12.6 10^3/uL High 3.5 -10.8 [phone] Count Red Blood Count 4.39 10^6/uL N [...] Cells % 0 Basic Metabolic Panel 11/16/2017 [facility] Sodium 137 mmol/L N 133- 145 [phone] Potassium 3.7 mmol/L N 3.5-5.0 Chloride 103 mmol/L N 101-111 Co2 Carbon Dioxide 27 mmol/L N 22-32 Anion Gap 7 mmol/L N 2-11 Glucose 106 mg/dL High 70-100 Blood Urea Nitrogen 10 mg/dL N 6-24 Creatinine 0.72 mg/dL N 0.51-0.95 BUN/Creatinine Ratio 13.9 N 8-20 Calcium 8.7 mg/dL N 8.6-10.3 Egfr Non- 89.3 >60 Egfr 114.8 >60 43 Laboratory test 11/16/2017 [facility] HCG 0.80 mIU/mL 44 finding [phone] Laboratory test 11/16/2017 [facility] Hemoglobin A1c 6.3 % High 4.0- 5. 45 finding [phone] (Glyco HGB) 6 1 SEE RESULT BELOW Name: KIKO CHAIREZ : [address]: Fran Villanueva MD Acct: [id number] Unit: [id number] AGE: 43 Location: ED Re12/16/18 SEX: F Status: DEP ER SPEC: [id number] LINO: 12/16/[address] [facility] [address]: Adri Mao MD REQ: [id number] RECD: 12/16/18 STATUS: DEENA KELLY DR: Rafy [...] test for therapeutic success or failure. * - Main Lab . END OF REPORT DEPARTMENT OF PATHOLOGY, [address] [place] [address] Kelvin Alejandre M.D. Director [facility] # [id number] 2 GC/Chlamydia Source?: Endocervical Trichomonas Source: Endocervical 3 SEE RESULT BELOW Name: CONTRERASJACQUESOUMAR Mills : [address]: Fran Villanueva MD Acct: [id number] Unit: [id number] AGE: 43 Location: ED Re12/16/18 SEX: F Status: DEP ER SPEC: [id number] LINO: 12/16/[address]: Adri Mao MD REQ: [id number] RECD: 12/16/18 STATUS: DEENA KELLY DR: Rafy May MD _ SOURCE: URINE SPDESC: ORDERED: Urine Culture Procedure Result Reported Site Urine Culture Final 12/18/18- 0850 ML Organism 1 ESCHERICHIA COLI [place] Count >100,000 (Many) CFU/ML 1. ESCHERICHIA COLI [...] . END OF REPORT DEPARTMENT OF PATHOLOGY, [address] [place] [address] Kelvin Alejandre M.D. Director [facility] # [id number] 4 [facility] Severe Sepsis and Septic Shock Management Bundle Measure requires all lactic acids initially measuring >2.0 mmol/L be repeated. 5 <5.0 Negative 5.0 - 25.0 Indeterminate (Repeat testing recommended after 72 hours) >25.0 Positive Perimenopausal women can display HCG levels of up to 20 mIU/mL 6 Because ethnic data is not always [...] 5 Kidney failure <15 (or dialysis) 7 Presumptive Positive Presumptive positive results are unconfirmed. 8 Presumptive Positive Presumptive positive results are unconfirmed. 9 The urine specimen was tested at the listed cutoffs: Drug class test level (ng/mL) Amphetamines 500 Barbiturates 200 Benzodiazepine metabolites 200 Cocaine metabolites 150 Cannabinoids 50 Opiates 300 Pcp 25 Specimen was received without chain of custody. Results should be used for medical purposes only. 10 Therapeutic target for the treatment of diabetes mellitus patients is <7% HBA1C, and in selective patients <6.0%. Please refer to [place] [employer] diabetic care guidelines for further information. 11 FASTING 12 FASTING 13 No evidence of antibodies to B. burgdorferi detected. False negative results may occur in recently infected patients (<=2 weeks) due to low or undetectable antibody levels to B. burgdorferi. If recent exposure is suspected, a second sample should be collected and tested in 2-4 weeks. Test Performed by: [facility] [address] 14 REFERENCE VALUE <=1.0 (Negative) Test Performed by: [facility] [place] [address] 15 FASTING 16 REFERENCE VALUE <20.0 (Negative) Test Performed by: [place] [address] 17 Because ethnic data is not always readily [...] 15-29 5 Kidney failure <15 (or dialysis) 18 Desirable: <150 Borderline High: 150-199 High: 200-499 Very High: >500 19 Desirable: <200 Borderline High: 200-239 High: >239 20 Low: <40 Desirable: 40-60 High: >60 21 Desirable: <100 Near Optimal: 100-129 Borderline High: 130-159 High: 160-189 Very High: >189 22 FASTING 23 FASTING 24 Presumptive Positive Presumptive positive results are unconfirmed. 25 Presumptive Positive Presumptive positive results are unconfirmed. 26 The urine specimen was tested at the listed cutoffs: Drug class test level (ng/mL) Amphetamines 500 Barbiturates 200 Benzodiazepine metabolites 200 Cocaine metabolites 150 Cannabinoids 50 Opiates 300 Pcp 25 Specimen was received without chain of custody. Results should be used for medical purposes only. 27 Because ethnic data is not always [...] <50 ug/mL Toxic concentration: >120 ug/mL 30 SEE RESULT BELOW Name: KIKO CHAIREZ Lina : [address]: Alfa Kirkland MD Acct: [id number] Unit: [id number] AGE: 43 Location: [address] Re10/12/18 SEX: F Status: ADM IN SPEC: [id number] LINO: 10/12/[address] [facility] [address]: Blaine Orourke MD REQ: [id number] RECD: 10/12/18 STATUS: DEENA KELLY DR: Rafy May MD _ SOURCE: URINE SPDESC: ORDERED: Urine Culture Procedure Result Reported Site Urine Culture Final 10/14/18- 5908 ML No growth of clinically significant organisms * ML - Main Lab . END OF REPORT DEPARTMENT OF PATHOLOGY, [address] [place] [address] Kelvin Alejandre M.D. Director [facility] # [id number] 31 Because ethnic data is not always readily [...] 15-29 5 Kidney failure <15 (or dialysis) 32 zita hinton gold 33 Because ethnic data is not always readily [...] 15-29 5 Kidney failure <15 (or dialysis) 34 REFERENCE VALUE <4.0 (Negative) Test Performed by: [address] [address] 35 Negative serology. Celiac disease unlikely. However, approximately 10% of patients with celiac disease are seronegative. Also, patients who are already adhering to a gluten-free diet may be seronegative. If celiac disease is highly clinically suspected, consider HLA-DQ typing. Test Performed by: [facility] [address] [place] [address] 36 No evidence of antibodies to B. burgdorferi detected. False negative results may occur in recently infected patients (<=2 weeks) due to low or undetectable antibody levels to B. burgdorferi. If recent exposure is suspected, a second sample should be collected and tested in 2-4 weeks. Test Performed by: [facility] [address] [place] [address] 37 <5.0 Negative 5.0 - 25.0 Indeterminate (Repeat testing recommended after 72 hours) >25.0 Positive Perimenopausal women can display HCG levels of up to 20 mIU/mL 38 Therapeutic concentration: <50 ug/mL Toxic concentration: >120 ug/mL 39 Because ethnic data is not always readily [...] 15-29 5 Kidney failure <15 (or dialysis) 40 [facility] Severe Sepsis and Septic Shock Management Bundle Measure requires all lactic acids initially measuring >2.0 mmol/L be repeated. 41 SEE RESULT BELOW Name: KIKO CHAIREZ : [address]: Fran Sharp MD Acct: [id number] Unit: [id number] AGE: 42 Location: ED Re11/28/17 SEX: F Status: DEP ER SPEC: [id number] LINO: 11/28/17-[address]: Fran Sharp MD REQ: [id number] RECD: 11/28/17 STATUS: COMP OTHR DR: Rafy May MD _ SOURCE: URINE SPDESC: ORDERED: Urine Culture Procedure Result Reported Site Urine Culture Final 11/30/17- 811 ML No growth of clinically significant organisms * ML - MAIN LAB ([facility]) . END OF REPORT * ML=Testing performed at Main Lab DEPARTMENT OF PATHOLOGY, [address] [place] [address] Kelvin Alejandre M.D. Director [facility] # [id number] 42 The urine specimen was tested at the listed cutoffs: Drug class test level (ng/mL) Amphetamines 500 Barbiturates 200 Benzodiazepine metabolites 200 Cocaine metabolites 150 Cannabinoids 50 Opiates 300 Pcp 25 Specimen was received without chain of custody. Results should be used for medical purposes only. 43 Because ethnic data is not always readily [...] 15-29 5 Kidney failure <15 (or dialysis) 44 <5.0 Negative 5.0 - 25.0 Indeterminate (Repeat testing recommended after 72 hours) >25.0 Positive Perimenopausal women can display HCG levels of up to 20 mIU/mL 45 Therapeutic target for the treatment of diabetes mellitus patients is <7% HBA1C, and in selective patients <6.0%. Please refer to [place] [employer] diabetic care guidelines for further information. Procedures Date Code Description Status 11/08/2018 42124399 Mammogram Completed 07/03/2018 80372 Electrocardiogram Complete Completed 06/14/2018 05470 SC/Im Injections Completed 11/17/2017 56385 Visual Acuity Screening Test Completed 10/17/2017 75303 Electrocardiogram Complete Completed Encounters Type Date Location [...] 11/28/2018 1:30p Main Office Yadira F11.20 Opioid Rafy quezada M.D. uncomplicated Z71.51 Drug [...] F17.210 Nicotine dependence, cigarettes, uncomplicated Z79.899 Other roasterman (current) drug therapy Office Visit 08/24/2018 9:20a Main Office Evelia Rollins, L03.115 Cellulitis of P.A. right lower limb G47.33 Obstructive sleep apnea (adult) (pediatric) E66.9 Obesity, unspecified I10 Essential (primary) hypertension D64.9 Anemia, unspecified R53.1 Weakness Z23 Encounter for immunization Z41.8 Encntr for oth proc for purpose oth than [facility] Z59.4 Lack of adequate food [...] surveillance Office Visit 03/02/2018 9:20a Main Office Natalie Sanders R73.03 Prediabetes G47.00 Insomnia, unspecified F43.23 Adjustment [...] unspecified I10 Essential (primary) hypertension Z79.899 Other retirement (current) drug therapy Office Visit 01/30/2018 9:20a [...] syndromes in chld/adlt, not intractable Z79.899 Other roasterman (current) drug therapy Z03.6 Encntr for obs [...] Office Visit 10/17/2017 4:20p Main Office Evelia Rollins P.A. R07.89 Other chest pain I10 Essential (primary) hypertension G89.4 Chronic pain syndrome F43.23 Adjustment disorder with mixed anxiety and depressed mood E66.9 Obesity, unspecified K21.9 Gastro-esophageal reflux disease without esophagitis D64.9 Anemia, unspecified Plan of Treatment Future Appointment(s):12/19/2018 2:00 pm - Evelia Rollins P.A. at Main [id number] 9:20 am - Evelia Rollins PElsi at Main Ewfjpj8009/07/2018 - Evelia Rollins P.A.G47.33 Obstructive sleep apnea (adult) (pediatric)Follow up:cont use of CPAPE66.9 Obesity, unspecifiedFollow up:wt gain, vojjgktarZ82.210 Nicotine dependence, cigarettes, uncomplicatedNew Medication:Nicoderm CQ 14 mg/24HR - 1 patch per dayZ79.899 Other roasterman (current) drug therapyComments:Will check whether Dr. May will see this pt in this office for suboxone management. Addendum: HS will see this pt for management of suboxoneFollow up:Call [facility] Outpatient for appt as resouces
[2019-01-16] MEDS ORDERED: Mouth Piece, Nicotine* 1 EACH CARTRIDGE INH PRN (17:35)
[2019-01-16 17:42] LABS: ABS Basophils 0.1 10^3/ul (0-0.2); ABS Eosinophils 0.3 10^3/ul (0-0.6); ABS Lymphocytes 3.2 10^3/ul (1.0-4.8); ABS Monocytes 0.8 10^3/ul (0-0.8); ABS Neutrophils 7.9 10^3/ul (1.5-7.7); ABS Nucleated RBC 0 10^3/ul; Eosinophil % 2.2 %; Hematocrit 46 % (35-47); Lymphocyte % 26.2 %; Mean Corpuscular HGB Conc 33 g/dl (31-36); Mean Corpuscular Hemoglobin 27 pg (27-31); Mean Corpuscular Volume 82 fL (80-97); Mean Platelet Volume 7.1 fL (7.4-10.4); Nucleated Red Blood Cells % 0.1; Platelet Count 414 10^3/ul (150-450); Red Blood Count 5.63 10^6/ul (4.00-5.40); Red Cell Distribution Width 15 % (10.5-15); White Blood Count 12.2 10^3/ul (3.5-10.8)
[2019-01-16 18:05] LABS: ALT 53 U/L (7-52); AST 36 U/L (13-39); Albumin 4.7 g/dL (3.2-5.2); Albumin/Globulin Ratio 1.2 (1-3); Alcohol < 10 mg/dL (<10); Alkaline Phosphatase 79 U/L (34-104); Anion Gap 11 mmol/L (2-11); BUN/Creatinine Ratio 18.8 (8-20); Blood Urea Nitrogen 15 mg/dL (6-24); CO2 Carbon Dioxide 23 mmol/L (22-32); Chloride 102 mmol/L (101-111); EGFR African American 95.2 (>60); EGFR Non-African American 78.7 (>60); Globulin 3.9 g/dL (2-4); Glucose 110 mg/dL (70-100); Salicylate < 2.50 mg/dL (<30); Sodium 136 mmol/L (135-145); Total Protein 8.6 g/dL (6.4-8.9)
[2019-01-16 18:19] LABS: TSH (Thyroid Stimulating Horm) 1.42 mcIU/mL (0.34-5.60)
[2019-01-16 18:23] LABS: Acetaminophen 1 mcg/mL
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
[2019-01-16 20:36] LABS: Urine Appearance Clear; Urine Bilirubin Negative (Negative); Urine Blood Negative (Negative); Urine Color Yellow; Urine Glucose Negative (Negative); Urine Ketones Negative (Negative); Urine Nitrite Negative (Negative); Urine Protein Negative (Negative); Urine Specific Gravity 1.017 (1.010-1.030); Urine Urobilinogen Negative (Negative)
[2019-01-16 20:55] LABS: Barbiturates Urine Screen None Detected (None Detect); Benzodiazepine Urine Screen None Detected (None Detect); Urine Cannabinoids Screen None Detected (None Detect)
[2019-01-16] MEDS ORDERED: Nicotine GUM* 2 MG PO PRN (22:23)
[2019-01-16] MEDS ORDERED: Al Hydrox/Mg Hydrox/Simet LIQ* 30 ML UDC PO PRN (22:23)
[2019-01-16] MEDS ORDERED: Fluticasone NASAL SPRAY 50MCG* 16 gm SPRAY BTL BOTH NARES PRN (22:25)
[2019-01-16] MEDS: Topiramate TAB(*) 100 MG PO SCH (22:45)
[2019-01-17 07:48] LABS: HDL Cholesterol 39.9 mg/dL
[2019-01-17] MEDS: buPROPion SR TAB.SR* 100 MG PO SCH (09:03)
[2019-01-17] MEDS: Lisinopril TAB* 10 MG PO SCH (09:03)
[2019-01-17] MEDS: Hydrochlorothiazide TAB* 25 MG PO SCH (09:03)
[2019-01-17] MEDS: Multivitamins/Minerals TAB PO SCH (09:03)
[2019-01-17] MEDS: Ferrous Sulfate TAB* 325 MG PO SCH (09:03)
[2019-01-17] MEDS: Acetaminophen TAB* 325 MG PO PRN ×3 (09:06→21:34)
[2019-01-17] MEDS: Nicotine Inhaler* 10 MG AMP INH PRN ×4 (12:15→21:34)
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
[2019-01-17] MEDS: Topiramate TAB(*) 100 MG PO SCH (21:34)
[2019-01-18] MEDS: Hydrochlorothiazide TAB* 25 MG PO SCH (09:41)
[2019-01-18] MEDS: Multivitamins/Minerals TAB PO SCH (09:42)
[2019-01-18] MEDS: Lisinopril TAB* 10 MG PO SCH (09:42)
[2019-01-18] MEDS: buPROPion SR TAB.SR* 100 MG PO SCH (09:42)
[2019-01-18] MEDS: Ferrous Sulfate TAB* 325 MG PO SCH (09:42)
[2019-01-18] MEDS: Acetaminophen TAB* 325 MG PO PRN (09:43)
[2019-01-18] MEDS: Naproxen TAB* 250 MG PO PRN ×2 (10:17→20:57)
[2019-01-18] MEDS: Venlafaxine EXT RELEASE CAP* 75 MG PO SCH (10:17)
--- NOTE | 2019-01-18 10:57 | PN ---
BSU: Group Therapy Note - Service Type Service Type: [id number] Group Psychotherapy - Cognitive Behavioral Group Therapy ( CBT):Patient was attentive and participatory in CBT programming this morning, and remained in good behavioral control. Patient expressed positive insights regarding relevant treatment interventions and goals.
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
[2019-01-18] MEDS: Topiramate TAB(*) 100 MG PO SCH (20:58)
[2019-01-18] MEDS: Nicotine Inhaler* 10 MG AMP INH PRN (20:58)
[2019-01-19 08:25] VITALS: BP 120/78
[2019-01-19] MEDS: Venlafaxine EXT RELEASE CAP* 75 MG PO SCH (08:54)
[2019-01-19] MEDS: buPROPion SR TAB.SR* 100 MG PO SCH (08:54)
[2019-01-19] MEDS: Ferrous Sulfate TAB* 325 MG PO SCH (08:54)
[2019-01-19] MEDS: Hydrochlorothiazide TAB* 25 MG PO SCH (08:54)
[2019-01-19] MEDS: Multivitamins/Minerals TAB PO SCH (08:54)
[2019-01-19] MEDS: Lisinopril TAB* 10 MG PO SCH (08:54)
[2019-01-19] MEDS: Naproxen TAB* 250 MG PO PRN (08:55)
--- NOTE | 2019-01-19 11:54 | PN ---
BSU: Group Therapy Note - Service Type Service Type: [id number] Group Psychotherapy - Cognitive Behavioral Group Therapy ( CBT):Patient was attentive and participatory in CBT programming this morning, and remained in good behavioral control. Patient expressed positive insights regarding relevant treatment interventions and goals.
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
== END 2019-01-19 12:11 | disposition home or self-care (01) | DRG 751 ==
LOC: ED 16:56 → BSU 20:33
PROVIDERS: ADMIT Psychiatry & Neurology Psychiatry; ATTEND Psychiatry & Neurology Psychiatry
DX: F33.9 Major depressive disorder, recurrent, unspecified (principal); R45.851 Suicidal ideations; I10 Essential (primary) hypertension; F17.290 Nicotine dependence, other tobacco product, uncomplicated; F14.10 Cocaine abuse, uncomplicated; F15.10 Other stimulant abuse, uncomplicated; Z91.410 Personal history of adult physical and sexual abuse; Z96.649 Presence of unspecified artificial hip joint; Z81.8 Family history of other mental and behavioral disorders
CPT/HCPCS: 36415; 80053; 80061; 80307; 80320; 80329; 81003; 83036; 84443; 85025; 90853; 99222; 99231; 99238; 99284; A9270-GY; G0480